=== PATIENT | male | born 1955 | race Caucasian/White ===

== ENCOUNTER 2016-08-14 13:39 | Inpatient (IN) | payer MEDICARE ==
[~2016-08-14] VITALS: Ht 172.7 cm; Wt 74.0 kg
[2016-08-14] VITALS (12 sets, daily range): BP systolic 72–2021; BP diastolic 45–81
--- NOTE | ~2016-08-14 | EKG ---
[place], [place] ELECTROCARDIOGRAM REPORT NAME: JAMAL HIDALGO UNIT #: [id number] [facility] DOCTOR: DAKOTA LEO MD BIRTHDATE: [birth year] DOS: 08/14/2016 TIME: 1452. FINDINGS: Normal sinus rhythm at rate of 84. Old inferior wall myocardial infarction, poor precordial R wave progression, nonspecific T wave abnormality. Abnormal electrocardiogram. DAKOTA LEO MD CM:EKGRPT:ELECTROCARDIOGRAM REPORT 1139 1306 DAKOTA LEO MD
--- NOTE | ~2016-08-14 | O ---
[place], [place] OPERATIVE NOTE NAME: [facility]IDALGO [id number] UNIT #: [id number] ROOM: [facility] DOCTOR: KRYSTLE BRUNER,IRENE BIRTHDATE: [birth year] DOS: A 61-year-old patient who was presented with chief complaint of abnormal blood work, lactic acidosis initially, subsequently lactic acid has been reduced, suspected inflammatory response in the colon, constipation. PROCEDURE: Today's procedure part of investigation is colonoscopy. PREMEDICATION: Versed and Diprivan. SCOPE: Olympus forward-viewing colonoscope 10L video. REPORT: After putting the patient in left lateral position and after application of lubricant to the scope, the scope was introduced. Thereafter, under direct visualization, I advanced through the length of colon with difficulty. Difficulty being presence of solid stool throughout the length of colon. Base of cecum could not be explored due to retained stool. Numerous lavage was done which was fruitless in detailed assessment. The patient extubated and tolerated the procedure well. IMPRESSION: Retained stool otherwise, no detailed assessment of the colon. PLAN AND DISCUSSION: This patient at the present time has had enough colonic prep; we are going to continue with daily MiraLax. He was going to get solid food and clinical reassessment. He is okay for discharge on Thursday. IRENE DALTON MD CM:OPRECORD:OPERATIVE NOTE 1604 50 IRENE DALTON MD 08/15/161850 interface
--- NOTE | ~2016-08-14 | CON ---
[place], [place] REPORT OF CONSULTATION NAME: [facility]IDALGO [id number] UNIT #: [id number] ROOM: [facility] DOCTOR: ELLIE RODRIGUEZ MD BIRTHDATE: [birth year] DOS: 08/16/2016 REASON FOR CONSULTATION: Acute kidney injury. HISTORY OF PRESENT ILLNESS: The patient is a 61-year-old male. He presented to the hospital a few days ago with the abdominal discomfort. Apparently, his initial lactic acid level is 5.1. The patient did complain of constipation and he had imaging studies performed due to concerns for an ischemic bowel. He underwent colonoscopy eventually and was found to have retained stools. The patient has experienced transient hypotension it seems and he did receive a CT scan with IV contrast. It appears following these events, he has developed acute kidney injury. His creatinine today was noted to be 1.9 with some decline in his urine output. He has received a number of liters of fluids since he has been in the hospital. He was awake and alert when I saw him and denied shortness of breath. He was wearing nasal cannula at 4 L. He stated that he does wear it sometimes at night time. He denied any chest pain, fevers, chills or night sweats. He did have a Patiño catheter in place. 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 His true baseline creatinine is not quite clear. Last labs, I did note was from 2011, which showed a creatinine of 0.8. ALLERGIES: No known drug allergies. HOME MEDICATIONS: Included multivitamins, thiamine. Remainder of his medications were reviewed and were on the chart. PAST MEDICAL HISTORY: Alcohol abuse, CHF, COPD, dementia, hypertension, anemia, pressure ulcer, subclavian steal syndrome, right knee surgery. It seems he had a vascular procedure, some sort of the iliac arteries, hip surgery. FAMILY HISTORY: From what I can gather no reported history of chronic kidney disease, otherwise, noncontributory. SOCIAL HISTORY: He does have history of alcohol abuse and apparently quit last November, he does use marijuana and does smoke. REVIEW OF SYSTEMS: As per HPI, otherwise a 10-point review of systems was reviewed and was negative or somewhat limited. PHYSICAL EXAMINATION: VITAL SIGNS: Temperature afebrile, pulse 97, respiratory rate 13, blood pressure 105/70. GENERAL: He is lethargic, but arousable, awake, does follow commands, in no apparent distress. HEENT: Shows no JVD. Sclerae are anicteric. Mucous membranes appeared somewhat dry. Pharynx is clear. NECK: Supple. Trachea is midline. There is no neck lymphadenopathy. There is no thyromegaly. LUNGS: Diminished breath sounds. No appreciable wheeze. He is not using accessory muscles of respiration. [place], [place] REPORT OF CONSULTATION NAME: JAMAL HIDALGO UNIT #: [id number] ROOM: [facility] DOCTOR: ELLIE RODRIGUEZ MD BIRTHDATE: [birth year] HEART: Normal S1, S2. No rub, thrill or gallop. ABDOMEN: Soft, mildly distended. I could not appreciate organomegaly. There is no rigidity, rebound or guarding. There is no CVA tenderness. EXTREMITIES: Showed trace edema. There is no lower extremity lymphadenopathy. Distal pulses are 2+. SKIN: Showed no overt rash. There is no petechiae or purpura. Skin temperature is warmth. NEUROLOGIC: He was awake, alert and following commands, although he was lethargic and likely not at his baseline, but his baseline mental status is not clear. LABORATORY DATA: Hemoglobin 8.2, white count of 15.4, platelets of 304. BUN 35, creatinine 1.9, sodium 137, potassium 3.5, CO2 24, calcium 7.3, albumin of 2.3. IMPRESSION: 1. Acute kidney injury with an unclear true baseline creatinine. The etiology seems consistent with a prerenal/acute tubular necrosis like picture, likely related to transient ischemia as well as likely an element of contrast-induced nephropathy. 2. Abdominal pain/constipation. 3. Lactic acidosis, which may have been transient. The patient does not appear to have a metabolic acidosis presently. 4. Anemia. 5. Apparent history of alcohol abuse. 6. Questionable confusion with the questionable history of dementia. 7. Chronic obstructive pulmonary disease with tobacco abuse. PLAN: 1. Fluids should continue, however, will decrease the rate to 60 mL per hour. 2. Dose the medications for creatinine clearance. 3. Replace electrolytes as needed. 4. Avoid hypotension. 5. Transfuse as needed. 6. Consider rechecking the lactic acid level. 7. No urgent need for dialysis at this time. Thank you for this consultation. We will follow with you. [place], [place] REPORT OF CONSULTATION NAME: JAMAL HIDALGO UNIT #: [id number] ROOM: [facility] DOCTOR: JENNIFER BRUNER,ELLIE Martinez BIRTHDATE: [birth year] ELLIE RODRIGUEZ MD CM:CONSTR:REPORT OF CONSULTATION 1612 08/17/16 0938 interface
--- NOTE | ~2016-08-14 | PR ---
[place], [place] PROGRESS NOTE NAME: JAMAL HIDALGO UNIT #: [id number] ROOM: [facility] DOCTOR: ELLIE RODRIGUEZ MD BIRTHDATE: [birth year] DOS: 08/17/2016 SUBJECTIVE: The patient was seen and examined. Events were noted. He is now intubated on pressors. His urine output has been marginal. PHYSICAL EXAMINATION: VITAL SIGNS: Showed a temperature 97.8, pulse 82, respirations 14, systolic blood pressures were in the 100s. GENERAL: He is intubated, critically ill, sedated. HEENT: Shows no JVD. Endotracheal tube in place. LUNGS: Diminished breath sounds. No wheeze. HEART: Normal S1, S2. No rub, thrill or gallop. ABDOMEN: Soft, nontender, mild palpation. EXTREMITIES: With trace edema. LABORATORY DATA: Hemoglobin 9.4, white count of 14.2, platelets of 318. Sodium 132, potassium 4.0, CO2 of 16, BUN 46, creatinine 2.5. Glucose 107, calcium 6.9, magnesium 1.5, albumin of 1.8. IMPRESSION: 1. Acute kidney injury with an unclear true baseline creatinine. Etiology seems consistent with a prerenal/acute tubular necrosis like picture. There is also likely an element of contrast-induced nephropathy. The patient's creatinine continues to rise with marginal urine output. Fluid can continue for now. He will need a close watch and may require dialysis. It seems his JOSEPHINE inhibitor and thiazide are still listed on his medication list. We will discontinue this, especially now that he is on pressors. 2. Metabolic acidosis. The patient originally presented with lactic acidosis. This needs to be rechecked. We will change fluids to a bicarbonate infusion. Follow ABGs and lactic acid trends. 3. Respiratory failure. He is now on vent support. 4. Anemia. Transfuse as needed. 5. History of alcohol abuse. Continue supportive care. 6. Shock. He is now on pressors. 7. There are plans for the patient to be transferred to a tertiary care center. [place], [place] PROGRESS NOTE NAME: JAMAL HIDALGO UNIT #: [id number] ROOM: [facility] DOCTOR: ELLIE RODRIGUEZ MD BIRTHDATE: [birth year] ELLIE RODRIGUEZ MD CM:PNTRANS 1432 3 ELLIE RODRIGUEZ MD 08/18/16 0444 interface
--- NOTE | ~2016-08-14 | CON ---
[place], [place] REPORT OF CONSULTATION NAME: JAMAL HIDALGO [facility] #: [id number] UNIT #: [id number] ROOM: [facility] DOCTOR: IRENE DALTON MD BIRTHDATE: [birth year] DOS: 08/15/2016 HISTORY OF PRESENT ILLNESS: The patient is a 61-year-old who has presented with chief complaint of abdominal pain, lactic acidosis to 5.1. Chest x-ray was normal in the basic investigation. The patient has been complaining of constipation, not going to the bathroom for 5 days at a time. Therefore, I have been consulted. At the time of admission, a panel of blood work was done. Creatinine was 1.7 and hyponatremic at 129. Electrolytes were balanced. CBC differential, white blood cells 16, H and H of [address] scan of the abdomen and pelvis was done. Compression of L3, L4, S1 was noticed. Otherwise, no acute process was identified. Urinalysis was clear. Urine drug screening was only positive for THC, lipase 85. CT scan with contrast was obtained of the abdomen. Bowel wall thickening of transverse colon seen and there was concern about the above. Hemoglobin A1c 5.5. CBC differential was reassessed. Leukocytosis continued and therefore consultation to GI. PAST MEDICAL HISTORY: Associated congestive heart failure, COPD, and hypertension. SOCIAL HISTORY: Chronic alcohol and nicotine dependency. FAMILY HISTORY: Noncontributory. ALLERGIES: To no known medications. MEDICATIONS: Medication list has been reviewed. The patient has been on clopidogrel. REVIEW OF SYSTEMS: HEENT: Denies double vision, blurred vision. RESPIRATORY: Denies acute shortness of breath; however, chronically short of breath. CARDIOVASCULAR: Denies chest pain. DIGESTIVE SYSTEM: No hematemesis, no hematochezia. Some blood in the stool. PHYSICAL EXAMINATION: VITAL SIGNS: Stable. HEENT: Head normocephalic, nontraumatic. Mouth and buccal mucosa benign. NECK: Supple, no thyromegaly. CHEST: Symmetric anatomy, equal expansion. No wheezes, no rhonchi. HEART: Normal sinus rhythm. No gallop, no murmur. ABDOMEN: Soft. No hepato-organomegaly. Bowel sounds within normal limits. EXTREMITIES: Some stasis dermatitis was noticed. Trace pedal edema on the right leg. NEUROLOGIC: Alert, oriented to time, place, person. IMPRESSION: Constipation, change in bowel habit, abdominal pain, abnormal CT scan of the abdomen, thickening of colon as identified in detail on CT scan, leukocytosis. [place], [place] REPORT OF CONSULTATION NAME: JAMAL HIDALGO UNIT #: [id number] ROOM: [facility] DOCTOR: IRENE DALTON MD BIRTHDATE: [birth year] OTHER ADJUNCTIVE DIAGNOSES: As outlined in the paragraph of past medical and surgical history. PLAN AND DISCUSSION: Colonoscopy has been organized. IRENE DALTON MD CM:CONSTR:REPORT OF CONSULTATION 1540 08/16/16 0745 interface
[~2016-08-14 13:39] MED LIST: ADVAIR 250/501 EA INH; ALBUTEROL; ALUM-MAG HYDRO360 ML PO; AMBIEN10 MG PO; APAP/HYDROCODON1 T46 PO; B-1100 M1 PO; BACTRIM 400 MG-1 TAB PO; BACTRIM DS 8001 TA1 PO; BACTRIM DS 8001 TAB PO; BACTROBAN22 TP; CARTIA XT240 MG PO; CHLORDIAZEPOXID25 M1 PO; CIPRO500 MG PO; DELTASONE10 MG PO; DELTASONE20 M1 PO; DELTASONE20 MG PO; DELTASONE5 MG PO; DILTIAZEM CD240 MG PO; DOXYCYCLINE MO100 MG PO; DULCOLAX10 M1 RC; DUONEB 3 MG/3 ML3 M1 NEB; FEOSOL300 MG PO; FERROUS SULFAT324 M1 PO; FLONASE0.05 MG/AC NS; FOLIC ACID1 MG PO; FOSAMAX70 MG; FOSAMAX70 MG PO; FUROSEMIDE40 MG PO; HEPARIN IV; KEFLEX500 MG PO; KROGER NIC21 MG/24 H T; LASIX20 MG PO; LEVOFLOXACIN500 MG PO; LEVOFLOXACIN750 M2 PO; LIBRIUM25 MG PO; LISINOPRIL; LISINOPRIL20 MG PO; Lovenox40 MG/0.4 SC; MEDROL DOSEPAK4 MG PO; METOPROLOL TART50 M1 PO; MILK OF MA400 MG/51 PO; MIRAPEX0.5 MG PO; MIRAPEX1 MG PO; MUCINEX ER600 MG PO; MUCINEX600 MG PO; MYLANTA PO; NAPROSYN375 MG PO; NATURE'S BLEND F1 MG PO; NATURE'S BLEND100 M2 PO; NEIGHBOR P PO; NICOTINE T21 MG/24 H T; NORVASC10 MG PO; NOVAPLUS LORA2 MG/ML IV; PERCOCET 325 MG1 TA7 PO; PLAVIX75 MG PO; PREDNISONE10 MG PO; PREDNISONE5 MG PO; PROAIR HFA0.09 MG/AC IH; PROTONIX40 MG PO; REQUIP0.5 MG PO; SYMBICORT1 AE1 IH; SYMBICORT1 AE1 INH; SYMBICORT1 AER INH; THERA TABS1 TAB PO; THERA1 TAB PO; THIAMINE100 MG PO; TRAMADOL HCL50 MG PO; TYLENOL325 M1 PO; ULTRAM100 MG PO; VIBRA-TAB100 M1 PO; VIBRAMYCIN100 MG PO; VITAMIN B-11 TAB PO; VITAMIN D PO; Ventolin 02.5 MG/3 M INH; XANAX1 MG PO; ZESTRIL20 MG PO; ZOFRAN ODT4 MG SL; ZYVOX600 M1 IV; [UNRECOGNIZED DRUG - OTHER] IV
[2016-08-14 14:35] LABS: HEMATOCRIT 37.6 % (42.0-52.0); HEMOGLOBIN 11.7 g/dl (14.0-18.0); MEAN CELL VOLUME 81.7 fl (80.0-94.0); MEAN CORPUSCULAR HGB 25.4 pg (27.0-31.0); MEAN CORPUSCULAR HGB CONC 31.1 g/dl (33.0-37.0); MEAN PLATELET VOLUME 8.9 fl (9.6-12.3); PLATELET COUNT AUTOMATED 460 10*3/uL (130-400); RED CELL DISTRI WIDTH 18.5 % (0-14.5); WHITE BLOOD COUNT 16.3 10*3/uL (4.8-10.8)
[2016-08-14 14:50] LABS: ALBUMIN 3.3 gm/dl (3.1-4.5); ALKALINE PHOSPHATASE 317 U/L (45-117); BILIRUBIN, TOTAL 0.6 mg/dl (0.2-1.0); BUN 20 mg/dl (7-24); CARBON DIOXIDE 27 mmol/L (21-32); CHLORIDE 87 mmol/L (98-107); EST GLOM FILT AFRICAN AMERICAN > 60 ml/min; GLUCOSE 99 mg/dL (65-99); POTASSIUM 3.8 mmol/L (3.5-5.1); SGOT/AST 16 IU/L (3-35); SGPT/ALT 12 U/L (12-78); SODIUM 129 mmol/L (136-145); TOTAL PROTEIN 6.7 gm/dL (6.4-8.2)
[2016-08-14 14:53] LABS: TROPONIN I < 0.015 ng/ml (<0.045)
[2016-08-14 15:09] LABS: LYMPHOCYTE # 0.8 10*3/uL (1.3-4.4); MONOCYTE # 0.2 10*3/uL (0.1-1.0); NEUTROPHIL # 15.3 10*3/uL (2.3-7.9); NEUTROPHILS 94 % (47-73); PLATELET SUFFICIENCY HIGH (NORMAL); POLYCHROMASIA SLIGHT; TOTAL CELLS COUNTED 100 #CELLS
[2016-08-14 15:10] LABS: BURR CELLS FEW; HYPOCHROMIA SLIGHT
[2016-08-14 16:06] LABS: BILIRUBIN NEGATIVE (NEGATIVE); BLOOD NEGATIVE (NEGATIVE); CLARITY CLEAR (CLEAR); COLOR YELLOW (YELLOW); GLUCOSE NEGATIVE (NEGATIVE); KETONE NEGATIVE (NEGATIVE); LEUKO ESTERASE NEGATIVE (NEGATIVE); NITRITE NEGATIVE (NEGATIVE); PROTEIN NEGATIVE (NEGATIVE); SPECIFIC GRAVITY <= 1.005 (1.005-1.030); UROBILINOGEN 0.2 E.U./dl (0.2-1.0)
[2016-08-14 16:14] LABS: RBC 0-2 rbc/hpf (0-2); URINE REFLEX COMMENT NO (NO)
[2016-08-14 16:31] LABS: LA>2 REFLEX 2 HR DRAW NOW
[2016-08-14 16:42] LABS: URINE AMPHETAMINES < 1000 (1000ng/ml); URINE BARBITURATES < 200 (200ng/ml); URINE COCAINE < 300 (300ng/ml)
[2016-08-14 18:12] LABS: CKMB 1.2 ng/ml (0.5-3.6); CPK 27 U/L (39-308)
[2016-08-14 18:14] LABS: TROPONIN I < 0.015 ng/ml (<0.045)
[2016-08-14] MEDS ORDERED: PLAVIX75 M1 PO (18:43)
[2016-08-14] MEDS ORDERED: MEDROL DOSEPAK4 MG PO (18:45)
[2016-08-14] MEDS ORDERED: MELOXICAM7.5 MG PO (18:46)
[2016-08-14] MEDS ORDERED: IBU800 M1 PO (18:47)
[2016-08-14] MEDS ORDERED: CYCLOBENZAPRINE10 MG PO (18:48)
[2016-08-14] MEDS ORDERED: ULTRAM50 MG PO (18:49)
[2016-08-14] MEDS ORDERED: ATORVASTATIN CA20 M1 PO (18:50)
[2016-08-14] MEDS ORDERED: DILTIAZEM CD240 MG PO (18:50)
[2016-08-14] MEDS ORDERED: HYDR12.5C PO (18:51)
[2016-08-14] MEDS ORDERED: GABAPENTIN100 M2 PO (18:51)
[2016-08-14] MEDS ORDERED: HYDROCODONE BIT1 T11 PO (18:52)
[2016-08-14] MEDS ORDERED: VENTOLIN H0.09 MG/AC INH (18:53)
[2016-08-14] MEDS ORDERED: ZOLPIDEM5 MG PO (18:53)
[2016-08-14 20:17] LABS: BUN 21 mg/dl (7-24); CARBON DIOXIDE 31 mmol/L (21-32); CHLORIDE 90 mmol/L (98-107); EST GLOM FILT AFRICAN AMERICAN > 60 ml/min; GLUCOSE 119 mg/dL (65-99); POTASSIUM 3.9 mmol/L (3.5-5.1); SODIUM 130 mmol/L (136-145)
[2016-08-15] VITALS (9 sets, daily range): BP systolic 82–137; BP diastolic 40–53
[2016-08-15 00:51] LABS: CKMB 0.6 ng/ml (0.5-3.6); CPK 22 U/L (39-308)
[2016-08-15 00:55] LABS: TROPONIN I < 0.015 ng/ml (<0.045)
[2016-08-15 06:25] LABS: HEMATOCRIT 32.1 % (42.0-52.0); HEMOGLOBIN 9.8 g/dl (14.0-18.0); MEAN CELL VOLUME 83.4 fl (80.0-94.0); MEAN CORPUSCULAR HGB 25.5 pg (27.0-31.0); MEAN CORPUSCULAR HGB CONC 30.5 g/dl (33.0-37.0); MEAN PLATELET VOLUME 8.2 fl (9.6-12.3); PLATELET COUNT AUTOMATED 323 10*3/uL (130-400); RED BLOOD COUNT 3.85 10*6/uL (4.50-5.90); RED CELL DISTRI WIDTH 18.6 % (0-14.5); WHITE BLOOD COUNT 18.6 10*3/uL (4.8-10.8)
[2016-08-15 06:34] LABS: CPK 21 U/L (39-308)
[2016-08-15 06:39] LABS: CKMB < 0.5 ng/ml (0.5-3.6); TROPONIN I < 0.015 ng/ml (<0.045)
[2016-08-15 06:54] LABS: ALBUMIN 2.5 gm/dl (3.1-4.5); ALKALINE PHOSPHATASE 162 U/L (45-117); BILIRUBIN, TOTAL 0.4 mg/dl (0.2-1.0); BUN 24 mg/dl (7-24); CARBON DIOXIDE 31 mmol/L (21-32); CHLORIDE 94 mmol/L (98-107); CHOLESTEROL 105 mg/dL (<200); EST GLOM FILT AFRICAN AMERICAN > 60 ml/min; GLUCOSE 114 mg/dL (65-99); HDL CHOLESTEROL 62 mg/dl (40-60); LDL CHOLESTEROL 35 mg/dL (9-159); MAGNESIUM 1.6 mg/dL (1.5-2.1); PHOSPHOROUS 6.9 mg/dL (2.5-4.9); POTASSIUM 3.8 mmol/L (3.5-5.1); SGOT/AST 13 IU/L (3-35); SGPT/ALT 10 U/L (12-78); SODIUM 133 mmol/L (136-145); TOTAL PROTEIN 5.6 gm/dL (6.4-8.2); TRIGLYCERIDES 40 mg/dl (<150); VLDL CHOLESTEROL 8 mg/dL (6-40)
[2016-08-15 07:18] LABS: MONOCYTE # 0.2 10*3/uL (0.1-1.0); NEUTROPHIL # 18.4 10*3/uL (2.3-7.9); NEUTROPHILS 99 % (47-73); OVALOCYTES FEW; PLATELET SUFFICIENCY NORMAL (NORMAL); SCHISTOCYTES FEW; SPHEROCYTES RARE; TOTAL CELLS COUNTED 100 #CELLS
[2016-08-15 07:19] LABS: HEMOGLOBIN A1c 5.5 % (4.8-5.6)
[2016-08-15 09:19] LABS: VITAMIN D, 25-HYDROXY 36.9 ng/mL (30-100)
[2016-08-15 09:23] LABS: FOLIC ACID > 24.00 ng/mL (>5.38)
[2016-08-16] VITALS (13 sets, daily range): BP systolic 70–151; BP diastolic 0–72
[2016-08-16 06:08] LABS: HEMATOCRIT 28.2 % (42.0-52.0); HEMOGLOBIN 8.2 g/dl (14.0-18.0); MEAN CELL VOLUME 85.7 fl (80.0-94.0); MEAN CORPUSCULAR HGB 24.9 pg (27.0-31.0); MEAN CORPUSCULAR HGB CONC 29.1 g/dl (33.0-37.0); PLATELET COUNT AUTOMATED 304 10*3/uL (130-400); RED BLOOD COUNT 3.29 10*6/uL (4.50-5.90); WHITE BLOOD COUNT 15.4 10*3/uL (4.8-10.8)
[2016-08-16 06:12] LABS: ALBUMIN 2.3 gm/dl (3.1-4.5); BILIRUBIN, TOTAL 0.3 mg/dl (0.2-1.0); FREE T4 1.03 ng/dl (0.76-1.46); POTASSIUM 3.5 mmol/L (3.5-5.1); TOTAL PROTEIN 5.3 gm/dL (6.4-8.2)
[2016-08-16 07:32] LABS: BURR CELLS FEW; LYMPHOCYTE # 0.6 10*3/uL (1.3-4.4); METAMYELOCYTES 2 % (0-0); MONOCYTE # 0.5 10*3/uL (0.1-1.0); MYELOCYTES 1 % (0-0); NEUTROPHIL # 13.9 10*3/uL (2.3-7.9); NEUTROPHILS 90 % (47-73); PLATELET SUFFICIENCY NORMAL (NORMAL); POLYCHROMASIA SLIGHT; SCHISTOCYTES FEW; TOTAL CELLS COUNTED 100 #CELLS
[2016-08-17] VITALS (56 sets, daily range): BP systolic 101–141; BP diastolic 41–57
[2016-08-17] MEDS ORDERED: PROMETHAZINE25 M1 PO (05:53)
[2016-08-17 08:35] LABS: ABG CO2 CONTENT 20.6 mmol/L (23-27); ABG HCO3 18.8 mmol/l (22-26); ABG TEMPERATURE 97.7 F (98.0-99.0); ARTERIAL BLOOD GAS PO2 65.3 mmHg (80-90)
[2016-08-17 08:38] LABS: ABG BASE EXCESS -9.3 mmol/L (-2.0-2.0); ARTERIAL BLOOD GAS PH 7.16 (7.35-7.45)
[2016-08-17 09:54] LABS: HEMOGLOBIN 9.4 g/dl (14.0-18.0); MEAN CELL VOLUME 82.7 fl (80.0-94.0); MEAN CORPUSCULAR HGB 25.1 pg (27.0-31.0); MEAN CORPUSCULAR HGB CONC 30.3 g/dl (33.0-37.0); MEAN PLATELET VOLUME 9.4 fl (9.6-12.3); PLATELET COUNT AUTOMATED 318 10*3/uL (130-400); RED BLOOD COUNT 3.75 10*6/uL (4.50-5.90); RED CELL DISTRI WIDTH 19.2 % (0-14.5); WHITE BLOOD COUNT 14.2 10*3/uL (4.8-10.8)
[2016-08-17 10:07] LABS: ALBUMIN 1.8 gm/dl (3.1-4.5); BILIRUBIN, TOTAL 0.5 mg/dl (0.2-1.0); MAGNESIUM 1.5 mg/dL (1.5-2.1); TOTAL PROTEIN 5.1 gm/dL (6.4-8.2)
[2016-08-17 10:14] LABS: TROPONIN I 0.096 ng/ml (<0.045)
[2016-08-17 11:16] LABS: BURR CELLS MODERATE; LYMPHOCYTE # 0.7 10*3/uL (1.3-4.4); METAMYELOCYTES 3 % (0-0); MONOCYTE # 0.7 10*3/uL (0.1-1.0); NEUTROPHIL # 12.4 10*3/uL (2.3-7.9); NEUTROPHILS 87 % (47-73); PLATELET SUFFICIENCY NORMAL (NORMAL); SCHISTOCYTES MODERATE; TOTAL CELLS COUNTED 100 #CELLS
== END 2016-08-17 15:32 | disposition short-term general hospital (02) | DRG 871 ==
LOC: ED 13:39 → ICCU 16:32 → EDHOLD 16:32 → 4E 17:07 → ICCU 19:02
PROVIDERS: Emergency Medicine; Family Medicine; Hospitalist; Internal Medicine; Internal Medicine Hospice and Palliative Medicine
PROC: 0DJD8ZZ Inspection of Lower Intestinal Tract, Via Natural or Artificial Opening Endoscopic (ICD-10-PCS; principal; 2016-08-15)
PROC: 0BH17EZ Insertion of Endotracheal Airway into Trachea, Via Natural or Artificial Opening (ICD-10-PCS; 2016-08-17)
PROC: 5A1935Z Respiratory Ventilation, Less than 24 Consecutive Hours (ICD-10-PCS; 2016-08-17)
DX: A41.9 Sepsis, unspecified organism (principal); N17.0 Acute kidney failure with tubular necrosis; J96.01 Acute respiratory failure with hypoxia; R65.21 Severe sepsis with septic shock; J18.9 Pneumonia, unspecified organism; K55.9 Vascular disorder of intestine, unspecified; I11.0 Hypertensive heart disease with heart failure; E44.0 Moderate protein-calorie malnutrition; I50.32 Chronic diastolic (congestive) heart failure; E87.1 Hypo-osmolality and hyponatremia; G45.8 Other transient cerebral ischemic attacks and related syndromes; J98.11 Atelectasis; D64.9 Anemia, unspecified; L89.151 Pressure ulcer of sacral region, stage 1; K59.00 Constipation, unspecified; J43.9 Emphysema, unspecified; F03.90 Unspecified dementia, unspecified severity, without behavioral disturbance, psychotic disturbance, mood disturbance, and anxiety; D47.3 Essential (hemorrhagic) thrombocythemia; R73.9 Hyperglycemia, unspecified; F12.10 Cannabis abuse, uncomplicated; I73.9 Peripheral vascular disease, unspecified; F17.210 Nicotine dependence, cigarettes, uncomplicated; Z82.49 Family history of ischemic heart disease and other diseases of the circulatory system; Z82.5 Family history of asthma and other chronic lower respiratory diseases; Z68.24 Body mass index [BMI] 24.0-24.9, adult; Z79.1 Long term (current) use of non-steroidal anti-inflammatories (NSAID); Z79.899 Other long term (current) drug therapy; Z79.51 Long term (current) use of inhaled steroids

== ENCOUNTER → 2017-03-20 | Day surgery (SDC) | payer MEDICARE ==
[~2017-03-20] VITALS: Ht 172.7 cm; Wt 65.8 kg
[~2017-03-20] MED LIST changes: +ASCORBIC ACID500 M2 PO; +ATORVASTATIN CA20 M1 PO; +CALCIUM500 M1 PO; +COMBIVENT RESPIM4 GM INH; +CYCLOBENZAPRINE10 MG PO; +CYMBALTA60 MG PO; +GABAPENTIN100 M2 PO; +HYDR12.5C PO; +HYDROCODONE BIT1 T11 PO; +IBU800 M1 PO; +LASIX40 MG PO; +MELOXICAM7.5 MG PO; +OXYCODONE HCL10 M1 PO; +PLAVIX75 M1 PO; +PREVACID15 M1 PO; +PROMETHAZINE25 M1 PO; +ROPINIROLE HYD0.5 MG PO; +TRAZODONE50 MG PO; +ULTRAM50 MG PO; +VENTOLIN H0.09 MG/AC INH; +VITAMIN D-32000 UNI1 PO; +ZINC50 M3 PO; +ZOLPIDEM5 MG PO
--- NOTE | ~2017-03-20 | O ---
[place], [place] OPERATIVE NOTE NAME: [id number] UNIT #: [id number] ROOM: DOCTOR: IRENE DALTON MD BIRTHDATE: [birth year] DOS: 03/20/2017 GASTROENDOSCOPIC REPORT. INDICATIONS: The patient has presented with chief complaint of anemia, upper GI tract has been assessed report as above. The patient on Plavix and Eliquis, so far suspected to have upper GI is the source of GI bleed. However, today's procedure part of investigation is colonoscopy. PREMEDICATION: Versed and Diprivan. SCOPE: Olympus folding colonoscope 10L video. REPORT: After putting the patient in left lateral position and application of lubricant to the rectal pouch and digital examination, scope was introduced. Under direct visualization, advanced through the length of colon without difficulty. Colon mucosa and vascularity carefully examined. Severe angulation of sigmoid, hepatic and splenic flexure was noticed. However, base of cecum explored, appendiceal was identified. Ileocecal valve was defined. Scattered diverticulosis of mild degree was seen. The patient extubated, tolerated procedure well. IMPRESSION: Severe redundancy and tortuosity of colon, diverticulosis. PLAN AND DISCUSSION: Continuation with management of upper GI tract and clinical reassessment. Thank you very much indeed for your kind referral. IRENE DALTON MD CM:OPRECORD:OPERATIVE NOTE 1454 1525 IRENE DALTON MD 03/20/17 1525 interface
--- NOTE | ~2017-03-20 | O ---
[place], [place] OPERATIVE NOTE NAME: JAMAL HIDALGO [place] UNIT #: [id number] ROOM: DOCTOR: IRENE DALTON MD BIRTHDATE: [birth year] DOS: 03/20/2017 HISTORY OF PRESENT ILLNESS: This is a 61-year-old patient who presented with chief complaint of anemia, undergoing investigation. ALLERGIES: No known medication. FAMILY HISTORY: Noncontributory. PAST MEDICAL HISTORY: Coronary artery disease, peripheral vascular disease, hypertension. PAST SURGICAL HISTORY: Peripheral vascular stent. Total right knee, left hip. SOCIAL HISTORY: The patient has been on Eliquis and Plavix. PROCEDURE: Today's procedure part of investigation is colonoscopy panendoscopy. PREMEDICATION: Versed and Diprivan. SCOPE: Olympus forward-viewing gastroscope Q10 video. REPORT: After putting the patient in left lateral position and application of lubricant to the scope, the scope was introduced. Thereafter, under direct visualization, advanced through the length of esophagus without difficulty. Evidence of gastritis was noticed as we approached toward the antrum. Multiple antral erosions and some degraded blood in the stomach was identified. Duodenal bulb, second and third part within normal limits. The patient was gradually extubated and tolerated the procedure well. IMPRESSION: Gastritis, gastric erosions. PLAN AND DISCUSSION: We are going to continue with Prilosec 40 mg daily. We are going to discontinue Zinc 50 mg daily. He is on Plavix and Eliquis that plays a major role and facilitate further bleeding and we are going to stop his ascorbic acid by removing this items reducing the stimulation for further gastritis and gastric erosions. At this time, the patient is on prednisone as well 5 mg b.i.d. We are going to add one month of Carafate 1 gram before meals and at bedtime. Thank you very much indeed. [place], [place] OPERATIVE NOTE NAME: JAMAL HIDALGO UNIT #: [id number] ROOM: DOCTOR: IRENE DALTON MD BIRTHDATE: [birth year] IRENE DALTON MD CM:OPRECORD:OPERATIVE NOTE 1454 1522 IRENE DALTON MD 03/20/17 1522 interface
[2017-03-20 13:09] VITALS: BP 169/76
[2017-03-20 14:45] VITALS: BP 126/57
[2017-03-20 15:00] VITALS: BP 158/74
[2017-03-20 15:15] VITALS: BP 1545/60
== END | disposition home or self-care (01) ==
LOC: SDC 03-17 14:00
DX: K57.30 Diverticulosis of large intestine without perforation or abscess without bleeding (principal); K63.89 Other specified diseases of intestine; K29.50 Unspecified chronic gastritis without bleeding; I25.10 Atherosclerotic heart disease of native coronary artery without angina pectoris; I73.9 Peripheral vascular disease, unspecified; I10 Essential (primary) hypertension; Z98.890 Other specified postprocedural states; J44.9 Chronic obstructive pulmonary disease, unspecified; Z79.899 Other long term (current) drug therapy

== ENCOUNTER → 2017-06-11 | Outpatient (CLI) | payer MEDICARE | END | disposition home or self-care (01) | LOC: RAD 00:23 | DX: Z13.820 Encounter for screening for osteoporosis (principal); M81.0 Age-related osteoporosis without current pathological fracture ==

== ENCOUNTER → 2017-08-19 | Outpatient (CLI) | payer MEDICARE, MEDICAID | END | disposition home or self-care (01) | LOC: CT 01:09 | DX: R33.9 Retention of urine, unspecified (principal) ==

== ENCOUNTER 2018-01-19 09:02 | Inpatient (IN) | payer MEDICARE, MEDICAID ==
[~2018-01-19] VITALS: Ht 172.7 cm; Wt 94.0 kg
--- NOTE | ~2018-01-19 | PR ---
[place], [place] PROGRESS NOTE NAME[id number] UNIT #: [id number] ROOM: 428 DOCTOR: ABHIJEET GONZALEZ MD,THEA BIRTHDATE: [birth year] DOS: 01/23/2018 SUBJECTIVE: The patient noted and 20,000. He did not come to this time, resting on the bed without any symptoms of acute shortness of breath. The shortness of breath of the patient previous noted much better. There were no symptoms of coughing, wheezing, chest pain. Continue intravenous antibiotic for the ESBL species out urinary tract infection with SUBJECTIVE: The patient is noted comfortable at this time, resting on the bed without any symptoms of acute shortness of breath. The shortness of breath of the patient from previous noted is much better. No symptoms of coughing, wheezing, chest pain. Continues on intravenous antibiotics for the ESBL species of the urinary tract infection with IV Zosyn. OBJECTIVE: VITAL SIGNS: Normal temperature, respiratory rate 18, heart rate 71, blood pressure 125/65. Pulse oxygen saturation of the patient noted on room air 93%. HEENT: Examination shows head was atraumatic. Eyes nonicterus. NECK: Supple. CARDIOVASCULAR: S1, S2 audible. LUNGS: Clear. ABDOMEN: Soft, nontender. EXTREMITIES: Without any acute edema. IMPRESSION: 1. The patient with acute urinary tract infection with shortness of breath, which is improving with ESBL species. 2. Chronic obstructive pulmonary disease remained stable with chronic hypoxic respiratory failure and other medical illnesses. PLAN OF MANAGEMENT: Continue antibiotic at this time. Monitor respiratory status. Continue other supportive therapy, plan of management, care plan of treatment. THEA JHA MD CM:PNTRANS 1510 8 THEA GONZALEZ MD 01/24/18428 interface
--- NOTE | ~2018-01-19 | PR ---
[place], [place] PROGRESS NOTE NAME: JAMAL HIDALGO UNIT #: [id number] ROOM: 428 DOCTOR: THEA COPELAND MD BIRTHDATE: [birth year] DOS: 01/21/2018 PULMONARY PROGRESS NOTE SUBJECTIVE: The patient was noted comfortable at this time without any shortness of breath, coughing, wheezing, or chest pain. Continue intravenous antibiotic and IV Zosyn for suspected urinary tract infection with ESBL producing species with E. coli. OBJECTIVE: VITAL SIGNS: Normal temperature, respiratory rate of 18, heart rate of 60, blood pressure of 139/50, and the pulse oxygen saturation recorded on 2 liters nasal cannula is 97% saturation. HEENT: Examination shows head was atraumatic. Eyes nonicterus. CARDIOVASCULAR SYSTEM: S1, S2 is audible. LUNGS: The patient was noted without any crackle, rhonchi, or wheezing. ABDOMEN: Soft, nontender. EXTREMITIES: Without any acute edema. LABORATORY DATA: CBC, WBC count is 20.1, hemoglobin is 10.9, hematocrit is 36.4, and platelet count was normal. Urine culture does show evidence of E. coli ESBL producing species. Sensitivity of Zosyn was noted. Normal BUN and creatinine, and sodium is 135 in the BMP. IMPRESSION: 1. Shortness of breath related to acute sepsis with urinary tract infection with Extended-spectrum beta-lactamases producing species. 2. Acute pyelonephritis secondary to Escherichia coli. PLAN OF MANAGEMENT: Continuation of the antibiotics at the present time as previously. Possible discharge planning could be started on intravenous antibiotics. Continue the IV Zosyn as a primary antibiotic to be continued at least for 10 days with repeat culture to be done in 2-3 days after completion of antibiotic to document the resolution of the current infection. The antibiotic could be extended if infection remains persistent for later on. [place], [place] PROGRESS NOTE NAME: JAMAL HIDALGO [place] UNIT #: [id number] ROOM: 428 DOCTOR: THEA COPELAND MD BIRTHDATE: [birth year] THEA JHA MD CM:PNTRANS 1325 0023 THEA GONZALEZ MD 01/22/18 0024 interface
--- NOTE | ~2018-01-19 | EKG ---
[place], [place] ELECTROCARDIOGRAM REPORT NAME: JAMAL HIDALGO UNIT #: [id number] ROOM: 406 DOCTOR: TOMASA DRAFT REPORT BIRTHDATE: [birth year] [facility] Test Date: 2018-01-19 Test Time: 09:37:18 Pat Name: JAMAL HIDALGO Department: Room: 406 Gender: M Rn Postpartum: Sandie Abreu : 1955 Requested By: ALEXANDRIA UMANZOR DNP Order Number: [id number] Reading MD: Barry Hoskins MD Measurements Intervals C[place]ian Rate: 80 P: 22 CA: 192 QRS: -79 QRSD: 87 T: 79 QT: 353 QTc: 408 Interpretive Statements Sinus rhythm Inferior infarct, old Baseline wander in lead(s) V4 Compared to ECG 11/27/2017 04:34:45 Sinus tachycardia no longer present Myocardial infarct finding still present Electronically Signed On 01-19-2018 11:20:47 PDT by Barry Hoskins MD CM:EKGRPT:ELECTROCARDIOGRAM REPORT 0937 1120 ALEXANDRIA UMANZOR DNP EPIPHANY DRAFT REPORT ALEXANDRIA UMANZOR DNP
--- NOTE | ~2018-01-19 | PR ---
[place], [place] PROGRESS NOTE NAME: JAMAL HIDALGO UNIT #: [id number] ROOM: 428 DOCTOR: THEA COPELAND MD BIRTHDATE: [birth year] DOS: 01/25/2018 SUBJECTIVE: The patient noted comfortable at this time, resting in the bed without any acute distress. There were no symptoms of coughing, sputum expectoration, shortness of breath, receiving intravenous antibiotic for ESBL E. coli. The patient has not been reported any symptoms of chest pain or any hemoptysis. OBJECTIVE: VITAL SIGNS: For the patient which has been recorded showed the temperature noted normal, respiratory rate 20, heart rate 73, blood pressure 142/56. Pulse ox saturation on room air 93% saturation. HEAD, EYES, EARS, NOSE, AND THROAT: Examination shows head was atraumatic. Eyes nonicterus. NECK: Supple. CARDIOVASCULAR SYSTEM: S1, S2 is audible. LUNGS: Noted without any wheezing or crackles at the present time. ABDOMEN: Soft, nontender. Bowel sounds present. Abdomen is soft, nontender. Bowel sounds present. EXTREMITIES: No acute edema. LABORATORY DATA: BMP today, normal BUN and creatinine today. CBC, WBC count 12.9, hemoglobin of 12.5, platelet count was normal. IMPRESSION: 1. Stable respiratory status was noted at present time with chronic obstructive pulmonary disease. 2. Resolving Escherichia coli ESBL species with urinary tract infection. PLAN OF MANAGEMENT: No changes in the plan of care at this time. Continue current plan of management and care plan. Other therapy, plan of management. Usual care. All other supportive therapy, plan of management as in progress. Supportive care. [place], [place] PROGRESS NOTE NAME: JAMAL HIDALGO UNIT #: [id number] ROOM: 428 DOCTOR: THEA COPELAND MD BIRTHDATE: [birth year] THEA JHA MD CM:PNTRANS 0923 1054 THEA GONZALEZ MD 02/10/18 1624 interface
--- NOTE | ~2018-01-19 | CON ---
[place], [place] REPORT OF CONSULTATION [id number] UNIT #: [id number] ROOM: 428 DOCTOR: ABHIJEET GONZALEZ MDTHEA BIRTHDATE: [birth year] DOS: 01/20/2018 PULMONARY CONSULTATION EVALUATION AND MANAGEMENT CONSULTATION REQUESTED BY: Hospitalist service. REASON FOR CONSULTATION: For assessment of shortness of breath. HISTORY OF PRESENT ILLNESS: This is a 62-year-old white male patient known to me with past history of severe COPD and treated in the hospital. He has been admitted to the hospital previously and noted with isolation of ESBL E. coli and Staph aureus with acute tracheobronchitis and treated in 11/2017. The patient remains in a nursing facility, has been doing well reported by the patient without any symptoms of coughing. He has developed symptoms of shortness breath at the nursing facility, which has been noted progressive. He was also reported with symptoms of fever that occur associated with chills. He denies any symptoms of wheezing. The patient has been brought to the hospital. He has been suspected with the diagnosis of urinary tract infection, which has been previously treated with Macrobid. He has a CT scan of the abdomen and pelvis done for this patient that was reported with finding of pyelonephritis. The patient has been started currently on intravenous Zosyn. The temperature elevation Emergency Room noted at 102 degrees Fahrenheit. This morning of assessment, he has been reported reduction of shortness breath, but not noted completely resolved. There are no symptoms of coughing, wheezing, chest pain, or hemoptysis reported by the patient. REVIEW OF SYSTEMS: CONSTITUTIONAL: Fatigue and tiredness noted without any symptoms of fever or chills. EYES: Denies any burning, redness, or tenderness. EARS, NOSE, THROAT SYMPTOMS: Denies sore throat, hoarseness, otalgia, postnasal drainage or epistaxis. CARDIOVASCULAR: Denies anginal pain, edema, or pain of the lower extremities. GASTROINTESTINAL: Denies dysphagia, nausea, vomiting, diarrhea, abdominal pain, hematemesis, melena, or hematochezia. GENITOURINARY: No dysuria was reported. There were no hematuria, suprapubic pain or flank pain reported by the patient. MUSCULOSKELETAL: No joint pain, redness, or tenderness. SKIN: Denies abnormal lesions or rashes. CENTRAL NERVOUS SYSTEM: The patient denies dizziness, headache, diplopia, or syncopal episodes. Remaining systems were reviewed, they were noted all negative. PAST MEDICAL HISTORY: Known with history of: 1. COPD. 2. Past ESBL tracheobronchitis with exacerbation of chronic obstructive pulmonary disease on last admission, acute chronic hypoxic respiratory failure. 3. Vitamin D deficiency. 4. Past history of alcohol dependence. Currently, the patient is staying in [place], [place] REPORT OF CONSULTATION NAME: JAMAL HIDALGO UNIT #: [id number] ROOM: [facility] DOCTOR: THEA COPELAND MD BIRTHDATE: [birth year] the nursing facility for a few months. 5. Previous history of marijuana use as well. 6. Hyperlipidemia. 7. Peripheral neuropathy. 8. Subclavian steal syndrome. 9. Peripheral vascular disease with the wound of the right foot, which has been treated. 10. Gastroesophageal reflux. PAST SURGICAL HISTORY: 1. Aortofemoral bypass grafting bilaterally. 2. Right knee arthroscopy. 3. Left hip replacement. 4. Therapeutic bronchoscopy in 11/2017. SOCIAL HISTORY: The patient is currently a [facility] of a [facility]. He has not been noted to have alcohol use noted. Previous use of alcohol and marijuana in the past. Tobacco use noted pulmonary younger age, a pack of cigarettes per day and not smoking cigarettes at the present time. FAMILY HISTORY: Reported for father of complication of coronary artery disease. Mother was known with history of COPD. CURRENT MEDICATIONS: Administered on this hospitalization were noted as use of calcitonin nasal spray, Colace, Cymbalta, calcium carbonate, Lasix, Plavix, thiamine, metoprolol tartrate, Eliquis 5 mg b.i.d., Solu-Medrol 40 mg b.i.d., Requip, gabapentin, atorvastatin, Cardizem, allopurinol, ferrous sulfate, DuoNeb, Pulmicort Respules, Carafate, IV Zosyn, and other p.r.n. medications administered as well. DRUG ALLERGY HISTORY: The patient was noted as no known drug allergies. PHYSICAL EXAMINATION: GENERAL: This is a 62-year-old white male patient who has been currently noted awake and alert without any acute distress. VITAL SIGNS: Height of 5 feet 8 inches, weight of 206 pounds, BMI 31.3. The patient was noted highest temperature 102.8 degrees Fahrenheit. Afebrile this morning, respiratory rate ranged between 16-20, heart rate ranging between 84-60, blood pressure 148/60-137-81. Pulse oxygen saturation the patient on 2 liter nasal cannula 94% saturation. HEENT: Chronic morbid obesity. Head was atraumatic. Eyes nonicterus. NECK: Supple. CARDIOVASCULAR: S1, S2 is audible. LUNGS: Noted clear of any wheezing or crackles. Breaths are noted mildly decreased. ABDOMEN: Soft. Bowel sounds present. There was no tenderness. EXTREMITIES: Noted without acute edema. MUSCULOSKELETAL: Without acute deformity. SKIN: Noted without any abnormal lesions or rashes. CENTRAL NERVOUS SYSTEM: General weakness was still noted. There were no focal [place], [place] REPORT OF CONSULTATION NAME: JAMAL HIDALGO UNIT #: [id number] ROOM: [facility] DOCTOR: THEA COPELAND MD BIRTHDATE: [birth year] deficits. LABORATORY DATA: Lactic acid yesterday noted 2.2, follow 1.3. PT/PTT was noted as normal. CBC done on 01/19/2018, WBC count 25.9, hemoglobin and hematocrit, platelet count were normal. CBC this morning, WBC count was elevated 29.1, hemoglobin 12.1, hematocrit normal. CMP that was done yesterday noted normal BUN and creatinine. Sodium 135, CO2 of 34. Urinalysis yesterday was noted as 2+ leukocyte esterase, positive nitrites, 4+ bacteria. Urine culture noted greater than 100,000 colony forming units of gram-negative bacilli. Final culture results were pending. Chest x-ray, one-view that was done yesterday in the Emergency Room noted without any acute abnormalities. CT scan of the abdomen and pelvis, which is lower portion of the thoracic portion does not show any acute pulmonary infiltration. The abdominal findings reported as mild nonspecific perinephric fat stranding bilaterally with possibility of pyelonephritis. There was no hydronephrosis. Remaining CT scan was otherwise noted as normal. There were no kidney stones were seen. IMPRESSION: 1. The patient currently admitted to the hospital noted symptoms of shortness of breath related to current acute sepsis related to urinary tract infection, gram-negative bacilli. Possibility of ESBL producing recurrent urinary tract infection, pyelonephritis were considered. 2. Previous history of nicotine abuse. 3. Chronic hypoxic respiratory failure, which has been stable as well. PLAN OF MANAGEMENT: At this time, the patient will be only given the bronchodilators and the Pulmicort Respules for usual medications used at home. The Solu-Medrol will be discontinued. Close monitoring to be continued. Continue anticoagulation for peripheral vascular disease. Other plan of management, care plan for the patient will be changed according to the need. Zosyn currently administered 3.375 grams for this patient every 6 hours will be changed to the continuous infusion to 4.5 grams for this patient to be given every 8 hours. The patient's assessment and management discussed with Hemalatha Montague, who is the current attending of this hospitalization today. THEA JHA MD CM:CONSTR:REPORT OF CONSULTATION 1231 02/03/18 0802 interface
--- NOTE | ~2018-01-19 | PR ---
[place], [place] PROGRESS NOTE [id number] UNIT #: [id number] ROOM: 428 DOCTOR: ABHIJEET GONZALEZ MD,THEA BIRTHDATE: [birth year] DOS: 01/25/2018 PULMONARY PROGRESS NOTE SUBJECTIVE: The patient noted comfortable at this time, resting on the bed. Denies symptoms of distress. The coughing has been noted absent. Shortness of breath has improved significantly. There were no symptoms of nausea or vomiting. Continue antibiotic with ESBL E. coli. OBJECTIVE: VITAL SIGNS: Normal temperature, respiratory rate 20, heart rate of 75, blood pressure 153/62, pulse oxygen saturation on room air 94% saturation at rest. HEENT: Examination shows head was atraumatic. Eyes nonicterus. NECK: Supple. CARDIOVASCULAR: S1, S2 is audible. LUNGS: Noted without any wheeze or crackles. ABDOMEN: Soft, nontender, bowel sounds present. EXTREMITIES: No acute edema. IMPRESSION: Stable respiratory status was noted at this time, improving shortness breath with current resolving urinary tract infection. History of chronic obstructive pulmonary disease and other medical illnesses. PLAN OF MANAGEMENT: No change in the plan of care. Continue current therapy, plan of management. The plan is to discharge the patient to care home facility for completion of antibiotics for urinary tract infection and continue medical management for other medical illnesses. Usual care. Supportive plan of therapy and care. THEA JHA MD CM:PNTRANS [id number] ROMINA GONZALEZ MD 01/26/18 1407 HARMEET MOSQUEDA.ROMINA
--- NOTE | ~2018-01-19 | PR ---
[place], [place] PROGRESS NOTE NAME: JAMAL HIDALGO UNIT #: [id number] ROOM: 428 DOCTOR: ABHIJEET GONZALEZ MD,THEA BIRTHDATE: [birth year] DOS: 01/22/2018 PULMONARY PROGRESS NOTE SUBJECTIVE: The patient is noted comfortable at this time, resting in the bed, was not noted with any ongoing acute respiratory complaints. He has been noted comfortable at this time, getting intravenous antibiotic for the ESBL E. coli urinary tract infection. OBJECTIVE: VITAL SIGNS: For the patient which were recorded showed normal temperature, respiratory rate 20, heart rate 75, blood pressure 140/62, pulse oxygen saturation was noted on 2 liters nasal cannula 100% saturation. HEENT: Head was atraumatic. Eyes nonicterus. NECK: Supple. CARDIOVASCULAR: S1, S2 is audible. LUNGS: Noted without any wheeze or crackles. ABDOMEN: Soft, nontender, bowel sounds present. EXTREMITIES: No edema. LABORATORY DATA: Culture of the urine noted with heavy growth of E. coli, which is ESBL species, which were noted sensitive to the IV antibiotic, which were administered. IMPRESSION: Urinary tract infection with extended spectrum beta-lactamase, stable chronic obstructive pulmonary disease without any acute exacerbation. PLAN OF MANAGEMENT: Continue antibiotic for the medical management of urinary tract infection, possible discharge to longterm facility for IV antibiotics. Other supportive therapy, plan of management, care plan and treatment plan of care. THEA JHA MD CM:PNTRANS [phone] THEA GONZALEZ MD 02/03/18 0803 interface
[2018-01-19 09:02] VITALS: BP 98/63
[~2018-01-19 09:02] MED LIST changes: +ACIDOPHILUS LA1 EACH PO; +BREO ELLIPTA 11 EACH INH; +CARAFATE1 G1 PO; +CEFUROXIME AXE250 MG PO; +COLACE100 MG PO; +CYMBALTA20 M1 PO; -CYMBALTA60 MG PO; +DILTIAZEM HCL30 MG PO; +DILTIAZEM HCL60 MG PO; +ELIQUIS5 M1 PO; +FERROUS SULFAT325 MG PO; +FLONASE ALLERG9.9 ML NAS; -GABAPENTIN100 M2 PO; +Lopressor25 MG PO; +MIACALCIN200 UNIT/1 NAS; +MIRALAX17 GM PO; +NEURONTIN300 MG PO; -OXYCODONE HCL10 M1 PO; +OXYCODONE5 M1 PO; +PAMELOR10 M1 PO; +VITAMIN C500 M8 PO; +VITAMIN D22000 UNIT PO; +ZYLOPRIM100 MG PO
[2018-01-19 09:23] VITALS: BP 92/56
[2018-01-19 09:47] LABS: HEMATOCRIT 44.4 % (42.0-52.0); HEMOGLOBIN 13.3 g/dl (14.0-18.0); MEAN CELL VOLUME 92.9 fl (80.0-94.0); MEAN CORPUSCULAR HGB 27.8 pg (27.0-31.0); MEAN PLATELET VOLUME 9.3 fl (9.6-12.3); PLATELET COUNT AUTOMATED 256 10*3/uL (130-400); RED BLOOD COUNT 4.78 10*6/uL (4.50-5.90); RED CELL DISTRI WIDTH 17.5 % (0-14.5); WHITE BLOOD COUNT 25.4 10*3/uL (4.8-10.8)
[2018-01-19 10:03] LABS: ACT PARTIAL THROMBO TIME 25.3 SECONDS (20.8-31.5)
[2018-01-19 10:08] LABS: ALBUMIN 3.3 gm/dl (3.1-4.5); ALKALINE PHOSPHATASE 91 U/L (45-117); BUN 13 mg/dl (7-24); CHLORIDE 96 mmol/L (98-107); CREATININE 0.79 mg/dL (0.70-1.30); LIPASE 69 U/L (73-393); POTASSIUM 4.7 mmol/L (3.5-5.1); SGOT/AST 31 IU/L (3-35); SGPT/ALT 41 U/L (12-78); SODIUM 135 mmol/L (136-145)
[2018-01-19 10:12] LABS: BASOPHILS 1 % (0-1); PLATELET SUFFICIENCY NORMAL (NORMAL); TOTAL CELLS COUNTED 100 #CELLS
[2018-01-19 10:13] LABS: TROPONIN I < 0.015 ng/ml (<0.045)
[2018-01-19] MEDS ORDERED: ZANTAC 300300 MG PO (10:14)
[2018-01-19 11:22] VITALS: BP 90/60
[2018-01-19 11:40] LABS: CLARITY CLOUDY (CLEAR); COLOR YELLOW (YELLOW)
[2018-01-19 11:41] LABS: BACTERIA 4+; BILIRUBIN NEGATIVE (NEGATIVE); BLOOD TRACE-INTACT (NEGATIVE); EPITHELIAL CELLS 0-2; GLUCOSE NEGATIVE (NEGATIVE); KETONE NEGATIVE (NEGATIVE); LEUKO ESTERASE 2+ (NEGATIVE); NITRITE POSITIVE (NEGATIVE); UROBILINOGEN 0.2 E.U./dl (0.2-1.0); WBC TNTC wbc/hpf (0-5)
[2018-01-19] MEDS ORDERED: PREDNISONE10 M1 PO (15:16)
[2018-01-19] MEDS ORDERED: OXYCODONE HCL5 M1 PO (15:26)
[2018-01-19 16:00] VITALS: BP 139/60
[2018-01-19 20:00] VITALS: BP 131/65
[2018-01-20] VITALS: BP 137/81
[2018-01-20 06:05] LABS: HEMOGLOBIN 12.1 g/dl (14.0-18.0); MEAN CELL VOLUME 93.4 fl (80.0-94.0); MEAN CORPUSCULAR HGB 27.6 pg (27.0-31.0); MEAN CORPUSCULAR HGB CONC 29.5 g/dl (33.0-37.0); MEAN PLATELET VOLUME 9.6 fl (9.6-12.3); PLATELET COUNT AUTOMATED 225 10*3/uL (130-400); RED BLOOD COUNT 4.39 10*6/uL (4.50-5.90); RED CELL DISTRI WIDTH 17.4 % (0-14.5); WHITE BLOOD COUNT 29.1 10*3/uL (4.8-10.8)
[2018-01-20 06:18] LABS: ALBUMIN 2.8 gm/dl (3.1-4.5); BUN 18 mg/dl (7-24); CHLORIDE 101 mmol/L (98-107); POTASSIUM 4.2 mmol/L (3.5-5.1); SGPT/ALT 49 U/L (12-78); SODIUM 138 mmol/L (136-145)
[2018-01-20 06:23] LABS: ALKALINE PHOSPHATASE 78 U/L (45-117); CREATININE 0.82 mg/dL (0.70-1.30); PHOSPHOROUS 4.1 mg/dL (2.5-4.9); SGOT/AST 34 IU/L (3-35); TOTAL PROTEIN 6.1 gm/dL (6.4-8.2)
[2018-01-20 06:58] LABS: ATYPICAL LYMPHS 1 % (0-0); TOTAL CELLS COUNTED 100 #CELLS
[2018-01-20 06:59] LABS: PLATELET SUFFICIENCY NORMAL (NORMAL); ROULEAUX SLIGHT; TOXIC GRANULATION SLIGHT
[2018-01-20 07:00] LABS: BURR CELLS FEW
[2018-01-20 08:15] VITALS: BP 148/68
[2018-01-20 12:00] VITALS: BP 156/59
[2018-01-20 15:54] VITALS: BP 149/46
[2018-01-20 20:00] VITALS: BP 147/46
[2018-01-21] VITALS: BP 139/53
[2018-01-21 06:23] LABS: HEMATOCRIT 36.4 % (42.0-52.0); HEMOGLOBIN 10.9 g/dl (14.0-18.0); MEAN CELL VOLUME 91.2 fl (80.0-94.0); MEAN CORPUSCULAR HGB 27.3 pg (27.0-31.0); MEAN CORPUSCULAR HGB CONC 29.9 g/dl (33.0-37.0); MEAN PLATELET VOLUME 9.5 fl (9.6-12.3); PLATELET COUNT AUTOMATED 223 10*3/uL (130-400); RED BLOOD COUNT 3.99 10*6/uL (4.50-5.90); RED CELL DISTRI WIDTH 17.1 % (0-14.5); WHITE BLOOD COUNT 20.1 10*3/uL (4.8-10.8)
[2018-01-21 06:34] LABS: ALBUMIN 2.7 gm/dl (3.1-4.5); BUN 23 mg/dl (7-24); CHLORIDE 98 mmol/L (98-107); CREATININE 0.77 mg/dL (0.70-1.30); POTASSIUM 3.8 mmol/L (3.5-5.1); SGOT/AST 20 IU/L (3-35); SGPT/ALT 39 U/L (12-78); SODIUM 135 mmol/L (136-145); TOTAL PROTEIN 5.8 gm/dL (6.4-8.2)
[2018-01-21 06:35] LABS: ALKALINE PHOSPHATASE 67 U/L (45-117)
[2018-01-21 07:31] LABS: TOTAL CELLS COUNTED 100 #CELLS
[2018-01-21 07:32] LABS: OVALOCYTES FEW; PLATELET SUFFICIENCY NORMAL (NORMAL); POLYCHROMASIA SLIGHT
[2018-01-21 08:00] VITALS: BP 147/50; BP 150/70
[2018-01-21 13:00] VITALS: BP 139/50
[2018-01-21 16:00] VITALS: BP 139/49
[2018-01-21 20:00] VITALS: BP 154/60
[2018-01-22] VITALS: BP 149/62
[2018-01-22 16:00] VITALS: BP 152/55
[2018-01-22 20:00] VITALS: BP 137/92
[2018-01-23] VITALS: BP 140/52
[2018-01-23 06:24] LABS: BUN 14 mg/dl (7-24); CHLORIDE 97 mmol/L (98-107); CREATININE 0.72 mg/dL (0.70-1.30); POTASSIUM 3.8 mmol/L (3.5-5.1); SGOT/AST 58 IU/L (3-35); SGPT/ALT 54 U/L (12-78); SODIUM 139 mmol/L (136-145); TOTAL PROTEIN 6.5 gm/dL (6.4-8.2)
[2018-01-23 06:31] LABS: ALKALINE PHOSPHATASE 83 U/L (45-117)
[2018-01-23 06:33] LABS: BASO % 0.1 % (0.0-1.0); EOS # 0.1 10*3/uL (0.0-0.4); HEMOGLOBIN 12.9 g/dl (14.0-18.0); LYMPH # 1.4 10*3/uL (1.3-4.4); LYMPH % 14.2 % (27.0-41.0); MEAN CELL VOLUME 92.6 fl (80.0-94.0); MEAN CORPUSCULAR HGB 27.9 pg (27.0-31.0); MEAN CORPUSCULAR HGB CONC 30.1 g/dl (33.0-37.0); MEAN PLATELET VOLUME 10.2 fl (9.6-12.3); MONO # 0.9 10*3/uL (0.1-1.0); NEUT # 7.2 10*3/uL (2.3-7.9); NEUT % 75.1 % (47.0-73.0); PLATELET COUNT AUTOMATED 276 10*3/uL (130-400); RED BLOOD COUNT 4.62 10*6/uL (4.50-5.90); RED CELL DISTRI WIDTH 17.1 % (0-14.5); WHITE BLOOD COUNT 9.5 10*3/uL (4.8-10.8)
[2018-01-23 06:34] LABS: HEMATOCRIT 42.8 % (42.0-52.0)
[2018-01-23 08:00] VITALS: BP 144/47
[2018-01-23 12:00] VITALS: BP 125/65
[2018-01-23 16:00] VITALS: BP 151/60
[2018-01-23 20:00] VITALS: BP 149/63
[2018-01-24] VITALS: BP 138/58
[2018-01-24 06:39] LABS: BASO % 0.2 % (0.0-1.0); EOS # 0.2 10*3/uL (0.0-0.4); EOS % 1.5 % (1.0-4.0); HEMATOCRIT 41.5 % (42.0-52.0); HEMOGLOBIN 12.5 g/dl (14.0-18.0); LYMPH # 1.3 10*3/uL (1.3-4.4); MEAN CELL VOLUME 90.4 fl (80.0-94.0); MEAN CORPUSCULAR HGB 27.2 pg (27.0-31.0); MEAN CORPUSCULAR HGB CONC 30.1 g/dl (33.0-37.0); MEAN PLATELET VOLUME 9.3 fl (9.6-12.3); MONO % 7.6 % (3.0-9.0); NEUT # 10.2 10*3/uL (2.3-7.9); NEUT % 79.8 % (47.0-73.0); PLATELET COUNT AUTOMATED 250 10*3/uL (130-400); RED BLOOD COUNT 4.59 10*6/uL (4.50-5.90); RED CELL DISTRI WIDTH 16.7 % (0-14.5); WHITE BLOOD COUNT 12.8 10*3/uL (4.8-10.8)
[2018-01-24 06:59] LABS: ALBUMIN 2.7 gm/dl (3.1-4.5); ALKALINE PHOSPHATASE 79 U/L (45-117); BUN 15 mg/dl (7-24); CHLORIDE 100 mmol/L (98-107); CREATININE 0.64 mg/dL (0.70-1.30); POTASSIUM 3.7 mmol/L (3.5-5.1); SGOT/AST 27 IU/L (3-35); SGPT/ALT 43 U/L (12-78); SODIUM 139 mmol/L (136-145); TOTAL PROTEIN 5.9 gm/dL (6.4-8.2)
[2018-01-24 08:00] VITALS: BP 122/58; BP 139/75
[2018-01-24 12:00] VITALS: BP 153/62
[2018-01-24 16:00] VITALS: BP 148/69
[2018-01-24 20:00] VITALS: BP 138/55; BP 151/55
[2018-01-25] VITALS: BP 123/47
[2018-01-25 07:12] LABS: BASO % 0.2 % (0.0-1.0); EOS # 0.2 10*3/uL (0.0-0.4); EOS % 1.8 % (1.0-4.0); HEMATOCRIT 41.5 % (42.0-52.0); HEMOGLOBIN 12.5 g/dl (14.0-18.0); LYMPH # 1.1 10*3/uL (1.3-4.4); LYMPH % 8.8 % (27.0-41.0); MEAN CELL VOLUME 90.4 fl (80.0-94.0); MEAN CORPUSCULAR HGB 27.2 pg (27.0-31.0); MEAN CORPUSCULAR HGB CONC 30.1 g/dl (33.0-37.0); MEAN PLATELET VOLUME 9.6 fl (9.6-12.3); MONO # 0.9 10*3/uL (0.1-1.0); MONO % 7.3 % (3.0-9.0); NEUT # 10.4 10*3/uL (2.3-7.9); NEUT % 80.4 % (47.0-73.0); PLATELET COUNT AUTOMATED 267 10*3/uL (130-400); RED BLOOD COUNT 4.59 10*6/uL (4.50-5.90); RED CELL DISTRI WIDTH 16.7 % (0-14.5); WHITE BLOOD COUNT 12.9 10*3/uL (4.8-10.8)
[2018-01-25 07:26] LABS: BUN 12 mg/dl (7-24); CHLORIDE 100 mmol/L (98-107); CREATININE 0.58 mg/dL (0.70-1.30); POTASSIUM 3.4 mmol/L (3.5-5.1); SODIUM 139 mmol/L (136-145)
[2018-01-25 08:00] VITALS: BP 142/56
[2018-01-25 12:00] VITALS: BP 128/60
[2018-01-25] MEDS ORDERED: OXYCODONE HCL5 M1 PO (12:13)
[2018-01-25] MEDS ORDERED: SEPTDS PO (12:13)
== END 2018-01-25 13:40 | disposition other institution (70) | DRG 871 ==
LOC: ED 09:02 → 4E 11:57 → EDHOLD 11:57 → 4E 12:54
PROVIDERS: Emergency Medicine; Internal Medicine; Nurse Practitioner Family; Registered Nurse
DX: A41.9 Sepsis, unspecified organism (principal); J18.9 Pneumonia, unspecified organism; J44.1 Chronic obstructive pulmonary disease with (acute) exacerbation; I50.22 Chronic systolic (congestive) heart failure; J44.0 Chronic obstructive pulmonary disease with (acute) lower respiratory infection; J96.11 Chronic respiratory failure with hypoxia; N30.01 Acute cystitis with hematuria; E87.2 Acidosis; R65.20 Severe sepsis without septic shock; B96.89 Other specified bacterial agents as the cause of diseases classified elsewhere; I11.0 Hypertensive heart disease with heart failure; F03.90 Unspecified dementia, unspecified severity, without behavioral disturbance, psychotic disturbance, mood disturbance, and anxiety; M10.9 Gout, unspecified; E78.5 Hyperlipidemia, unspecified; I25.10 Atherosclerotic heart disease of native coronary artery without angina pectoris; K21.9 Gastro-esophageal reflux disease without esophagitis; B96.20 Unspecified Escherichia coli [E. coli] as the cause of diseases classified elsewhere; F32.5 Major depressive disorder, single episode, in full remission; Z16.12 Extended spectrum beta lactamase (ESBL) resistance; N40.1 Benign prostatic hyperplasia with lower urinary tract symptoms; R33.8 Other retention of urine; I73.9 Peripheral vascular disease, unspecified; I48.91 Unspecified atrial fibrillation; Z96.642 Presence of left artificial hip joint; G62.9 Polyneuropathy, unspecified; E66.9 Obesity, unspecified; Z87.891 Personal history of nicotine dependence; Z79.899 Other long term (current) drug therapy; Z90.89 Acquired absence of other organs; Z82.49 Family history of ischemic heart disease and other diseases of the circulatory system; Z83.6 Family history of other diseases of the respiratory system; Z80.8 Family history of malignant neoplasm of other organs or systems; Z87.440 Personal history of urinary (tract) infections; I25.2 Old myocardial infarction; Z95.5 Presence of coronary angioplasty implant and graft; Z68.31 Body mass index [BMI] 31.0-31.9, adult

== ENCOUNTER 2018-03-12 09:50 | Inpatient (IN) | payer MEDICARE, MEDICAID ==
[~2018-03-12] VITALS: Ht 172.7 cm; Wt 107.6 kg
--- NOTE | ~2018-03-12 | PR ---
[place], [place] PROGRESS NOTE NAME: JAMAL HIDALGO UNIT #: [id number] ROOM: 524 DOCTOR: THEA COPELAND MD BIRTHDATE: [birth year] DOS: 03/15/2018 PULMONARY CRITICAL CARE NOTE SUBJECTIVE: The patient has been noted comfortable at this time, resting on the bed without any distress. Not been reported any symptoms of chest pain, fever or chills. The patient has been doing very well, comfortably resting on the bed. General weakness and fatigue was noted that was unchanged. OBJECTIVE: VITAL SIGNS: Normal temperature, respiratory rate 18, heart rate of 72, blood pressure 164/60. The pulse oxygen saturation of the patient recorded as 94% on 3 liters cannula. HEENT: No new change. NECK: Supple. CARDIOVASCULAR: S1, S2 is audible. LUNGS: The patient was noted without any wheeze or crackles. ABDOMEN: Soft, nontender. EXTREMITIES: The patient noted with mild edema and obesity. LABORATORY DATA: Chest x-ray that was done this morning was reviewed and it shows small bilateral pleural fluid with improvement in aeration of the lower lungs. IMPRESSION: The patient who has been currently noted with gradual improvement and resolution of ongoing acute exacerbation of chronic obstructive pulmonary disease. Acute pneumonia, which has been improving clinically and radiologically as well. General weakness and fatigue related to the above. PLAN OF MANAGEMENT: No change in pulmonary standpoint. Discharge plan of the patient per primary care attending. Usual care, other supportive therapy, plan of management could be considered for the patient to the nursing facility whenever is necessary. Continue the diuretic therapy as well. The pleural fluid was noted very small would not require any intervention, but only medical management for the patient would be advised. [place], [place] PROGRESS NOTE NAME: JAMAL HIDALGO UNIT #: [id number] ROOM: 524 DOCTOR: THEA COPELAND MD BIRTHDATE: [birth year] THEA JHA MD CM:PNTRANS [id number] THEA GONZALEZ MD 03/15/18 1054 interface
--- NOTE | ~2018-03-12 | EKG ---
[place], [place] ELECTROCARDIOGRAM REPORT NAME: JAMAL HIDALGO UNIT #: [id number] ROOM: 524 DOCTOR: TOMASA DRAFT REPORT BIRTHDATE: [birth year] [facility] Test Date: 2018-03-12 Test Time: 10:20:48 Pat Name: JAMAL HIDALGO Department: Room: 524 Gender: M [employer]: : 1955 Requested By: SALAS EUCEDA Order Number: [id number] Reading MD: Bo Alexander MD Measurements Intervals [place] Rate: 80 P: 51 KS: 205 QRS: -75 QRSD: 97 T: 72 QT: 389 QTc: 449 Interpretive Statements Sinus rhythm Borderline prolonged KS interval Abnormal R-wave progression, early transition Inferior infarct, old Compared to ECG 01/19/2018 09:37:18 No significant changes Electronically Signed On 03-15-2018 6:51:35 PST by Bo Alexander MD CM:EKGRPT:ELECTROCARDIOGRAM REPORT 1020 [id number] SALAS PORTER DRAFT REPORT SALAS EUCEDA DO
--- NOTE | ~2018-03-12 | CON ---
[place], [place] REPORT OF CONSULTATION NAME: JAMAL HIDALGO [facility] #: [id number] UNIT #: [id number] ROOM: 524 DOCTOR: THEA COPELAND MD BIRTHDATE: [birth year] DOS: 03/13/2018 PULMONARY CONSULTATION, EVALUATION AND MANAGEMENT CONSULTATION REQUESTED BY: Hospitalist service. REASON FOR CONSULTATION: Assessment of symptoms of shortness of breath. HISTORY OF PRESENT ILLNESS: This is a 62-year-old white male patient with multiple medical problems, resident of nursing facility for a while. The patient has been known with history of COPD, which was noticed end stage with chronic hypoxic respiratory failure and other problem. The patient fell out of the bed and reporting symptoms of shortness of breath. The patient denies any symptoms of chest pain after that. He does have a cough, which has been noted moderately productive with intermittent yellowish to green sputum expectoration. The patient denies symptoms of fever or chills with that. The wheezing was also noted at times. He has been assessed in the Emergency Room and currently admitted to the hospital. The patient had a CT scan of the head and C-spine, which was done on admission, does not show any acute injury or any trauma findings. REVIEW OF SYSTEMS: CONSTITUTIONAL: Fatigue and tiredness reported. Denies symptoms of fever or chills. EYES: Denies burning, redness, or tenderness. EARS, NOSE, AND THROAT: Denies sore throat, hoarseness, otalgia, postnasal drainage or epistaxis. CARDIOVASCULAR: Denies angina pain, edema, or pain of the lower extremities. GASTROINTESTINAL: No dysphagia, nausea, vomiting, diarrhea, or dysphagia. GENITOURINARY: No dysuria, suprapubic pain, or urinary hesitancy. CENTRAL NERVOUS SYSTEM: Generalized weakness and fatigue was noted. MUSCULOSKELETAL: No acute joint pain, redness, or tenderness. SKIN: No lesions or rashes reported. Remaining systems were reviewed. They were noted all negative. PAST MEDICAL HISTORY: Known with: 1. History of end-stage COPD. 2. Acute chronic hypoxic and hypercapnic respiratory failure. 3. History of past alcohol use. 4. Vitamin D deficiency. 5. Hyperlipidemia. 6. Peripheral neuropathy. 7. Subclavian steal syndrome. 8. Peripheral arterial disease with wound of the right foot, which has been treated. 9. Gastroesophageal reflux. 10. Past history of marijuana. 11. [employer] residency. [place], [place] REPORT OF CONSULTATION [facility]: [id number] #: [id number] ROOM: 524 DOCTOR: THEA COPELAND MD BIRTHDATE: [birth year] PAST SURGICAL HISTORY: 1. Aortofemoral bypass grafting. 2. Right knee arthroscopy. 3. Left hip replacement. 4. Therapeutic bronchoscopy. SOCIAL HISTORY: Resident of senior care. Denies any history of illicit drug use. Tobacco use, reports long-term use since teenage age, a pack of cigarettes per day with intermittent tobacco use was reported. There was no alcohol use at the present time, but used to drink alcohol previously. FAMILY HISTORY: The patient's father with complication of coronary artery disease. Mother with history of COPD reported. CURRENT MEDICATIONS: Administered on this admission are use of finasteride, Lasix, Flomax, Cymbalta, Plavix, Ranexa, metoprolol tartrate, Carafate, Eliquis, allopurinol, trazodone, Solu-Medrol 40 mg b.i.d., Requip, gabapentin, Lipitor, iron sulfate, Pulmicort Respules, DuoNeb, IV vancomycin, and IV Zosyn. ALLERGIES: Noted as no known drug allergies. PHYSICAL EXAMINATION: GENERAL: This is a 62-year-old white male patient currently noted awake and alert this morning of assessment lying in his bed. VITAL SIGNS: Height of 5 feet 8 inches, weight of 218 pounds. Vital signs, which has been recorded, show the temperature recorded normal, respiratory rate 17-20, heart 96-83, blood pressure 152/98-142/70. Pulse oxygen saturation was recorded as 98% on 3 liters nasal cannula. Resting oxygen saturation noted 92%. HEENT: Moderate obese. Head was atraumatic. Eyes nonicterus. Oral mucosa was moist. NECK: Supple. CARDIOVASCULAR: S1, S2 audible. LUNGS: Noted moderately decreased breath sounds with expiratory wheezing, no crackles. ABDOMEN: Soft, nontender. EXTREMITIES: Without acute edema. VISIBLE SKIN: No lesions or rashes or cyanosis. CENTRAL NERVOUS SYSTEM: No gross focal neurologic deficit. MUSCULOSKELETAL: The patient was noted without any acute deformities. LABORATORY DATA: Reviewed lab for this patient on this consultation. CBC on admission yesterday in the Emergency Room, WBC count 19.1, hemoglobin 10.5, hematocrit 35.1, platelet count 260,000. Lactic acid 1.2. PT/PTT from 03/12/2018, PTT 33, PT/INR was noted 1.1. CMP of the patient that was noted yesterday on admission, normal BUN and creatinine, glucose normal. Potassium 5.3, mildly elevated. C-reactive protein mildly elevated to 5.23. CBC of this morning, WBC count 14.9, hemoglobin 10.7, hematocrit 35.9, platelet count was normal. IMAGING STUDIES: CT scan of the head and C-spine of the patient was not noted [place], [place] REPORT OF CONSULTATION NAME: JAMAL HIDALGO UNIT #: [id number] ROOM: 524 DOCTOR: ABHIJEET GONZALEZ MD,[facility] BIRTHDATE: [birth year] with any acute abnormalities. The chest x-ray that was done showed acute pulmonary infiltrate noted in the right upper lobe with interstitial marking, has a consolidation area in right middle lobe, small infiltration cannot be completely excluded. IMPRESSION: The patient has been currently admitted to the hospital, noted with: 1. Leukocytosis, the current abnormal infiltration is suggestive of acute pneumonia very likely, may be related to the aspiration as one of the etiologies. 2. Past history of ESBL tracheobronchitis noted in admission of 01/2018, which was treated with antibiotics. 3. The patient with acute exacerbation of chronic obstructive pulmonary disease resulting from the current acute pneumonia. 4. Chronic respiratory failure, hypercapnia and hypoxia as well. 5. History of intermittent nicotine use. 6. Overall severe debility, still remains persistent. 7. History of peripheral vascular disease and other medical illness of the patient noted in the past history component. PLAN OF MANAGEMENT: The patient has been currently getting very broad spectrum intravenous antibiotics. The antibiotics of the patient will be continued but de-escalation will be done for the patient with the available cultures of the blood and the sputum. Also follow the clinical response to the current treatment. Obtain a PA and lateral chest x-ray tomorrow morning for clear assessment of pulmonary infiltration. Bronchodilators administration. Corticosteroids will be continued at same dose. Titrate oxygen supplementation, maintain pulse ox saturation 92% or greater. In case further worsening of the respiratory status occurs, obtain arterial blood gas. Consider use of the BiPAP at that time. At this time, the patient has been on intermittent use of the BiPAP and appeared to be stable. Other supportive therapy, plan of management, care plan for the patient as well. Usual care. Sputum for Gram stain culture and other culture of the patient will be ordered if not already performed. Thanks for allowing me to participate in the care of this patient. THEA JHA MD CM:CONSTR:REPORT OF CONSULTATION 1155 03/14/18 0127 interface
--- NOTE | ~2018-03-12 | PR ---
[place], [place] PROGRESS NOTE NAME: JAMAL HIDALGO [facility] #: [id number] UNIT #: [id number] ROOM: 524 DOCTOR: ABHIJEET GONZALEZ MD,THEA BIRTHDATE: [birth year] DOS: 03/14/2018 SUBJECTIVE: The patient seen and examined on 03/14/2018, was noted comfortable at this time, reduction in the coughing and chest congestion reported. Denies symptoms of fever or chills. Denies symptoms of hemoptysis. Denies symptoms of nausea, vomiting, diarrhea or any abdominal pain. OBJECTIVE: VITAL SIGNS: For the patient which were recorded showed normal temperature, respiratory rate 18, heart rate 85, blood pressure 177/50-161/56. Pulse ox saturation on 3 liters nasal cannula 95% saturation. HEENT: Head was atraumatic. Eyes nonicterus. NECK: Supple. CARDIOVASCULAR: S1, S2 is audible. LUNGS: Noted moderate decreased breath sounds, scattered expiratory wheezing. There were no crackles. ABDOMEN: Soft, nontender. Bowel sounds are present. EXTREMITIES: The patient was noted without any acute new changes at this time. IMPRESSION: 1. The patient who has been currently treated in this hospital and managed for acute pneumonia. 2. Past history of Extended-spectrum beta-lactamases pneumonia as well. 3. Chronic respiratory failure with hypercapnia. 4. Chronic debility. PLAN OF MANAGEMENT: Continuation of current plan of treatment. The patient is responding to treatment with reduction of respiratory symptoms. No changes in the medical management will be necessary. Bronchodilators and treatment therapy, plan of management. Obtain a chest x-ray, PA lateral view tomorrow to assess the progression of the pneumonia. THEA JHA MD CM:PNTRANS [id number] [id number] THEA GONZALEZ MD 03/14/18 1353 interface
[~2018-03-12 09:50] MED LIST changes: +OXYCODONE HCL5 M1 PO; +PREDNISONE10 M1 PO; +SEPTDS PO; +ZANTAC 300300 MG PO
[2018-03-12 10:06] VITALS: BP 148/48
[2018-03-12 10:41] LABS: BASO % 0.2 % (0.0-1.0); EOS # 0.1 10*3/uL (0.0-0.4); EOS % 0.7 % (1.0-4.0); HEMATOCRIT 35.1 % (42.0-52.0); HEMOGLOBIN 10.5 g/dl (14.0-18.0); LYMPH # 0.7 10*3/uL (1.3-4.4); LYMPH % 3.7 % (27.0-41.0); MEAN CELL VOLUME 90.5 fl (80.0-94.0); MEAN CORPUSCULAR HGB 27.1 pg (27.0-31.0); MEAN CORPUSCULAR HGB CONC 29.9 g/dl (33.0-37.0); MEAN PLATELET VOLUME 8.4 fl (9.6-12.3); MONO # 1.3 10*3/uL (0.1-1.0); MONO % 6.6 % (3.0-9.0); NEUT # 16.9 10*3/uL (2.3-7.9); NEUT % 88.2 % (47.0-73.0); PLATELET COUNT AUTOMATED 260 10*3/uL (130-400); RED BLOOD COUNT 3.88 10*6/uL (4.50-5.90); RED CELL DISTRI WIDTH 15.2 % (0-14.5); WHITE BLOOD COUNT 19.1 10*3/uL (4.8-10.8)
[2018-03-12 10:56] LABS: ALBUMIN 2.8 gm/dl (3.1-4.5); ALKALINE PHOSPHATASE 64 U/L (45-117); BUN 16 mg/dl (7-24); CHLORIDE 99 mmol/L (98-107); CREATININE 0.92 mg/dL (0.70-1.30); LIPASE 98 U/L (73-393); POTASSIUM 5.3 mmol/L (3.5-5.1); SGOT/AST 12 IU/L (3-35); SGPT/ALT 19 U/L (12-78); SODIUM 138 mmol/L (136-145); TOTAL PROTEIN 6.2 gm/dL (6.4-8.2)
[2018-03-12 10:58] LABS: ACT PARTIAL THROMBO TIME 33.4 SECONDS (20.8-31.5); INTERNATIONAL NORM RATIO 1.1 (2.0-3.5)
[2018-03-12 11:02] LABS: TROPONIN I < 0.015 ng/ml (<0.045)
[2018-03-12 11:30] VITALS: BP 152/98
[2018-03-12 14:00] VITALS: BP 95/61
[2018-03-12] MEDS ORDERED: ADV 100/50 INH (14:16)
[2018-03-12] MEDS ORDERED: CYMBALTA60 MG PO (14:25)
[2018-03-12] MEDS ORDERED: VENTOLIN 02.5 MG/3 M INH (14:26)
[2018-03-12] MEDS ORDERED: LASIX20 MG PO (14:28)
[2018-03-12] MEDS ORDERED: FLOMAX0.4 MG PO (14:28)
[2018-03-12] MEDS ORDERED: LOPRESSOR50 M1 PO (14:29)
[2018-03-12] MEDS ORDERED: POTASSIUM CHLO20 ME3 PO (14:31)
[2018-03-12] MEDS ORDERED: PREDNISONE5 MG PO (14:33)
[2018-03-12] MEDS ORDERED: PROSCAR5 M1 PO (14:33)
[2018-03-12] MEDS ORDERED: RANEXA500 M1 PO (14:35)
[2018-03-12] MEDS ORDERED: DAYTIME COU5 MG/5 ML PO (14:36)
[2018-03-12 16:00] VITALS: BP 86/48
[2018-03-12 20:00] VITALS: BP 90/52
[2018-03-13] VITALS (7 sets, daily range): BP systolic 82–183; BP diastolic 50–70
[2018-03-13 06:21] LABS: HEMATOCRIT 35.9 % (42.0-52.0); HEMOGLOBIN 10.7 g/dl (14.0-18.0); MEAN CELL VOLUME 89.8 fl (80.0-94.0); MEAN CORPUSCULAR HGB 26.8 pg (27.0-31.0); MEAN CORPUSCULAR HGB CONC 29.8 g/dl (33.0-37.0); MEAN PLATELET VOLUME 8.9 fl (9.6-12.3); PLATELET COUNT AUTOMATED 257 10*3/uL (130-400); RED CELL DISTRI WIDTH 14.9 % (0-14.5); WHITE BLOOD COUNT 14.9 10*3/uL (4.8-10.8)
[2018-03-13 07:03] LABS: FREE T4 1.07 ng/dl (0.76-1.46); THYROID STIM HORMONE (HS) 0.294 uIU/ml (0.358-4.75)
[2018-03-13 07:07] LABS: PLATELET SUFFICIENCY NORMAL (NORMAL); TOTAL CELLS COUNTED 100 #CELLS
[2018-03-14] VITALS: BP 161/56
[2018-03-14 08:00] VITALS: BP 177/63
[2018-03-14 12:00] VITALS: BP 155/57
[2018-03-14 16:00] VITALS: BP 142/46
[2018-03-14 16:04] LABS: BILIRUBIN NEGATIVE (NEGATIVE); BLOOD NEGATIVE (NEGATIVE); CLARITY CLEAR (CLEAR); COLOR YELLOW (YELLOW); GLUCOSE NEGATIVE (NEGATIVE); KETONE NEGATIVE (NEGATIVE); LEUKO ESTERASE NEGATIVE (NEGATIVE); NITRITE NEGATIVE (NEGATIVE); UROBILINOGEN 0.2 E.U./dl (0.2-1.0)
[2018-03-14 16:24] LABS: BACTERIA TRACE
[2018-03-14 20:00] VITALS: BP 152/54
[2018-03-15] VITALS: BP 168/60
[2018-03-15 06:55] LABS: BUN 18 mg/dl (7-24); CHLORIDE 100 mmol/L (98-107); CREATININE 0.77 mg/dL (0.70-1.30); POTASSIUM 4.1 mmol/L (3.5-5.1); SODIUM 136 mmol/L (136-145)
[2018-03-15 08:00] VITALS: BP 164/60
[2018-03-15 12:00] VITALS: BP 147/60
[2018-03-15] MEDS ORDERED: DOXYCYCLINE100 M3 PO (15:45)
[2018-03-15] MEDS ORDERED: PREDNISONE10 MG PO (15:45)
[2018-03-15 16:00] VITALS: BP 163/50
[2018-03-15] MEDS ORDERED: HYDROCODONE-AC1 EAC1 PO (16:50)
[2018-03-18 22:05] LABS: INFLUENZA A Negative (Negative); INFLUENZA B Negative (Negative); METAPNEUMOVIRUS Negative (Negative); PARAINFLUENZA 1 Negative (Negative); PARAINFLUENZA 2 Negative (Negative); PARAINFLUENZA 3 Negative (Negative); RHINOVIRUS Negative (Negative); RSV A Negative (Negative); RSV B Negative (Negative)
[2018-03-22 06:04] LABS: ADENOVIRUS Negative (Negative)
== END 2018-03-15 17:27 | disposition other institution (70) | DRG 177 ==
LOC: ED 09:50 → EDHOLD 13:49 → 5E 13:49
PROVIDERS: Emergency Medicine; Internal Medicine; Internal Medicine Critical Care Medicine
DX: J15.6 Pneumonia due to other Gram-negative bacteria (principal); E43 Unspecified severe protein-calorie malnutrition; I50.32 Chronic diastolic (congestive) heart failure; J44.0 Chronic obstructive pulmonary disease with (acute) lower respiratory infection; J44.1 Chronic obstructive pulmonary disease with (acute) exacerbation; J96.12 Chronic respiratory failure with hypercapnia; J96.11 Chronic respiratory failure with hypoxia; M31.4 Aortic arch syndrome [Takayasu]; I11.0 Hypertensive heart disease with heart failure; D72.825 Bandemia; D50.9 Iron deficiency anemia, unspecified; E87.5 Hyperkalemia; F03.90 Unspecified dementia, unspecified severity, without behavioral disturbance, psychotic disturbance, mood disturbance, and anxiety; E66.9 Obesity, unspecified; F17.200 Nicotine dependence, unspecified, uncomplicated; G62.9 Polyneuropathy, unspecified; K21.9 Gastro-esophageal reflux disease without esophagitis; G89.29 Other chronic pain; I65.23 Occlusion and stenosis of bilateral carotid arteries; E07.9 Disorder of thyroid, unspecified; S89.90XA Unspecified injury of unspecified lower leg, initial encounter; W06.XXXA Fall from bed, initial encounter; I25.10 Atherosclerotic heart disease of native coronary artery without angina pectoris; E78.5 Hyperlipidemia, unspecified; M10.9 Gout, unspecified; I73.9 Peripheral vascular disease, unspecified; F32.9 Major depressive disorder, single episode, unspecified; Z96.642 Presence of left artificial hip joint; Z82.49 Family history of ischemic heart disease and other diseases of the circulatory system; Z80.0 Family history of malignant neoplasm of digestive organs; Z82.0 Family history of epilepsy and other diseases of the nervous system; Z79.899 Other long term (current) drug therapy; Z79.02 Long term (current) use of antithrombotics/antiplatelets; Z79.52 Long term (current) use of systemic steroids; Y93.89 Activity, other specified; Y92.89 Other specified places as the place of occurrence of the external cause; Y99.8 Other external cause status; Z68.36 Body mass index [BMI] 36.0-36.9, adult

== ENCOUNTER 2018-04-03 15:26 | Inpatient (IN) | payer MEDICARE, MEDICAID ==
[~2018-04-03] VITALS: Ht 175.3 cm; Wt 97.2 kg
--- NOTE | ~2018-04-03 | PR ---
[place], [place] PROGRESS NOTE NAME: JAMAL HIDALGO UNIT #: [id number] ROOM: [facility] DOCTOR: THEA COPELAND MD BIRTHDATE: [birth year] DOS: 04/05/2018 SUBJECTIVE: The patient continued to show improvement in respiratory symptoms, has not been noted any further change in mental status, noted fully awake and alert, using the BiPAP as ordered. Denies symptoms of chest pain, fever or chills. Denies any chest pain. OBJECTIVE: VITAL SIGNS: Normal temperature, respiratory rate 20, heart rate 69, blood pressure 151/57 at noon. The pulse oxygen saturation of the patient on 3 liters nasal cannula 95% saturation. HEENT: No acute change. NECK: Supple. CARDIOVASCULAR: S1, S2 is audible. LUNGS: The patient noted without any wheezing or crackles at this time. Breaths are noted mildly decreased bilaterally. ABDOMEN: Soft and nontender. Bowel sounds present. EXTREMITIES: No new changes. LABORATORY DATA: Arterial blood gas today, 2 liters nasal cannula, pH of 7.41, pCO2 of 56, pO2 of 81 on 3 liters nasal cannula at rest. The BMP of patient this morning, BUN 25, creatinine was normal. Glucose 129. Sodium 135. CBC of the patient this morning, normal WBC count. IMPRESSION: The patient with acute on chronic hypercapnic hypoxic respiratory failure, exacerbation of chronic obstructive pulmonary disease, which has been improving. Improvement in mental status changes with the resolution of the hypercarbia. PLAN OF MANAGEMENT: Continue the BiPAP at nighttime p.r.n. during the transfer the patient to Intensive Care Unit. Continue bronchodilator therapy as in progress. Other additional treatment changes will be ordered based on the progression of illness. [place], [place] PROGRESS NOTE NAME: JAMAL HIDALGO UNIT #: [id number] ROOM: [facility] DOCTOR: THEA COPELAND MD BIRTHDATE: [birth year] THEA JHA MD CM:PNTRANS [id number] THEA GONZALEZ MD 04/05/18 1747 interface
--- NOTE | ~2018-04-03 | PR ---
[place], [place] PROGRESS NOTE NAME: JAMAL HIDALGO [place] UNIT #: [id number] ROOM: 522 DOCTOR: THEA COPELAND MD BIRTHDATE: [birth year] DOS: 04/06/2018 SUBJECTIVE: The patient was noted comfortable at this time, resting in the bed, refused to use the BiPAP per nursing staff at night as well as during the day. Using oxygen supplementation. Denies symptoms of chest pain, coughing, or sputum expectoration. OBJECTIVE: VITAL SIGNS: For the patient this morning, normal temperature, respiratory rate 19, heart rate 78, blood pressure 156/64. Pulse ox saturation on 2 liters nasal cannula 90% saturation. HEENT: Head was atraumatic. Eyes nonicterus. NECK: Supple. CARDIOVASCULAR: S1, S2 is audible. LUNGS: The patient was noted without any wheezing or crackles at this time. Breaths are noted mildly diminished bilaterally. ABDOMEN: Soft, nontender. Bowel sounds present. EXTREMITIES: No acute edema. LABORATORY DATA: CBC: Normal WBC count and platelet count. BMP of the patient with normal BUN and creatinine. Potassium mildly elevated at 5.2. IMPRESSION: The patient with stable respiratory status, resolving exbsa-mn-mhcowws hypercapnic hypoxic respiratory failure with exacerbation of chronic obstructive pulmonary disease. Refusal of the BiPAP use for the xrkhk-hc-[id number] respiratory failure. PLAN OF MANAGEMENT: The patient has been told about the necessity of using the BiPAP to prevent the worsening of the respiratory failure with acute exacerbation. He stated that he has used the BiPAP as ordered most likely tonight. [place], [place] PROGRESS NOTE NAME: ROCKYJAMAL D UNIT #: [id number] ROOM: 522 DOCTOR: THEA COPELAND MD BIRTHDATE: [birth year] THEA JHA MD CM:PNTRANS [id number] THEA GONZALEZ MD 11/12/18 0745 interface
--- NOTE | ~2018-04-03 | CON ---
[place], [place] REPORT OF CONSULTATION NAME: JAMAL HIDALGO [facility] #: [id number] UNIT #: [id number] ROOM: 522 DOCTOR: THEA COPELAND MD BIRTHDATE: [birth year] DOS: 04/04/2018 REASON FOR CONSULTATION: Assess the patient's current increased symptoms of shortness of breath and respiratory failure. HISTORY OF PRESENT ILLNESS: A 62-year-old white male patient who has been admitted to the hospital, recently managed and discharged to the nursing facility on 03/15/2018. The patient was treated for the medical management of acute pneumonia, exacerbation of chronic obstructive pulmonary disease and other problem. The patient was noted in usual state of health. He had been brought to the hospital on 04/03/2018 and has been readmitted to the hospital. He has reported symptoms of change in mental status that occurred at the nursing facility. He was also reporting symptoms of shortness of breath. The patient has been noted with difficulty to arouse. Arterial blood gas that shows acute on chronic hypercapnic respiratory failure. The patient has been admitted to the hospital for further care. He was also reported symptoms of coughing with sputum expectoration described to be greenish in color. There was no hemoptysis. The patient does have gfoc-cy-hcaaplol cough. Denies symptoms of any acute chest pain. REVIEW OF SYSTEMS: CONSTITUTIONAL: Fatigue and tiredness noted. Denies symptoms of fever or chills. EYES: Denies burning, redness, or tenderness. EARS, NOSE, THROAT SYMPTOMS: Denies sore throat, otalgia, postnasal drainage or epistaxis. CARDIOVASCULAR: Denied anginal pain, edema, or pain of the lower extremities. GASTROINTESTINAL: No dysphagia, nausea, vomiting, diarrhea, abdominal pain, hematemesis, melena, or hematochezia. GENITOURINARY: Denies any urinary incontinence, hematuria, or suprapubic pain. MUSCULOSKELETAL: No acute joint pain, chronic arthritis. CENTRAL NERVOUS SYSTEM: Chronic general weakness and fatigue were noted, somewhat decreased mobility for a while at this time. There were no focal neurologic deficits stated. There were no symptoms of seizure reported by the patient. SKIN: Denies abnormal lesions or rashes. Remaining systems were reviewed. They were noted all negative. PAST MEDICAL HISTORY: Known with history of: 1. Chronic obstructive pulmonary disease, which is severe. 2. Chronic hypercapnic respiratory failure. 3. Chronic hypoxic respiratory failure, use of oxygen. 4. Peripheral arterial disease with wound of the right foot. 5. Vitamin D deficiency. 6. Past history of alcohol use. 7. Gastroesophageal reflux. 8. Past history of marijuana use. 9. Current group home residency for several months. 10. Hyperlipidemia. [place], [place] REPORT OF CONSULTATION NAME: JAMAL HIDALGO UNIT #: [id number] ROOM: 522 DOCTOR: THEA COPELAND MD BIRTHDATE: [birth year] PAST SURGICAL HISTORY: 1. Aortofemoral bypass grafting. 2. Right knee arthroscopy. 3. Left hip replacement. 4. Therapeutic bronchoscopies. SOCIAL HISTORY: The patient is a resident of [facility]. Denies any alcohol use or illicit drug use. Tobacco use is noted in younger age, a pack of cigarettes or more for the patient in a day, but has not been smoking cigarettes since. He is currently staying in the nursing facility. There was no history of alcohol use at this time, used to drink alcohol in the form of beer. FAMILY HISTORY: Father passed with complications of coronary artery disease. Mother with complication related to chronic obstructive pulmonary disease. CURRENT MEDICATIONS: Administered for the patient were noted use of Lipitor, Ranexa, finasteride, metoprolol tartrate, duloxetine, hydrochloride, Plavix, allopurinol, Solu-Medrol 40 mg b.i.d., Requip, Pulmicort Respules, Eliquis, albuterol sulfate, meropenem, and other p.r.n. medication with different symptoms were ordered. DRUG ALLERGIES: No known drug allergies. PHYSICAL EXAMINATION: GENERAL: This is 62-year-old white male currently noted to be awake and alert without any acute distress. Height of 5 feet 9 inches, weight of 214 pounds, and BMI 32.2. VITAL SIGNS: Normal temperature since admission, respiratory rate 19 to 16, heart rate 81-82, blood pressure 104-62 to 103/43. Intake for the patient was recorded as none. The output was 352 mL in the last 8 hours. Pulse oxygen saturation on 4 liter nasal cannula for the patient 100% with BiPAP 98% saturation. HEENT: Moderate obesity. Head was atraumatic. Eyes nonicterus. NECK: Supple. CARDIOVASCULAR: S1, S2 is audible. LUNGS: The patient noted with moderate decreased breath sounds, tmuq-ud-awunatnt expiratory wheezing without any crackles. ABDOMEN: Soft and nontender. Bowel sounds present. EXTREMITIES: The patient noted without any acute edema. MUSCULOSKELETAL: Without any acute deformity. VISIBLE SKIN: No lesions or rashes. CENTRAL NERVOUS SYSTEM: General weakness, fatigue without any gross focal neurologic deficit. MUSCULOSKELETAL: Without acute deformities. LABORATORY DATA: The patient's CBC on admission yesterday, WBC count normal, hemoglobin and hematocrit were noted with hemoglobin 10.9, hematocrit 38.1, and normal platelet count. CMP of the patient on 04/03/2018 normal BUN and creatinine. CO2 of 39. CBC that was done this morning, WBC count was 7.0, [place], [place] REPORT OF CONSULTATION NAME: JAMAL HIDALGO UNIT #: [id number] ROOM: 522 DOCTOR: THEA COPELAND MD BIRTHDATE: [birth year] hemoglobin 12, and platelet count normal. The BMP of patient this morning, BUN normal, creatinine normal, glucose 131, CO2 of 36. The arterial blood gas of the patient on admission the patient in the Emergency Room, pH of 7.28, pCO2 of 80, pO2 of 123 on 4 liter nasal cannula oxygen supplementation. The arterial blood gas this morning on 2 liters nasal cannula at rest, pH of 7.44, pCO2 of 48, pO2 of 69. The chest x-ray which was done one-view was reviewed from the PACS images on 04/03/2018 does not show any acute pulmonary infiltration of the patient at this time. Mild increased pulmonary venous congestion markings. The patient was noted possibly interstitial pneumonitis cannot be excluded. IMPRESSION: 1. The patient who has been currently admitted to the hospital noted with change in mental status related to acute on chronic hypercapnic respiratory failure. 2. Chronic hypoxemic respiratory failure as well. 3. Acute exacerbation of chronic obstructive pulmonary disease. 4. Possible interstitial pneumonitis, including consideration of viral etiology. 5. Chronic metabolic alkalosis secondary to hypercarbia. 6. Past history of alcohol use as well as nicotine use was known as well. 7. Moderate obesity. PLAN OF MANAGEMENT: Monitoring mental status, use of BiPAP with current setting continuous at nighttime. Wean down the oxygen of the patient to maintain pulse ox 92% or greater. Continue current dose of Solu-Medrol, antibiotic noted very broad spectrum at this time. The aspiration antibiotic will be done based on the culture results. Repeat another chest x-ray in the morning to assess the infiltrates persist or not for consideration of pneumonia. Other usual plan of management. Monitor all the culture results. Sputum for Gram stain and culture as well. Viral etiology of the current acute exacerbation of chronic obstructive pulmonary disease would be considered as well and appropriately excluded. Obtain the viral panel for the Influenza A and B, nasal washing antigens as well. All other supportive therapy, plan of management, care plan for the patient and treatment. Additional treatment changes will be done based on progression of the illness. Keep the patient Intensive Care Unit for the next 24 hours until the stability of the respiratory status results. Thanks for allowing me to participate in the care of this patient. [place], [place] REPORT OF CONSULTATION NAME: ROCKYJAMAL D UNIT #: [id number] ROOM: 522 DOCTOR: THEA COPELAND MD BIRTHDATE: [birth year] THEA JHA MD CM:CONSTR:REPORT OF CONSULTATION 1535 11/12/18 0745 interface
--- NOTE | ~2018-04-03 | PR ---
[place], [place] PROGRESS NOTE [id number] #: [id number] ROOM: 522 DOCTOR: ABHIJEET GONZALEZ MD,THEA BIRTHDATE: [birth year] DOS: 04/08/2018 SUBJECTIVE: The patient appears to be comfortable at this time, remains in the bed without acute distress, not been noted any symptoms of chest pain, coughing, sputum expectoration, use of BiPAP last night. No acute respiratory complaints noted this morning. OBJECTIVE: VITAL SIGNS: Normal temperature, respiratory rate 20, heart rate 63, blood pressure 63/74. The pulse oxygen saturation on 2 liters nasal cannula 97% saturation. HEAD, EYES, EARS, NOSE, AND THROAT: Shows head was atraumatic. Eyes nonicterus. NECK: Supple. CARDIOVASCULAR SYSTEM: S1, S2 is audible. LUNGS: Noted without any wheeze or crackles. ABDOMEN: Soft, nontender. EXTREMITIES: No acute edema. IMPRESSION: Stable respiratory status, resolving acute on chronic hypercapnic hypoxic respiratory failure, exacerbation of chronic obstructive pulmonary disease. PLAN OF MANAGEMENT: No changes in the plan of care at this time. Continue the current therapy and plan of management at this time. Usual care. Supportive plan of treatment and other care. THEA JHA MD CM:PNTRANS [id number] THEA GONZALEZ MD 04/08/18 1433 interface
--- NOTE | ~2018-04-03 | PR ---
[place], [place] PROGRESS NOTE NAME: [id number] #: [id number] ROOM: 522 DOCTOR: ABHIJEET GONZALEZ MD,THEA BIRTHDATE: [birth year] DOS: 04/07/2018 SUBJECTIVE: The patient has been noted stable. Use the BiPAP, as ordered last night. Using oxygen supplementation nasal cannula, stating they felt much better with the use of the BiPAP last night and feel stronger. There were no symptoms of shortness of breath, cough, sputum expectoration reported. PHYSICAL EXAMINATION: VITAL SIGNS: Normal temperature, respiratory rate 18, heart rate of 69, blood pressure of 70/65. The pulse oxygen saturation on 2 liters nasal cannula 99% saturation. HEENT: Examination shows head was atraumatic. Eyes nonicterus. NECK: Supple. CARDIOVASCULAR: S1, S2 audible. LUNGS: Clear. ABDOMEN: Soft, nontender. EXTREMITIES: Shows no acute changes. IMPRESSION: The patient continued progressive resolution improvement in the acute on chronic hypercapnic hypoxic respiratory failure and exacerbation of chronic obstructive pulmonary disease. PLAN OF TREATMENT: The patient could be discharged back to care home facility, but advised to use the BiPAP at nursing facility. The patient provided with recurrent hospitalization and long-term management of hypercapnic respiratory failure as well. Other supportive therapy, plan of management, care plan for the patient at this time. THEA JHA MD CM:PNTRANS [id number] THEA GONZALEZ MD 04/07/18 1641 interface
[~2018-04-03 15:26] MED LIST changes: +ADV 100/50 INH; +CYMBALTA60 MG PO; +DAYTIME COU5 MG/5 ML PO; +DOXYCYCLINE100 M3 PO; +FLOMAX0.4 MG PO; +HYDROCODONE-AC1 EAC1 PO; +LOPRESSOR50 M1 PO; +POTASSIUM CHLO20 ME3 PO; +PROSCAR5 M1 PO; +RANEXA500 M1 PO; +VENTOLIN 02.5 MG/3 M INH
[2018-04-03 15:30] VITALS: BP 101/67
[2018-04-03 16:55] LABS: BASO % 0.1 % (0.0-1.0); EOS # 0.1 10*3/uL (0.0-0.4); EOS % 1.1 % (1.0-4.0); HEMATOCRIT 38.1 % (42.0-52.0); HEMOGLOBIN 10.9 g/dl (14.0-18.0); LYMPH # 0.6 10*3/uL (1.3-4.4); LYMPH % 7.3 % (27.0-41.0); MEAN CELL VOLUME 94.8 fl (80.0-94.0); MEAN CORPUSCULAR HGB 27.1 pg (27.0-31.0); MEAN CORPUSCULAR HGB CONC 28.6 g/dl (33.0-37.0); MEAN PLATELET VOLUME 8.6 fl (9.6-12.3); MONO # 1.2 10*3/uL (0.1-1.0); MONO % 15.2 % (3.0-9.0); NEUT # 6.1 10*3/uL (2.3-7.9); NEUT % 75.9 % (47.0-73.0); PLATELET COUNT AUTOMATED 196 10*3/uL (130-400); RED BLOOD COUNT 4.02 10*6/uL (4.50-5.90); RED CELL DISTRI WIDTH 16.1 % (0-14.5); WHITE BLOOD COUNT 8.1 10*3/uL (4.8-10.8)
[2018-04-03 17:08] VITALS: BP 98/50
[2018-04-03 17:10] LABS: ABG HCO3 36.7 mmol/l (22-26); ABG O2 SATURATION 99.2 % (95-97); ARTERIAL BLOOD GAS PH 7.28 (7.35-7.45)
[2018-04-03 17:11] LABS: ALBUMIN 3.1 gm/dl (3.1-4.5); ALKALINE PHOSPHATASE 76 U/L (45-117); BUN 16 mg/dl (7-24); CHLORIDE 98 mmol/L (98-107); CREATININE 0.75 mg/dL (0.70-1.30); POTASSIUM 4.2 mmol/L (3.5-5.1); SGOT/AST 7 IU/L (3-35); SGPT/ALT 23 U/L (12-78); SODIUM 139 mmol/L (136-145); TOTAL PROTEIN 6.6 gm/dL (6.4-8.2)
[2018-04-03 17:11] LABS: ARTERIAL BLOOD GAS PCO2 80.8 mmHg (35-45)
[2018-04-03 18:10] VITALS: BP 104/62
--- NOTE | 2018-04-03 18:12 | NUR ---
EMMA BR[facility]CH AT [facility] UPDATE ON PATIENT.
[2018-04-03 18:54] VITALS: BP 104/72
--- NOTE | 2018-04-03 19:29 | NUR ---
SOLU MEDROL GIVEN. PATIENT AROUSED HE WAS SLEEPING. STILL ANSWERING QUESTIONS INAPPROPRIATLY.
[2018-04-03 19:32] VITALS: BP 93/58
[2018-04-03 20:30] VITALS: BP 147/78
--- NOTE | 2018-04-03 20:30 | NUR ---
A 62, admitted to [facility], under the services of ELSA Oden DO with a diagnosis of RESP FAILURE. Chief complaint is PT LETARGIC. Patient arrived via stretcher from ER. Monitor applied. Initial assessment completed. Vital signs taken and recorded. ELSA ODEN DO notified of admission to the unit. Orders received. See assessment for past medical history, medications and allergies. Patient and/or family oriented to unit. [facility] visitation policy reviewed. Clothing/patient valuable form completed. GABRIEL NAVARRETE
[2018-04-03] MEDS ORDERED: HYDROCODONE-AC1 EAC1 PO (20:46)
[2018-04-03] MEDS ORDERED: TUSSIN100 MG/51 PO (20:49)
--- NOTE | 2018-04-03 20:49 | NUR ---
PT O2 TITRATED TO 35%. SpO2 99%
--- NOTE | 2018-04-03 20:55 | NUR ---
PATIENTS MED REC UPDATED WITH LIST SENT FROM [facility]
[2018-04-03 21:48] LABS: CLARITY TURBID (CLEAR); COLOR YELLOW (YELLOW)
[2018-04-03 21:49] LABS: BILIRUBIN NEGATIVE (NEGATIVE); GLUCOSE NEGATIVE (NEGATIVE)
[2018-04-03 21:50] LABS: BLOOD 1+ (NEGATIVE); KETONE NEGATIVE (NEGATIVE); LEUKO ESTERASE 3+ (NEGATIVE); NITRITE POSITIVE (NEGATIVE); SPECIFIC GRAVITY 1.005 (1.005-1.030); UROBILINOGEN 0.2 E.U./dl (0.2-1.0)
[2018-04-03 21:51] LABS: BACTERIA 2+; WBC TNTC wbc/hpf (0-5)
--- NOTE | 2018-04-03 22:30 | NUR ---
ATTEMPTED TO GIVE PATIENT ELIQUIS PATIENT MUMMBLES BUT IS NOT ABLE TO FOLLOW COMMANDS PILL NOT GIVEN AT THIS TIME.
[2018-04-03 22:37] LABS: URINE AMPHETAMINES < 1000 (1000ng/ml); URINE BARBITURATES < 200 (200ng/ml); URINE BENZODIAZEPINES < 200 (200ng/ml); URINE CANNABINOIDS (THC) < 50 (50ng/ml); URINE COCAINE < 300 (300ng/ml); URINE METHADONE < 300 (300ng/ml); URINE OPIATES > 300 (300ng/ml)
[2018-04-03 22:38] LABS: URINE PHENCYCLIDINE < 25 (25ng/ml)
--- NOTE | 2018-04-03 22:41 | NUR ---
CALLED CONSULT TO ABHIJEET NEW BIPAP SETTINGS GIVEN ABGS IN THE MORNING
[2018-04-04] VITALS: BP 139/53
[2018-04-04 04:00] VITALS: BP 161/78
[2018-04-04 06:00] LABS: HEMATOCRIT 41.2 % (42.0-52.0); MEAN CELL VOLUME 93.6 fl (80.0-94.0); MEAN CORPUSCULAR HGB 27.3 pg (27.0-31.0); MEAN CORPUSCULAR HGB CONC 29.1 g/dl (33.0-37.0); MEAN PLATELET VOLUME 9.6 fl (9.6-12.3); PLATELET COUNT AUTOMATED 228 10*3/uL (130-400); RED CELL DISTRI WIDTH 15.9 % (0-14.5)
[2018-04-04 06:45] LABS: ATYPICAL LYMPHS 1 % (0-0); TOTAL CELLS COUNTED 100 #CELLS
[2018-04-04 06:46] LABS: OVALOCYTES FEW; PLATELET SUFFICIENCY NORMAL (NORMAL)
[2018-04-04 07:17] LABS: BUN 21 mg/dl (7-24); CHLORIDE 98 mmol/L (98-107); CREATININE 0.75 mg/dL (0.70-1.30); PHOSPHOROUS 2.6 mg/dL (2.5-4.9); POTASSIUM 4.6 mmol/L (3.5-5.1); SODIUM 141 mmol/L (136-145)
[2018-04-04 08:00] VITALS: BP 189/75
[2018-04-04 08:13] LABS: ABG BASE EXCESS 7.8 mmol/L (-2.0-2.0); ABG HCO3 32.7 mmol/l (22-26); ABG O2 SATURATION 94.9 % (95-97); ARTERIAL BLOOD GAS PCO2 48.6 mmHg (35-45); ARTERIAL BLOOD GAS PH 7.443 (7.35-7.45); ARTERIAL BLOOD GAS PO2 69.1 mmHg (80-90)
--- NOTE | 2018-04-04 08:27 | NUR ---
Awake. Disorientwed to place and time. Brief intact and dry. Dr. Harris in. ABG ordered drawn, resulted and O2 increased to 3L NC. Breakfast ordered.
[2018-04-04 12:00] VITALS: BP 103/43
--- NOTE | 2018-04-04 12:09 | NUR ---
Incontinent urine and very large soft formed stool. martina care given and repositioned. Family in to visit.
--- NOTE | 2018-04-04 14:06 | NUR ---
Dr. Alexander in to [facility].
[2018-04-04 16:00] VITALS: BP 155/64
[2018-04-04 20:00] VITALS: BP 150/68
[2018-04-05] VITALS: BP 142/78
[2018-04-05 04:00] VITALS: BP 138/68
--- NOTE | 2018-04-05 05:36 | NUR ---
PATIENT INCONTIENT OF BOWEL AND BLADDER X2 THROUGH OUT THE NIGHT PATIENTS BM WAS FORMED SOFT GREEN BOTH TIMES. PATIENT SEEMS CONFUSED THIS MORNING STATING THE DOOR TO THE BATHROOM WAS LYING ON THE FLOOR AND JUMP UP. PATIENT HAS REFUSED TO WEAR THE BIPAP ALL NIGHT.
--- NOTE | 2018-04-05 07:18 | NUR ---
Shift chart check completed.
[2018-04-05 08:00] VITALS: BP 170/80
[2018-04-05 08:21] LABS: BASO % 0.1 % (0.0-1.0); HEMATOCRIT 36.6 % (42.0-52.0); HEMOGLOBIN 10.8 g/dl (14.0-18.0); LYMPH # 0.5 10*3/uL (1.3-4.4); LYMPH % 5.6 % (27.0-41.0); MEAN CELL VOLUME 91.5 fl (80.0-94.0); MEAN CORPUSCULAR HGB CONC 29.5 g/dl (33.0-37.0); MEAN PLATELET VOLUME 9.6 fl (9.6-12.3); NEUT # 7.9 10*3/uL (2.3-7.9); NEUT % 83.7 % (47.0-73.0); PLATELET COUNT AUTOMATED 243 10*3/uL (130-400); RED CELL DISTRI WIDTH 16.6 % (0-14.5); WHITE BLOOD COUNT 9.5 10*3/uL (4.8-10.8)
[2018-04-05 08:36] LABS: BUN 25 mg/dl (7-24); CHLORIDE 96 mmol/L (98-107); CREATININE 0.68 mg/dL (0.70-1.30); SODIUM 135 mmol/L (136-145)
[2018-04-05 08:39] LABS: POTASSIUM 4.2 mmol/L (3.5-5.1)
--- NOTE | 2018-04-05 09:00 | NUR ---
Biology Internship in to see patient. He is a LTC resident at [facility] and plans to return there upon discharge. neighborhood planner following.
[2018-04-05 09:23] LABS: ABG BASE EXCESS 9.1 mmol/L (-2.0-2.0); ABG HCO3 35.1 mmol/l (22-26); ABG O2 SATURATION 97.5 % (95-97); ARTERIAL BLOOD GAS PH 7.411 (7.35-7.45); ARTERIAL BLOOD GAS PO2 81.3 mmHg (80-90)
[2018-04-05 12:00] VITALS: BP 151/57
[2018-04-05 16:00] VITALS: BP 156/60
--- NOTE | 2018-04-05 16:20 | NUR ---
PATIENT IN RADIOLOGY FOR CT SCAN - PATIENT EXPLAINED MULTIPLE TIMES THE IMPORTANCE OF BIPAP USAGE BY NURSE & RESP THERAPIST BUT PATIENT SAID HE ISN'T WEARING IT.
--- NOTE | 2018-04-05 17:00 | NUR ---
PT BACK TO BED AFTER RETURNED FROM RADIOLOGY - BRIEF CHECK CHECKED - DRY
--- NOTE | 2018-04-05 18:50 | NUR ---
SLEEPING RESP EASY AND NONLABORED
[2018-04-05 20:00] VITALS: BP 163/68
--- NOTE | 2018-04-05 20:16 | NUR ---
1930 RESTING IN BED WITH EYES CLOSED. APPEARS TO BE SLEEPING. HOB ELEVATED. SIDE RAILS UP X'S 2. PULSE OX 99% ON 3L. HEP LOCK INTACT. NO C/O'S PAIN OR DISCOMFORT VOICED. NO DISTRESS NOTED.
--- NOTE | 2018-04-05 22:09 | NUR ---
2100 INCONTINENT OF LARGE AMOUNT URINE. DIAPER SATURATED. [facility] DONE AND ADULT DIAPER CHANGED. REPOSITIONED ON LEFT SIDE. CALL LIGHT IN REACH.
--- NOTE | 2018-04-05 23:35 | NUR ---
PT REFUSED TO WEAR BIPAP
[2018-04-06] VITALS: BP 158/60
--- NOTE | 2018-04-06 00:29 | NUR ---
REFUSED BIPAP EARLIER. RESTING IN BED WITH EYES CLOSED. APPEARS TO BE SLEEPING. PULSE OX 97% ON 3L O2 VIA NC.
--- NOTE | 2018-04-06 04:06 | NUR ---
REMAINS SLEEPING WITHOUT DISTRESS.
[2018-04-06 05:26] LABS: BUN 18 mg/dl (7-24); CHLORIDE 99 mmol/L (98-107); CREATININE 0.65 mg/dL (0.70-1.30); SODIUM 138 mmol/L (136-145)
[2018-04-06 05:29] LABS: POTASSIUM 5.2 mmol/L (3.5-5.1)
--- NOTE | 2018-04-06 06:14 | NUR ---
0530 INCONTINENT FOR VERY LARGE AMOUNT URINE AND LARGE AMOUNT BLACK, TARRY, MUSHY STOOL. [facility] CARE DONE AND ADULT DIAPER CHANGED. RESTING IN BED WITH EYES CLOSED. APPEARS TO BE SLEEPING. NO DISTRESS NOTED. CONDITION GUARDED.
[2018-04-06 06:58] LABS: BASO % 0.1 % (0.0-1.0); EOS % 0.1 % (1.0-4.0); HEMATOCRIT 38.2 % (42.0-52.0); HEMOGLOBIN 11.3 g/dl (14.0-18.0); LYMPH # 0.6 10*3/uL (1.3-4.4); LYMPH % 6.5 % (27.0-41.0); MEAN CELL VOLUME 89.7 fl (80.0-94.0); MEAN CORPUSCULAR HGB 26.5 pg (27.0-31.0); MEAN CORPUSCULAR HGB CONC 29.6 g/dl (33.0-37.0); MEAN PLATELET VOLUME 9.5 fl (9.6-12.3); MONO # 0.7 10*3/uL (0.1-1.0); MONO % 7.8 % (3.0-9.0); NEUT % 84.7 % (47.0-73.0); PLATELET COUNT AUTOMATED 227 10*3/uL (130-400); RED BLOOD COUNT 4.26 10*6/uL (4.50-5.90); RED CELL DISTRI WIDTH 16.5 % (0-14.5); WHITE BLOOD COUNT 9.4 10*3/uL (4.8-10.8)
[2018-04-06 08:00] VITALS: BP 174/70
--- NOTE | 2018-04-06 09:49 | NUR ---
PATIENT NOT WANTING TO EAT JUST WANTED SOME COFFEE. RESTING WITH EYES CLOSED NOW. PATIENT THINKING ABOUT LETTING STAFF WASH HIM UP PRIOR TO DOZING OFF
--- NOTE | 2018-04-06 09:55 | NUR ---
PATIENT HAS AN OCC NONPROD COUGH - STILL UNABLE TO OBTAIN SPUTUM
[2018-04-06 12:00] VITALS: BP 156/64
--- NOTE | 2018-04-06 15:02 | NUR ---
MOVED TO 522 VIA BED - REPORT TOO ABRAHAM
--- NOTE | 2018-04-06 15:10 | NUR ---
PATIENT TRANSFERRED TO THE FLOOR FROM [facility], SEE SHIFT ASSESSMENT AND VITAL SIGNS FOR DETAILS.
[2018-04-06 16:00] VITALS: BP 177/61
--- NOTE | 2018-04-06 17:41 | NUR ---
MEDICATED WITH PRN PO TYLENOL FOR RIGHT KNEE PAIN.
--- NOTE | 2018-04-06 18:45 | NUR ---
PATIENT READY TO BE PLACED ON BIPAP FOR THE NIGHT. ADMINISTERED BEDTIME MEDICATIONS AND ALSO PRN PO ATIVAN TO PROMOTE TOLERANCE OF THE BIPAP. RESPIRATORY THERAPIST PREPARING TO PLACE ON BIPAP.
[2018-04-06 20:00] VITALS: BP 184/69
--- NOTE | 2018-04-06 22:09 | NUR ---
REMOVED FROM BIPAP AT 22:05 PER PATIENT REQUEST. PLACED ON NC.
[2018-04-07] VITALS: BP 176/55
--- NOTE | 2018-04-07 07:50 | NUR ---
MEDICATED WITH PRN PO TYLENOL FOR RIGHT KNEE PAIN.
[2018-04-07 08:00] VITALS: BP 159/70; BP 170/65
[2018-04-07 08:20] LABS: BASO % 0.1 % (0.0-1.0); HEMATOCRIT 40.1 % (42.0-52.0); HEMOGLOBIN 12.3 g/dl (14.0-18.0); LYMPH # 1.1 10*3/uL (1.3-4.4); MEAN CELL VOLUME 87.6 fl (80.0-94.0); MEAN CORPUSCULAR HGB 26.9 pg (27.0-31.0); MEAN CORPUSCULAR HGB CONC 30.7 g/dl (33.0-37.0); MEAN PLATELET VOLUME 9.7 fl (9.6-12.3); MONO # 1.2 10*3/uL (0.1-1.0); MONO % 11.7 % (3.0-9.0); NEUT # 7.8 10*3/uL (2.3-7.9); NEUT % 76.5 % (47.0-73.0); PLATELET COUNT AUTOMATED 258 10*3/uL (130-400); RED BLOOD COUNT 4.58 10*6/uL (4.50-5.90); RED CELL DISTRI WIDTH 16.1 % (0-14.5); WHITE BLOOD COUNT 10.2 10*3/uL (4.8-10.8)
[2018-04-07 08:32] LABS: BUN 15 mg/dl (7-24); CHLORIDE 97 mmol/L (98-107); CREATININE 0.61 mg/dL (0.70-1.30); SODIUM 136 mmol/L (136-145)
[2018-04-07 08:37] LABS: POTASSIUM 4.1 mmol/L (3.5-5.1)
--- NOTE | 2018-04-07 09:00 | NUR ---
Medical Diagnostic Radiographer in to see patient. No new needs or request at this time. When medically stable he will be discharged to [facility] where he a LTC resident. project planner following.
--- NOTE | 2018-04-07 09:29 | NUR ---
PRN PO TYLENOL EFFECTIVE, PER PATIENT.
[2018-04-07 12:00] VITALS: BP 192/64
--- NOTE | 2018-04-07 12:34 | NUR ---
PHONED DR. JHA TO CONFIRM THAT PATIENT WOULD BE OK FOR DISCHARGE. PER DR. JHA, OK TO DISCHARGE WITH A BIPAP.
--- NOTE | 2018-04-07 13:28 | NUR ---
patient clinical updates faxed to caden m[facility] ([place] 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
[2018-04-07 13:50] VITALS: BP 180/80
--- NOTE | 2018-04-07 13:55 | NUR ---
PER [facility] FACILITY STAFF, IN ORDER TO PATIENT TO RETURN TO THE FACILITY WITH AN ORDER FOR BIPAP, AN ORDER FOR THE BIPAP FREQUENCY AND SETTINGS WILL NEED TO BE FAXED TO [phone]. THE BIPAP WILL NEED TO BE ORDERED AND THEN DELIVERED TO THE FACILITY BEFORE THE PATIENT CAN RETURN TO THE FACILITY. TIME NEEDED FOR DELIVERY AFTER ORDER IS PLACED IS APPROXIMATELY [address] ARITA, NO DISCHARGE IS PLANNED FOR TODAY. ALSO NOTIFIED DR. ARITA OF BP 180/80 MANUALLY, HE IS ENTERING ORDERS.
--- NOTE | 2018-04-07 14:03 | NUR ---
MEDICATED WITH IV HYDRALAZINE 5MG X 1 ORDERED FOR ELEVATED BLOOD PRESSURE.
--- NOTE | 2018-04-07 15:46 | NUR ---
MEDICATED WITH IV HYDRALAZINE X 1 FOR ELEVATED BLOOD PRESSURE.
[2018-04-07 16:00] VITALS: BP 191/51
--- NOTE | 2018-04-07 16:16 | NUR ---
DR. ARITA NOTIFIED OF REPEAT BLOOD PRESSURE, OBTAINED ORDER FOR ANOTHER 5MG IV HYDRALAZINE X 1
--- NOTE | 2018-04-07 17:24 | NUR ---
MEDICATED WITH IV HYDRALAZINE X 1 ORDERED FOR ELEVATED BLOOD PRESSURE.
--- NOTE | 2018-04-07 18:47 | NUR ---
MEDICATED WITH PRN PO ATIVAN AND ALL NIGHT MEDS IN PREPARATION FOR APPLICATION OF THE BIPAP PER RESPIRATORY THERAPIST.
--- NOTE | 2018-04-07 19:15 | NUR ---
PT PLACED ON BIPAP
[2018-04-07 20:00] VITALS: BP 187/71
--- NOTE | 2018-04-07 21:10 | NUR ---
dr. sommers notified of elevated blood pressure reading. prior interventions reviewed. orders received to give hydralazine 5mg IV now, patient will be started on lopressor tomorrow.
--- NOTE | 2018-04-07 22:22 | NUR ---
PT TAKEN OFF BIPAP
--- NOTE | 2018-04-07 23:54 | NUR ---
pt placed on bipap
[2018-04-08] VITALS: BP 192/77
[2018-04-08 00:43] VITALS: BP 186/88
--- NOTE | 2018-04-08 00:45 | NUR ---
SPOKE WITH DR. MARINA REGARDING ELEVATED BLOOD PRESSURE DESPITE PRIOR INTERVENTIONS. ORDERS RECEIVED FOR LABETALOL 10MG IV.
--- NOTE | 2018-04-08 01:10 | NUR ---
DR. MARINA NOTIFIED THAT [facility] DID NOT HAVE LABETALOL AVAILABLE. NO OTHER FLOORS HAD ANY AVAILABLE. ORDERS RECEIVED TO GIVE HYDRALAZINE 5MG IV INSTEAD.
--- NOTE | 2018-04-08 07:20 | NUR ---
Bipap order and setting faxed to [facility]; bipap is being ordered, waiting on delivery to [facility] prior to patient being discharged.
[2018-04-08 08:00] VITALS: BP 160/75
--- NOTE | 2018-04-08 09:00 | NUR ---
Dispute Specialist in to see patient. No new needs or request at this time. When medically stable he will be discharged to [facility] where he a LTC resident. statistical developer following.
[2018-04-08 09:05] VITALS: BP 164/64
[2018-04-08 12:00] VITALS: BP 162/74
--- NOTE | 2018-04-08 12:46 | NUR ---
Spoke to hospitalist nurse director about discharge medications. Patient will be discharged on no IV medications. Faxed medication list to [facility] as requested and informed of no IV medications to be continued.
--- NOTE | 2018-04-08 13:24 | NUR ---
Received message from Mehnaz/RENATA, patients Bi-pap has arrived to the facility. Patient is ok to be discharged when medically stable
[2018-04-08] MEDS ORDERED: DOXYCYCLINE100 M3 PO (14:11)
[2018-04-08] MEDS ORDERED: NEURONTIN300 MG PO (14:11)
[2018-04-08] MEDS ORDERED: PREDNISONE10 MG PO (14:11)
[2018-04-08] MEDS ORDERED: HYDROCODONE-AC1 EAC1 PO (14:11)
[2018-04-08] MEDS ORDERED: LOSARTAN POTASS50 M1 PO (14:11)
[2018-04-08] MEDS ORDERED: ATIVAN0.5 MG PO (14:36)
--- NOTE | 2018-04-08 15:07 | NUR ---
Transportation arranged with [facility] ambulance to transport with sheepskin pickler time 4:30 p.m. Nurse Eliazar notified.
--- NOTE | 2018-04-08 15:30 | NUR ---
[facility] TIME FOR AMBULANCE SERVICE SET UP FOR 1600. PATIENT NOTIFIED.
--- NOTE | 2018-04-08 15:38 | NUR ---
REPORT CALLED TO RECEIVING NURSE AT [facility]
[2018-04-08 16:00] VITALS: BP 151/60
[2018-04-09 03:07] LABS: ADENOVIRUS Negative (Negative); INFLUENZA A Negative (Negative); INFLUENZA B Negative (Negative); METAPNEUMOVIRUS Negative (Negative); PARAINFLUENZA 1 Negative (Negative); PARAINFLUENZA 2 Negative (Negative); PARAINFLUENZA 3 Negative (Negative); RHINOVIRUS Negative (Negative); RSV A Negative (Negative); RSV B Negative (Negative)
[2018-05-24] MEDS ORDERED: IMODIUM A-D2 M2 PO (18:43)
[2018-05-24] MEDS ORDERED: LASIX40 MG PO (18:44)
[2018-05-24] MEDS ORDERED: COZAAR25 M1 PO (18:44)
[2018-05-24] MEDS ORDERED: MUCINEX ER600 MG PO (18:45)
[2018-05-24] MEDS ORDERED: POTASSIUM99 M5 PO (18:47)
[2018-05-24] MEDS ORDERED: RANEXA500 M1 PO (18:48)
[2018-05-27] MEDS ORDERED: PREDNISONE10 MG PO (13:07)
[2018-05-27] MEDS ORDERED: HYDROCODONE-AC1 EAC1 PO (13:07)
[2018-05-27] MEDS ORDERED: AVPAK AZITHROM250 M1 PO (13:07)
[2018-06-02] MEDS ORDERED: SEPTDS PO (02:28)
[2018-06-02] MEDS ORDERED: BACTROBAN CREAM15 GM T (02:34)
[2018-06-02] MEDS ORDERED: PREDNISONE10 MG PO (03:06)
[2018-06-03] MEDS ORDERED: ATIVAN0.5 MG PO (02:33)
[2018-06-04] MEDS ORDERED: INCRUSE ELLI62.5 MCG INH (02:39)
[2018-06-04] MEDS ORDERED: K-TAB20 MEQ PO (03:04)
[2018-06-04] MEDS ORDERED: PROBIOTIC1 EAC1 PO (03:07)
[2018-06-07] MEDS ORDERED: PREDNISONE10 MG PO (09:23)
[2018-06-07] MEDS ORDERED: HYDROCODONE-AC1 EAC1 PO (09:23)
[2018-06-07] MEDS ORDERED: AUGMENTIN 875875 MG PO (09:23)
[2018-07-31] MEDS ORDERED: FINASTERIDE5 M1 PO (05:42)
[2018-07-31] MEDS ORDERED: LISINOPRIL5 MG PO (05:45)
[2018-07-31] MEDS ORDERED: PROBIOTIC WITH1 EACH PO (05:47)
[2018-07-31] MEDS ORDERED: NYST SUSP PO (05:54)
[2018-07-31] MEDS ORDERED: TYLENOL325 M2 PO (05:59)
[2018-08-01] MEDS ORDERED: PREDNISONE10 M1 PO (19:37)
[2018-08-01] MEDS ORDERED: PROBIOTIC PRODUCT PO (19:39)
[2018-08-01] MEDS ORDERED: GABAPENTIN100 M2 PO (19:43)
[2018-08-03] MEDS ORDERED: AUGMENTIN 875875 MG PO (13:23)
[2018-08-03] MEDS ORDERED: GABAPENTIN100 M2 PO (13:23)
[2018-08-03] MEDS ORDERED: Humalog SQ (13:23)
[2018-08-03] MEDS ORDERED: PREDNISONE10 MG PO (13:23)
== END 2018-04-08 17:15 | DRG 871 ==
LOC: ED 15:26 → EDHOLD 18:47 → ICCU 18:47 → 5E 04-06 15:02
PROVIDERS: Emergency Medicine; Internal Medicine Critical Care Medicine; Internal Medicine Nephrology; Student in an Organized Health Care Education/Training Program; ADMIT Internal Medicine
PROC: 5A09357 Assistance with Respiratory Ventilation, Less than 24 Consecutive Hours, Continuous Positive Airway Pressure (ICD-10-PCS; principal; 2018-04-03)
PROC: 5A09357 Assistance with Respiratory Ventilation, Less than 24 Consecutive Hours, Continuous Positive Airway Pressure (ICD-10-PCS; 2018-04-06)
PROC: 5A09357 Assistance with Respiratory Ventilation, Less than 24 Consecutive Hours, Continuous Positive Airway Pressure (ICD-10-PCS; 2018-04-07)
DX: A41.9 Sepsis, unspecified organism (principal); G93.41 Metabolic encephalopathy; J96.21 Acute and chronic respiratory failure with hypoxia; J96.22 Acute and chronic respiratory failure with hypercapnia; N39.0 Urinary tract infection, site not specified; G45.8 Other transient cerebral ischemic attacks and related syndromes; I50.32 Chronic diastolic (congestive) heart failure; E44.0 Moderate protein-calorie malnutrition; J44.1 Chronic obstructive pulmonary disease with (acute) exacerbation; E87.4 Mixed disorder of acid-base balance; F10.21 Alcohol dependence, in remission; I25.10 Atherosclerotic heart disease of native coronary artery without angina pectoris; G89.29 Other chronic pain; F03.90 Unspecified dementia, unspecified severity, without behavioral disturbance, psychotic disturbance, mood disturbance, and anxiety; K21.9 Gastro-esophageal reflux disease without esophagitis; E78.5 Hyperlipidemia, unspecified; I11.0 Hypertensive heart disease with heart failure; F32.9 Major depressive disorder, single episode, unspecified; G62.9 Polyneuropathy, unspecified; Z96.642 Presence of left artificial hip joint; D53.9 Nutritional anemia, unspecified; I73.9 Peripheral vascular disease, unspecified; M1A.9XX0 Chronic gout, unspecified, without tophus (tophi); E55.9 Vitamin D deficiency, unspecified; R33.9 Retention of urine, unspecified; R65.20 Severe sepsis without septic shock; R73.9 Hyperglycemia, unspecified; Z53.29 Procedure and treatment not carried out because of patient's decision for other reasons; F12.11 Cannabis abuse, in remission; E66.8 Other obesity; Z68.32 Body mass index [BMI] 32.0-32.9, adult; Z79.899 Other long term (current) drug therapy; Z91.81 History of falling; Z87.01 Personal history of pneumonia (recurrent); Z82.49 Family history of ischemic heart disease and other diseases of the circulatory system; Z85.038 Personal history of other malignant neoplasm of large intestine; Z72.0 Tobacco use; Z82.5 Family history of asthma and other chronic lower respiratory diseases

== ENCOUNTER 2018-04-28 04:15 | Inpatient (IN) | payer MEDICARE, MEDICAID ==
[2018-04-28] VITALS (9 sets, daily range): BP systolic 85–197; BP diastolic 0–92
[~2018-04-28] VITALS: Ht 173.9 cm; Wt 98.7 kg
--- NOTE | ~2018-04-28 | EKG ---
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 Ybarra : 1955 Requested By: KRISS VICTOR Order Number: [id number] Reading MD: Bo Alexander MD Measurements Intervals [place] Rate: 122 P: -29 NH: 144 QRS: -80 QRSD: 84 T: 83 QT: 283 QTc: 403 Interpretive Statements Sinus tachycardia Paired ventricular premature complexes Probable left atrial enlargement Consider right ventricular hypertrophy Inferior infarct, old Compared to ECG 03/12/2018 10:20:48 Ventricular premature complex(es) now present Electronically Signed On 05-01-2018 11:46:16 PST by Bo Alexander MD CM:EKGRPT:ELECTROCARDIOGRAM REPORT [id number] KRISS PORTER DRAFT REPORT KRISS VICTOR DO
--- NOTE | ~2018-04-28 | PR ---
[place], [place] PROGRESS NOTE [id number] UNIT #: [id number] ROOM: 521 DOCTOR: ABHIJEET GONZALEZ MD,THEA BIRTHDATE: [birth year] DOS: 04/29/2018 SUBJECTIVE: The patient has been noted some improvement in the overall physical strength, reduction in shortness of breath. The coughing has been noted moderate nonproductive. Denies symptoms of chest pain, hemoptysis and pain of the lower extremity. Mild edema of the lower extremity was still reported. Denies symptoms of headache, nausea, vomiting, diarrhea, abdominal pain. The patient is n.p.o. past midnight for bronchoscopy that was planned to be done this morning. Remaining systems reviewed were noted all negative. OBJECTIVE: VITAL SIGNS: For the patient this morning, normal temperature. The respiratory rate of 18, heart rate 95, blood pressure 131/86. Pulse oxygen saturation on 2 liters 94% saturation. HEENT: Chronic obesity. NECK: Supple. Head was atraumatic. CARDIOVASCULAR: S1, S2 are audible. LUNGS: Noted moderate decreased breath sounds, scattered expiratory wheezing without any crackles. ABDOMEN: Soft and obese. EXTREMITIES: 1+ pitting edema still remains persistent. VISIBLE SKIN: No lesions or rashes. MUSCULOSKELETAL: Without any acute deformities. CENTRAL NERVOUS SYSTEM: Unchanged with general weakness. LABORATORY DATA: BMP today: BUN of 26, creatinine was normal, glucose 157. LFTs, albumin 2.4, total protein 5.4. The PT and PTT for the patient this morning were noted as normal. CBC this morning: WBC count normal, hemoglobin 9.0, hematocrit 29.6, platelet count normal at 153,000, 97% segmented neutrophils noted. IMPRESSION: 1. The patient was begun acute pneumonia involving the right lung with acute sepsis. The patient admitted to the hospital. 2. The patient with acute exacerbation of chronic obstructive pulmonary disease as well. 3. Mild peripheral edema related to the congestive heart failure. 4. Chronic obesity. 5. Chronic hypercapnic respiratory failure and metabolic alkalosis. PLAN OF MANAGEMENT: Continue antibiotics, bronchodilators, BiPAP with oxygen supplementation, other plan of management, proceed with the bronchoscopy. Any adjustment in the medication necessary will be ordered after the bronchoscopy. [place], [place] PROGRESS NOTE NAME: JAMAL HIDALGO UNIT #: [id number] ROOM: 521 DOCTOR: THEA COPELAND MD BIRTHDATE: [birth year] THEA JAH MD CM:PNTRANS [id number] THEA GONZALEZ MD 04/29/18 1441 interface
--- NOTE | ~2018-04-28 | PR ---
[place], [place] PROGRESS NOTE NAME: JAMAL HIDALGO [facility] #: [id number] UNIT #: [id number] ROOM: 521 DOCTOR: ABHIJEET GONZALEZ MD,THEA BIRTHDATE: [birth year] DOS: 05/03/2018 PULMONARY PROGRESS NOTE SUBJECTIVE: The patient noted comfortable at this time, resting on the bed this morning. He has not been noted any acute new respiratory complaints. He denies any coughing, sputum expectoration, or shortness of breath. He has used the BiPAP last night. This morning, using oxygen supplementation with the nasal cannula. OBJECTIVE: VITAL SIGNS: The vital signs of the patient, which were recorded shows the temperature noted as normal, the respiratory rate of the patient recorded as 18, heart rate is 69, and blood pressure is 155/63. Pulse oxygen saturation with the nasal cannula was 99% saturation. HEENT: On examination, no acute change. CARDIOVASCULAR SYSTEM: S1, S2 is audible. LUNGS: The patient was noted without any wheeze or crackles. ABDOMEN: Soft, nontender. Bowel sounds present. EXTREMITIES: Shows mild edema. IMPRESSION: 1. The patient has stable respiratory status, resolving acute exacerbation of chronic obstructive pulmonary disease as well as acute pneumonia. 2. Chronic hypercapnia as well. PLAN OF MANAGEMENT: No change from pulmonary standpoint. Continue the current therapy at this time. Discharge planning per primary care attending back to the care home facility on oral antibiotics. THEA JHA MD CM:PNTRANS [id number] THEA GONZALEZ MD 05/04/18 0039 interface
--- NOTE | ~2018-04-28 | PR ---
[place], [place] PROGRESS NOTE NAME: JAMAL HIDALGO [facility] #: [id number] UNIT #: [id number] ROOM: 521 DOCTOR: ABHIJEET GONZALEZ MD,THEA BIRTHDATE: [birth year] DOS: 05/02/2018 PULMONARY PROGRESS NOTE SUBJECTIVE: He has been noted comfortable at this time, resting on the bed. Denies symptoms of chest pain, fever, chills, or hemoptysis. The patient underwent endoscopy on 05/01/2018 with findings of gastritis and hiatal hernia. Respiratory grimaldo, the patient has been doing well with reduction in the respiratory complaints. OBJECTIVE: VITAL SIGNS: For the patient which has been recorded shows a normal temperature, respiratory rate 18, heart rate 67, blood pressure 151/50. Pulse oxygen saturation on 2 liters nasal cannula 97% saturation. HEENT: No acute change. CARDIOVASCULAR: S1, S2 is audible. LUNGS: Without any wheeze or crackles at the present time. ABDOMEN: Soft, nontender. Bowel sounds present. EXTREMITIES: Without acute edema. IMPRESSION: Stable respiratory status was noted at present time with resolving acute exacerbation of chronic obstructive pulmonary disease and acute pneumonia. PLAN OF MANAGEMENT: No change in pulmonary standpoint. Discharge planning per primary care attending. Continue the BiPAP use and other medical management from Pulmonary standpoint without any changes at this time. THEA JHA MD CM:PNTRANS [id number] [id number] THEA GONZALEZ MD 05/03/18 0059 interface
--- NOTE | ~2018-04-28 | PROC NOTE ---
[place], [place] PROCEDURE NOTE NAME: JAMAL HIDALGO UNIT #: [id number] ROOM: 521 DOCTOR: ABHIJEET GONZALEZ MD,THEA BIRTHDATE: [birth year] DOS: 04/29/2018 PREOPERATIVE DIAGNOSES: The patient with extensive pneumonia involving the right lung with cough. POSTOPERATIVE DIAGNOSES: Removal of several plugs and mucus endobronchial tree with finding consistent with acute pneumonia. The predominance of the finding was noted on the right than the left side. There were no endobronchial obstructive lesions. COMPLICATIONS: None. DESCRIPTION OF PROCEDURE: Informed consent obtained for the patient. He was brought to the OR and placed in supine position. Conscious sedation administered by the Anesthesia Department. After achieving proper sedation, airway introduced into the mouth. Bronchoscope was withdrawn and introduced through the airway into laryngeal area. Epiglottis and vocal cord seen. Vocal cords were noted yellowish in color moving symmetrically with movements. Bronchoscope advanced to the vocal cords into the tracheal lumen noted with moderate to large amount of thick mucus secretion mixed with purulent secretions mixture tracking to the right main stem bronchus. All secretions suctioned out. Impaction of the right upper, middle, lower lobe bronchi were noted with current secretion, which were cleared of normal saline wash. Small amount of mucus impaction noted in the left upper lingula and lower lobe bronchi as well, cleared out with the help of normal saline wash. Procedure well tolerated by the patient. Postoperative finding will be discussed with the patient once the patient recovers with the effects of acute sedation. THEA JHA MD CM:PROCNOTE:PROCEDURE NOTE [id number] THEA GONZALEZ MD
--- NOTE | ~2018-04-28 | O ---
[place], [place] OPERATIVE NOTE [id number] #: [id number] ROOM: 521 DOCTOR: KRYSTLE BRUNER,IRENE BIRTHDATE: [birth year] DOS: 05/01/2018 GASTROENDOSCOPIC REPORT INDICATIONS: This is a 62-year-old gentleman who has multiple medical issues among with difficulty ambulation, morbid obesity and black tarry stool. PROCEDURE: Today's procedure part of investigation is panendoscopy plus photographic series. PREMEDICATION: Propofol. SCOPE: Olympus forward-viewing gastroscope Q10 video. REPORT: After putting the patient in left lateral position and application of lubricant to the scope, the scope was introduced. Thereafter, under direct visualization, I advanced through the length of esophagus without difficulty. Hiatal hernia was noticed. Gastritis was seen. Antral erosions seen. Duodenal bulb, second and third part within normal limits. The patient extubated, tolerated procedure well. No biopsies obtained intentionally due to the fact the patient has been on multi-anticoagulants. IMPRESSION: Hiatal hernia, gastritis and gastric erosions. PLAN AND DISCUSSION: Protonix 40 mg daily. Supportive management. Follow up in H and H. DIET: Soft. IRENE DALTON MD CM:OPRECORD:OPERATIVE NOTE [id number] IRENE DALTON MD 05/01/18 1759 interface
--- NOTE | ~2018-04-28 | CON ---
[place], [place] REPORT OF CONSULTATION NAME: JAMAL HIDALGO [facility]IN [facility] #: [id number] UNIT #: [id number] ROOM: 521 DOCTOR: ABHIJEET GONZALEZ MDTHEA BIRTHDATE: [birth year] DOS: 04/28/2018 PULMONARY CRITICAL CARE EVALUATION AND MANAGEMENT CONSULTATION REQUESTED BY: Hospitalist services. REASON FOR CONSULTATION: For assessment of possibility of acute pneumonia. HISTORY OF PRESENT ILLNESS: This is a 62-year-old white male patient with history of end-stage COPD, chronic hypercapnic and hypoxic respiratory failure. He is a long-term resident of a nursing facility. He has been treated in this hospital intermittently and has been recently treated in this hospital and discharged to the nursing facility. He has been ordered the bilevel pressure to be used at nursing facility at night time to manage chronic hypercapnic respiratory failure. The patient has been brought to the hospital by the ambulance on 04/28/2017. He has reported change in mental status with confusional status in symptoms of shortness of breath. The patient came into the hospital for further assessment. Change in mental status has been noted better this morning as the patient was assessed with the chest as reported possibility of acute pneumonia. The patient has been started on multiple antibiotics for this patient as well for the coverage of gram-positive, gram-negative infections. He admitted symptoms of cough, which has been noted mild. There were no symptoms of sputum expectoration. Denies symptoms of chest pain. He does not have any symptoms of significant shortness breath at rest. Denies any symptoms of wheezing. Denies symptoms of hemoptysis. REVIEW OF SYSTEMS: CONSTITUTIONAL SYMPTOMS: Fatigue and tiredness noted without any symptoms of fever or chills. EYES: Denies any burning, redness, or tenderness. EARS, NOSE, THROAT SYMPTOMS: Denies sore throat, hoarseness, otalgia, postnasal drainage or epistaxis. CARDIOVASCULAR: Denies any pain of the lower extremities. Intermittent edema of the lower extremity were reported in the past. Denies any pain of the lower extremities. GASTROINTESTINAL: No dysphagia, nausea, vomiting, diarrhea or abdominal pain. GENITOURINARY: No dysuria, suprapubic pain, or hematuria. MUSCULOSKELETAL: No acute joint pain. Chronic arthritic pain. The patient intervertebral disk disease as well. CENTRAL NERVOUS SYSTEM: The patient noted bedbound with generalized chronic weakness and multiple medical issues. Remaining systems were reviewed. They were noted all negative. PAST MEDICAL, SURGICAL HISTORY, SOCIAL HISTORY, AND FAMILY HISTORY: Reviewed with the patient again since my consultation that was done on 04/04/2018 and noted unchanged after review. Refer to the consultation available in the [facility] for any other information necessary for review. MEDICATIONS: The current medication, which has been ordered for this [place], [place] REPORT OF CONSULTATION NAME: JAMAL HIDALGO UNIT #: [id number] ROOM: 521 DOCTOR: THEA COPELAND MD BIRTHDATE: [birth year] hospitalization, use of Eliquis, Plavix, Solu-Medrol 60 mg q. 8 hours, DuoNeb q. 4 hours, IV Zosyn, Levaquin, vancomycin, and others on p.r.n. medications. DRUG ALLERGIES: The patient noted no known drug allergies. PHYSICAL EXAMINATION: GENERAL: This is a 62-year-old white male, currently comfortably lying in the bed without any acute distress this morning noted fully awake, alert, oriented this morning of assessment. Height of 5 feet 9 inches, weight of 217 pounds, BMI 32.6. VITAL SIGNS: For the patient which were recorded showed the temperature noted as ordered 100.6 degree Fahrenheit on admission, respiratory rate of 26, heart rate 129, blood pressure of 100/52-121/60. Pulse oxygen saturation recorded on 4 liter nasal cannula 97% saturation. HEENT: Examination shows head was atraumatic. Eyes nonicterus. Moderate obesity. NECK: Supple. Decreased posterior pharyngeal space, high tongue base guarding of soft tissue structures. CARDIOVASCULAR: S1, S2 is audible. LUNGS: The patient was noted without any significant wheezing. Breaths are noted [id number] diminished bilaterally. ABDOMEN: Soft, nontender. EXTREMITIES: Evidence of 1+ pitting edema was noted without evidence of cyanosis or clubbing. MUSCULOSKELETAL: Without acute deformities. VISIBLE SKIN: No lesions or rashes. CENTRAL NERVOUS SYSTEM: General weakness for was noted. Cranial nerves were intact 2 to 12. LABORATORY DATA: Reviewed, CBC that was completed this morning, WBC count was normal, hemoglobin 9.8, hematocrit 33.1, and platelet count as normal. PT/INR that was done this morning. INR 1.0. CMP of this morning, BUN normal, creatinine was normal, sodium 134, potassium 5.2, CO2 of 33. The arterial blood gas of this morning, pH of 7.34, pCO2 of 60, pO2 75.3 on 3 liter nasal cannula. Ethyl alcohol level less than 3. The chest x-ray, 1 view, which was done was the Emergency Room were noted patchy infiltration involving the right mid lung, right lower lobe. Left lung appeared to be clear. Change of centrilobular rather hyperinflation and COPD were also noted. CT of the chest that was done were reviewed, shows evidence of patchy infiltration involving all of the lobes of the right lung with a 9 mm nodular density was noted. In the left lower lobe superior segment and another linear density was also noted close to that the possibility of atelectasis cannot be excluded, and small linear atelectasis. There was no significant lymphadenopathy seen. IMPRESSION: 1. The patient will be currently admitted to the hospital with the finding of acute sepsis with acute multilobar pneumonia noted mainly involving the right lung. The infection etiology would be considered as MRSA and gram-negative infection because of frequent hospitalizations. Use of the antibiotics. The last 90 days and hospitalization less than 30 days. Aspiration cannot be [place], [place] REPORT OF CONSULTATION NAME: ROCKYJAMAL Kaykay UNIT #: [id number] ROOM: 521 DOCTOR: KIRSTEN COPELAND MDM BIRTHDATE: [birth year] completely excluded because of the current pneumonia. 2. The patient with chronic obstructive pulmonary disease acute exacerbation as well. 3. Nodular density noted superior segment of the left upper lobe was also noted for this patient. Possibility of infection etiology or primary lung malignancy, the patient cannot be completely excluded. However, these nodular density were seen with the CT scan of the chest, which was assessed on 11/27/2017. 4. Acute on chronic hypercapnic respiratory failure. 5. Chronic metabolic alkalosis hypercarbia. PLAN OF MANAGEMENT: I agreed with the use of current broad spectrum intravenous antibiotic until the pneumonia, etiology could be determined. Consider bronchoscopy if necessary patient to further determine the etiology of current pneumonia due to deescalating antibiotics accordingly. Bronchodilators will be continued, dose of steroids will be decreased because of the wheezing has not been noted significant. BiPAP was also ordered for this patient as well in the assessment component of patient. The BiPAP could be used p.r.n. during the day, continue at nighttime. Intravenous fluid which has been ordered 3 liter to be given was limited to 1 liter of fluid because edema noted of the lower extremity to prevent further fluid overload. Hemodynamic instability and normal blood pressure, but tachycardia, which has been resolving. Monitor urinary output. Continue oxygen supplementation to maintain pulse oxygen 92% or greater. Other care, plan of management and therapies. Order the urine for Legionella antigen and strep antigen if not ordered. Sputum for Gram stain and culture as well. THEA JHA MD CM:CONSTR:REPORT OF CONSULTATION 1442 04/28/18 2006 interface
--- NOTE | ~2018-04-28 | PR ---
[place], [place] PROGRESS NOTE [id number] #: [id number] ROOM: 521 DOCTOR: ABHIJEET GONZALEZ MD,THEA BIRTHDATE: [birth year] DOS: 05/01/2018 SUBJECTIVE: The patient was noted comfortable at this time, resting in the bed. The coughing and shortness of breath has been improving. He was still complaining of wheezing. OBJECTIVE: VITAL SIGNS: Normal temperature, respiratory rate 20, heart rate 71, blood pressure 155/52. The pulse oxygen saturation of the patient recorded as 99% to 100% on oxygen supplementation nasal cannula. HEENT: Examination shows chronic obesity. Head was atraumatic. Eyes nonicterus. NECK: Supple. CARDIOVASCULAR: S1, S2 audible. LUNGS: The patient was noted with mild expiratory wheezing in the lungs bilaterally. ABDOMEN: Soft, nontender. Bowel sounds present. EXTREMITIES: Without acute edema. LABORATORY DATA: Chest x-ray, noted with resolving pulmonary infiltration. Small infiltration in the right lower lobe was noted. IMPRESSION: The patient with resolving acute exacerbation of chronic obstructive pulmonary disease, improving acute pneumonia. Cultures of the bronchial washing was noted as normal jay. PLAN OF THERAPY: Decrease the Solu-Medrol dose to 40 mg b.i.d. Discontinue the vancomycin, Levaquin and Zosyn. Start the patient on oral Augmentin based on the current culture results. Discharge planning could be started for discharge to the nursing facility as well. Discharge planning was done with Dr. Fuller. THEA JHA MD CM:PNTRANS 1402 [id number] THEA GONZALEZ MD 05/01/18 2317 interface
--- NOTE | ~2018-04-28 | CON ---
[place], [place] REPORT OF CONSULTATION NAME: [id number] UNIT #: [id number] ROOM: 521 DOCTOR: IRENE DALTON MD BIRTHDATE: [birth year] DOS: 04/30/2018 HISTORY OF PRESENT ILLNESS: This an 62-year-old obese patient who has presented from [facility]. Apparently, there has been concern about guaiac positivity of the patient. The patient has had a colonoscopy in the past November done. History of diverticulosis is known as well. His endoscopy at that time has been consistent with hiatal hernia and gastritis and colonic diverticulosis. He has been somewhat short of breath and no acute pulmonary pathology seen. CBC, white blood cell normal, H and H of 9.8 and 33, platelets normal, mixed chromic indices. INR 1.0. Urinary tract benign. Comprehensive metabolic GFR greater than 60, BUN and creatinine normal. Electrolytes borderline normal, liver function test normal, rapid Flu A and B negative. Arterial blood gases, pH 7.3, pCO2 of 60, pO2 75. Magnesium level 1.8. Ethanol alcohol less than 3. CTA of the chest, no acute pathology. PAST MEDICAL HISTORY: Associated with obesity, difficulty with ambulation. PAST SURGICAL HISTORY: Hip, right knee fem,-pop left prosthesis knee. All have been recognized. ALLERGIES: No known medication. SOCIAL HISTORY: Nonsmoker, nonalcohol consumer. MEDICATIONS: List reviewed, has been including Plavix and Eliquis, which could contribute to blood loss positivity with minimal scratch carrillo along the length of the GI tract. FAMILY HISTORY: Noncontributory. LABORATORY DATA: Labs reviewed, records reviewed. REVIEW OF SYSTEMS: HEENT: Denies double vision, blurred vision. RESPIRATORY: Denies acute shortness of breath; however, chronically short of breath. CARDIOVASCULAR: Denies acute chest pain. DIGESTIVE SYSTEM: Concerned that he is bleeding. PHYSICAL EXAMINATION: VITAL SIGNS: Stable. HEENT: Within normal limits. HEENT: Mouth, free of aphthae ulcer, thrush. Eyes, pupils round, reactive, nonicteric. NECK: Supple, no thyromegaly, no cervical lymphadenopathy. CHEST: Symmetric anatomy, equal expansion. Few scattered wheezes anteriorly, particularly in the left lung were noticed. HEART: Normal sinus rhythm. No gallop, no murmur. ABDOMEN: Soft. No hepato-organomegaly. Very large, obese. Bowel sounds present. No rebound tenderness. [place], [place] REPORT OF CONSULTATION NAME: JAMAL HIDALGO UNIT #: [id number] ROOM: 521 DOCTOR: IRENE DALTON MD BIRTHDATE: [birth year] EXTREMITIES: Scars of surgery and nonmobile lower extremities was noticed. NEUROLOGICAL: Alert, oriented to time, place, person. IMPRESSION: Anemia of chronic, on multiple anticoagulants and anti-platelets as the cause, otherwise, as dictated in past medical and surgical history. Gastrointestinal history of diverticulosis, gastritis, hiatal hernia. PLAN AND DISCUSSION: We will continue with PPI therapy 40 mg, Protonix daily. Follow up on H and H. IRENE DALTON MD CM:CONSTR:REPORT OF CONSULTATION 18 05/12/18 1057 interface
--- NOTE | ~2018-04-28 | PR ---
[place], [place] PROGRESS NOTE NAME: JAMAL HIDALGO [facility] #: [id number] UNIT #: [id number] ROOM: 521 DOCTOR: ABHIJEET GONZALEZ MD,THEA BIRTHDATE: [birth year] DOS: 04/30/2018 PULMONARY PROGRESS NOTE SUBJECTIVE: The patient underwent bronchoscopy yesterday, reported reduction of respiratory symptoms after that for the cough. Denies symptoms of chest pain. Denies symptoms of hemoptysis, fever, or chills. Shortness of breath has been noted decreased with use of BiPAP for a few hours last night. This morning, using oxygen supplementation via nasal cannula. Denies symptoms of headache, diplopia, nausea, vomiting, diarrhea, abdominal pain, hematemesis, melena, or hematochezia. Denies symptoms of pain of the lower extremity. The patient was noted bedbound. The patient did not ambulate for quite a bit of time. OBJECTIVE: VITAL SIGNS: Noted normal temperature, respiratory rate of 18, heart rate 74, blood pressure 136/64 to 137/51. Pulse oxygen saturation recorded as 100% on 2-liter nasal cannula. HEENT: Examination shows head was atraumatic. Chronic obesity. NECK: Supple. CARDIOVASCULAR: S1 and S2 audible. LUNGS: Noted without any wheeze or crackles at the present time. Breaths are noted mildly diminished bilaterally. ABDOMEN: Soft, obese, nontender. Bowel sounds present. EXTREMITIES: Show mild edema, without any worsening. VISIBLE SKIN: No lesions or rashes. MUSCULOSKELETAL: Without acute deformities. LABORATORY DATA: Culture of the bronchial washings preliminarily noted normal jay. Gram stain of the bronchial washings of yesterday, many white blood cells, a few epithelial cells, a few Gram-positive cocci in pairs and clusters, and rare budding yeast. BMP that was done yesterday, glucose 152, normal BUN and creatinine. CBC this morning, hemoglobin 8.3, WBC count normal, platelet count was normal. IMPRESSION: 1. The patient with acute pneumonia involving the right lung with acute exacerbation of chronic obstructive pulmonary disease. 2. Chronic moderate obesity. 3. Metabolic alkalosis. PLAN OF THERAPY: No changes in antibiotic at this time need to be done. Monitor culture results prior to making any further changes in the recommendation and changes in the antibiotic coverage. Bronchodilator therapy plan of management. Obtain a chest x-ray in the morning to assess the pulmonary infiltration progression radiologically. Usual care. [place], [place] PROGRESS NOTE NAME: JAMAL HIDALGO UNIT #: [id number] ROOM: 521 DOCTOR: THEA COPELAND MD BIRTHDATE: [birth year] THEA JHA MD CM:MELIA [id number] THEA GONZALEZ MD 04/30/18 1414 interface
[~2018-04-28 04:15] MED LIST changes: +ATIVAN0.5 MG PO; +LOSARTAN POTASS50 M1 PO; +TUSSIN100 MG/51 PO
[2018-04-28 05:15] LABS: BASO % 0.1 % (0.0-1.0); EOS # 0.1 10*3/uL (0.0-0.4); EOS % 0.9 % (1.0-4.0); HEMATOCRIT 33.1 % (42.0-52.0); HEMOGLOBIN 9.8 g/dl (14.0-18.0); LYMPH # 0.4 10*3/uL (1.3-4.4); LYMPH % 3.9 % (27.0-41.0); MEAN CORPUSCULAR HGB 27.5 pg (27.0-31.0); MEAN CORPUSCULAR HGB CONC 29.6 g/dl (33.0-37.0); MEAN PLATELET VOLUME 10.7 fl (9.6-12.3); MONO # 0.8 10*3/uL (0.1-1.0); MONO % 8.2 % (3.0-9.0); NEUT # 8.3 10*3/uL (2.3-7.9); NEUT % 86.4 % (47.0-73.0); PLATELET COUNT AUTOMATED 176 10*3/uL (130-400); RED BLOOD COUNT 3.56 10*6/uL (4.50-5.90); RED CELL DISTRI WIDTH 17.3 % (0-14.5); WHITE BLOOD COUNT 9.6 10*3/uL (4.8-10.8)
[2018-04-28 05:33] LABS: ALKALINE PHOSPHATASE 73 U/L (45-117); BUN 22 mg/dl (7-24); CHLORIDE 98 mmol/L (98-107); CREATININE 0.98 mg/dL (0.70-1.30); POTASSIUM 5.2 mmol/L (3.5-5.1); SGOT/AST 14 IU/L (3-35); SGPT/ALT 26 U/L (12-78); SODIUM 134 mmol/L (136-145); TOTAL PROTEIN 6.1 gm/dL (6.4-8.2)
[2018-04-28 05:38] LABS: BILIRUBIN NEGATIVE (NEGATIVE); BLOOD NEGATIVE (NEGATIVE); CLARITY CLEAR (CLEAR); COLOR YELLOW (YELLOW); GLUCOSE NEGATIVE (NEGATIVE); KETONE NEGATIVE (NEGATIVE); LEUKO ESTERASE 1+ (NEGATIVE); NITRITE NEGATIVE (NEGATIVE); UROBILINOGEN 0.2 E.U./dl (0.2-1.0)
[2018-04-28 05:45] LABS: WBC 21-30 wbc/hpf (0-5); YEAST TRACE
[2018-04-28 05:57] LABS: TROPONIN I < 0.015 ng/ml (<0.045)
[2018-04-28] MEDS ORDERED: POTASSIUM CHLO20 ME3 PO (07:00)
[2018-04-28] MEDS ORDERED: LASIX40 MG PO (07:00)
[2018-04-28 07:02] LABS: ABG BASE EXCESS 5.7 mmol/L (-2.0-2.0); ABG HCO3 31.8 mmol/l (22-26); ABG O2 SATURATION 94.9 % (95-97); ARTERIAL BLOOD GAS PCO2 60.6 mmHg (35-45); ARTERIAL BLOOD GAS PH 7.344 (7.35-7.45); ARTERIAL BLOOD GAS PO2 75.3 mmHg (80-90)
--- NOTE | 2018-04-28 07:03 | NUR ---
PT ROTATED FROM RIGHT SIDE TO LEFT SIDE DUE TO PT COMPLAINTS OF NUMBNESS LOWER EXTREMITIES, USE OF PILLOW UNDER HIP
--- NOTE | 2018-04-28 08:03 | NUR ---
A 62yr old male, admitted to , under the services of GIOVANNY Lewis DO with a diagnosis of encephalopathy, acute fever, and sinus tachycardia. Chief complaint is fever, chills. Patient arrived via stretcher from ER. Monitor applied. Initial assessment completed. Vital signs taken and recorded. See assessment for past medical history, medications and allergies. Patient and/or family oriented to unit. [facility] Clothing/patient valuable form completed. Rectal temp 100.9. Reddened, blanchable area in groin. Reddened scar left heel. Appears alert and oriented at this time. Bed in low position with wheels locked, call light in reach. TOSHA VALADEZ L
[2018-04-28] MEDS ORDERED: BENICAR20 MG PO (08:41)
[2018-04-28] MEDS ORDERED: GABAPENTIN100 M2 PO (08:49)
[2018-04-28] MEDS ORDERED: ALUM-MAG HYDRO360 ML PO (08:52)
--- NOTE | 2018-04-28 09:11 | NUR ---
MEDICATIONS RECONCILED WITH DETENTION RECORDS.
--- NOTE | 2018-04-28 10:09 | NUR ---
DR JHA HAS BEEN NOTIFIED OF CONSULTATION AND EXAMINED PT. ORDERS RECEIVED.
--- NOTE | 2018-04-28 11:47 | NUR ---
PT INSTRUCTED ON FLUTTER. PT TOLERATED WELL. PT CAN DO ON HIS OWN
--- NOTE | 2018-04-28 15:06 | NUR ---
DR JHA CALLED IN, NO CHANGE IN ANTIBIOTICS. PT WILL HAVE A BRONCHOSCOPY TOMORROW. HOLDING PLAVIX AND ELIQUIS UNTIL AFTER BRONCHOSCOPY.
--- NOTE | 2018-04-28 19:00 | NUR ---
PT UNABLE TO VOID. DR OLIVIA NOTIFIED. ORDERS RECEIVED FOR ST CATH PRN. PT ST CATHED FOR 800CC FOR ADI URINE. PT TOLERATED WELL.
--- NOTE | 2018-04-28 20:50 | NUR ---
24 HR chart check completed.
--- NOTE | 2018-04-28 21:00 | NUR ---
RESTING IN BED. RESPIRATIONS EASY. LUNGS DIMINISHED WITH FAINT EXP WHEEZES. PULSE OX 97% 2L. INFREQUENT COUGH. AWARE OF NEED FOR SPUTUM SPECIMEN, CUP AT BEDSIDE. OFFERED AND EDUCATED REAGRDING TEDS, PLACED AT BEDSIDE. CALL LIGHT WITHIN REACH. NO VOICED COMPLAINTS
--- NOTE | 2018-04-28 21:07 | NUR ---
C/O BACK PAIN RATING A 4 - MEDICATED WITH NORCO PER PRN ORDER. ALSO MEDICATED WITH RESTORIL PER PRN ORDER TO ASSIST WITH SLEEP. WILL MONITOR FOR EFFECTIVENESS
[2018-04-29] VITALS (9 sets, daily range): BP systolic 118–178; BP diastolic 43–99
--- NOTE | 2018-04-29 | NUR ---
MEDS EFECTIVE. SLEEPING. RESPIRATIONS EASY. VSS. CALL LIGHT WITHIN REACH
--- NOTE | 2018-04-29 03:20 | NUR ---
BI-PAP HEARD ALARMING, PATIENT YELLING OUT. BI-PAP PULLED APART. IV RIPED OUT AND BLOOD COVERING LINENS. PATIENT DISORIENTED TO PLACE, 1:1 PROVIDED WTIH REORIENT. PATIENT BATHED. LINENS CLEANED. NEW IV SITE OBTAINED. BED ALARM MAINTAINED FOR KIANA
[2018-04-29 06:59] LABS: HEMATOCRIT 29.6 % (42.0-52.0); MEAN CELL VOLUME 91.1 fl (80.0-94.0); MEAN CORPUSCULAR HGB 27.7 pg (27.0-31.0); MEAN CORPUSCULAR HGB CONC 30.4 g/dl (33.0-37.0); MEAN PLATELET VOLUME 9.3 fl (9.6-12.3); PLATELET COUNT AUTOMATED 153 10*3/uL (130-400); RED BLOOD COUNT 3.25 10*6/uL (4.50-5.90); RED CELL DISTRI WIDTH 17.6 % (0-14.5); WHITE BLOOD COUNT 8.9 10*3/uL (4.8-10.8)
[2018-04-29 07:34] LABS: ALBUMIN 2.4 gm/dl (3.1-4.5); ALKALINE PHOSPHATASE 53 U/L (45-117); BUN 26 mg/dl (7-24); CHLORIDE 103 mmol/L (98-107); CHOLESTEROL 137 mg/dL (<200); CREATININE 0.91 mg/dL (0.70-1.30); FREE T4 0.96 ng/dl (0.76-1.46); HDL CHOLESTEROL 72 mg/dl (40-60); LDL CHOLESTEROL 57 mg/dL (9-159); PHOSPHOROUS 2.7 mg/dL (2.5-4.9); SGOT/AST 10 IU/L (3-35); SGPT/ALT 22 U/L (12-78); SODIUM 138 mmol/L (136-145); TOTAL PROTEIN 5.8 gm/dL (6.4-8.2); TRIGLYCERIDES 41 mg/dl (<150); VLDL CHOLESTEROL 8 mg/dL (6-40)
[2018-04-29 07:39] LABS: THYROID STIM HORMONE (HS) 0.214 uIU/ml (0.358-4.75)
[2018-04-29 07:41] LABS: POTASSIUM 3.9 mmol/L (3.5-5.1)
[2018-04-29 07:42] LABS: VITAMIN D, 25-HYDROXY 31.8 ng/mL (30-100)
--- NOTE | 2018-04-29 07:45 | NUR ---
PATIENT TAKEN TO SURGERY FOR BRONCHOSCOPE.
[2018-04-29 07:47] LABS: ACT PARTIAL THROMBO TIME 35.9 SECONDS (20.8-31.5)
[2018-04-29 07:51] LABS: TOTAL CELLS COUNTED 100 #CELLS
[2018-04-29 07:52] LABS: PLATELET SUFFICIENCY NORMAL (NORMAL)
--- NOTE | 2018-04-29 09:04 | NUR ---
Patient comes from [facility] delive[facility] resident, ok to return when medically stable.
--- NOTE | 2018-04-29 09:59 | NUR ---
REPORT RECEIVED FROM ISABEL GRAYSON. AWAITING PT TO RETURN TO FLOOR.
--- NOTE | 2018-04-29 10:10 | NUR ---
PATIENT RETURNED FROM SURGERY. SEE ASSESSMENT.
--- NOTE | 2018-04-29 10:47 | NUR ---
PATIENT REQUESTING PAIN MEDICATION FOR BACK ACHE RATED 7/10 ON 0/10 SCALE. NORCO ADMINISTERED PRESCRIBED. WILL MONITOR FOR EFFECTIVENESS.
--- NOTE | 2018-04-29 11:14 | NUR ---
PT IS HALFWAY CARE AT [facility] AND CAN RETURN WHEN MEDICALLY STABLE. WILL CONTINUE TO FOLLOW.
--- NOTE | 2018-04-29 11:47 | NUR ---
PATIENT STATES THAT NORCO WAS EFFECTIVE FOR BACK PAIN. RATES PAIN 3/10 AT THIS TIME. WILL CONTINUE TO MONITOR.
--- NOTE | 2018-04-29 12:15 | NUR ---
SCD'S APPLIED TO PATIENT PRESCRIBED.
--- NOTE | 2018-04-29 14:16 | NUR ---
Shift chart check completed.
[2018-04-30] VITALS: BP 137/51
--- NOTE | 2018-04-30 00:03 | NUR ---
24 HR chart check completed.
[2018-04-30 06:52] LABS: BASO % 0.1 % (0.0-1.0); HEMATOCRIT 28.1 % (42.0-52.0); HEMOGLOBIN 8.3 g/dl (14.0-18.0); LYMPH # 0.5 10*3/uL (1.3-4.4); LYMPH % 4.9 % (27.0-41.0); MEAN CELL VOLUME 92.4 fl (80.0-94.0); MEAN CORPUSCULAR HGB 27.3 pg (27.0-31.0); MEAN CORPUSCULAR HGB CONC 29.5 g/dl (33.0-37.0); MEAN PLATELET VOLUME 9.8 fl (9.6-12.3); MONO # 0.6 10*3/uL (0.1-1.0); MONO % 6.3 % (3.0-9.0); NEUT # 8.6 10*3/uL (2.3-7.9); NEUT % 87.9 % (47.0-73.0); PLATELET COUNT AUTOMATED 182 10*3/uL (130-400); RED BLOOD COUNT 3.04 10*6/uL (4.50-5.90); RED CELL DISTRI WIDTH 17.9 % (0-14.5); WHITE BLOOD COUNT 9.8 10*3/uL (4.8-10.8)
[2018-04-30 07:00] LABS: BUN 23 mg/dl (7-24); CHLORIDE 104 mmol/L (98-107); POTASSIUM 4.6 mmol/L (3.5-5.1); SODIUM 139 mmol/L (136-145)
--- NOTE | 2018-04-30 07:25 | NUR ---
BEDSIDE REPORT OBTAINED FROM ROSA M-KENAN. PATIENT IS AWAKE & ALERT, VOICED NO COMPLAINTS. NO S&S OF DISTRESS NOTED, RESP ARE ERND ON O2 2LPM NC. BED IS LOCKED IN LOWEST POSITION, ALARM MAINTAINED. CALL LIGHT LEFT WITHIN REACH.
[2018-04-30 08:00] VITALS: BP 136/64
--- NOTE | 2018-04-30 09:28 | NUR ---
PATIENT MEDICATED WITH NORCO FOR C/O BACK PAIN 11/13. WILL MONITOR.
--- NOTE | 2018-04-30 10:02 | NUR ---
INFORMED OF CONSULT, INFORMED OF LAB RESULTS AND CURRENT STATUS. STATED HE WILL SEE HIM TODAY.
--- NOTE | 2018-04-30 10:28 | NUR ---
NORCO EFFECTIVE FOR BACK PAIN.
--- NOTE | 2018-04-30 11:06 | NUR ---
PT IS [facility] CARE AT [facility] AND CAN RETURN WHEN MEDICALLY STABLE.
[2018-04-30 12:00] VITALS: BP 158/58
--- NOTE | 2018-04-30 15:21 | NUR ---
PATIENT MEDICATED WITH NORCO FOR C/O 8/ BACK PAIN. WILL MONITOR
[2018-04-30 16:00] VITALS: BP 130/52
[2018-04-30 16:09] LABS: ACID FAST SPEC PROCESSING Concentration (.)
--- NOTE | 2018-04-30 16:21 | NUR ---
NORCO EFFECTIVE FOR BACK PAIN.
--- NOTE | 2018-04-30 19:10 | NUR ---
IN TO SEE PATIENT AT BEDSIDE. STATED THAT PATIENT DOES NOT NEED AT [facility] AT THIS TIME D/T RECENT COLO IN NOVEMBER. NO NEW ORDERS AT THIS TIME.
--- NOTE | 2018-04-30 19:35 | NUR ---
PATIENT MEDICATED WITH NORCO PER PRN ORDER FOR C/O BACK PAIN. RATED PAIN A 7/10 WITH 10 BEING THE WORST. SEE EMAR. REINFORCED USE OF CALL LIGHT.
[2018-04-30 20:00] VITALS: BP 131/51
[2018-05-01] VITALS (7 sets, daily range): BP systolic 147–181; BP diastolic 52–71
[2018-05-01 06:55] LABS: HEMATOCRIT 29.7 % (42.0-52.0); HEMOGLOBIN 8.6 g/dl (14.0-18.0); LYMPH # 0.3 10*3/uL (1.3-4.4); LYMPH % 3.9 % (27.0-41.0); MEAN CELL VOLUME 92.8 fl (80.0-94.0); MEAN CORPUSCULAR HGB 26.9 pg (27.0-31.0); MEAN PLATELET VOLUME 9.1 fl (9.6-12.3); MONO # 0.4 10*3/uL (0.1-1.0); MONO % 4.8 % (3.0-9.0); NEUT # 7.1 10*3/uL (2.3-7.9); NEUT % 89.2 % (47.0-73.0); NUCLEATED RED BLOOD CELL 0.3 % (0.0-0.0); PLATELET COUNT AUTOMATED 173 10*3/uL (130-400); RED CELL DISTRI WIDTH 17.4 % (0-14.5)
[2018-05-01 07:15] LABS: CHLORIDE 103 mmol/L (98-107); POTASSIUM 4.3 mmol/L (3.5-5.1); SODIUM 138 mmol/L (136-145)
[2018-05-01 07:31] LABS: BUN 27 mg/dl (7-24); CREATININE 0.84 mg/dL (0.70-1.30)
--- NOTE | 2018-05-01 09:20 | NUR ---
PT MEDICATED WITH PRN NORCO FOR COMPLAINT OF LOWER BACK PAIN RATING IT AN 8/10. WILL MONITOR FOR EFFECTIVENESS
--- NOTE | 2018-05-01 09:56 | NUR ---
CALLED DR EUCEDA REGARDING PTS NPO STATUS. DIRECTED TO WAIT UNTIL DR LYNN SEES PT.
--- NOTE | 2018-05-01 10:18 | NUR ---
24 HR CHART CHECK COMPLETE
--- NOTE | 2018-05-01 10:25 | NUR ---
CALLED DR DALTON REGARDING PTS NPO STATUS. WAITING ON CALLL BACK
--- NOTE | 2018-05-01 17:31 | NUR ---
SPOKE TO DR DALTON REGARDING CONTINUATION OF PTS DIET. ORDER FOR SOFT GERD DIET FOR DINNER THEN REG GERD DIET STARTING FOR BREAKFAST LIMITED TO 1600 KRYSTYNA.
--- NOTE | 2018-05-01 19:15 | NUR ---
BEDSIDE REPORT OBTAINED FROM EVELIN-KENAN. PATIENT IS AWAKE & ALERT, VOICED NO COMPLAINTS AT THIS TIME. NO DISTRESS NOTED, ON O2 2.5LOM NC. BED IS LOCKED IN LOWEST POSITION, ALARM MAINTAINED. CALL LIGHT LEFT WITHIN REACH.
--- NOTE | 2018-05-01 23:17 | NUR ---
PATIENT MEDICATED WITH RESTORIL FOR C/O INSOMNIA. WILL MONITOR
[2018-05-02] VITALS: BP 143/46
--- NOTE | 2018-05-02 00:17 | NUR ---
RESTORIL APPEARS EFFECTIVE. PATIENT RESTING IN BED, EYES CLOSED.
--- NOTE | 2018-05-02 02:00 | NUR ---
SLEEPING. CALL LIGHT WITHIN REACH
--- NOTE | 2018-05-02 04:20 | NUR ---
AWAKE AND ALERT. PATIENT TOOK SELF OFF BIPAP. REQUESTING ICE CREAM. CALL LIGHT WITHIN REACH.
--- NOTE | 2018-05-02 05:54 | NUR ---
PATIENT MEDCIATED WITH NORCO FOR C/O 6 BACK PAIN. WILL MONITOR.
[2018-05-02 08:00] VITALS: BP 152/58
[2018-05-02 08:59] LABS: HEMATOCRIT 31.7 % (42.0-52.0); HEMOGLOBIN 9.3 g/dl (14.0-18.0); MEAN CELL VOLUME 92.4 fl (80.0-94.0); MEAN CORPUSCULAR HGB 27.1 pg (27.0-31.0); MEAN CORPUSCULAR HGB CONC 29.3 g/dl (33.0-37.0); MEAN PLATELET VOLUME 8.7 fl (9.6-12.3); NUCLEATED RED BLOOD CELL 0.2 % (0.0-0.0); PLATELET COUNT AUTOMATED 187 10*3/uL (130-400); RED BLOOD COUNT 3.43 10*6/uL (4.50-5.90); RED CELL DISTRI WIDTH 17.2 % (0-14.5); WHITE BLOOD COUNT 10.2 10*3/uL (4.8-10.8)
[2018-05-02 09:29] LABS: PLATELET SUFFICIENCY NORMAL (NORMAL); TOTAL CELLS COUNTED 100 #CELLS
--- NOTE | 2018-05-02 10:01 | NUR ---
C/O LOWER BACK OF 11/13. NORCO GIVEN AT THIS TIME. WILL CONT TO MONITOR. CALL LIGHT IN REACH.
--- NOTE | 2018-05-02 10:08 | NUR ---
C/O PAIN TO BACK OF 11/13. NORCO GIVEN AT THIS TIME. WILL CONT TO MONITOR. CALL LIGHT IN REACH.
--- NOTE | 2018-05-02 11:01 | NUR ---
PT STATES [place] EFF. WILL CONT TO MONITOR. CALL LIGHT IN REACH.
[2018-05-02 12:00] VITALS: BP 151/50
--- NOTE | 2018-05-02 14:42 | NUR ---
C/O PAIN OF 8/10 TO LOWER BACK. NORCO GIVEN AT THIS TIME UPON REQUEST. WILL CONT TO MONITOR. CALL LIGHT IN REACH.
--- NOTE | 2018-05-02 15:41 | NUR ---
[place] EFF AT THIS TIME. WILL CONT TO MONITOR. CALL LIGHT IN REACH.
[2018-05-02 16:00] VITALS: BP 158/50
--- NOTE | 2018-05-02 19:55 | NUR ---
BEDSIDE REPORT GIVEN BY TAURUS GRAYSON. PATIENT RESTIN IN BED WITH EYES CLOSED. CALL LIGHT IN REACH.
[2018-05-02 20:00] VITALS: BP 177/49
--- NOTE | 2018-05-02 20:26 | NUR ---
PATIENT C/O PAIN TO BACK 6/10 PRN NORCO ADMINISTERED. PATIENT A&O DENIES SOB OR CHEST PAIN. NOTED +1 GENERILZED EDEMA TO BUE AND BLE. WILL MONITOR. CALL LIGHT IN REACH.
--- NOTE | 2018-05-02 21:26 | NUR ---
NORCO EFFECTIVE FOR BACK PAIN.
[2018-05-03] VITALS: BP 167/66
--- NOTE | 2018-05-03 02:00 | NUR ---
PATIENT SLEEPING, BIPAP IN PLACE. CALL LIGHT LEFT WITHIN REACH.
--- NOTE | 2018-05-03 05:11 | NUR ---
PATIENT MEDICATED WITH NORCO FOR C/O BACK PAIN 12/14. WILL MONITOR
[2018-05-03 06:36] LABS: HEMATOCRIT 30.9 % (42.0-52.0); MEAN CORPUSCULAR HGB 26.8 pg (27.0-31.0); MEAN CORPUSCULAR HGB CONC 29.1 g/dl (33.0-37.0); MEAN PLATELET VOLUME 8.7 fl (9.6-12.3); NUCLEATED RED BLOOD CELL 0.2 % (0.0-0.0); PLATELET COUNT AUTOMATED 179 10*3/uL (130-400); RED BLOOD COUNT 3.36 10*6/uL (4.50-5.90); RED CELL DISTRI WIDTH 17.1 % (0-14.5); WHITE BLOOD COUNT 9.5 10*3/uL (4.8-10.8)
[2018-05-03 07:34] LABS: TOTAL CELLS COUNTED 100 #CELLS
[2018-05-03 07:35] LABS: OVALOCYTES FEW; PLATELET SUFFICIENCY NORMAL (NORMAL)
[2018-05-03 08:00] VITALS: BP 155/63
--- NOTE | 2018-05-03 09:45 | NUR ---
C/O PAIN TO BACK OF 10/13. WILL CONT TO MONITOR. CALL LIGHT IN REACH.
--- NOTE | 2018-05-03 10:45 | NUR ---
NORCO EFF PER PT. WILL CONT TO MONITOR. CALL LIGHT IN REACH.
--- NOTE | 2018-05-03 11:28 | NUR ---
PT IS [facility] AT [facility] AND CAN RETURN WHEN MEDICALLY STABLE.
[2018-05-03 12:00] VITALS: BP 151/67
--- NOTE | 2018-05-03 14:54 | NUR ---
Patient updated clinicals faxed to [facility]; patient can return to [facility] when medically stable for discharge.
[2018-05-03 16:00] VITALS: BP 130/50
[2018-05-03] MEDS ORDERED: PROTONIX40 MG PO (16:10)
[2018-05-03] MEDS ORDERED: AUGMENTIN 875875 MG PO (16:10)
[2018-05-03] MEDS ORDERED: PREDNISONE10 MG PO (16:10)
[2018-05-03] MEDS ORDERED: HYDROCODONE-AC1 EAC1 PO (16:16)
[2018-05-03] MEDS ORDERED: GABAPENTIN100 M2 PO (16:31)
[2018-05-03] MEDS ORDERED: ATIVAN0.5 MG PO (16:31)
--- NOTE | 2018-05-03 17:01 | NUR ---
REPORT CALLED TO RHONDA AT [facility]
--- NOTE | 2018-05-03 17:46 | NUR ---
PT DISCHARGED AT THIS TIME. IV REMOVED AND PRESSURE DRESSING APPLIED. LEFT VIA [facility].
[2018-05-24] MEDS ORDERED: IMODIUM A-D2 M2 PO (18:43)
[2018-05-24] MEDS ORDERED: LASIX40 MG PO (18:44)
[2018-05-24] MEDS ORDERED: COZAAR25 M1 PO (18:44)
[2018-05-24] MEDS ORDERED: MUCINEX ER600 MG PO (18:45)
[2018-05-24] MEDS ORDERED: POTASSIUM99 M5 PO (18:47)
[2018-05-24] MEDS ORDERED: RANEXA500 M1 PO (18:48)
[2018-05-27] MEDS ORDERED: AVPAK AZITHROM250 M1 PO (13:07)
[2018-05-27] MEDS ORDERED: HYDROCODONE-AC1 EAC1 PO (13:07)
[2018-05-27] MEDS ORDERED: PREDNISONE10 MG PO (13:07)
[2018-06-02] MEDS ORDERED: SEPTDS PO (02:28)
[2018-06-02] MEDS ORDERED: BACTROBAN CREAM15 GM T (02:34)
[2018-06-02] MEDS ORDERED: PREDNISONE10 MG PO (03:06)
[2018-06-03] MEDS ORDERED: ATIVAN0.5 MG PO (02:33)
[2018-06-04] MEDS ORDERED: INCRUSE ELLI62.5 MCG INH (02:39)
[2018-06-04] MEDS ORDERED: K-TAB20 MEQ PO (03:04)
[2018-06-04] MEDS ORDERED: PROBIOTIC1 EAC1 PO (03:07)
[2018-06-07] MEDS ORDERED: PREDNISONE10 MG PO (09:23)
[2018-06-07] MEDS ORDERED: HYDROCODONE-AC1 EAC1 PO (09:23)
[2018-06-07] MEDS ORDERED: AUGMENTIN 875875 MG PO (09:23)
[2018-06-10 11:06] LABS: ACID FAST CULTURE Negative (.)
== END 2018-05-03 17:46 | DRG 871 ==
LOC: ED 04:15 → 5E 07:37 → EDHOLD 07:37 → 5E 08:01
PROVIDERS: Emergency Medicine; Internal Medicine; Internal Medicine Critical Care Medicine; Student in an Organized Health Care Education/Training Program; ADMIT Internal Medicine
PROC: 0BCB8ZZ Extirpation of Matter from Left Lower Lobe Bronchus, Via Natural or Artificial Opening Endoscopic (ICD-10-PCS; principal; 2018-04-29)
PROC: 0BC58ZZ Extirpation of Matter from Right Middle Lobe Bronchus, Via Natural or Artificial Opening Endoscopic (ICD-10-PCS; principal; 2018-04-29)
PROC: 0BC18ZZ Extirpation of Matter from Trachea, Via Natural or Artificial Opening Endoscopic (ICD-10-PCS; principal; 2018-04-29)
PROC: 0BC88ZZ Extirpation of Matter from Left Upper Lobe Bronchus, Via Natural or Artificial Opening Endoscopic (ICD-10-PCS; principal; 2018-04-29)
PROC: 0BC98ZZ Extirpation of Matter from Lingula Bronchus, Via Natural or Artificial Opening Endoscopic (ICD-10-PCS; principal; 2018-04-29)
PROC: 0BC78ZZ Extirpation of Matter from Left Main Bronchus, Via Natural or Artificial Opening Endoscopic (ICD-10-PCS; principal; 2018-04-29)
PROC: 0BC38ZZ Extirpation of Matter from Right Main Bronchus, Via Natural or Artificial Opening Endoscopic (ICD-10-PCS; principal; 2018-04-29)
PROC: 0BC68ZZ Extirpation of Matter from Right Lower Lobe Bronchus, Via Natural or Artificial Opening Endoscopic (ICD-10-PCS; principal; 2018-04-29)
PROC: 0BC48ZZ Extirpation of Matter from Right Upper Lobe Bronchus, Via Natural or Artificial Opening Endoscopic (ICD-10-PCS; principal; 2018-04-29)
PROC: 0DJ08ZZ Inspection of Upper Intestinal Tract, Via Natural or Artificial Opening Endoscopic (ICD-10-PCS; 2018-05-01)
DX: A41.9 Sepsis, unspecified organism (principal); J18.9 Pneumonia, unspecified organism; J96.21 Acute and chronic respiratory failure with hypoxia; J96.22 Acute and chronic respiratory failure with hypercapnia; E44.0 Moderate protein-calorie malnutrition; E87.1 Hypo-osmolality and hyponatremia; I50.32 Chronic diastolic (congestive) heart failure; J44.0 Chronic obstructive pulmonary disease with (acute) lower respiratory infection; G45.8 Other transient cerebral ischemic attacks and related syndromes; J44.1 Chronic obstructive pulmonary disease with (acute) exacerbation; E87.3 Alkalosis; T17.590A Other foreign object in bronchus causing asphyxiation, initial encounter; D64.9 Anemia, unspecified; E87.5 Hyperkalemia; F03.90 Unspecified dementia, unspecified severity, without behavioral disturbance, psychotic disturbance, mood disturbance, and anxiety; I73.9 Peripheral vascular disease, unspecified; M10.9 Gout, unspecified; E78.5 Hyperlipidemia, unspecified; I25.10 Atherosclerotic heart disease of native coronary artery without angina pectoris; E55.9 Vitamin D deficiency, unspecified; G62.9 Polyneuropathy, unspecified; K21.9 Gastro-esophageal reflux disease without esophagitis; I11.0 Hypertensive heart disease with heart failure; K29.70 Gastritis, unspecified, without bleeding; K44.9 Diaphragmatic hernia without obstruction or gangrene; K25.9 Gastric ulcer, unspecified as acute or chronic, without hemorrhage or perforation; K57.90 Diverticulosis of intestine, part unspecified, without perforation or abscess without bleeding; F32.9 Major depressive disorder, single episode, unspecified; Z96.642 Presence of left artificial hip joint; R91.8 Other nonspecific abnormal finding of lung field; E04.1 Nontoxic single thyroid nodule; F41.9 Anxiety disorder, unspecified; G89.29 Other chronic pain; E66.9 Obesity, unspecified; F10.20 Alcohol dependence, uncomplicated; X58.XXXA Exposure to other specified factors, initial encounter; Y93.89 Activity, other specified; Y92.89 Other specified places as the place of occurrence of the external cause; Y99.8 Other external cause status; Z91.81 History of falling; Z87.440 Personal history of urinary (tract) infections; Z82.49 Family history of ischemic heart disease and other diseases of the circulatory system; Z82.0 Family history of epilepsy and other diseases of the nervous system; Z80.0 Family history of malignant neoplasm of digestive organs; Z79.02 Long term (current) use of antithrombotics/antiplatelets; Z72.0 Tobacco use; Z68.32 Body mass index [BMI] 32.0-32.9, adult; Z79.899 Other long term (current) drug therapy

== ENCOUNTER 2018-06-25 10:09 | Inpatient (IN) | payer MEDICARE, MEDICAID ==
[2018-06-25] VITALS (28 sets, daily range): BP systolic 89–131; BP diastolic 43–89
[~2018-06-25] VITALS: Ht 172.7 cm; Wt 158.8 kg
--- NOTE | ~2018-06-25 | CON ---
[place], [place] REPORT OF CONSULTATION NAME: JAMAL HIDALGO [facility] #: [id number] UNIT #: [id number] ROOM: [facility] DOCTOR: THEA COPELAND MD BIRTHDATE: [birth year] DOS: 06/26/2018 PULMONARY CRITICAL CARE EVALUATION AND MANAGEMENT CONSULTATION REQUESTED BY: Hospitalist service. REASON FOR CONSULTATION: For current assessment of respiratory failure, hypertension, and acute pneumonia. HISTORY OF PRESENT ILLNESS: A 62-year-old white male patient who has been admitted to the hospital quite frequently for the medical management of pneumonia, exacerbation of COPD and others. He had been admitted to the hospital few weeks ago as well. He has been staying at the nursing facility. The patient was brought to the hospital, admitted on 06/23/2018. The patient has been reported with increased shortness of breath with progressive hypoxia. The patient was started on oxygen supplementation, BiPAP and admitted to the hospital. When the patient was brought to the hospital, he was noted with symptoms of lightheadedness, shortness of breath with some chest congestion and cough. He was also noted with hypotension as well. The patient has been treated with antibiotic, use of the vasopressors and the intravenous fluid supplementation. The hypotension has been improved. He was not noted on any vasopressors this morning and currently treated in the Intensive Care Unit. The patient stated had reduction of the symptoms of lightheadedness and shortness of breath. The cough has been noted mild at times without any sputum expectoration. He has not reported any symptoms of chest pain or any wheezing. REVIEW OF SYSTEMS: CONSTITUTIONAL SYMPTOMS: Fatigue and tiredness reported. Denies any symptoms of fever or chills. EYES: Denies any burning, redness, or tenderness. EARS, NOSE, THROAT SYMPTOMS: Denies sore throat, hoarseness, otalgia, postnasal drainage or epistaxis. CARDIOVASCULAR SYSTEM: Denies angina pain, edema, or pain of the lower extremities. GASTROINTESTINAL SYMPTOMS: Denies dysphagia, nausea, vomiting, diarrhea, abdominal pain, hematemesis, melena, or hematochezia. GENITOURINARY SYMPTOMS: Denies dysuria, suprapubic pain, or hematuria. MUSCULOSKELETAL SYMPTOMS: No acute joint pain, redness, or tenderness. CENTRAL NERVOUS SYSTEM: Chronic bedbound status, inability to ambulate because of multiple medical illnesses and general weakness. The remaining systems were reviewed, they were noted all negative. PAST MEDICAL HISTORY: The patient was known with: 1. History of end-stage COPD. 2. Chronic hypoxic respiratory failure. 3. Chronic hypercapnic respiratory failure. 4. The patient with suspected obstructive sleep apnea disorder as well. 5. Recurrent hospitalization. 6. Past history of tobacco and alcohol use. Currently, the patient was not [place], [place] REPORT OF CONSULTATION NAME: JAMAL HIDALGO UNIT #: [id number] ROOM: [facility] DOCTOR: ABHIJEET GONZALEZ MDTHEA BIRTHDATE: [birth year] smoking any cigarettes or drinking any alcohol. 7. Chronic obesity. 8. Gastroesophageal reflux. 9. Peripheral arterial disease. 10. Past history of marijuana use. 11. Long-term snf resident. 12. Coronary artery disease. 13. Permanent atrial fibrillation, on anticoagulation. PAST SURGICAL HISTORY: 1. Therapeutic bronchoscopy. 2. Left knee arthroscopy and right knee arthroscopy. 3. Aortofemoral bypass grafting surgery for peripheral arterial disease. SOCIAL HISTORY: The patient is single, lives at the nursing facility. There is no history of alcohol use or illicit drug use known at this time, used to drink alcohol in the past, which has been discontinued approximately a couple of years ago. Tobacco use was also noted since teenager, a pack of cigarettes per day, discontinued in 2018. FAMILY HISTORY: The patient's father with complication of coronary artery disease. Mother of complications of COPD. CURRENT MEDICATIONS: Administered for the patient was noted as Protonix, trazodone, Lipitor, gabapentin, Requip, Carafate, Pulmicort Respules, potassium chloride, Ranexa, losartan, finasteride, metoprolol tartrate, Flomax, Cymbalta, Eliquis 5 mg b.i.d., allopurinol, Plavix, Solu-Medrol 60 mg q.8 hours, DuoNeb, IV vancomycin, Levaquin and Zosyn. DRUG ALLERGIES: The patient was noted as no known drug allergies. PHYSICAL EXAMINATION: GENERAL: This is a 62-year-old white male currently noted awake and alert without any acute distress, receiving oxygen supplementation with the nasal cannula, has used the BiPAP earlier. Height of 5 feet 8 inches, weight of 250 pounds, BMI 53.2. I believe his height and weight was noted inaccurate. His previous BMI noted 32 recently. The weight was not accurately recorded. VITAL SIGNS: The temperature noted in the vital signs as a normal temperature since admission, respiratory rate 25-14, heart rate 124 with atrial fibrillation, rapid ventricular response to 98. Input from yesterday 3.37 liters, the output was noted as 2000 mL, positive 1.37 liters. The pulse oxygen saturation up to 75% of BiPAP is 96% saturation. HEENT: Head is atraumatic. Barnes facies. NECK: Supple. It was obese. CARDIOVASCULAR SYSTEM: S1, S2 was audible. LUNGS: Decreased breath sounds in the lungs were noted bilaterally. ABDOMEN: Noted soft and obese. EXTREMITIES: Noted mild edema. There was no cyanosis or clubbing. CENTRAL NERVOUS SYSTEM: The patient's cranial nerves 2-12 intact. General weakness was noted. [place], [place] REPORT OF CONSULTATION NAME: HIDALGOJAMAL Kaykay UNIT #: [id number] ROOM: [facility] DOCTOR: [facility] [birth year] LABORATORY DATA: Influenza B, nasal washing antigen negative on admission. The CMP on 06/25/2018, normal BUN and creatinine. Carbon dioxide of 36 on admission. Other electrolytes were normal. Lactic acid 2.9 and follow 1.6. Arterial blood gas that was done yesterday; pH of 7.34, pCO2 of 53, pO2 229, 75% oxygen. CMP this morning, normal BUN and creatinine. Potassium 3.2. Albumin 2.2. CBC this morning: WBC count normal, hemoglobin 10.5, platelet count 131,000. Arterial blood gas this morning; pH of 7.38, pCO2 of 47, pO2 92.7. Review of the radiology data was sequentially done from the PACS images. The chest x-ray that was done on 06/25/2017 in the Emergency Room one-view was taken at that time and it shows basilar area of infiltration. Another chest x-ray was done after the insertion of the multi-lumen catheter. Multi-lumen catheter noted in place with improvement in aeration of the lung. Chest x-ray on 06/25/2018 was noted with improving area of infiltration in the lower lungs. IMPRESSION: The patient will be currently admitted to the hospital with: 1. Severe hypotension, previously basilar area of atelectasis with possibility of acute pneumonia. However, the rapid resolution of current finding was not noted consistent with acute pneumonia, atelectasis would be considered. 2. Rule out sepsis, sepsis like picture at the present time. Rule out any adrenal insufficiency for the patient as well. The patient was noted barnes facies. 3. Rule out any immune deficiency as well with hypogammaglobulinemia. 4. The patient with chronic obesity with suspected obstructive sleep apnea disorder. 5. Acute on chronic hypercapnic hypoxic respiratory failure. 6. Acute exacerbation of chronic obstructive pulmonary disease. 7. History of coronary artery disease, peripheral arterial disease and currently noted with acute atrial fibrillation with rapid ventricular response with history of chronic permanent atrial fibrillation. PLAN OF THERAPY: The patient will be ordered random cortisol level to be obtained as a baseline workup. Ordered the IgG level for the patient as well and IgG subclasses. Monitor hypertension. Continue antibiotic. The patient is back to the antibiotic and will be changed based on the culture results availability. Continuation of the bronchodilator. Avoid excessive amount of fluid to prevent any fluid overload. Usual care, other supportive plan of therapy. At this time, vasopressor therapy will not be needed. Other therapy, plan of management and treatment for the patient to be changed according to the available results. Supportive plan of management, care plan and other therapy as in progress. DVT prophylaxis with Eliquis would be given. Continue use of BiPAP for further medical management of acute on chronic hypercapnic hypoxic respiratory failure. Metabolic alkalosis will be monitored. Other supportive therapy, plan of management and care to be continued. Total time for the pulmonary critical care, evaluation and management, and consultation for the patient is 38 minutes. [place], [place] REPORT OF CONSULTATION NAME: HIDALGOJAMAL Kaykay UNIT #: [id number] ROOM: [facility] DOCTOR: THEA COPELAND MD BIRTHDATE: [birth year] THEA JHA MD CM:CONSTR:REPORT OF CONSULTATION 1545 06/27/18 1377 interface
--- NOTE | ~2018-06-25 | PR ---
[place], [place] PROGRESS NOTE NAME: JAMAL HIDALGO [facility] #: [id number] UNIT #: [id number] ROOM: [facility] DOCTOR: ABHIJEET GONZALEZ MD,THEA BIRTHDATE: [birth year] DOS: 06/27/2018 PULMONARY PROGRESS NOTE SUBJECTIVE: The patient was noted comfortable at this time, resting on the bed. He has been noted with reduction of the respiratory symptoms, has not been noted any further episodes of hypotension. Denies symptoms of fever or chills. The patient has been getting oxygen supplementation via nasal cannula, also using the BiPAP, requirement of the oxygen has been also noted decreased in the last 24 hours. Denies symptoms of abdominal pain, nausea, vomiting, has not been noted with any edema of the lower extremities. The patient has a random cortisol level completed yesterday that was essentially noted in the normal range. The patient denies symptoms of headache or diplopia. Remaining systems were reviewed, they were noted all negative. OBJECTIVE: VITAL SIGNS: For the patient; normal temperature, respiratory rate 17-22, heart rate 78-90, blood pressure 155/59-138/54. Pulse oxygen saturation on 4 liters nasal cannula this morning 95% with a BiPAP previously at 96% saturation with 65% oxygen earlier. HEENT: Chronic obesity. Antony facies. NECK: Supple. CARDIOVASCULAR: S1, S2 is audible. LUNGS: Bibasilar crackles with expiratory wheezing. ABDOMEN: Soft, nontender and obese. EXTREMITIES: No acute change. MUSCULOSKELETAL: Without any acute deformity. CENTRAL NERVOUS SYSTEM: Cranial nerves 2-12 intact. LABORATORY DATA: Blood culture from 06/25/2018, no bacterial growth. Vancomycin trough level was 30. CBC today: WBC count normal, hemoglobin 9, platelet count were normal. BMP, normal BUN and creatinine. IMPRESSION: 1. The patient who has been currently admitted to the hospital noted with hypertension with acute sepsis, bilateral lower lobe pneumonia. The question has been considered for adrenal insufficiency appeared to be less likely with a normal random cortisol level. 2. Acute exacerbation of chronic obstructive pulmonary disease. 3. Frequent hospitalization. 4. The patient with acute on chronic hypercapnic hypoxic respiratory failure as well. 5. Resolution of the hypotension and sepsis. 6. Improved electrolyte imbalance as well. PLAN OF MANAGEMENT: Monitor culture results. Continue previous medical management for multiple medical conditions including pneumonia, exacerbation of COPD, atrial fibrillation and others including chronic hypercapnia as well. Vancomycin dose to be adjusted to keep the level therapeutic. De-escalation of [place], [place] PROGRESS NOTE NAME: JAMAL HIDALGO UNIT #: [id number] ROOM: [facility] DOCTOR: THEA COPELAND MD BIRTHDATE: [birth year] antibiotic most likely will be done tomorrow based on additional culture results availability. Other supportive therapy, plan of management, care plan to be continued. Obtain a chest x-ray in the morning, PA lateral view as well to assess the progression of the pulmonary infiltration. Other care, plan of management, treatment and therapies. THEA JHA MD CM:PNTRANS [id number] THEA GONZALEZ MD 06/28/18 0306 interface
--- NOTE | ~2018-06-25 | EKG ---
[place], [place] ELECTROCARDIOGRAM REPORT NAME: JAMAL HIDALGO UNIT #: [id number] ROOM: [facility] DOCTOR: TOMASA DRAFT REPORT BIRTHDATE: [birth year] [facility] Test Date: 2018-06-25 Test Time: 16:22:51 Pat Name: JAMAL HIDALGO Department: Room: [place] [id number] Gender: M Insurance Follow Up Representative: Sandie Abreu : 1955 Requested By: DEBI ALFRED Order Number: [id number] Reading MD: Jayjay Samuels Measurements Intervals [place] Rate: 89 P: 72 KS: 200 QRS: -75 QRSD: 93 T: 83 QT: 384 QTc: 468 Interpretive Statements Sinus rhythm Atrial premature complex Consider right ventricular hypertrophy Inferior infarct, old Compared to ECG 06/03/2018 22:42:54 Sinus tachycardia no longer present Myocardial infarct finding still present Electronically Signed On 06-27-2018 11:02:33 PDT by Jayjay Samuels CM:EKGRPT:ELECTROCARDIOGRAM REPORT [id number] DEBI RANDOLPH DRAFT REPORT DEBI ALFRED
--- NOTE | ~2018-06-25 | PR ---
[place], [place] PROGRESS NOTE NAME[id number] #: [id number] ROOM: [facility] DOCTOR: ABHIJEET GONZALEZ MD,THEA BIRTHDATE: [birth year] DOS: 06/28/2018 PULMONARY PROGRESS NOTE SUBJECTIVE: The patient is noted comfortable at this time, resting on the bed without any acute distress. She has been noted fully awake and alert. She used BiPAP last night, using oxygen supplementation this morning. OBJECTIVE: VITAL SIGNS: Normal temperature, respiratory rate of 22, heart rate 91, blood pressure 176/60. Pulse oxygen saturation recorded on 3 liters nasal cannula was 95% saturation. HEENT: Head was atraumatic. Eyes nonicterus. NECK: Supple. CARDIOVASCULAR: S1 and S2 audible. LUNGS: The patient was noted with decreased breath sounds in the lungs bilaterally. There were no wheezing or crackles. ABDOMEN: Soft, nontender. Bowel sounds present. EXTREMITIES: No acute edema. LABORATORY AND DIAGNOSTIC DATA: Chest x-ray was noted with marked improvement in aeration of the lungs bilaterally. There were no pleural fluid or other acute abnormalities at this time. IMPRESSION: Acute congestive heart failure with acute on chronic hypercapnic hypoxic respiratory failure, suspicion of possibility of steroid dependency and adrenal insufficiency cannot be excluded. PLAN: Discharge planning with diuretic, use of BiPAP oxygen. Prednisone to be tapered to 10 mg daily, outpatient assessment to the office for further determination of the dose of prednisone. THEA JHA MD CM:PNELLEN [id number] THEA GONZALEZ MD 06/29/18 0422 interface
--- NOTE | ~2018-06-25 | EKG ---
[place], [place] ELECTROCARDIOGRAM REPORT NAME: JAMAL HIDALGO UNIT #: [id number] ROOM: [facility] DOCTOR: TOMASA DRAFT REPORT BIRTHDATE: [birth year] [facility] Test Date: 2018-06-25 Test Time: 10:25:16 Pat Name: JAMAL HIDALGO Department: Room: [facility] Gender: M Melt House Drag Operator: Sandie Abreu : 1955 Requested By: SALAS EUCEDA Order Number: [id number] Reading MD: Jayjay Samuels Measurements Intervals [place] Rate: 136 P: 0 DC: 169 QRS: -76 QRSD: 112 T: 98 QT: 290 QTc: 437 Interpretive Statements Sinus tachycardia Ventricular premature complex Abnormal R-wave progression, early transition Inferior infarct, old Lateral leads are also involved Artifacts, baseline Compared to ECG 06/03/2018 22:42:54 Ventricular premature complex(es) now present Atrial premature complex(es) no longer present Myocardial infarct finding still present Electronically Signed On 06-27-2018 11:00:18 PDT by Jayjay Samuels CM:EKGRPT:ELECTROCARDIOGRAM REPORT 1025 1100 SALAS PORTER DRAFT REPORT SALAS EUCEDA DO
[~2018-06-25 10:09] MED LIST changes: +AUGMENTIN 875875 MG PO; +AVPAK AZITHROM250 M1 PO; +BACTROBAN CREAM15 GM T; +BENICAR20 MG PO; +COZAAR25 M1 PO; +GABAPENTIN100 M2 PO; +IMODIUM A-D2 M2 PO; +INCRUSE ELLI62.5 MCG INH; +K-TAB20 MEQ PO; +POTASSIUM99 M5 PO; +PROBIOTIC1 EAC1 PO
[2018-06-25 10:29] LABS: BASO % 0.2 % (0.0-1.0); EOS % 0.3 % (1.0-4.0); HEMATOCRIT 43.9 % (42.0-52.0); HEMOGLOBIN 13.4 g/dl (14.0-18.0); LYMPH # 0.9 10*3/uL (1.3-4.4); LYMPH % 9.5 % (27.0-41.0); MEAN CELL VOLUME 93.2 fl (80.0-94.0); MEAN CORPUSCULAR HGB 28.5 pg (27.0-31.0); MEAN CORPUSCULAR HGB CONC 30.5 g/dl (33.0-37.0); MEAN PLATELET VOLUME 9.6 fl (9.6-12.3); MONO # 0.6 10*3/uL (0.1-1.0); MONO % 6.8 % (3.0-9.0); NEUT # 7.7 10*3/uL (2.3-7.9); NEUT % 81.8 % (47.0-73.0); PLATELET COUNT AUTOMATED 154 10*3/uL (130-400); RED BLOOD COUNT 4.71 10*6/uL (4.50-5.90); RED CELL DISTRI WIDTH 16.6 % (0-14.5); WHITE BLOOD COUNT 9.4 10*3/uL (4.8-10.8)
[2018-06-25 10:48] LABS: ACT PARTIAL THROMBO TIME 30.7 SECONDS (20.8-31.5); INTERNATIONAL NORM RATIO 1.1 (2.0-3.5)
[2018-06-25 10:52] LABS: BUN 19 mg/dl (7-24); CHLORIDE 96 mmol/L (98-107); CREATININE 1.03 mg/dL (0.70-1.30); LIPASE 45 U/L (73-393); POTASSIUM 4.4 mmol/L (3.5-5.1); SGOT/AST 14 IU/L (3-35); SGPT/ALT 28 U/L (12-78); SODIUM 136 mmol/L (136-145)
[2018-06-25 10:54] LABS: ALKALINE PHOSPHATASE 73 U/L (45-117); TOTAL PROTEIN 6.6 gm/dL (6.4-8.2)
[2018-06-25 10:59] LABS: TROPONIN I < 0.015 ng/ml (<0.045)
[2018-06-25 15:55] LABS: ABG BASE EXCESS 1.9 mmol/L (-2.0-2.0); ABG HCO3 28.1 mmol/l (22-26); ABG O2 SATURATION 99.2 % (95-97); ARTERIAL BLOOD GAS PCO2 53.2 mmHg (35-45); ARTERIAL BLOOD GAS PH 7.341 (7.35-7.45)
[2018-06-25 19:06] LABS: BILIRUBIN NEGATIVE (NEGATIVE); BLOOD NEGATIVE (NEGATIVE); CLARITY CLEAR (CLEAR); COLOR YELLOW (YELLOW); GLUCOSE NEGATIVE (NEGATIVE); KETONE NEGATIVE (NEGATIVE); LEUKO ESTERASE 1+ (NEGATIVE); NITRITE NEGATIVE (NEGATIVE); SPECIFIC GRAVITY 1.015 (1.005-1.030); UROBILINOGEN 0.2 E.U./dl (0.2-1.0)
[2018-06-25 19:12] LABS: BACTERIA TRACE; EPITHELIAL CELLS 0-2
[2018-06-25] MEDS ORDERED: TRAZODONE50 MG PO (22:00)
[2018-06-26] VITALS (24 sets, daily range): BP systolic 91–179; BP diastolic 59–96
[2018-06-26 05:39] LABS: ALBUMIN 2.2 gm/dl (3.1-4.5); ALKALINE PHOSPHATASE 57 U/L (45-117); BUN 18 mg/dl (7-24); CHLORIDE 102 mmol/L (98-107); CREATININE 0.87 mg/dL (0.70-1.30); PHOSPHOROUS 2.8 mg/dL (2.5-4.9); SGOT/AST 12 IU/L (3-35); SGPT/ALT 22 U/L (12-78); TOTAL PROTEIN 5.4 gm/dL (6.4-8.2)
[2018-06-26 05:44] LABS: SODIUM 140 mmol/L (136-145)
[2018-06-26 05:50] LABS: POTASSIUM 3.2 mmol/L (3.5-5.1)
[2018-06-26 06:23] LABS: BASO % 0.1 % (0.0-1.0); LYMPH # 0.4 10*3/uL (1.3-4.4); MEAN CELL VOLUME 92.5 fl (80.0-94.0); MEAN CORPUSCULAR HGB 27.6 pg (27.0-31.0); MEAN CORPUSCULAR HGB CONC 29.9 g/dl (33.0-37.0); MEAN PLATELET VOLUME 10.6 fl (9.6-12.3); MONO # 0.5 10*3/uL (0.1-1.0); MONO % 4.7 % (3.0-9.0); NEUT # 8.6 10*3/uL (2.3-7.9); NEUT % 88.5 % (47.0-73.0); PLATELET COUNT AUTOMATED 131 10*3/uL (130-400); RED BLOOD COUNT 3.73 10*6/uL (4.50-5.90); RED CELL DISTRI WIDTH 16.1 % (0-14.5); WHITE BLOOD COUNT 9.7 10*3/uL (4.8-10.8)
[2018-06-26 06:24] LABS: HEMATOCRIT 34.5 % (42.0-52.0); HEMOGLOBIN 10.3 g/dl (14.0-18.0)
[2018-06-26 07:27] LABS: ABG BASE EXCESS 3.1 mmol/L (-2.0-2.0); ABG HCO3 28.4 mmol/l (22-26); ABG O2 SATURATION 96.7 % (95-97); ARTERIAL BLOOD GAS PCO2 47.8 mmHg (35-45); ARTERIAL BLOOD GAS PH 7.387 (7.35-7.45); ARTERIAL BLOOD GAS PO2 92.7 mmHg (80-90)
[2018-06-27] VITALS: BP 155/59
[2018-06-27 04:00] VITALS: BP 138/64
[2018-06-27 07:42] LABS: HEMATOCRIT 29.5 % (42.0-52.0); MEAN CELL VOLUME 92.5 fl (80.0-94.0); MEAN CORPUSCULAR HGB 28.2 pg (27.0-31.0); MEAN CORPUSCULAR HGB CONC 30.5 g/dl (33.0-37.0); MEAN PLATELET VOLUME 9.3 fl (9.6-12.3); PLATELET COUNT AUTOMATED 132 10*3/uL (130-400); RED BLOOD COUNT 3.19 10*6/uL (4.50-5.90); RED CELL DISTRI WIDTH 16.6 % (0-14.5); WHITE BLOOD COUNT 7.7 10*3/uL (4.8-10.8)
[2018-06-27 08:00] VITALS: BP 154/67
[2018-06-27 08:07] LABS: OVALOCYTES FEW; PLATELET SUFFICIENCY NORMAL (NORMAL); SCHISTOCYTES FEW; TOTAL CELLS COUNTED 100 #CELLS
[2018-06-27 08:08] LABS: ALBUMIN 2.3 gm/dl (3.1-4.5); ALKALINE PHOSPHATASE 46 U/L (45-117); BUN 19 mg/dl (7-24); CHLORIDE 107 mmol/L (98-107); CREATININE 0.68 mg/dL (0.70-1.30); PHOSPHOROUS 2.6 mg/dL (2.5-4.9); POTASSIUM 3.6 mmol/L (3.5-5.1); SGOT/AST 15 IU/L (3-35); SGPT/ALT 23 U/L (12-78); SODIUM 140 mmol/L (136-145)
[2018-06-27 08:09] LABS: TOXIC GRANULATION SLIGHT
[2018-06-27 12:00] VITALS: BP 158/67
[2018-06-27 16:00] VITALS: BP 158/62
[2018-06-27 20:00] VITALS: BP 159/66
[2018-06-28] VITALS: BP 156/89
[2018-06-28 05:32] LABS: ALBUMIN 2.3 gm/dl (3.1-4.5); ALKALINE PHOSPHATASE 46 U/L (45-117); BUN 16 mg/dl (7-24); CHLORIDE 105 mmol/L (98-107); CREATININE 0.64 mg/dL (0.70-1.30); POTASSIUM 3.7 mmol/L (3.5-5.1); SGOT/AST 12 IU/L (3-35); SGPT/ALT 23 U/L (12-78); SODIUM 139 mmol/L (136-145); TOTAL PROTEIN 5.1 gm/dL (6.4-8.2)
[2018-06-28 06:31] LABS: HEMOGLOBIN 9.1 g/dl (14.0-18.0); MEAN CELL VOLUME 93.9 fl (80.0-94.0); MEAN CORPUSCULAR HGB 27.6 pg (27.0-31.0); MEAN CORPUSCULAR HGB CONC 29.4 g/dl (33.0-37.0); MEAN PLATELET VOLUME 10.2 fl (9.6-12.3); PLATELET COUNT AUTOMATED 158 10*3/uL (130-400); RED CELL DISTRI WIDTH 16.8 % (0-14.5); WHITE BLOOD COUNT 7.5 10*3/uL (4.8-10.8)
[2018-06-28 07:39] LABS: OVALOCYTES FEW; PLATELET SUFFICIENCY NORMAL (NORMAL); TOTAL CELLS COUNTED 100 #CELLS
[2018-06-28 08:00] VITALS: BP 176/60
[2018-06-28] MEDS ORDERED: HYDROCODONE-AC1 EAC1 PO (09:53)
[2018-06-28] MEDS ORDERED: PREDNISONE10 MG PO (09:53)
[2018-06-28] MEDS ORDERED: PREDNISONE10 M1 PO (09:54)
[2018-06-28] MEDS ORDERED: LEVAQUIN750 M1 PO (09:54)
[2018-06-28] MEDS ORDERED: GABAPENTIN100 M2 PO (09:55)
[2018-06-29 16:06] LABS: IGG SUBCLASS 1 162 mg/dL (248-810); IGG SUBCLASS 2 34 mg/dL (130-555); IGG SUBCLASS 3 16 mg/dL (15-102); IGG SUBCLASS 4 2 mg/dL (2-96); IMMUNOGLOBULIN G, QNT 217 mg/dL (700-1600)
[2018-07-31] MEDS ORDERED: FINASTERIDE5 M1 PO (05:42)
[2018-07-31] MEDS ORDERED: LISINOPRIL5 MG PO (05:45)
[2018-07-31] MEDS ORDERED: PROBIOTIC WITH1 EACH PO (05:47)
[2018-07-31] MEDS ORDERED: NYST SUSP PO (05:54)
[2018-07-31] MEDS ORDERED: TYLENOL325 M2 PO (05:59)
[2018-08-01] MEDS ORDERED: PREDNISONE10 M1 PO (19:37)
[2018-08-01] MEDS ORDERED: PROBIOTIC PRODUCT PO (19:39)
[2018-08-01] MEDS ORDERED: GABAPENTIN100 M2 PO (19:43)
[2018-08-03] MEDS ORDERED: PREDNISONE10 MG PO (13:23)
[2018-08-03] MEDS ORDERED: GABAPENTIN100 M2 PO (13:23)
[2018-08-03] MEDS ORDERED: Humalog SQ (13:23)
[2018-08-03] MEDS ORDERED: AUGMENTIN 875875 MG PO (13:23)
== END 2018-06-28 14:27 | DRG 871 ==
LOC: ED 10:09 → EDHOLD 11:49 → ICCU 12:59
PROVIDERS: Emergency Medicine; Internal Medicine; Internal Medicine Critical Care Medicine; Student in an Organized Health Care Education/Training Program; ADMIT Internal Medicine
PROC: B548ZZA Ultrasonography of Superior Vena Cava, Guidance (ICD-10-PCS; principal; 2018-06-25)
PROC: 02HV33Z Insertion of Infusion Device into Superior Vena Cava, Percutaneous Approach (ICD-10-PCS; principal; 2018-06-25)
PROC: 5A09357 Assistance with Respiratory Ventilation, Less than 24 Consecutive Hours, Continuous Positive Airway Pressure (ICD-10-PCS; principal; 2018-06-25)
DX: A41.9 Sepsis, unspecified organism (principal); R65.21 Severe sepsis with septic shock; J96.21 Acute and chronic respiratory failure with hypoxia; J96.22 Acute and chronic respiratory failure with hypercapnia; J69.0 Pneumonitis due to inhalation of food and vomit; G45.8 Other transient cerebral ischemic attacks and related syndromes; E87.2 Acidosis; J44.1 Chronic obstructive pulmonary disease with (acute) exacerbation; E87.3 Alkalosis; Z68.43 Body mass index [BMI] 50.0-59.9, adult; F41.9 Anxiety disorder, unspecified; I25.10 Atherosclerotic heart disease of native coronary artery without angina pectoris; I50.9 Heart failure, unspecified; G89.29 Other chronic pain; F03.90 Unspecified dementia, unspecified severity, without behavioral disturbance, psychotic disturbance, mood disturbance, and anxiety; K21.9 Gastro-esophageal reflux disease without esophagitis; M10.9 Gout, unspecified; E78.5 Hyperlipidemia, unspecified; F32.9 Major depressive disorder, single episode, unspecified; I73.9 Peripheral vascular disease, unspecified; F10.21 Alcohol dependence, in remission; E87.8 Other disorders of electrolyte and fluid balance, not elsewhere classified; R73.9 Hyperglycemia, unspecified; D64.9 Anemia, unspecified; E55.9 Vitamin D deficiency, unspecified; I11.0 Hypertensive heart disease with heart failure; I48.2 Chronic atrial fibrillation; E66.8 Other obesity; Z79.01 Long term (current) use of anticoagulants; Z82.3 Family history of stroke; Z79.02 Long term (current) use of antithrombotics/antiplatelets; Z95.828 Presence of other vascular implants and grafts; Z82.49 Family history of ischemic heart disease and other diseases of the circulatory system; Z80.0 Family history of malignant neoplasm of digestive organs; Z79.899 Other long term (current) drug therapy; Z79.2 Long term (current) use of antibiotics; Z79.51 Long term (current) use of inhaled steroids; Z72.0 Tobacco use

== ENCOUNTER 2018-08-29 01:40 | Emergency (ER) | payer MEDICARE, MEDICAID ==
[~2018-08-29] VITALS: Ht 172.7 cm; Wt 108.9 kg
[~2018-08-29 01:40] MED LIST changes: +FINASTERIDE5 M1 PO; +Humalog SQ; +LEVAQUIN750 M1 PO; +LISINOPRIL5 MG PO; +NYST SUSP PO; +PROBIOTIC PRODUCT PO; +PROBIOTIC WITH1 EACH PO; +TYLENOL325 M2 PO
[2018-08-29 02:43] LABS: HEMATOCRIT 28.2 % (42.0-52.0); HEMOGLOBIN 8.1 g/dl (14.0-18.0); MEAN CELL VOLUME 98.3 fl (80.0-94.0); MEAN CORPUSCULAR HGB 28.2 pg (27.0-31.0); MEAN CORPUSCULAR HGB CONC 28.7 g/dl (33.0-37.0); MEAN PLATELET VOLUME 9.3 fl (9.6-12.3); PLATELET COUNT AUTOMATED 264 10*3/uL (130-400); RED BLOOD COUNT 2.87 10*6/uL (4.50-5.90); RED CELL DISTRI WIDTH 16.7 % (0-14.5)
[2018-08-29 03:05] LABS: ALBUMIN 2.1 gm/dl (3.1-4.5); ALKALINE PHOSPHATASE 63 U/L (45-117); BUN 30 mg/dl (7-24); CHLORIDE 102 mmol/L (98-107); CREATININE 1.34 mg/dL (0.70-1.30); POTASSIUM 4.1 mmol/L (3.5-5.1); SGOT/AST 9 IU/L (3-35); SGPT/ALT 13 U/L (12-78); SODIUM 144 mmol/L (136-145)
[2018-08-29 03:09] LABS: BASOPHILS 1 % (0-1); MICROCYTOSIS SLIGHT; PLATELET SUFFICIENCY NORMAL (NORMAL); TOTAL CELLS COUNTED 100 #CELLS
[2018-08-29 03:10] LABS: SCHISTOCYTES FEW
[2018-08-29 03:19] LABS: BILIRUBIN NEGATIVE (NEGATIVE); BLOOD 2+ (NEGATIVE); CLARITY CLEAR (CLEAR); COLOR YELLOW (YELLOW); GLUCOSE NEGATIVE (NEGATIVE); KETONE NEGATIVE (NEGATIVE); LEUKO ESTERASE 1+ (NEGATIVE); NITRITE POSITIVE (NEGATIVE); PH 7.5 (5.0-9.0); SPECIFIC GRAVITY 1.015 (1.005-1.030); UROBILINOGEN 0.2 E.U./dl (0.2-1.0)
[2018-08-29 03:34] LABS: RBC 21-30 rbc/hpf (0-2)
[2018-08-29 03:35] LABS: BACTERIA TRACE; WBC 16-20 wbc/hpf (0-5)
[2018-08-29] MEDS ORDERED: CIPRO500 MG PO (04:54)
[2018-08-29 04:59] VITALS: BP 124/58
== END 2018-08-29 05:56 | disposition other institution (70) ==
LOC: ED 01:40
PROVIDERS: Emergency Medicine
DX: N39.0 Urinary tract infection, site not specified (principal); R41.82 Altered mental status, unspecified; F03.90 Unspecified dementia, unspecified severity, without behavioral disturbance, psychotic disturbance, mood disturbance, and anxiety; G89.29 Other chronic pain; I25.10 Atherosclerotic heart disease of native coronary artery without angina pectoris; I50.9 Heart failure, unspecified; J44.9 Chronic obstructive pulmonary disease, unspecified; K21.9 Gastro-esophageal reflux disease without esophagitis; E78.5 Hyperlipidemia, unspecified; G62.9 Polyneuropathy, unspecified; I73.9 Peripheral vascular disease, unspecified; F17.200 Nicotine dependence, unspecified, uncomplicated; Z79.899 Other long term (current) drug therapy

== ENCOUNTER 2018-11-10 05:06 | Inpatient (IN) | payer MEDICARE, MEDICAID ==
[~2018-11-10] VITALS: Ht 182.9 cm; Wt 106.3 kg
--- NOTE | ~2018-11-10 | EKG ---
[place], [place] ELECTROCARDIOGRAM REPORT NAME: JAMAL HIDALGO UNIT #: [id number] ROOM: [facility] DOCTOR: TOMASA DRAFT REPORT BIRTHDATE: [birth year] [facility] Test Date: 2018-11-10 Test Time: 08:09:42 Pat Name: JAMAL HIDALGO Department: Room: [facility] Gender: M Hardboard Supervisor: Sandie Abreu : 1955 Requested By: ARYAN MCCORMICK Order Number: [id number] Reading MD: Cierra Mccartney MD Measurements Intervals [place] Rate: 76 P: 80 [place]: 234 QRS: -83 QRSD: 93 T: 86 QT: 389 QTc: 438 Interpretive Statements Sinus rhythm Prolonged [place] interval Consider right ventricular hypertrophy Inferior infarct, old Baseline wander in lead(s) I,II,aVR Compared to ECG 10/03/2018 12:58:50 First degree AV block now present Intraventricular conduction delay no longer present Myocardial infarct finding still present Electronically Signed On 11-11-2018 12:27:59 PDT by Cierra Mccartney MD CM:EKGRPT:ELECTROCARDIOGRAM REPORT [id number] 1227 ARYAN QUIÑONESANY DRAFT REPORT ARYAN MCCORMICK MD
--- NOTE | ~2018-11-10 | EKG ---
[place], [place] ELECTROCARDIOGRAM REPORT NAME: JAMAL HIDALGO UNIT #: [id number] ROOM: [facility] DOCTOR: EPIPHANY DRAFT REPORT BIRTHDATE: [address] [facility] Test Date: 2018-11-10 Test Time: 05:13:33 Pat Name: JAMAL HIDALGO Department: Room: [facility] Gender: M Manager French: : 1955 Requested By: ARYAN MCCORMICK Order Number: [id number] Reading MD: Cierra Mccartney MD Measurements Intervals [place] Rate: 76 P: 77 MD: 215 QRS: -68 QRSD: 112 T: 77 QT: 401 QTc: 451 Interpretive Statements Sinus rhythm Borderline prolonged MD interval Incomplete right bundle branch block Inferior infarct, old Compared to ECG 10/03/2018 12:58:50 Incomplete right bundle-branch block now present Intraventricular conduction delay no longer present Myocardial infarct finding still present Electronically Signed On 11-11-2018 12:27:47 PDT by Cierra Mccartney MD CM:EKGRPT:ELECTROCARDIOGRAM REPORT [id number] 1227 ARYAN MCCORMICK MD EPIPHANY DRAFT REPORT ARYAN MCCORMICK MD
--- NOTE | ~2018-11-10 | EKG ---
[place], [place] ELECTROCARDIOGRAM REPORT NAME: JAMAL HIDALGO UNIT #: [id number] ROOM: [facility] DOCTOR: TOMASA DRAFT REPORT BIRTHDATE: [birth year] [facility] Test Date: 2018-11-10 Test Time: 12:25:33 Pat Name: JAMAL HIDALGO Department: Room: [facility] Gender: M Internal Controls Specialist: Sandie Abreu : 1955 Requested By: ARYAN MCCORMICK Order Number: [id number] Reading MD: Cierra Mccartney MD Measurements Intervals [place] Rate: 74 P: 72 MS: 218 QRS: -80 QRSD: 97 T: 86 QT: 393 QTc: 436 Interpretive Statements Sinus rhythm Borderline prolonged [place] interval Consider right ventricular hypertrophy Inferior infarct, old Baseline wander in lead(s) V1 Compared to ECG 10/03/2018 12:58:50 Intraventricular conduction delay no longer present Myocardial infarct finding still present Electronically Signed On 11-11-2018 12:28:23 PDT by Cierra Mccartney MD CM:EKGRPT:ELECTROCARDIOGRAM REPORT 1225 1228 ARYAN RANDOLPH DRAFT REPORT ARYAN MCCORMICK MD
[2018-11-10 05:10] VITALS: BP 136/43
[2018-11-10 05:42] LABS: BASO % 0.4 % (0.0-1.0); EOS # 0.2 10*3/uL (0.0-0.4); HEMATOCRIT 37.2 % (42.0-52.0); HEMOGLOBIN 10.7 g/dl (14.0-18.0); LYMPH # 0.8 10*3/uL (1.3-4.4); LYMPH % 7.5 % (27.0-41.0); MEAN CELL VOLUME 98.2 fl (80.0-94.0); MEAN CORPUSCULAR HGB 28.2 pg (27.0-31.0); MEAN CORPUSCULAR HGB CONC 28.8 g/dl (33.0-37.0); MEAN PLATELET VOLUME 9.2 fl (9.6-12.3); MONO % 9.2 % (3.0-9.0); NEUT # 8.8 10*3/uL (2.3-7.9); NEUT % 80.3 % (47.0-73.0); PLATELET COUNT AUTOMATED 216 10*3/uL (130-400); RED BLOOD COUNT 3.79 10*6/uL (4.50-5.90); RED CELL DISTRI WIDTH 15.2 % (0-14.5); WHITE BLOOD COUNT 10.9 10*3/uL (4.8-10.8)
[2018-11-10 05:46] VITALS: BP 145/47
[2018-11-10 05:54] LABS: ALBUMIN 2.9 gm/dl (3.1-4.5); ALKALINE PHOSPHATASE 76 U/L (45-117); BUN 30 mg/dl (7-24); CHLORIDE 100 mmol/L (98-107); CREATININE 1.49 mg/dL (0.70-1.30); POTASSIUM 5.9 mmol/L (3.5-5.1); SGPT/ALT 15 U/L (12-78); SODIUM 136 mmol/L (136-145); TOTAL PROTEIN 6.5 gm/dL (6.4-8.2); TROPONIN I < 0.015 ng/ml (<0.045)
[2018-11-10 05:55] LABS: SGOT/AST 24 IU/L (3-35)
--- NOTE | 2018-11-10 06:31 | NUR ---
PATIENT REFUSED TO BE ASSESSED FOR WOUNDS.
[2018-11-10 07:09] LABS: INTERNATIONAL NORM RATIO 0.9 (2.0-3.5)
[2018-11-10 08:00] VITALS: BP 157/54
[2018-11-10] MEDS ORDERED: FLOMAX0.4 MG PO (09:22)
[2018-11-10] MEDS ORDERED: LASIX40 MG PO (09:23)
[2018-11-10] MEDS ORDERED: MAGNESIUM400 M1 PO (09:24)
[2018-11-10] MEDS ORDERED: MIRALAX17 GM PO (09:25)
[2018-11-10] MEDS ORDERED: METOLAZONE2.5 MG PO (09:25)
[2018-11-10 09:27] LABS: ABG BASE EXCESS 8.1 mmol/L (-2.0-2.0); ABG HCO3 37.1 mmol/l (22-26); ABG O2 SATURATION 97.8 % (95-97); ARTERIAL BLOOD GAS PH 7.277 (7.35-7.45)
[2018-11-10] MEDS ORDERED: RAYOS5 M1 PO (09:27)
[2018-11-10] MEDS ORDERED: RISPERDAL0.5 MG PO (09:28)
[2018-11-10 09:37] LABS: ARTERIAL BLOOD GAS PCO2 81.6 mmHg (35-45)
[2018-11-10] MEDS ORDERED: DULCOLAX5 M1 PO (09:37)
[2018-11-10] MEDS ORDERED: MILK OF MA400 MG/5 M PO (09:38)
--- NOTE | 2018-11-10 09:45 | NUR ---
PT ON BIPAP AFTER ABG RESULTS.
--- NOTE | 2018-11-10 11:30 | NUR ---
PHYSICAL THERAPY Patient medicated for aggression. Hold per nursing. Will try PT evaluation at a later date. Thank you. Caty Jaimes,PT,DPT.
--- NOTE | 2018-11-10 11:30 | NUR ---
PT REMAINED ON BIPAP UNTIL BECOMING AGITATED WITH LAB DRAWS. PT REFUSED TO WEAR NASAL CANNULA AND BIPAP AT THIS TIME. PT REMOVED HIS IV AND IS COMBATIVE. OK DURBIN NP TO THE FLOOR TO SEE THE PATIENT.
--- NOTE | 2018-11-10 11:30 | NUR ---
Patient not appropriate for Occupational Therapy eval at this time per nursing. He has been medicated due to aggressive behavior and nursing requests he not be disturbed. Will attempt OT eval at a later date. Julian Worthington S/OT Jumana Aguilar OTR/l
--- NOTE | 2018-11-10 11:35 | NUR ---
IM ATIVAN GIVEN AT THIS TIME FOR AGITATION.
[2018-11-10 12:00] VITALS: BP 90/60
--- NOTE | 2018-11-10 12:15 | NUR ---
PT CALM AT THIS TIME. BIPAP ON, ABGS TO BE REDRAWN.
[2018-11-10 12:57] LABS: ABG BASE EXCESS 8.1 mmol/L (-2.0-2.0); ABG HCO3 36.6 mmol/l (22-26); ARTERIAL BLOOD GAS PH 7.301 (7.35-7.45)
[2018-11-10 13:07] LABS: ARTERIAL BLOOD GAS PCO2 75.9 mmHg (35-45)
--- NOTE | 2018-11-10 13:11 | NUR ---
Notified Hemalatha Montague of ABG results. States pt needs transferred to ICCU. classified advertising clerk calling ICCU for bed.
--- NOTE | 2018-11-10 13:17 | NUR ---
Pt incontient of large amount of urine. Cleansed well and repositioned for comfort. Respiratory states that abg were venous and they are going to redraw. Hemalatha Montague states to hold on transfer at this time. Pt remains confused and very drowsy on bipap.
[2018-11-10 13:36] LABS: ABG BASE EXCESS 9.6 mmol/L (-2.0-2.0); ABG HCO3 36.7 mmol/l (22-26); ABG O2 SATURATION 94.4 % (95-97); ARTERIAL BLOOD GAS PCO2 65.5 mmHg (35-45); ARTERIAL BLOOD GAS PH 7.365 (7.35-7.45); ARTERIAL BLOOD GAS PO2 64.9 mmHg (80-90)
[2018-11-10 14:10] VITALS: BP 164/63
--- NOTE | 2018-11-10 14:44 | NUR ---
PT TRANSFERRED TO THE [facility]U AT THIS TIME.
[2018-11-10 17:42] LABS: BUN 27 mg/dl (7-24); CHLORIDE 98 mmol/L (98-107); CREATININE 1.09 mg/dL (0.70-1.30); POTASSIUM 4.5 mmol/L (3.5-5.1); SODIUM 137 mmol/L (136-145)
--- NOTE | 2018-11-10 18:12 | NUR ---
Awake and alert , placed to NC 5 liters for supper. Tolerating well. Incontinent large amt urine. brief changed and martina care given.
[2018-11-10 20:00] VITALS: BP 155/63
--- NOTE | 2018-11-10 20:24 | NUR ---
1944 BIPAP REAPPLED. PT REPOSITIONED. AWAKENS BUT IS LETHARGIC. PULSE IX 98%. HEP LOCK INTACT. NO DISTRESS NOTED. NO C/O'S VOICED.
--- NOTE | 2018-11-10 22:40 | NUR ---
2200 BIPAP REMOVED PER PT. INCONTINENT OF VERY LARGE AMOUNT BLACK TARRY STOOL AND ALSO URINE. VIANCA CARE DONE AND PADS CHANGED. PT CONFUSED AT PRESENT. REPOSITIONED ON RIGHT SIDE. KEEPS SAYING "HELP". NO C/O'S. REFUSES BIPAP BEING REAPPLIED AT PRESENT. O2 INTACT VIA NC AT 5L. WILL CONT TO MONITOR
[2018-11-11] VITALS: BP 118/44
--- NOTE | 2018-11-11 00:15 | NUR ---
BIPAP REAPPLIED AT 2330. RESTING IN BED WITH EYES CLOSED. APPEARS TO BE SLEEPING. PULSE OX 99%. NO DISTRESS NOTED.
--- NOTE | 2018-11-11 02:00 | NUR ---
PT. OFF BIPAP AT THIS TIME.
--- NOTE | 2018-11-11 02:06 | NUR ---
PT PULLED BIPAP OFF. PLACED BACK ON NC AT 5L. REFUSES TO WEAR BIPAP AT PRESENT. [id number] TO PLACE AND TIME. PULSE OX 96%
[2018-11-11 04:00] VITALS: BP 140/47
--- NOTE | 2018-11-11 04:03 | NUR ---
INCONTINENT OF LARGE AMOUNT URINE. ADULT DIAPER CHANGED. PULSE OX 96% ON 5L 02 VIA NC.
--- NOTE | 2018-11-11 06:15 | NUR ---
INCONTINENT OF URINE AGAIN. VIANCA CARE DONE AND DIAPER CHANGED. UNCOOPERATIVE. REMAINS CONFUSED. REFUSES BIPAP. 02 INTACT VIA NC. CONDITION GUARDED.
[2018-11-11 06:25] LABS: ALBUMIN 2.6 gm/dl (3.1-4.5); ALKALINE PHOSPHATASE 66 U/L (45-117); BUN 28 mg/dl (7-24); CHLORIDE 97 mmol/L (98-107); CREATININE 1.06 mg/dL (0.70-1.30); PHOSPHOROUS 2.8 mg/dL (2.5-4.9); SGOT/AST 10 IU/L (3-35); SGPT/ALT 13 U/L (12-78); SODIUM 135 mmol/L (136-145); TOTAL PROTEIN 5.9 gm/dL (6.4-8.2)
[2018-11-11 06:38] LABS: HEMATOCRIT 33.4 % (42.0-52.0); MEAN CORPUSCULAR HGB 27.8 pg (27.0-31.0); MEAN CORPUSCULAR HGB CONC 29.9 g/dl (33.0-37.0); MEAN PLATELET VOLUME 10.2 fl (9.6-12.3); PLATELET COUNT AUTOMATED 231 10*3/uL (130-400); POTASSIUM 3.5 mmol/L (3.5-5.1); RED CELL DISTRI WIDTH 15.1 % (0-14.5); WHITE BLOOD COUNT 11.5 10*3/uL (4.8-10.8)
[2018-11-11 06:40] LABS: MEAN CELL VOLUME 92.8 fl (80.0-94.0)
--- NOTE | 2018-11-11 07:05 | NUR ---
JAMAL HIDAGLO [id number] Please refer to the physician's history and physical for past medical history, comorbid conditions, and allergies. Diagnosis: CKD COPD EXACERBATION ACUTE HYPERKALEMIA Jethro Score: 13,MODERATE RISK WOUND DESCRIPTIONS: Wound Number: 1 Entire buttocks have scar tissue noted. No open areas at time of assessment. No drainage at time of assessment. Patient incontient of urine and feces at time of assessment. Pericare provided at time of assessment with Nkechi GRAYSON caring for patient. Bilateral groins pink and blanchable at time of assessment. No open areas noted at time of assessment. Surface the patient is resting on: Isoflex SKIN PREVENTION RECOMMENDATION: 1. Pressure redistribution support surface as appropriate 2. Elevate heels 3. Remove boots/TEDS every shift and reapply 4. Head of bed 30 degrees as tolerated 5. Assess nutrition and hydration 6. Manage moisture 7. Avoid the use of containment devices while in bed 8. Use absorptive products on surfaces limit layers of linens on bed 9. Turn and reposition every 1-2 hours in bed and every 1 hour in chair as tolerated 10. Weight shifts every 15 minutes while up in chair 11. Offloading with pillows or device to keep heels elevated off bed 12. Monitor skin at least every shift 13. Inspect under medical devices twice a day WOUND TREATMENT RECOMMENDATIONS: Cleanse bilateral groins and entire buttocks with soap and water and apply hydraguard every shift and prn for soiling. Wheelchair cushion when oob. Heel raiser pro boots to bilateral feet while in bed.
[2018-11-11 07:20] LABS: OVALOCYTES FEW; PLATELET SUFFICIENCY NORMAL (NORMAL); POLYCHROMASIA SLIGHT; SCHISTOCYTES FEW; TOTAL CELLS COUNTED 100 #CELLS
--- NOTE | 2018-11-11 07:54 | NUR ---
PT IS NOT ON HIS BIPAP AT THIS TIME
[2018-11-11 08:00] VITALS: BP 150/48
--- NOTE | 2018-11-11 08:45 | NUR ---
Dr. Wang notified of wound care recommendations.
--- NOTE | 2018-11-11 09:00 | NUR ---
Gluer Machine Operator in to see patient. He is a LTC resident at [facility] and plans to return there upon discharge. When medically stable he will be discharged to [facility]. conservation planner following.
[2018-11-11 12:00] VITALS: BP 170/60
--- NOTE | 2018-11-11 12:49 | NUR ---
Incontinent of large amt urine. Marleny care given and re-positioned for lunch. Barrier cream applied.
[2018-11-11 16:00] VITALS: BP 175/76
--- NOTE | 2018-11-11 16:20 | NUR ---
Transferred to ICU #6 .
[2018-11-11 20:00] VITALS: BP 149/60
--- NOTE | 2018-11-11 20:34 | NUR ---
A 63, admitted to ICCU, under the services of GIOVANNY Abreu DO with a diagnosis of ALCOHOL WITHDRAWAL. Chief complaint is request [employer] for alcohol withdrawal with last drink at 4pm and pt admits to cocaine use today. Patient arrived via stretcher from ER. Monitor applied. Initial assessment completed. Vital signs taken and recorded. GIOVANNY ABREU DO notified of admission to the unit. Orders received. See assessment for past medical history, medications and allergies. Patient and/or family oriented to unit. [facility] ICCU visitation policy reviewed. Clothing/patient valuable form completed. CHAR BAIRES
--- NOTE | 2018-11-11 21:30 | NUR ---
PT CHECKED FOR INCONTINENCE AND IS DRY. PO MEDICATIONS TAKEN WITHOUT DIFFICULTY AND PT REPOSITIONED.
[2018-11-12] VITALS: BP 145/61
--- NOTE | 2018-11-12 01:48 | NUR ---
PT AWAKE. PERICARE DONE FOR INCONTINENCE OF BOTH URINE AND STOOL. ALSO REPOSITIONED AND PROVIDED CRACKERS PER PT REQUEST.
[2018-11-12 04:00] VITALS: BP 150/70
[2018-11-12 05:09] LABS: HEMOGLOBIN 11.4 g/dl (14.0-18.0); MEAN CORPUSCULAR HGB 27.6 pg (27.0-31.0); MEAN CORPUSCULAR HGB CONC 30.8 g/dl (33.0-37.0); MEAN PLATELET VOLUME 10.7 fl (9.6-12.3); PLATELET COUNT AUTOMATED 230 10*3/uL (130-400); RED BLOOD COUNT 4.13 10*6/uL (4.50-5.90); RED CELL DISTRI WIDTH 15.2 % (0-14.5); WHITE BLOOD COUNT 12.3 10*3/uL (4.8-10.8)
[2018-11-12 05:17] LABS: ALBUMIN 2.7 gm/dl (3.1-4.5); ALKALINE PHOSPHATASE 63 U/L (45-117); BUN 36 mg/dl (7-24); CHLORIDE 96 mmol/L (98-107); CREATININE 1.12 mg/dL (0.70-1.30); POTASSIUM 3.8 mmol/L (3.5-5.1); SGOT/AST 11 IU/L (3-35); SGPT/ALT 11 U/L (12-78); SODIUM 137 mmol/L (136-145); TOTAL PROTEIN 5.8 gm/dL (6.4-8.2)
[2018-11-12 05:31] LABS: MEAN CELL VOLUME 89.6 fl (80.0-94.0)
[2018-11-12 05:46] LABS: BURR CELLS FEW; PLATELET SUFFICIENCY NORMAL (NORMAL); TOTAL CELLS COUNTED 100 #CELLS
--- NOTE | 2018-11-12 06:00 | NUR ---
PT NOT INCONTINENT UPON CHECKING AT THIS TIME.
[2018-11-12 08:00] VITALS: BP 167/76
--- NOTE | 2018-11-12 09:00 | NUR ---
Laboratory Operations Coordinator in to see patient. No new needs or request at this time. When medically stable he will be discharged to [facility] where he is a LTC resident. enterprise resource planner following.
[2018-11-12 12:00] VITALS: BP 162/66
--- NOTE | 2018-11-12 14:00 | NUR ---
Patient updated clinicals faxed to [facility] for review. 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
--- NOTE | 2018-11-12 14:54 | NUR ---
PARMINDER MURRELL, HEAD WAITER/WAITRESS BANQUET, NOTIFIED ABOUT PATIENT'S IMC TRANSFER ORDER.
[2018-11-12 16:00] VITALS: BP 127/62
--- NOTE | 2018-11-12 16:10 | NUR ---
PATIENT TRANSFERRED TO [facility]. REPORT GIVEN TO MATEUS GILBERT RN. PATIENT SETTLED INTO ROOM. NO S/S OF DISTRESS. CALL LIGHT PLACED WITHIN REACH.
[2018-11-12 20:00] VITALS: BP 105/59
--- NOTE | 2018-11-12 21:00 | NUR ---
PATIENT C/O ABDOMINAL CRAMPING/PAIN. PRN BENTYL GIVEN PER ORDER. WILL MONITOR FOR EFFECTIVENESS.
--- NOTE | 2018-11-12 22:03 | NUR ---
PATIENT STATED THE PRN BENTYL HAS HELPED HIS ABDOMINAL CRAMPING. PATIENT RELAXING IN BED. CALL LIGHT WITHIN REACH. BED IN LOWEST POSITION.
[2018-11-13] VITALS: BP 160/55
--- NOTE | 2018-11-13 01:18 | NUR ---
PATIENT REQUESTING TO HAVE THE BI-PAP TAKEN OFF. BI-PAP TAKEN OFF, NASAL CANNULA REAPPLIED, AND RESPIRATORY NOTIFIED.
[2018-11-13 07:36] LABS: EOS # 0.1 10*3/uL (0.0-0.4); EOS % 0.5 % (1.0-4.0); HEMATOCRIT 35.5 % (42.0-52.0); HEMOGLOBIN 10.9 g/dl (14.0-18.0); LYMPH # 0.4 10*3/uL (1.3-4.4); LYMPH % 3.7 % (27.0-41.0); MEAN CELL VOLUME 90.6 fl (80.0-94.0); MEAN CORPUSCULAR HGB 27.8 pg (27.0-31.0); MEAN CORPUSCULAR HGB CONC 30.7 g/dl (33.0-37.0); MEAN PLATELET VOLUME 10.6 fl (9.6-12.3); MONO # 0.6 10*3/uL (0.1-1.0); MONO % 5.7 % (3.0-9.0); NEUT # 9.1 10*3/uL (2.3-7.9); NEUT % 89.3 % (47.0-73.0); PLATELET COUNT AUTOMATED 240 10*3/uL (130-400); RED BLOOD COUNT 3.92 10*6/uL (4.50-5.90); RED CELL DISTRI WIDTH 15.3 % (0-14.5); WHITE BLOOD COUNT 10.2 10*3/uL (4.8-10.8)
[2018-11-13 07:47] LABS: BUN 36 mg/dl (7-24); CHLORIDE 93 mmol/L (98-107); CREATININE 1.03 mg/dL (0.70-1.30); POTASSIUM 3.8 mmol/L (3.5-5.1); SODIUM 136 mmol/L (136-145)
[2018-11-13 08:00] VITALS: BP 160/70
--- NOTE | 2018-11-13 09:45 | NUR ---
PT AWAKE. ASSESSMENT COMPLETE. ROUTINE MEDICATIONS WELL TOLERATED. CALL VERA IN REACH
[2018-11-13 12:00] VITALS: BP 145/49
--- NOTE | 2018-11-13 14:17 | NUR ---
PT SLEEPING. RESPS REG/EASY WITH NO DISTRESS NOTED. BED LOW
[2018-11-13 16:00] VITALS: BP 140/43
[2018-11-13 20:00] VITALS: BP 127/45
--- NOTE | 2018-11-13 20:53 | NUR ---
PATIENT C/O MILD BACK PAIN FROM LAYING IN BED. PATIENT REPOSITIONED FOR COMFORT AND PRN TYLENOL GIVEN. CALL LIGHT WITHIN REACH. BED IN LOWEST POSITION. BED ALARM ON.
--- NOTE | 2018-11-13 22:38 | NUR ---
EARLIER PRN TYLENOL EFFECTIVE.
--- NOTE | 2018-11-13 23:49 | NUR ---
PT. REFUSED BIPAP AT THIS TIME.
[2018-11-14] VITALS: BP 110/40
--- NOTE | 2018-11-14 01:55 | NUR ---
24 HR chart check completed.
--- NOTE | 2018-11-14 04:43 | NUR ---
PATIENT STATED HE WAS FEELING SHORT OF BREATH. PATIENT PULLED UP IN BED AND EDUCATED TO TAKE DEEP BREATHS IN THROUGH HIS NOSE AND OUT THROUGH HIS MOUTH. SPO2 99% ON 4 L NASAL CANNULA. PATIENT STATED HE FELT BETTER AFTER A FEW MINUTES.
[2018-11-14 06:53] LABS: BUN 45 mg/dl (7-24); CHLORIDE 93 mmol/L (98-107); CREATININE 1.23 mg/dL (0.70-1.30); POTASSIUM 4.4 mmol/L (3.5-5.1); SODIUM 135 mmol/L (136-145)
[2018-11-14 07:03] LABS: BASO % 0.1 % (0.0-1.0); HEMATOCRIT 35.1 % (42.0-52.0); HEMOGLOBIN 10.9 g/dl (14.0-18.0); LYMPH # 0.5 10*3/uL (1.3-4.4); LYMPH % 4.8 % (27.0-41.0); MEAN CELL VOLUME 88.4 fl (80.0-94.0); MEAN CORPUSCULAR HGB 27.5 pg (27.0-31.0); MEAN CORPUSCULAR HGB CONC 31.1 g/dl (33.0-37.0); MEAN PLATELET VOLUME 10.7 fl (9.6-12.3); MONO # 0.6 10*3/uL (0.1-1.0); MONO % 5.7 % (3.0-9.0); NEUT % 88.2 % (47.0-73.0); PLATELET COUNT AUTOMATED 227 10*3/uL (130-400); RED BLOOD COUNT 3.97 10*6/uL (4.50-5.90); RED CELL DISTRI WIDTH 15.1 % (0-14.5); WHITE BLOOD COUNT 10.2 10*3/uL (4.8-10.8)
[2018-11-14] MEDS ORDERED: LEVAQUIN750 M1 PO (10:20)
[2018-11-14] MEDS ORDERED: PREDNISONE10 MG PO (10:20)
--- NOTE | 2018-11-14 11:28 | NUR ---
DR MCCRAY IN TO SEE PT. PT BEING DISCHARGED. REPORT CALLED TO NURSE MICAELA AT [facility].
[2018-11-14 12:00] VITALS: BP 112/48
--- NOTE | 2018-11-14 12:21 | NUR ---
Discharge instructions reviewed with patient. Patient receptive and verbalizes understanding. Follow-up PER SNF. Written instructions given to patient AND PACKET SENT TO SNF. NEEMA VANESSA
== END 2018-11-14 12:10 | DRG 189 ==
LOC: ED 05:06 → EDHOLD 06:33 → ICCU 06:33 → 5E 06:44 → ICCU 14:03 → 5E 11-12 15:37
PROVIDERS: Emergency Medicine Emergency Medical Services; Family Medicine; Internal Medicine; Registered Nurse; ADMIT Internal Medicine
PROC: 5A09357 Assistance with Respiratory Ventilation, Less than 24 Consecutive Hours, Continuous Positive Airway Pressure (ICD-10-PCS; principal; 2018-11-10)
DX: J96.22 Acute and chronic respiratory failure with hypercapnia (principal); G93.41 Metabolic encephalopathy; E43 Unspecified severe protein-calorie malnutrition; I50.22 Chronic systolic (congestive) heart failure; I13.0 Hypertensive heart and chronic kidney disease with heart failure and stage 1 through stage 4 chronic kidney disease, or unspecified chronic kidney disease; E87.5 Hyperkalemia; F41.9 Anxiety disorder, unspecified; I25.10 Atherosclerotic heart disease of native coronary artery without angina pectoris; F03.90 Unspecified dementia, unspecified severity, without behavioral disturbance, psychotic disturbance, mood disturbance, and anxiety; K21.9 Gastro-esophageal reflux disease without esophagitis; M10.9 Gout, unspecified; E78.5 Hyperlipidemia, unspecified; F32.9 Major depressive disorder, single episode, unspecified; G62.9 Polyneuropathy, unspecified; I73.9 Peripheral vascular disease, unspecified; Z96.642 Presence of left artificial hip joint; E78.2 Mixed hyperlipidemia; N18.3 Chronic kidney disease, stage 3 (moderate); G25.81 Restless legs syndrome; J43.9 Emphysema, unspecified; I48.91 Unspecified atrial fibrillation; D64.9 Anemia, unspecified; Z79.899 Other long term (current) drug therapy; Z87.440 Personal history of urinary (tract) infections; Z90.89 Acquired absence of other organs; Z82.49 Family history of ischemic heart disease and other diseases of the circulatory system; Z80.0 Family history of malignant neoplasm of digestive organs; Z99.81 Dependence on supplemental oxygen; Z86.14 Personal history of Methicillin resistant Staphylococcus aureus infection; Z68.29 Body mass index [BMI] 29.0-29.9, adult

== ENCOUNTER 2019-01-16 05:54 | Inpatient (IN) | payer MEDICARE, MEDICAID ==
[2019-01-16] VITALS (8 sets, daily range): BP systolic 104–164; BP diastolic 50–104
[~2019-01-16] VITALS: Ht 172.7 cm; Wt 98.9 kg
[~2019-01-16 05:54] MED LIST changes: +DULCOLAX5 M1 PO; +MAGNESIUM400 M1 PO; +METOLAZONE2.5 MG PO; +MILK OF MA400 MG/5 M PO; +RAYOS5 M1 PO; +RISPERDAL0.5 MG PO
--- NOTE | 2019-01-16 06:00 | NUR ---
PT TO TREATMENT ROOM, ASSESSMENT COMPLETE, CALL VERA IN REACH. PT C/O BACK PAIN
--- NOTE | 2019-01-16 06:05 | NUR ---
PT ALERT TO NAME AND MONTH, CONFUSED AT TIMES WITH PLACE, RESP EASY, LUNGS, CLEAR, ABD SOFT, WITH BS, PT ON O2 AT 2 L/NC PER SNF
--- NOTE | 2019-01-16 06:07 | NUR ---
MD IN TO EVALUATE PT
--- NOTE | 2019-01-16 06:36 | NUR ---
J2EE PROGRAMMER IN TO DRAW LAB WORK ORDERED, REMEDY DEVELOPER IN TO COMPLETE EKG ORDERED
[2019-01-16 06:49] LABS: BASO # 0.1 10*3/uL (0.0-0.1); BASO % 0.4 % (0.0-1.0); EOS # 0.1 10*3/uL (0.0-0.4); EOS % 0.8 % (1.0-4.0); HEMATOCRIT 37.3 % (42.0-52.0); HEMOGLOBIN 11.5 g/dl (14.0-18.0); LYMPH % 8.6 % (27.0-41.0); MEAN CELL VOLUME 91.2 fl (80.0-94.0); MEAN CORPUSCULAR HGB 28.1 pg (27.0-31.0); MEAN CORPUSCULAR HGB CONC 30.8 g/dl (33.0-37.0); MEAN PLATELET VOLUME 9.7 fl (9.6-12.3); MONO # 0.8 10*3/uL (0.1-1.0); MONO % 6.8 % (3.0-9.0); NEUT # 9.8 10*3/uL (2.3-7.9); NEUT % 81.3 % (47.0-73.0); PLATELET COUNT AUTOMATED 226 10*3/uL (130-400); RED BLOOD COUNT 4.09 10*6/uL (4.50-5.90); RED CELL DISTRI WIDTH 17.2 % (0-14.5); WHITE BLOOD COUNT 12.1 10*3/uL (4.8-10.8)
--- NOTE | 2019-01-16 06:56 | NUR ---
PT TO CT VIA STRETCHER ORDERED BY
[2019-01-16 06:57] LABS: INTERNATIONAL NORM RATIO 0.9 (2.0-3.5)
--- NOTE | 2019-01-16 07:05 | NUR ---
NURSE TO NURSE REPORT RECEIVED FROM KENAN BARAJAS.
--- NOTE | 2019-01-16 07:06 | NUR ---
PT RETURNED FROM CT , XRAY AT BEDSIDE FOR PORTABLE CXR ORDERED
[2019-01-16 07:07] LABS: ALBUMIN 3.3 gm/dl (3.1-4.5); ALKALINE PHOSPHATASE 64 U/L (45-117); BUN 41 mg/dl (7-24); CHLORIDE 99 mmol/L (98-107); CREATININE 1.61 mg/dL (0.70-1.30); SGOT/AST 9 IU/L (3-35); SGPT/ALT 14 U/L (12-78); SODIUM 133 mmol/L (136-145); TOTAL PROTEIN 6.6 gm/dL (6.4-8.2)
[2019-01-16 07:08] LABS: TROPONIN I < 0.015 ng/ml (<0.045)
--- NOTE | 2019-01-16 07:08 | NUR ---
REPORT TO GABRIELLA GRAYSON, CARE TRANSFERRED
--- NOTE | 2019-01-16 07:24 | NUR ---
PT RESTING IN BED AT THIS TIME. VISIBLE FROM NURSE'S STATION. APPEARS IN NO DISTRESS. CALL LIGHT WITHIN REACH. WILL CONTINUE TO MONITOR.
[2019-01-16 08:54] LABS: ABG BASE EXCESS -0.1 mmol/L (-2.0-2.0); ABG HCO3 25.4 mmol/l (22-26); ABG O2 SATURATION 88.1 % (95-97); ARTERIAL BLOOD GAS PCO2 46.6 mmHg (35-45); ARTERIAL BLOOD GAS PH 7.352 (7.35-7.45); ARTERIAL BLOOD GAS PO2 54.5 mmHg (80-90)
--- NOTE | 2019-01-16 08:54 | NUR ---
PT. PLACED ON BIPAP, 15/5 WITH 30% FIO2 BUR 8. VT 1305. LEAK 21. SAT 97%. ALARMS ON,
[2019-01-16 08:56] LABS: BILIRUBIN NEGATIVE (NEGATIVE); BLOOD NEGATIVE (NEGATIVE); CLARITY SL CLOUDY (CLEAR); COLOR YELLOW (YELLOW); GLUCOSE NEGATIVE (NEGATIVE); KETONE NEGATIVE (NEGATIVE); LEUKO ESTERASE 1+ (NEGATIVE); NITRITE NEGATIVE (NEGATIVE); PH 6.5 (5.0-9.0); UROBILINOGEN 0.2 E.U./dl (0.2-1.0)
[2019-01-16 09:06] LABS: BACTERIA 2+; WBC TNTC wbc/hpf (0-5)
[2019-01-16 09:10] LABS: CALCIUM OXALATE CRYSTALS TRACE; YEAST 1+
--- NOTE | 2019-01-16 10:12 | NUR ---
NO WOUNDS NOTED. EXCORIATION NOTED TO GROIN AREA. CREAM APPLIED.
--- NOTE | 2019-01-16 16:26 | NUR ---
PATIENT IS AAOX3 RESTING IN BED WITH EASY AND REGULAR RESPERS ON 2L O2 VIA NC. ASSESSMENT IS COMPLETE WITH NO C/O OR S/S OF DISTRESS NOTED AT THIS TIME. BED IS LOW, LOCKED, ALARMED, AND CALL LIGHT IS WITHIN REACH. WILL CONTINUE TO MONITOR SEE SHIFT ASSESSMENT.
--- NOTE | 2019-01-16 18:31 | NUR ---
PATIENTS HEELS ARE RED/MUSHY AND PATIENT IS COMPLAINING OF THEM BURNING AT THIS TIME. CALL PLACED TO DR. Brian LOPEZ EXPLAINING HEELS AND REQUEST FOR HEEL RAISERS. SEE NEW ORDER.
--- NOTE | 2019-01-16 19:14 | NUR ---
HEEL PROTECTORS ON PATIENT, MANUAL BLOOD PRESSURE 110/58.
[2019-01-17] VITALS: BP 107/57
[2019-01-17 06:29] LABS: BASO % 0.3 % (0.0-1.0); EOS # 0.1 10*3/uL (0.0-0.4); EOS % 1.3 % (1.0-4.0); HEMATOCRIT 35.8 % (42.0-52.0); HEMOGLOBIN 10.8 g/dl (14.0-18.0); LYMPH # 0.9 10*3/uL (1.3-4.4); LYMPH % 7.8 % (27.0-41.0); MEAN CELL VOLUME 91.3 fl (80.0-94.0); MEAN CORPUSCULAR HGB 27.6 pg (27.0-31.0); MEAN CORPUSCULAR HGB CONC 30.2 g/dl (33.0-37.0); MEAN PLATELET VOLUME 10.1 fl (9.6-12.3); MONO # 1.2 10*3/uL (0.1-1.0); MONO % 10.5 % (3.0-9.0); NEUT # 8.7 10*3/uL (2.3-7.9); NEUT % 77.9 % (47.0-73.0); PLATELET COUNT AUTOMATED 233 10*3/uL (130-400); RED BLOOD COUNT 3.92 10*6/uL (4.50-5.90); RED CELL DISTRI WIDTH 17.3 % (0-14.5); WHITE BLOOD COUNT 11.2 10*3/uL (4.8-10.8)
[2019-01-17 07:02] LABS: ALBUMIN 3.1 gm/dl (3.1-4.5); ALKALINE PHOSPHATASE 60 U/L (45-117); BUN 35 mg/dl (7-24); CHLORIDE 103 mmol/L (98-107); CREATININE 1.36 mg/dL (0.70-1.30); PHOSPHOROUS 4.1 mg/dL (2.5-4.9); POTASSIUM 4.9 mmol/L (3.5-5.1); SGOT/AST 6 IU/L (3-35); SGPT/ALT 16 U/L (12-78); SODIUM 137 mmol/L (136-145); TOTAL PROTEIN 6.2 gm/dL (6.4-8.2)
[2019-01-17 08:00] VITALS: BP 132/60
--- NOTE | 2019-01-17 08:04 | NUR ---
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 Clinical updates faxed for review. patient is ok to return when medically stable for discharge.
[2019-01-17 08:14] LABS: VITAMIN D, 25-HYDROXY 30.1 ng/mL (30-100)
--- NOTE | 2019-01-17 09:00 | NUR ---
Africana Studies Professor in to see patient. He is a LTC resident at [facility] and plans to return there upon discharge. He states he is ambulatory alone or with a walker. He states he gets around in a wheelchair also. O2 @ 2-4L nc. Has breathing treatments through a nebulizer. When medically stable he will be discharged to [facility]. land planner following.
[2019-01-17 12:00] VITALS: BP 116/50
[2019-01-17 16:00] VITALS: BP 116/52
--- NOTE | 2019-01-17 18:46 | NUR ---
PT C/O 11/13 RIGHT KNEE PAIN AND MEDICATED WITH PO NORCO PER ORDER. WILL MONITOR FOR EFFECTIVENESS.
[2019-01-17 20:00] VITALS: BP 110/52
--- NOTE | 2019-01-17 21:47 | NUR ---
PATIENT MEDICATED WITH RESTORIL FOR COMPLAINTS OF INSOMNIA. WILL CONTINUE TO MONITOR. CALL LIGHT IN REACH.
[2019-01-18] VITALS: BP 107/43
--- NOTE | 2019-01-18 04:50 | NUR ---
PATIENT MEDICATED WITH NORCO FOR COMPLAINTS OF BACK PAIN. WILL CONTINUE TO MONITOR. CALL LIGHT IN REACH.
[2019-01-18 06:02] LABS: BUN 32 mg/dl (7-24); CHLORIDE 99 mmol/L (98-107); CREATININE 1.25 mg/dL (0.70-1.30); POTASSIUM 4.8 mmol/L (3.5-5.1); SODIUM 132 mmol/L (136-145)
[2019-01-18 06:15] LABS: BASO % 0.4 % (0.0-1.0); EOS # 0.2 10*3/uL (0.0-0.4); HEMATOCRIT 33.7 % (42.0-52.0); HEMOGLOBIN 10.1 g/dl (14.0-18.0); LYMPH % 9.6 % (27.0-41.0); MEAN CELL VOLUME 91.6 fl (80.0-94.0); MEAN CORPUSCULAR HGB 27.4 pg (27.0-31.0); MEAN PLATELET VOLUME 9.6 fl (9.6-12.3); MONO # 1.2 10*3/uL (0.1-1.0); MONO % 11.6 % (3.0-9.0); NEUT # 7.4 10*3/uL (2.3-7.9); NEUT % 74.5 % (47.0-73.0); PLATELET COUNT AUTOMATED 209 10*3/uL (130-400); RED BLOOD COUNT 3.68 10*6/uL (4.50-5.90); RED CELL DISTRI WIDTH 17.2 % (0-14.5)
[2019-01-18 08:00] VITALS: BP 110/48
--- NOTE | 2019-01-18 08:30 | NUR ---
Granite Installer in to see patient. No new needs or request at this time. When medically stable he will be discharged to [facility]. store planner following.
[2019-01-18 12:00] VITALS: BP 122/49
[2019-01-18] MEDS ORDERED: GABAPENTIN100 M2 PO (12:09)
[2019-01-18] MEDS ORDERED: AUGMENTIN 875875 MG PO (12:10)
[2019-01-18] MEDS ORDERED: LASIX20 MG PO (12:10)
--- NOTE | 2019-01-18 14:03 | NUR ---
Patient is being discharged to return to [facility]. Transporation scheduled for 3PM with [facility] ambulance. [facility], nursing/steward/stewardess smoke room notified. Attempted to notify daughter Saira but was unable to contact. left voicemail
--- NOTE | 2019-01-18 15:15 | NUR ---
Discharge instructions reviewed with patient/family. Patient receptive and verbalizes understanding. Follow-up care arranged. Written instructions given to patient/family. [place] DISCONTINUED. DEEP SUBMERGENCE VEHICLE CREWMEMBER REMOVED. PATIENT TAKEN OFF FLOOR BY STRETCHER AND TAKEN BY AMBULANCE TO [facility]. REPORT GIVEN. LADI GREGORIO
== END 2019-01-18 15:16 | DRG 871 ==
LOC: ED 05:54 → EDHOLD 09:19 → 4E 09:19
PROVIDERS: Emergency Medicine; Family Medicine; Hospitalist; ADMIT Internal Medicine
PROC: 5A09357 Assistance with Respiratory Ventilation, Less than 24 Consecutive Hours, Continuous Positive Airway Pressure (ICD-10-PCS; principal; 2019-01-16)
DX: A41.9 Sepsis, unspecified organism (principal); N17.0 Acute kidney failure with tubular necrosis; G93.41 Metabolic encephalopathy; G45.8 Other transient cerebral ischemic attacks and related syndromes; N39.0 Urinary tract infection, site not specified; E87.1 Hypo-osmolality and hyponatremia; J96.10 Chronic respiratory failure, unspecified whether with hypoxia or hypercapnia; E44.0 Moderate protein-calorie malnutrition; R65.20 Severe sepsis without septic shock; I50.9 Heart failure, unspecified; I25.10 Atherosclerotic heart disease of native coronary artery without angina pectoris; J44.9 Chronic obstructive pulmonary disease, unspecified; F41.9 Anxiety disorder, unspecified; N18.9 Chronic kidney disease, unspecified; F03.90 Unspecified dementia, unspecified severity, without behavioral disturbance, psychotic disturbance, mood disturbance, and anxiety; K21.9 Gastro-esophageal reflux disease without esophagitis; M10.9 Gout, unspecified; E78.5 Hyperlipidemia, unspecified; F32.9 Major depressive disorder, single episode, unspecified; G62.9 Polyneuropathy, unspecified; I73.9 Peripheral vascular disease, unspecified; Z96.642 Presence of left artificial hip joint; D64.9 Anemia, unspecified; R73.9 Hyperglycemia, unspecified; E55.9 Vitamin D deficiency, unspecified; G89.29 Other chronic pain; I67.9 Cerebrovascular disease, unspecified; Z82.49 Family history of ischemic heart disease and other diseases of the circulatory system; Z99.81 Dependence on supplemental oxygen; Z80.0 Family history of malignant neoplasm of digestive organs

== ENCOUNTER 2019-04-14 12:02 | Inpatient (IN) | payer MEDICARE, MEDICAID ==
[2019-04-14] VITALS (7 sets, daily range): BP systolic 98–173; BP diastolic 63–72
[~2019-04-14] VITALS: Ht 172.7 cm; Wt 108.0 kg
[2019-04-14 12:57] LABS: BASO % 0.2 % (0.0-1.0); EOS # 0.1 10*3/uL (0.0-0.4); EOS % 0.4 % (1.0-4.0); HEMATOCRIT 41.6 % (42.0-52.0); HEMOGLOBIN 12.3 g/dl (14.0-18.0); LYMPH # 0.5 10*3/uL (1.3-4.4); LYMPH % 4.2 % (27.0-41.0); MEAN CELL VOLUME 93.7 fl (80.0-94.0); MEAN CORPUSCULAR HGB 27.7 pg (27.0-31.0); MEAN CORPUSCULAR HGB CONC 29.6 g/dl (33.0-37.0); MEAN PLATELET VOLUME 8.8 fl (9.6-12.3); MONO # 1.3 10*3/uL (0.1-1.0); MONO % 10.5 % (3.0-9.0); NEUT # 10.2 10*3/uL (2.3-7.9); NEUT % 84.2 % (47.0-73.0); PLATELET COUNT AUTOMATED 195 10*3/uL (130-400); RED BLOOD COUNT 4.44 10*6/uL (4.50-5.90); RED CELL DISTRI WIDTH 13.6 % (0-14.5); WHITE BLOOD COUNT 12.1 10*3/uL (4.8-10.8)
[2019-04-14 13:07] LABS: ACT PARTIAL THROMBO TIME 29.3 SECONDS (20.0-32.1)
[2019-04-14 13:15] LABS: ALBUMIN 3.3 gm/dl (3.1-4.5); ALKALINE PHOSPHATASE 77 U/L (45-117); BUN 12 mg/dl (7-24); CHLORIDE 95 mmol/L (98-107); CREATININE 0.95 mg/dL (0.70-1.30); LIPASE 43 U/L (73-393); SGOT/AST 10 IU/L (3-35); SGPT/ALT 18 U/L (12-78); SODIUM 135 mmol/L (136-145); TOTAL PROTEIN 6.6 gm/dL (6.4-8.2)
[2019-04-14 13:16] LABS: TROPONIN I < 0.015 ng/ml (<0.045)
[2019-04-14] MEDS ORDERED: DULCOLAX10 M1 R (19:17)
[2019-04-14] MEDS ORDERED: CYMBALTA60 MG PO (19:17)
[2019-04-14] MEDS ORDERED: MYLANTA MAXIMU355 M1 PO (19:21)
[2019-04-14] MEDS ORDERED: MUSCLE RUB ULT114 GM T (19:22)
[2019-04-14] MEDS ORDERED: PROTONIX40 MG PO (19:25)
[2019-04-14] MEDS ORDERED: TRAZODONE50 MG PO (19:27)
[2019-04-14] MEDS ORDERED: NITROSTAT0.4 MG SL (19:30)
[2019-04-14] MEDS ORDERED: ROBITUSSIN DM120 ML PO (19:34)
[2019-04-15 00:14] VITALS: BP 102/59
[2019-04-15 03:00] VITALS: BP 105/63
[2019-04-15 06:05] VITALS: BP 100/55
[2019-04-15 08:00] VITALS: BP 135/91; BP 99/57
[2019-04-15 10:17] LABS: HEMATOCRIT 40.4 % (42.0-52.0); HEMOGLOBIN 11.9 g/dl (14.0-18.0); MEAN CELL VOLUME 91.8 fl (80.0-94.0); MEAN CORPUSCULAR HGB CONC 29.5 g/dl (33.0-37.0); MEAN PLATELET VOLUME 9.1 fl (9.6-12.3); PLATELET COUNT AUTOMATED 194 10*3/uL (130-400); RED CELL DISTRI WIDTH 13.3 % (0-14.5); WHITE BLOOD COUNT 11.6 10*3/uL (4.8-10.8)
[2019-04-15 10:44] LABS: PLATELET SUFFICIENCY NORMAL (NORMAL); TOTAL CELLS COUNTED 100 #CELLS
[2019-04-15 10:45] LABS: ALBUMIN 3.1 gm/dl (3.1-4.5); ALKALINE PHOSPHATASE 71 U/L (45-117); BUN 16 mg/dl (7-24); CHLORIDE 96 mmol/L (98-107); CHOLESTEROL 143 mg/dL (<200); PHOSPHOROUS 3.6 mg/dL (2.5-4.9); POTASSIUM 4.3 mmol/L (3.5-5.1); SGOT/AST 10 IU/L (3-35); SGPT/ALT 18 U/L (12-78); SODIUM 137 mmol/L (136-145); TOTAL PROTEIN 6.6 gm/dL (6.4-8.2); TRIGLYCERIDES 57 mg/dl (<150); VLDL CHOLESTEROL 11 mg/dL (6-40)
[2019-04-15 10:51] LABS: HDL CHOLESTEROL 61 mg/dl (40-60); LDL CHOLESTEROL 71 mg/dL (9-159); THYROID STIM HORMONE (HS) 0.257 uIU/ml (0.358-4.75)
[2019-04-15 12:00] VITALS: BP 182/70
[2019-04-15] MEDS ORDERED: DOXYCYCLINE100 M3 PO (15:13)
[2019-04-15] MEDS ORDERED: PREDNISONE10 MG PO (15:13)
== END 2019-04-15 16:30 | DRG 190 ==
LOC: ED 12:02 → EDHOLD 13:42 → 4E 13:42
PROVIDERS: Emergency Medicine; Student in an Organized Health Care Education/Training Program; ADMIT Internal Medicine
PROC: 5A09357 Assistance with Respiratory Ventilation, Less than 24 Consecutive Hours, Continuous Positive Airway Pressure (ICD-10-PCS; principal; 2019-04-14)
DX: J43.9 Emphysema, unspecified (principal); J18.9 Pneumonia, unspecified organism; E87.1 Hypo-osmolality and hyponatremia; E44.0 Moderate protein-calorie malnutrition; I50.32 Chronic diastolic (congestive) heart failure; J96.12 Chronic respiratory failure with hypercapnia; J96.11 Chronic respiratory failure with hypoxia; D64.9 Anemia, unspecified; E78.5 Hyperlipidemia, unspecified; I25.10 Atherosclerotic heart disease of native coronary artery without angina pectoris; E55.9 Vitamin D deficiency, unspecified; K21.9 Gastro-esophageal reflux disease without esophagitis; J20.9 Acute bronchitis, unspecified; F32.5 Major depressive disorder, single episode, in full remission; F41.9 Anxiety disorder, unspecified; G89.29 Other chronic pain; G62.9 Polyneuropathy, unspecified; I73.9 Peripheral vascular disease, unspecified; F17.210 Nicotine dependence, cigarettes, uncomplicated; N18.9 Chronic kidney disease, unspecified; Z96.642 Presence of left artificial hip joint; E66.9 Obesity, unspecified; G25.81 Restless legs syndrome; G47.33 Obstructive sleep apnea (adult) (pediatric); Z82.49 Family history of ischemic heart disease and other diseases of the circulatory system; Z80.0 Family history of malignant neoplasm of digestive organs; Z79.899 Other long term (current) drug therapy; Z99.81 Dependence on supplemental oxygen; Z68.33 Body mass index [BMI] 33.0-33.9, adult; Z71.6 Tobacco abuse counseling

== ENCOUNTER 2019-05-13 21:11 | Inpatient (IN) | payer MEDICARE, MEDICAID ==
[~2019-05-13] VITALS: Ht 172.7 cm; Wt 105.6 kg
[~2019-05-13 21:11] MED LIST changes: +DULCOLAX10 M1 R; +MUSCLE RUB ULT114 GM T; +MYLANTA MAXIMU355 M1 PO; +NITROSTAT0.4 MG SL; +ROBITUSSIN DM120 ML PO
[2019-05-13 21:16] VITALS: BP 92/56
[2019-05-13 23:06] VITALS: BP 110/55
[2019-05-13 23:15] LABS: BASO % 0.3 % (0.0-1.0); EOS # 0.1 10*3/uL (0.0-0.4); EOS % 1.8 % (1.0-4.0); HEMATOCRIT 37.9 % (42.0-52.0); HEMOGLOBIN 10.5 g/dl (14.0-18.0); LYMPH # 0.5 10*3/uL (1.3-4.4); LYMPH % 6.1 % (27.0-41.0); MEAN CELL VOLUME 96.4 fl (80.0-94.0); MEAN CORPUSCULAR HGB 26.7 pg (27.0-31.0); MEAN CORPUSCULAR HGB CONC 27.7 g/dl (33.0-37.0); MEAN PLATELET VOLUME 9.1 fl (9.6-12.3); MONO # 0.6 10*3/uL (0.1-1.0); MONO % 7.3 % (3.0-9.0); NEUT # 6.4 10*3/uL (2.3-7.9); NEUT % 82.8 % (47.0-73.0); PLATELET COUNT AUTOMATED 174 10*3/uL (130-400); RED BLOOD COUNT 3.93 10*6/uL (4.50-5.90); RED CELL DISTRI WIDTH 13.9 % (0-14.5); WHITE BLOOD COUNT 7.7 10*3/uL (4.8-10.8)
[2019-05-13 23:32] LABS: ACETAMINOPHEN (TYLENOL) < 5.0 ug/ml (10-30); ACT PARTIAL THROMBO TIME 30.5 SECONDS (20.0-32.1); ALBUMIN 2.7 gm/dl (3.1-4.5); ALKALINE PHOSPHATASE 78 U/L (45-117); BUN 20 mg/dl (7-24); CHLORIDE 98 mmol/L (98-107); CREATININE 1.08 mg/dL (0.70-1.30); ETHYL ALCOHOL < 3.0 mg/dl (<3); LIPASE 51 U/L (73-393); POTASSIUM 4.3 mmol/L (3.5-5.1); SGOT/AST 13 IU/L (3-35); SGPT/ALT 20 U/L (12-78); SODIUM 139 mmol/L (136-145); TOTAL PROTEIN 5.8 gm/dL (6.4-8.2); TROPONIN I < 0.015 ng/ml (<0.045)
[2019-05-13 23:41] VITALS: BP 154/46; BP 93/45
[2019-05-14 00:16] LABS: BILIRUBIN NEGATIVE (NEGATIVE); BLOOD TRACE-INTACT (NEGATIVE); CLARITY SL CLOUDY (CLEAR); COLOR YELLOW (YELLOW); GLUCOSE NEGATIVE (NEGATIVE); KETONE NEGATIVE (NEGATIVE)
[2019-05-14 00:17] LABS: LEUKO ESTERASE 2+ (NEGATIVE); NITRITE NEGATIVE (NEGATIVE); UROBILINOGEN 0.2 E.U./dl (0.2-1.0)
[2019-05-14 00:29] LABS: ARTERIAL BLOOD GAS PH 7.309 (7.35-7.45)
[2019-05-14 00:34] LABS: BACTERIA 4+; WBC 41-50 wbc/hpf (0-5)
[2019-05-14 01:14] VITALS: BP 150/56
[2019-05-14 02:08] VITALS: BP 140/68
[2019-05-14] MEDS ORDERED: MINERAL OIL 1 ML1 ML (02:48)
[2019-05-14] MEDS ORDERED: TYLENOL EXTRA500 MG PO (02:50)
[2019-05-14 03:26] LABS: ABG BASE EXCESS 13.6 mmol/L (-2.0-2.0); ARTERIAL BLOOD GAS PH 7.363 (7.35-7.45)
[2019-05-14 07:39] LABS: BUN 18 mg/dl (7-24); CHLORIDE 99 mmol/L (98-107); CHOLESTEROL 131 mg/dL (<200); CREATININE 0.84 mg/dL (0.70-1.30); FREE T4 0.93 ng/dl (0.76-1.46); HDL CHOLESTEROL 58 mg/dl (40-60); LDL CHOLESTEROL 59 mg/dL (9-159); PHOSPHOROUS 2.2 mg/dL (2.5-4.9); POTASSIUM 4.2 mmol/L (3.5-5.1); SODIUM 137 mmol/L (136-145); TRIGLYCERIDES 70 mg/dl (<150); VLDL CHOLESTEROL 14 mg/dL (6-40)
[2019-05-14 08:00] VITALS: BP 121/78
[2019-05-14 08:37] LABS: BASO % 0.3 % (0.0-1.0); EOS # 0.2 10*3/uL (0.0-0.4); EOS % 2.3 % (1.0-4.0); HEMATOCRIT 39.9 % (42.0-52.0); HEMOGLOBIN 11.3 g/dl (14.0-18.0); LYMPH # 0.8 10*3/uL (1.3-4.4); LYMPH % 10.4 % (27.0-41.0); MEAN CELL VOLUME 96.1 fl (80.0-94.0); MEAN CORPUSCULAR HGB 27.2 pg (27.0-31.0); MEAN CORPUSCULAR HGB CONC 28.3 g/dl (33.0-37.0); MEAN PLATELET VOLUME 9.4 fl (9.6-12.3); MONO # 0.8 10*3/uL (0.1-1.0); MONO % 9.5 % (3.0-9.0); NEUT # 6.1 10*3/uL (2.3-7.9); NEUT % 75.9 % (47.0-73.0); PLATELET COUNT AUTOMATED 161 10*3/uL (130-400); RED BLOOD COUNT 4.15 10*6/uL (4.50-5.90); RED CELL DISTRI WIDTH 13.7 % (0-14.5)
[2019-05-14 12:00] VITALS: BP 156/62
[2019-05-14 16:00] VITALS: BP 170/65
[2019-05-14 20:00] VITALS: BP 162/68; BP 180/73
[2019-05-15] VITALS: BP 186/64
[2019-05-15 07:15] LABS: BUN 14 mg/dl (7-24); CHLORIDE 97 mmol/L (98-107); CREATININE 0.86 mg/dL (0.70-1.30); POTASSIUM 4.4 mmol/L (3.5-5.1); SODIUM 138 mmol/L (136-145)
[2019-05-15 07:29] LABS: BASO % 0.2 % (0.0-1.0); EOS # 0.2 10*3/uL (0.0-0.4); EOS % 2.3 % (1.0-4.0); HEMATOCRIT 37.5 % (42.0-52.0); HEMOGLOBIN 10.7 g/dl (14.0-18.0); LYMPH # 0.7 10*3/uL (1.3-4.4); LYMPH % 7.7 % (27.0-41.0); MEAN CELL VOLUME 93.3 fl (80.0-94.0); MEAN CORPUSCULAR HGB 26.6 pg (27.0-31.0); MEAN CORPUSCULAR HGB CONC 28.5 g/dl (33.0-37.0); MEAN PLATELET VOLUME 9.3 fl (9.6-12.3); MONO # 0.9 10*3/uL (0.1-1.0); MONO % 9.6 % (3.0-9.0); NEUT # 6.9 10*3/uL (2.3-7.9); NEUT % 78.7 % (47.0-73.0); PLATELET COUNT AUTOMATED 195 10*3/uL (130-400); RED BLOOD COUNT 4.02 10*6/uL (4.50-5.90); RED CELL DISTRI WIDTH 13.9 % (0-14.5); WHITE BLOOD COUNT 8.8 10*3/uL (4.8-10.8)
[2019-05-15 09:10] LABS: ABG BASE EXCESS 11.3 mmol/L (-2.0-2.0); ARTERIAL BLOOD GAS PH 7.39 (7.35-7.45)
[2019-05-15 12:00] VITALS: BP 118/68
[2019-05-15 16:00] VITALS: BP 168/71
[2019-05-15 20:00] VITALS: BP 155/95
[2019-05-16] VITALS: BP 164/80
[2019-05-16 08:00] VITALS: BP 140/64
[2019-05-16 09:30] LABS: BASO % 0.2 % (0.0-1.0); EOS # 0.1 10*3/uL (0.0-0.4); EOS % 1.7 % (1.0-4.0); HEMATOCRIT 40.3 % (42.0-52.0); HEMOGLOBIN 11.7 g/dl (14.0-18.0); LYMPH # 0.6 10*3/uL (1.3-4.4); LYMPH % 7.5 % (27.0-41.0); MEAN CELL VOLUME 92.4 fl (80.0-94.0); MEAN CORPUSCULAR HGB 26.8 pg (27.0-31.0); MEAN PLATELET VOLUME 9.4 fl (9.6-12.3); MONO # 0.7 10*3/uL (0.1-1.0); MONO % 9.1 % (3.0-9.0); NEUT # 6.5 10*3/uL (2.3-7.9); NEUT % 79.9 % (47.0-73.0); PLATELET COUNT AUTOMATED 202 10*3/uL (130-400); RED BLOOD COUNT 4.36 10*6/uL (4.50-5.90); RED CELL DISTRI WIDTH 14.1 % (0-14.5); WHITE BLOOD COUNT 8.1 10*3/uL (4.8-10.8)
[2019-05-16 09:46] LABS: ALBUMIN 3.1 gm/dl (3.1-4.5); ALKALINE PHOSPHATASE 65 U/L (45-117); BUN 14 mg/dl (7-24); CHLORIDE 97 mmol/L (98-107); CREATININE 0.81 mg/dL (0.70-1.30); POTASSIUM 4.4 mmol/L (3.5-5.1); SGOT/AST 14 IU/L (3-35); SGPT/ALT 18 U/L (12-78); SODIUM 137 mmol/L (136-145); TOTAL PROTEIN 6.1 gm/dL (6.4-8.2)
[2019-05-16] MEDS ORDERED: DOXYCYCLINE100 M3 PO (10:59)
[2019-05-16 16:08] LABS: VITAMIN D, 25-HYDROXY 32.5 ng/mL (30-100)
== END 2019-05-16 11:46 | disposition other institution (70) | DRG 189 ==
LOC: ED 21:11 → EDHOLD 05-14 01:13 → 4E 05-14 01:13
PROVIDERS: Emergency Medicine Emergency Medical Services; Family Medicine; Hospitalist; Internal Medicine; Internal Medicine Critical Care Medicine; ADMIT Emergency Medicine
PROC: 5A09357 Assistance with Respiratory Ventilation, Less than 24 Consecutive Hours, Continuous Positive Airway Pressure (ICD-10-PCS; principal; 2019-05-14)
DX: J96.22 Acute and chronic respiratory failure with hypercapnia (principal); G93.41 Metabolic encephalopathy; E43 Unspecified severe protein-calorie malnutrition; N39.0 Urinary tract infection, site not specified; Z16.12 Extended spectrum beta lactamase (ESBL) resistance; I13.0 Hypertensive heart and chronic kidney disease with heart failure and stage 1 through stage 4 chronic kidney disease, or unspecified chronic kidney disease; Z68.42 Body mass index [BMI] 45.0-49.9, adult; J96.11 Chronic respiratory failure with hypoxia; B96.20 Unspecified Escherichia coli [E. coli] as the cause of diseases classified elsewhere; R31.9 Hematuria, unspecified; D53.9 Nutritional anemia, unspecified; E83.41 Hypermagnesemia; R73.9 Hyperglycemia, unspecified; I50.9 Heart failure, unspecified; J44.9 Chronic obstructive pulmonary disease, unspecified; M1A.9XX0 Chronic gout, unspecified, without tophus (tophi); E78.5 Hyperlipidemia, unspecified; I25.10 Atherosclerotic heart disease of native coronary artery without angina pectoris; K21.9 Gastro-esophageal reflux disease without esophagitis; F32.9 Major depressive disorder, single episode, unspecified; G89.29 Other chronic pain; I67.9 Cerebrovascular disease, unspecified; D50.9 Iron deficiency anemia, unspecified; G62.9 Polyneuropathy, unspecified; I73.9 Peripheral vascular disease, unspecified; N18.3 Chronic kidney disease, stage 3 (moderate); K25.7 Chronic gastric ulcer without hemorrhage or perforation; E66.01 Morbid (severe) obesity due to excess calories; K59.00 Constipation, unspecified; N40.1 Benign prostatic hyperplasia with lower urinary tract symptoms; G47.00 Insomnia, unspecified; G25.81 Restless legs syndrome; Z95.828 Presence of other vascular implants and grafts; Z99.81 Dependence on supplemental oxygen; Z79.899 Other long term (current) drug therapy; Z96.642 Presence of left artificial hip joint; Z87.891 Personal history of nicotine dependence; Z82.49 Family history of ischemic heart disease and other diseases of the circulatory system; Z80.0 Family history of malignant neoplasm of digestive organs

== ENCOUNTER 2019-06-21 15:01 | Emergency (ER) | payer MEDICARE, MEDICAID ==
[~2019-06-21] VITALS: Ht 172.7 cm; Wt 127.0 kg
[~2019-06-21 15:01] MED LIST changes: +MINERAL OIL 1 ML1 ML; +TYLENOL EXTRA500 MG PO
[2019-06-21] MEDS ORDERED: BUSPAR5 MG PO (15:26)
[2019-06-21 15:30] LABS: BASO % 0.1 % (0.0-1.0); EOS # 0.3 10*3/uL (0.0-0.4); EOS % 1.8 % (1.0-4.0); HEMATOCRIT 39.5 % (42.0-52.0); HEMOGLOBIN 11.2 g/dl (14.0-18.0); LYMPH # 0.8 10*3/uL (1.3-4.4); LYMPH % 5.8 % (27.0-41.0); MEAN CELL VOLUME 93.8 fl (80.0-94.0); MEAN CORPUSCULAR HGB 26.6 pg (27.0-31.0); MEAN CORPUSCULAR HGB CONC 28.4 g/dl (33.0-37.0); MEAN PLATELET VOLUME 9.6 fl (9.6-12.3); MONO % 7.3 % (3.0-9.0); NEUT # 11.6 10*3/uL (2.3-7.9); NEUT % 84.1 % (47.0-73.0); PLATELET COUNT AUTOMATED 211 10*3/uL (130-400); RED BLOOD COUNT 4.21 10*6/uL (4.50-5.90); RED CELL DISTRI WIDTH 14.8 % (0-14.5); WHITE BLOOD COUNT 13.8 10*3/uL (4.8-10.8)
[2019-06-21] MEDS ORDERED: ISOSORBIDE MONO10 MG PO (15:31)
[2019-06-21 15:41] LABS: ACT PARTIAL THROMBO TIME 26.8 SECONDS (20.0-32.1)
[2019-06-21 15:46] LABS: ALKALINE PHOSPHATASE 66 U/L (45-117); BUN 15 mg/dl (7-24); CHLORIDE 95 mmol/L (98-107); CREATININE 0.87 mg/dL (0.70-1.30); POTASSIUM 4.2 mmol/L (3.5-5.1); SGOT/AST 9 IU/L (3-35); SGPT/ALT 13 U/L (12-78); SODIUM 136 mmol/L (136-145)
[2019-06-21 15:47] LABS: TROPONIN I < 0.015 ng/ml (<0.045)
[2019-06-21 20:01] VITALS: BP 112/65
[2019-06-21 20:14] LABS: BILIRUBIN NEGATIVE (NEGATIVE); CLARITY CLEAR (CLEAR); COLOR YELLOW (YELLOW); GLUCOSE 3+ (NEGATIVE); KETONE NEGATIVE (NEGATIVE); SPECIFIC GRAVITY 1.005 (1.005-1.030)
[2019-06-21 20:15] LABS: BLOOD NEGATIVE (NEGATIVE); LEUKO ESTERASE NEGATIVE (NEGATIVE); NITRITE NEGATIVE (NEGATIVE); UROBILINOGEN 0.2 E.U./dl (0.2-1.0)
[2019-06-21 20:20] LABS: BACTERIA TRACE; EPITHELIAL CELLS 0-2; WBC 0-2 wbc/hpf (0-5)
== END 2019-06-21 22:08 ==
LOC: ED 15:01
PROVIDERS: Emergency Medicine
DX: R06.02 Shortness of breath (principal); R41.0 Disorientation, unspecified; R05 Cough; I11.0 Hypertensive heart disease with heart failure; I50.9 Heart failure, unspecified; J44.9 Chronic obstructive pulmonary disease, unspecified; K21.9 Gastro-esophageal reflux disease without esophagitis; M10.9 Gout, unspecified; I25.10 Atherosclerotic heart disease of native coronary artery without angina pectoris; E78.5 Hyperlipidemia, unspecified; F41.9 Anxiety disorder, unspecified; I48.91 Unspecified atrial fibrillation; Z79.2 Long term (current) use of antibiotics; Z79.899 Other long term (current) drug therapy

== ENCOUNTER 2019-08-07 15:20 | Inpatient (IN) | payer MEDICARE, MEDICAID ==
[~2019-08-07] VITALS: Ht 172.7 cm; Wt 96.8 kg
[~2019-08-07 15:20] MED LIST changes: +BUSPAR5 MG PO; +ISOSORBIDE MONO10 MG PO
[2019-08-07 15:24] VITALS: BP 103/67
[2019-08-07 15:47] LABS: ABG BASE EXCESS 17.9 mmol/L (-2.0-2.0); ARTERIAL BLOOD GAS PH 7.393 (7.35-7.45)
[2019-08-07 16:01] LABS: HEMATOCRIT 41.2 % (42.0-52.0); MEAN CELL VOLUME 93.2 fl (80.0-94.0); MEAN CORPUSCULAR HGB 26.7 pg (27.0-31.0); MEAN CORPUSCULAR HGB CONC 28.6 g/dl (33.0-37.0); MEAN PLATELET VOLUME 9.4 fl (9.6-12.3); PLATELET COUNT AUTOMATED 199 10*3/uL (130-400); RED BLOOD COUNT 4.42 10*6/uL (4.50-5.90); WHITE BLOOD COUNT 18.2 10*3/uL (4.8-10.8)
[2019-08-07 16:12] LABS: ACT PARTIAL THROMBO TIME 27.6 SECONDS (20.0-32.1)
[2019-08-07 16:18] LABS: ALKALINE PHOSPHATASE 75 U/L (45-117); BUN 10 mg/dl (7-24); CHLORIDE 90 mmol/L (98-107); CREATININE 0.81 mg/dL (0.70-1.30); SGOT/AST 7 IU/L (3-35); SGPT/ALT 11 U/L (12-78); SODIUM 137 mmol/L (136-145); TOTAL PROTEIN 6.2 gm/dL (6.4-8.2)
[2019-08-07 16:27] LABS: TOTAL CELLS COUNTED 100 #CELLS
[2019-08-07 16:28] LABS: PLATELET SUFFICIENCY NORMAL (NORMAL); POLYCHROMASIA SLIGHT; STOMATOCYTE FEW
[2019-08-07 16:29] LABS: TROPONIN I < 0.015 ng/ml (<0.045)
[2019-08-07 17:35] LABS: COLOR YELLOW (YELLOW)
[2019-08-07 17:36] LABS: BILIRUBIN NEGATIVE (NEGATIVE); BLOOD TRACE-INTACT (NEGATIVE); CLARITY SL CLOUDY (CLEAR); GLUCOSE NEGATIVE (NEGATIVE); KETONE NEGATIVE (NEGATIVE); LEUKO ESTERASE 3+ (NEGATIVE); NITRITE NEGATIVE (NEGATIVE); UROBILINOGEN 0.2 E.U./dl (0.2-1.0)
[2019-08-07 17:38] LABS: BACTERIA 4+; WBC 51-100 wbc/hpf (0-5)
[2019-08-07 18:06] VITALS: BP 96/59
[2019-08-07 19:16] VITALS: BP 102/68
[2019-08-07 19:48] VITALS: BP 118/77
[2019-08-07] MEDS ORDERED: GAVISCON ES TA1 EACH PO (22:36)
[2019-08-07] MEDS ORDERED: TYLENOL EXTRA500 M2 PO (23:10)
[2019-08-07] MEDS ORDERED: ALBUTEROL2.5 MG/0.5 INH (23:11)
[2019-08-08] VITALS: BP 159/50
[2019-08-08 06:26] LABS: HEMATOCRIT 41.1 % (42.0-52.0); MEAN CELL VOLUME 92.8 fl (80.0-94.0); MEAN CORPUSCULAR HGB 27.1 pg (27.0-31.0); MEAN CORPUSCULAR HGB CONC 29.2 g/dl (33.0-37.0); MEAN PLATELET VOLUME 9.8 fl (9.6-12.3); PLATELET COUNT AUTOMATED 204 10*3/uL (130-400); RED BLOOD COUNT 4.43 10*6/uL (4.50-5.90); RED CELL DISTRI WIDTH 14.2 % (0-14.5); WHITE BLOOD COUNT 19.3 10*3/uL (4.8-10.8)
[2019-08-08 06:37] LABS: ALBUMIN 2.7 gm/dl (3.1-4.5); ALKALINE PHOSPHATASE 65 U/L (45-117); BUN 11 mg/dl (7-24); CHLORIDE 94 mmol/L (98-107); CREATININE 0.69 mg/dL (0.70-1.30); POTASSIUM 4.4 mmol/L (3.5-5.1); SGOT/AST 14 IU/L (3-35); SGPT/ALT 15 U/L (12-78); SODIUM 135 mmol/L (136-145); TOTAL PROTEIN 6.1 gm/dL (6.4-8.2)
[2019-08-08 06:38] LABS: ACT PARTIAL THROMBO TIME 29.9 SECONDS (20.0-32.1); INTERNATIONAL NORM RATIO 1.1 (2.0-3.5)
[2019-08-08 07:44] LABS: TOTAL CELLS COUNTED 100 #CELLS
[2019-08-08 07:45] LABS: PLATELET SUFFICIENCY NORMAL (NORMAL)
[2019-08-08 08:00] VITALS: BP 174/63
[2019-08-08 08:43] LABS: ABG BASE EXCESS 11.4 mmol/L (-2.0-2.0)
[2019-08-08 08:45] LABS: ARTERIAL BLOOD GAS PH 7.376 (7.35-7.45)
[2019-08-08 12:00] VITALS: BP 168/90
[2019-08-08 20:00] VITALS: BP 117/80
[2019-08-09] VITALS: BP 113/52
[2019-08-09 06:27] LABS: BASO % 0.1 % (0.0-1.0); HEMATOCRIT 39.6 % (42.0-52.0); LYMPH # 0.7 10*3/uL (1.3-4.4); LYMPH % 5.4 % (27.0-41.0); MEAN PLATELET VOLUME 9.9 fl (9.6-12.3); MONO # 1.1 10*3/uL (0.1-1.0); MONO % 8.5 % (3.0-9.0); NEUT # 10.7 10*3/uL (2.3-7.9); PLATELET COUNT AUTOMATED 186 10*3/uL (130-400); RED BLOOD COUNT 4.26 10*6/uL (4.50-5.90); RED CELL DISTRI WIDTH 14.5 % (0-14.5); WHITE BLOOD COUNT 12.6 10*3/uL (4.8-10.8)
[2019-08-09 06:53] LABS: CHLORIDE 92 mmol/L (98-107); CREATININE 0.96 mg/dL (0.70-1.30); POTASSIUM 4.1 mmol/L (3.5-5.1); SODIUM 137 mmol/L (136-145)
[2019-08-09 07:00] LABS: BUN 23 mg/dl (7-24)
[2019-08-09 08:00] VITALS: BP 153/63
[2019-08-09 12:00] VITALS: BP 156/56
[2019-08-09 16:00] VITALS: BP 170/70
[2019-08-09 18:12] VITALS: BP 160/38
[2019-08-09 20:00] VITALS: BP 169/65
[2019-08-10] VITALS: BP 186/63
[2019-08-10 04:00] VITALS: BP 146/64
[2019-08-10 06:24] LABS: ALBUMIN 2.8 gm/dl (3.1-4.5); BUN 23 mg/dl (7-24); CHLORIDE 92 mmol/L (98-107); CREATININE 0.84 mg/dL (0.70-1.30); SGOT/AST 8 IU/L (3-35); SGPT/ALT 12 U/L (12-78); SODIUM 137 mmol/L (136-145)
[2019-08-10 06:25] LABS: ALKALINE PHOSPHATASE 61 U/L (45-117); TOTAL PROTEIN 6.1 gm/dL (6.4-8.2)
[2019-08-10 06:31] LABS: BASO % 0.3 % (0.0-1.0); EOS % 0.1 % (1.0-4.0); HEMATOCRIT 39.3 % (42.0-52.0); LYMPH # 0.7 10*3/uL (1.3-4.4); LYMPH % 6.2 % (27.0-41.0); MEAN CELL VOLUME 93.8 fl (80.0-94.0); MEAN CORPUSCULAR HGB CONC 28.8 g/dl (33.0-37.0); MEAN PLATELET VOLUME 9.7 fl (9.6-12.3); NEUT % 82.3 % (47.0-73.0); PLATELET COUNT AUTOMATED 180 10*3/uL (130-400); RED BLOOD COUNT 4.19 10*6/uL (4.50-5.90); RED CELL DISTRI WIDTH 14.2 % (0-14.5); WHITE BLOOD COUNT 10.9 10*3/uL (4.8-10.8)
[2019-08-10 08:00] VITALS: BP 190/70
[2019-08-10 09:26] VITALS: BP 184/54
[2019-08-10 12:00] VITALS: BP 170/66
[2019-08-10] MEDS ORDERED: MONUROL3 G1 PO (14:21)
[2019-08-10 16:00] VITALS: BP 126/54
== END 2019-08-10 17:37 | disposition other institution (70) | DRG 871 ==
LOC: ED 15:20 → EDHOLD 17:36 → 4NE 17:36
PROVIDERS: Emergency Medicine; Internal Medicine; ADMIT Emergency Medicine
PROC: 5A09357 Assistance with Respiratory Ventilation, Less than 24 Consecutive Hours, Continuous Positive Airway Pressure (ICD-10-PCS; principal; 2019-08-07)
PROC: 5A09357 Assistance with Respiratory Ventilation, Less than 24 Consecutive Hours, Continuous Positive Airway Pressure (ICD-10-PCS; 2019-08-09)
PROC: 5A09357 Assistance with Respiratory Ventilation, Less than 24 Consecutive Hours, Continuous Positive Airway Pressure (ICD-10-PCS; 2019-08-10)
DX: A41.9 Sepsis, unspecified organism (principal); G93.41 Metabolic encephalopathy; J96.22 Acute and chronic respiratory failure with hypercapnia; J96.21 Acute and chronic respiratory failure with hypoxia; J44.1 Chronic obstructive pulmonary disease with (acute) exacerbation; E44.1 Mild protein-calorie malnutrition; Z68.41 Body mass index [BMI] 40.0-44.9, adult; I50.32 Chronic diastolic (congestive) heart failure; F03.91 Unspecified dementia, unspecified severity, with behavioral disturbance; G45.8 Other transient cerebral ischemic attacks and related syndromes; I13.0 Hypertensive heart and chronic kidney disease with heart failure and stage 1 through stage 4 chronic kidney disease, or unspecified chronic kidney disease; Z16.12 Extended spectrum beta lactamase (ESBL) resistance; E87.3 Alkalosis; N30.90 Cystitis, unspecified without hematuria; R65.20 Severe sepsis without septic shock; R31.9 Hematuria, unspecified; D64.9 Anemia, unspecified; E87.8 Other disorders of electrolyte and fluid balance, not elsewhere classified; M10.9 Gout, unspecified; E78.5 Hyperlipidemia, unspecified; I25.10 Atherosclerotic heart disease of native coronary artery without angina pectoris; E66.9 Obesity, unspecified; E55.9 Vitamin D deficiency, unspecified; K21.9 Gastro-esophageal reflux disease without esophagitis; F32.9 Major depressive disorder, single episode, unspecified; F41.9 Anxiety disorder, unspecified; I67.9 Cerebrovascular disease, unspecified; G62.9 Polyneuropathy, unspecified; I73.9 Peripheral vascular disease, unspecified; N18.9 Chronic kidney disease, unspecified; G25.81 Restless legs syndrome; G47.00 Insomnia, unspecified; R91.8 Other nonspecific abnormal finding of lung field; E04.1 Nontoxic single thyroid nodule; Z99.81 Dependence on supplemental oxygen; Z96.642 Presence of left artificial hip joint; Z87.891 Personal history of nicotine dependence; Z82.49 Family history of ischemic heart disease and other diseases of the circulatory system; Z80.0 Family history of malignant neoplasm of digestive organs; Z79.899 Other long term (current) drug therapy

== ENCOUNTER 2019-08-12 04:44 | Inpatient (IN) | payer MEDICARE, MEDICAID ==
[2019-08-12] VITALS (8 sets, daily range): BP systolic 98–173; BP diastolic 56–78
[~2019-08-12 04:44] MED LIST changes: +ALBUTEROL2.5 MG/0.5 INH; +GAVISCON ES TA1 EACH PO; +MONUROL3 G1 PO; +TYLENOL EXTRA500 M2 PO
[2019-08-12 05:41] LABS: ABG BASE EXCESS 13.9 mmol/L (-2.0-2.0); ARTERIAL BLOOD GAS PH 7.393 (7.35-7.45)
--- NOTE | 2019-08-12 06:05 | NUR ---
PATIENT PLACED ON BIPAP 10/5 FIO2 40% HR 73 SPO2 98%
[2019-08-12 06:10] LABS: BASO % 0.2 % (0.0-1.0); EOS # 0.1 10*3/uL (0.0-0.4); EOS % 1.1 % (1.0-4.0); HEMATOCRIT 43.2 % (42.0-52.0); LYMPH % 7.9 % (27.0-41.0); MEAN CELL VOLUME 91.9 fl (80.0-94.0); MEAN CORPUSCULAR HGB 26.2 pg (27.0-31.0); MEAN CORPUSCULAR HGB CONC 28.5 g/dl (33.0-37.0); MEAN PLATELET VOLUME 9.5 fl (9.6-12.3); MONO # 1.4 10*3/uL (0.1-1.0); MONO % 11.6 % (3.0-9.0); NEUT # 9.7 10*3/uL (2.3-7.9); PLATELET COUNT AUTOMATED 225 10*3/uL (130-400); RED CELL DISTRI WIDTH 14.4 % (0-14.5); WHITE BLOOD COUNT 12.5 10*3/uL (4.8-10.8)
[2019-08-12 06:15] LABS: BILIRUBIN NEGATIVE (NEGATIVE); BLOOD NEGATIVE (NEGATIVE); CLARITY SL CLOUDY (CLEAR); COLOR YELLOW (YELLOW); GLUCOSE NEGATIVE (NEGATIVE); KETONE TRACE (NEGATIVE); PH 7.5 (5.0-9.0)
[2019-08-12 06:16] LABS: LEUKO ESTERASE 1+ (NEGATIVE); NITRITE NEGATIVE (NEGATIVE); RBC 0-2 rbc/hpf (0-2); UROBILINOGEN 0.2 E.U./dl (0.2-1.0); WBC 51-100 wbc/hpf (0-5)
[2019-08-12 06:25] LABS: ALBUMIN 3.1 gm/dl (3.1-4.5); ALKALINE PHOSPHATASE 57 U/L (45-117); BUN 24 mg/dl (7-24); CHLORIDE 95 mmol/L (98-107); CREATININE 1.04 mg/dL (0.70-1.30); POTASSIUM 3.9 mmol/L (3.5-5.1); SGOT/AST 16 IU/L (3-35); SGPT/ALT 17 U/L (12-78); SODIUM 136 mmol/L (136-145)
[2019-08-12 06:29] LABS: TROPONIN I < 0.015 ng/ml (<0.045)
--- NOTE | 2019-08-12 06:33 | NUR ---
PT TOLERATING BIPAP WELL. SLEEPING ON STRETCHER, RESP EVEN AND UNLABORED, NAD NOTED. AWAITING BED PLACEMENT. PT REMAINS ON CONTINUOUS CARDIAC AND PULSE OX MONITORING. WILL CONTINUE TO MONITOR.
--- NOTE | 2019-08-12 06:54 | NUR ---
PT RESTING ON CART, CALL LIGHT IN REACH. DENIES UNMET NEEDS. WILL CONTINUE TO MONITOR.
--- NOTE | 2019-08-12 08:05 | NUR ---
A 64, admitted to [facility] under the services of ELSA Lopez DO with a diagnosis of metabolic encephalopathy. Chief complaint is hallucinations at residential. Patient arrived via stretcher from ER. Monitor applied. Initial assessment completed. Vital signs taken and recorded. See assessment for past medical history, medications and allergies. Patient oriented to unit. Respiratory here to apply bipap. ISIDRO WELLINGTON
--- NOTE | 2019-08-12 08:45 | NUR ---
DR. Martin up and saw pt. States he is with Dr. Alexander.
--- NOTE | 2019-08-12 09:30 | NUR ---
Notified Hemalatha Montague that med rec was updated.
--- NOTE | 2019-08-12 12:00 | NUR ---
Pt remains on bipap.
--- NOTE | 2019-08-12 16:57 | NUR ---
Pt remains on bipap. States he is having back pain and would like some tylenol. Taken off bipap at this time and O2 applied. Medicated with tylenol per prn order for c/o back discomfort. Pt more alert and oriented to person and place at this time.
--- NOTE | 2019-08-12 17:10 | NUR ---
Notified Jas in respiratory that pt is currently off bipap and has o2 at 3l intact.
--- NOTE | 2019-08-12 18:00 | NUR ---
Pt sleeping no signs of pain noted.
--- NOTE | 2019-08-12 20:30 | NUR ---
PT IS ASLEEP IN BED AT THIS TIME. 2L O2 VIA NC IS IN USE. RESPS EASY AND NONLABORED. BED IS LOW, CALL LIGHT WITHIN REACH. WILL CONTINUE TO MONITOR.
--- NOTE | 2019-08-12 23:30 | NUR ---
Pt placed on BiPap 18/10 and an FiO2 40%. Alarms on and audible.
[2019-08-13] VITALS: BP 94/74
--- NOTE | 2019-08-13 05:37 | NUR ---
24 HR CHART CHECK COMPLETE.
[2019-08-13 06:12] LABS: BASO % 0.3 % (0.0-1.0); EOS # 0.1 10*3/uL (0.0-0.4); EOS % 1.4 % (1.0-4.0); HEMATOCRIT 40.8 % (42.0-52.0); LYMPH % 10.5 % (27.0-41.0); MEAN CELL VOLUME 93.4 fl (80.0-94.0); MEAN CORPUSCULAR HGB 26.5 pg (27.0-31.0); MEAN CORPUSCULAR HGB CONC 28.4 g/dl (33.0-37.0); MEAN PLATELET VOLUME 9.6 fl (9.6-12.3); MONO # 1.1 10*3/uL (0.1-1.0); NEUT # 7.3 10*3/uL (2.3-7.9); NEUT % 75.4 % (47.0-73.0); PLATELET COUNT AUTOMATED 193 10*3/uL (130-400); RED BLOOD COUNT 4.37 10*6/uL (4.50-5.90); RED CELL DISTRI WIDTH 14.6 % (0-14.5); WHITE BLOOD COUNT 9.7 10*3/uL (4.8-10.8)
[2019-08-13 06:40] LABS: BUN 19 mg/dl (7-24); CHLORIDE 94 mmol/L (98-107); CREATININE 0.96 mg/dL (0.70-1.30); POTASSIUM 4.4 mmol/L (3.5-5.1); SODIUM 139 mmol/L (136-145)
--- NOTE | 2019-08-13 06:44 | NUR ---
CONTACTED DR. WILCOX IN REGARDS TO CO2 OF 41.
--- NOTE | 2019-08-13 10:51 | NUR ---
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 PT STATES HE WANTS TO RETURN ON DISCHARGE WHEN MEDICALLY STABLE. WILL CONTINUE TO FOLLOW.
[2019-08-13 12:00] VITALS: BP 90/59
--- NOTE | 2019-08-13 14:25 | NUR ---
Dr. Fuller called and asked to see if [facility] will accept pt back today.
--- NOTE | 2019-08-13 14:36 | NUR ---
Called and spoke with Tavia at [facility] regarding if they will accept pt back today, plan for dc today. States that is fine requesting he be dc back prior to 5 as their shift change is at 6 so the earlier the better. Spoke with Dr. Ellis and notified her of this. Notified pt as well.
--- NOTE | 2019-08-13 14:55 | NUR ---
Attempted to call pt brother listed on [facility] records as primary contact to notify him that pt is going to be dc back to [place] but there was no answer.
--- NOTE | 2019-08-13 14:56 | NUR ---
Called [facility] to see if they would transport pt back to [place] today, states to call when ready and they will transport.
--- NOTE | 2019-08-13 15:32 | NUR ---
Spoke with [facility] ambulance states they will be here in about 20 to 30 minutes.
--- NOTE | 2019-08-13 15:52 | NUR ---
IV site removed.
--- NOTE | 2019-08-13 15:59 | NUR ---
Reviewed settings for bipap with Tavia at [facility] that pt was on here 21/01 with bu of 12. Pox > 92%. Notified that order picker was to be around 4 pm.
--- NOTE | 2019-08-13 16:09 | NUR ---
[facility] ambulance here to pick up operator pt. Discharged in care of ambulance to [facility].
--- NOTE | 2019-08-13 16:15 | NUR ---
Tavia from [facility] called and states that she was putting settings into pt bipap there and they would not accept settings states she called rep for bipap and they said that pt would need a new machine that his current machine at [facility] would not accept these settings. Requested that pt bipap settings be verified with Dr. Alexander. I called Dr. Alexander and verified that he wanted settings on bipap as they were here 18/10 with bu of 12 > 92% pox ox. States that is what he wanted and explained to him that pt has already left to go to [facility] and they will not be able to get him the correct bipap until tomorrow. Notified that I was not aware of this until after pt was picked up. He states that they can use current machine until the other is available and for the nurse to call him on his cell phone to obtain orders for now until other bipap arrives. Dr. Alexander cell phone provided to Tavia at [facility] and notified her of his statements to call him for further orders.
== END 2019-08-13 16:09 | disposition other institution (70) | DRG 189 ==
LOC: ED 04:44 → EDHOLD 05:54 → 4NE 05:54
PROVIDERS: Emergency Medicine; Internal Medicine; ADMIT Internal Medicine
PROC: 5A09357 Assistance with Respiratory Ventilation, Less than 24 Consecutive Hours, Continuous Positive Airway Pressure (ICD-10-PCS; principal; 2019-08-12)
PROC: 5A09357 Assistance with Respiratory Ventilation, Less than 24 Consecutive Hours, Continuous Positive Airway Pressure (ICD-10-PCS; 2019-08-13)
DX: J96.21 Acute and chronic respiratory failure with hypoxia (principal); G93.41 Metabolic encephalopathy; J44.1 Chronic obstructive pulmonary disease with (acute) exacerbation; I50.32 Chronic diastolic (congestive) heart failure; Z68.41 Body mass index [BMI] 40.0-44.9, adult; E44.1 Mild protein-calorie malnutrition; I13.0 Hypertensive heart and chronic kidney disease with heart failure and stage 1 through stage 4 chronic kidney disease, or unspecified chronic kidney disease; E87.3 Alkalosis; J96.12 Chronic respiratory failure with hypercapnia; F03.90 Unspecified dementia, unspecified severity, without behavioral disturbance, psychotic disturbance, mood disturbance, and anxiety; E78.5 Hyperlipidemia, unspecified; I25.10 Atherosclerotic heart disease of native coronary artery without angina pectoris; K21.9 Gastro-esophageal reflux disease without esophagitis; N40.0 Benign prostatic hyperplasia without lower urinary tract symptoms; E87.8 Other disorders of electrolyte and fluid balance, not elsewhere classified; G25.81 Restless legs syndrome; R44.1 Visual hallucinations; F41.9 Anxiety disorder, unspecified; G47.33 Obstructive sleep apnea (adult) (pediatric); N18.9 Chronic kidney disease, unspecified; Z99.81 Dependence on supplemental oxygen; Z87.11 Personal history of peptic ulcer disease; Z96.642 Presence of left artificial hip joint; Z87.891 Personal history of nicotine dependence; Z82.49 Family history of ischemic heart disease and other diseases of the circulatory system; Z80.0 Family history of malignant neoplasm of digestive organs; Z81.8 Family history of other mental and behavioral disorders; Z91.030 Bee allergy status; Z79.899 Other long term (current) drug therapy

== ENCOUNTER 2019-12-21 09:47 | Emergency (ER) | payer MEDICARE, MEDICAID ==
[~2019-12-21] VITALS: Ht 172.7 cm; Wt 103.0 kg
[2019-12-21 09:51] VITALS: BP 118/74
[2019-12-21 10:25] LABS: BASO % 0.2 % (0.0-1.0); EOS # 0.1 10*3/uL (0.0-0.4); EOS % 0.4 % (1.0-4.0); HEMATOCRIT 36.9 % (42.0-52.0); LYMPH # 0.7 10*3/uL (1.3-4.4); LYMPH % 5.5 % (27.0-41.0); MEAN CELL VOLUME 89.8 fl (80.0-94.0); MEAN CORPUSCULAR HGB 26.8 pg (27.0-31.0); MEAN CORPUSCULAR HGB CONC 29.8 g/dl (33.0-37.0); MEAN PLATELET VOLUME 9.1 fl (9.6-12.3); MONO # 0.8 10*3/uL (0.1-1.0); MONO % 6.4 % (3.0-9.0); NEUT # 10.6 10*3/uL (2.3-7.9); NEUT % 86.1 % (47.0-73.0); PLATELET COUNT AUTOMATED 220 10*3/uL (130-400); RED BLOOD COUNT 4.11 10*6/uL (4.50-5.90); RED CELL DISTRI WIDTH 15.2 % (0-14.5); WHITE BLOOD COUNT 12.3 10*3/uL (4.8-10.8)
[2019-12-21 10:35] LABS: ACT PARTIAL THROMBO TIME 28.2 SECONDS (20.0-32.1)
[2019-12-21 10:42] LABS: ALBUMIN 3.2 gm/dl (3.1-4.5); ALKALINE PHOSPHATASE 76 U/L (45-117); BUN 13 mg/dl (7-24); CHLORIDE 96 mmol/L (98-107); CREATININE 1.03 mg/dL (0.70-1.30); POTASSIUM 4.4 mmol/L (3.5-5.1); SGOT/AST 4 IU/L (3-35); SGPT/ALT 14 U/L (12-78); SODIUM 135 mmol/L (136-145); TOTAL PROTEIN 6.6 gm/dL (6.4-8.2); TROPONIN I < 0.015 ng/ml (<0.045)
[2019-12-21] MEDS ORDERED: VIBRAMYCIN100 MG PO (12:51)
== END 2019-12-21 12:55 ==
LOC: ED 09:47
PROVIDERS: Emergency Medicine
DX: J40 Bronchitis, not specified as acute or chronic (principal); F41.9 Anxiety disorder, unspecified; J44.9 Chronic obstructive pulmonary disease, unspecified; I10 Essential (primary) hypertension; K21.9 Gastro-esophageal reflux disease without esophagitis; I48.91 Unspecified atrial fibrillation; Z91.030 Bee allergy status; Z79.899 Other long term (current) drug therapy; Z79.2 Long term (current) use of antibiotics

== ENCOUNTER 2020-01-14 08:40 | Inpatient (IN) | payer MEDICARE, MEDICAID ==
[~2020-01-14] VITALS: Ht 170.1 cm; Wt 100.8 kg
[2020-01-14] VITALS (15 sets, daily range): BP systolic 104–192; BP diastolic 35–93
--- NOTE | 2020-01-14 08:50 | NUR ---
PATIENT PLACED ON BIPAP 16/10 100% ALARMS ON AND FUNCTIONING.
[2020-01-14 09:04] LABS: ABG BASE EXCESS 3.5 mmol/L (-2.0-2.0)
[2020-01-14 09:04] LABS: BASO % 0.1 % (0.0-1.0); EOS % 0.2 % (1.0-4.0); HEMATOCRIT 43.2 % (42.0-52.0); LYMPH # 0.6 10*3/uL (1.3-4.4); LYMPH % 3.9 % (27.0-41.0); MEAN CELL VOLUME 98.9 fl (80.0-94.0); MEAN CORPUSCULAR HGB 27.7 pg (27.0-31.0); MEAN PLATELET VOLUME 9.9 fl (9.6-12.3); MONO # 1.1 10*3/uL (0.1-1.0); MONO % 7.2 % (3.0-9.0); NEUT # 12.7 10*3/uL (2.3-7.9); NEUT % 87.4 % (47.0-73.0); PLATELET COUNT AUTOMATED 145 10*3/uL (130-400); RED BLOOD COUNT 4.37 10*6/uL (4.50-5.90); RED CELL DISTRI WIDTH 15.4 % (0-14.5); WHITE BLOOD COUNT 14.5 10*3/uL (4.8-10.8)
[2020-01-14 09:09] LABS: ARTERIAL BLOOD GAS PH 7.12 (7.35-7.45)
[2020-01-14 09:21] LABS: ALBUMIN 3.2 gm/dl (3.1-4.5); ALKALINE PHOSPHATASE 85 U/L (45-117); BUN 27 mg/dl (7-24); CHLORIDE 102 mmol/L (98-107); CREATININE 1.17 mg/dL (0.70-1.30); POTASSIUM 4.4 mmol/L (3.5-5.1); SGOT/AST 26 IU/L (3-35); SGPT/ALT 55 U/L (12-78); SODIUM 141 mmol/L (136-145)
[2020-01-14 09:24] LABS: TROPONIN I < 0.015 ng/ml (<0.045)
--- NOTE | 2020-01-14 09:30 | NUR ---
BIPAP SETTINGS 22/10, 100%
--- NOTE | 2020-01-14 09:51 | NUR ---
DR ASHBY NOW DECIDES TO INTUBATE BASED ON ABG RRESULTS.
--- NOTE | 2020-01-14 10:00 | NUR ---
PATIENT INTUBATED BY DR ASHBY WITH 7.5 ET TUBE SECUREDAT 25 BILATERAL BREATH SOUNDS PRESENT, COLOR CHANGED NOTED WITH END TIDAL CO2 MONITOR.
--- NOTE | 2020-01-14 10:15 | NUR ---
FIO2 DECREASED TO 80%
--- NOTE | 2020-01-14 10:25 | NUR ---
FIO2 DECREASED TO 70%
--- NOTE | 2020-01-14 10:46 | NUR ---
26CM AT LIP W/ 7.5 ET TUBE
--- NOTE | 2020-01-14 10:58 | NUR ---
PT REMAINS WELL SEDATED ON PROPOFOL DRIP AT 30 RATE BASED ON 110KG. BP REMAINS WITHIN NORMAL LIMITS AND STABLE SINCE DRIP WAS INITIATED.
--- NOTE | 2020-01-14 11:14 | NUR ---
BELONGINGS BAGGED include a cellphone, wrist watch and a necklace. no otHER BELONGINGS FOUND.
--- NOTE | 2020-01-14 11:32 | NUR ---
#18 F OG TUBE PLACED, CHEST XRAY TO CONFIRM PLACEMENT NOW ORDERED.
--- NOTE | 2020-01-14 12:00 | NUR ---
DR JHA HERE FOR CONSULT.
--- NOTE | 2020-01-14 12:27 | NUR ---
0900 IPAP INCREASED TO 22 EPAP DECREASED TO 8, FIO2 DECREASED TO 70%
--- NOTE | 2020-01-14 12:36 | NUR ---
CHEST XRAY REVIEWED WITH DR. ASHBY. TUBE WAS ADVANCED [address] ASHBY. THE TUBE IS 27 AT THE TEETH.
--- NOTE | 2020-01-14 12:53 | NUR ---
ALTHOUGH THE NG/OG TUBE WAS VERY NEAR THE END OF IT'S LENGTH, I DID ADVANCE IT SEVERAL CENTIMETERS PER RECOMMENDATION ON THE XRAY REPORT.
--- NOTE | 2020-01-14 13:05 | NUR ---
NURSE REPORT TO KENAN QUIROZ, FOR CONTINUATION OF CARE. NO CHANGE IN CONDITION. VITALS ARE STABLE AND WITHIN NORMAL LIMITS. PT REMAINS WELL SEDATED WITH PROPOFOL DRIP AT CURRENT RATE.
[2020-01-14 14:04] LABS: ARTERIAL BLOOD GAS PH 7.383 (7.35-7.45)
--- NOTE | 2020-01-14 14:14 | NUR ---
AFTER RECEIVING @1354 ABG VALUES I SPOKE WITH DR. SIMMONS. HE SAID LEAVE INTIAL ER VENT SETTINGS. 14 600 70% +5 TUBE IS 27 AT THE LIP. 7.5 TUBE PT APPEARS TO BE COMFORTABLE. NO COMPS AT THIS TIME.
--- NOTE | 2020-01-14 14:32 | NUR ---
PT IN AFIB. PHYSICIAN AWARE.
--- NOTE | 2020-01-14 16:01 | NUR ---
PROPOLFOL TITRATED TO 25. PT TOLERATING WELL. BP 108/47.
--- NOTE | 2020-01-14 16:11 | NUR ---
ATTEMPTING IV ACCESS.
[2020-01-14] MEDS ORDERED: PULMICORT RESP0.5 M1 INH (16:39)
[2020-01-14] MEDS ORDERED: CLONIDINE HCL0.1 MG PO (16:40)
[2020-01-14] MEDS ORDERED: NORVASC5 MG PO (16:41)
[2020-01-14] MEDS ORDERED: K-TAB10 MEQ PO (16:41)
[2020-01-14] MEDS ORDERED: ANORO ELLIPTA1 EACH INH (16:42)
--- NOTE | 2020-01-14 17:00 | NUR ---
A 64, admitted to ICCU, under the services of CUATE Jackson DO with a diagnosis of RESP. FAILURE. Chief complaint is INCREASING SOB. Patient arrived via stretcher from ER. Monitor applied. Initial assessment completed. Vital signs taken and recorded. CUATE JACKSON DO notified of admission to the unit. Orders received. See assessment for past medical history, medications and allergies. Patient and/or family oriented to unit. [facility] visitation policy reviewed. Clothing/patient valuable form completed. DUFFY
[2020-01-14 19:19] LABS: ARTERIAL BLOOD GAS PH 7.44 (7.35-7.45)
--- NOTE | 2020-01-14 20:14 | NUR ---
NO TREATMENT GIVEN AT THE 1900 ROUND, BECAUSE THERE WAS NO DELIVERY DEVICE AVAILIBLE IN THE ROOM, THAT WOULD ACCOMADATE COVID 19 ISOLATION.
--- NOTE | 2020-01-14 20:30 | NUR ---
RESPIRATORY IN DRAWING ABG PER DR ORDERS. PATIENT APPEARS TO BE IN NO ACUTE DISTRESS. ADEQUATELY SEDATED. BILATERAL WRIST RESTRAINTS ARE IN PLACE TO PREVENT SELF EXTUBATION. RN WILL CONTINUE TO MONITOR
[2020-01-14 21:12] LABS: ABG BASE EXCESS 10.4 mmol/L (-2.0-2.0); ARTERIAL BLOOD GAS PH 7.424 (7.35-7.45)
[2020-01-15] VITALS: BP 133/58
--- NOTE | 2020-01-15 02:49 | NUR ---
PATIENT APPEARS TO BE SEDATED ADEQUATELY ON 50MCGS OF DIPROVAN. EYES ARE CLOSED. BRUCE DRAINING ADI COLORED CLEAR URINE WITH SOME SEDIMENT IN THE TUBING AND IN THE BAG. PATIENT REPOSTIONED AT THIS TIME. TOLERATED WELL.
--- NOTE | 2020-01-15 03:14 | NUR ---
RECTAL TEMPERATURE PROBE PLACED AT THIS TIME, PATIENTS TEMPERATURE JAKOB AT 95.4 ON PROBE, BUT IS 97.0 BY USING THE TEMPORAL THERMOMETER
[2020-01-15 04:00] VITALS: BP 151/58
[2020-01-15 05:31] LABS: ALBUMIN 2.6 gm/dl (3.1-4.5); ALKALINE PHOSPHATASE 65 U/L (45-117); BUN 32 mg/dl (7-24); CHLORIDE 103 mmol/L (98-107); CREATININE 1.06 mg/dL (0.70-1.30); SGOT/AST 21 IU/L (3-35); SGPT/ALT 42 U/L (12-78); SODIUM 143 mmol/L (136-145); TOTAL PROTEIN 5.7 gm/dL (6.4-8.2)
[2020-01-15 06:01] LABS: POTASSIUM 3.2 mmol/L (3.5-5.1)
[2020-01-15 06:17] LABS: BASO % 0.1 % (0.0-1.0); EOS # 0.1 10*3/uL (0.0-0.4); HEMATOCRIT 37.1 % (42.0-52.0); LYMPH # 0.7 10*3/uL (1.3-4.4); LYMPH % 7.2 % (27.0-41.0); MEAN CORPUSCULAR HGB CONC 29.4 g/dl (33.0-37.0); MONO # 0.7 10*3/uL (0.1-1.0); MONO % 6.9 % (3.0-9.0); NEUT # 8.2 10*3/uL (2.3-7.9); NEUT % 83.3 % (47.0-73.0); PLATELET COUNT AUTOMATED 141 10*3/uL (130-400); RED BLOOD COUNT 3.89 10*6/uL (4.50-5.90); WHITE BLOOD COUNT 9.8 10*3/uL (4.8-10.8)
[2020-01-15 06:18] LABS: MEAN CELL VOLUME 95.4 fl (80.0-94.0)
--- NOTE | 2020-01-15 06:58 | NUR ---
AM CHEST XRAY OBTAINED AT THIS TIME
[2020-01-15 08:00] VITALS: BP 137/67
[2020-01-15 08:19] LABS: ABG BASE EXCESS 11.9 mmol/L (-2.0-2.0); ARTERIAL BLOOD GAS PH 7.464 (7.35-7.45)
--- NOTE | 2020-01-15 10:25 | NUR ---
PATIENT VERY RESTLESS AND AGITATED. SHAKING HEAD PROFUSELY WHEN RN SUCTIONING MOUTH. MEDICATED WITH VERSED AND IMMEDIATELY EFFECTIVE.
[2020-01-15 12:00] VITALS: BP 135/56
[2020-01-15 15:26] LABS: ABG BASE EXCESS 10.8 mmol/L (-2.0-2.0); ARTERIAL BLOOD GAS PH 7.449 (7.35-7.45)
[2020-01-15 16:00] VITALS: BP 139/79
--- NOTE | 2020-01-15 17:04 | NUR ---
PATIENT RESTLESS AND AGITATED. SHAKING HEAD PROFUSELY WITH ORAL CARE AND SUCTIONING. PULLING AT WRIST RESTRAINTS. MEDICATED WITH VERSED AND IMMEDIATELY EFFECTIVE.
[2020-01-15 20:00] VITALS: BP 141/81
--- NOTE | 2020-01-15 20:45 | NUR ---
RESPIRATORY TITRATED OXYGEN DOWN D/T PATIENT BEING 100% PO2 ON 50% CURRENT OXYGEN IS AT 40%, PATIENT TOLERATING WELL,98% PO2 SATURATION. NO SIGNS OR SYMPTOMS OF DISTRESS.
[2020-01-16] VITALS (8 sets, daily range): BP systolic 127–186; BP diastolic 55–80
--- NOTE | 2020-01-16 02:00 | NUR ---
PATIENT APPEARS ADEQUATELY SEDATED ON 50MCGS OF DIPROVAN, NO SIGNS OR SYMPTOMS OF DISTRESS NOTEDD. PULSE OXIMETER ON AT 98% ON 40% VENTILATOR BED IN ROTATION MODE TO AID IN TURNING
--- NOTE | 2020-01-16 05:20 | NUR ---
AM LABS OBTAINED AT THIS TIME
--- NOTE | 2020-01-16 06:15 | NUR ---
WOUND CARE IN TO SEE PATIENT
[2020-01-16 06:35] LABS: ALBUMIN 2.5 gm/dl (3.1-4.5); ALKALINE PHOSPHATASE 68 U/L (45-117); BUN 31 mg/dl (7-24); CHLORIDE 100 mmol/L (98-107); CREATININE 1.01 mg/dL (0.70-1.30); POTASSIUM 3.6 mmol/L (3.5-5.1); SGOT/AST 15 IU/L (3-35); SGPT/ALT 30 U/L (12-78); SODIUM 141 mmol/L (136-145); TOTAL PROTEIN 5.7 gm/dL (6.4-8.2)
[2020-01-16 06:41] LABS: HEMATOCRIT 36.3 % (42.0-52.0); MEAN CORPUSCULAR HGB 27.7 pg (27.0-31.0); MEAN PLATELET VOLUME 10.2 fl (9.6-12.3); NUCLEATED RED BLOOD CELL 0.2 % (0.0-0.0); PLATELET COUNT AUTOMATED 159 10*3/uL (130-400); RED BLOOD COUNT 3.94 10*6/uL (4.50-5.90); RED CELL DISTRI WIDTH 16.4 % (0-14.5); WHITE BLOOD COUNT 11.3 10*3/uL (4.8-10.8)
[2020-01-16 06:43] LABS: MEAN CELL VOLUME 92.1 fl (80.0-94.0)
[2020-01-16 07:06] LABS: TOTAL CELLS COUNTED 100 #CELLS
[2020-01-16 07:07] LABS: OVALOCYTES FEW; PLATELET SUFFICIENCY NORMAL (NORMAL); POLYCHROMASIA SLIGHT
--- NOTE | 2020-01-16 09:00 | NUR ---
CM in to see patient. He is currently intubated. He is a LTC resident at [facility]. manufacturing planner/social insurance adviser following.
[2020-01-16 09:33] LABS: ABG BASE EXCESS 12.5 mmol/L (-2.0-2.0); ARTERIAL BLOOD GAS PH 7.473 (7.35-7.45)
--- NOTE | 2020-01-16 09:33 | NUR ---
ON ASSESSMENT AFTER SEDATION VACATION HE WAS REACHING FOR THE ETT AND SQUEEZING MY HAND ON COMMAND. DIPRIVAN RESUMED AT LESSER DOSE OF 30MCG/KG/MIN. CXR DONE. BRUEC PATENT YELLOW URINE. DR JHA VISITED EARLIER AND TITRATED FIO2 DOWN TO 30%. MLC INTACT RIJ. BED IN ROATION MODE. JOSEPH BOND AND SIMI HAS VISITED. SEE ALL APPROPRIATE INTERVENTIONS.
--- NOTE | 2020-01-16 10:18 | NUR ---
DR JHA MADE AWARE OF LATEST ABG RESULTS AND PT'S RESPONSE TO SEDATION VACATION. WANTS ANOTHER ABG AT 1100.
--- NOTE | 2020-01-16 10:46 | NUR ---
Shift chart check completed.24 HR chart check completed.
[2020-01-16 11:32] LABS: ABG BASE EXCESS 12.3 mmol/L (-2.0-2.0); ARTERIAL BLOOD GAS PH 7.477 (7.35-7.45)
--- NOTE | 2020-01-16 11:56 | NUR ---
DR JHA CALLED IN WITH ORDERS, ENTERED. DIPRIVAN TURNED OFF. WILL PLACE ON CPAP/PS WHEN HE'S FULLY AWAKE.
--- NOTE | 2020-01-16 12:55 | NUR ---
AWAKE, RESPONSIVE, ANXIOUS.
--- NOTE | 2020-01-16 13:34 | NUR ---
FREQUENT REASSURANCES TO PT.
[2020-01-16 14:45] LABS: ABG BASE EXCESS 11.4 mmol/L (-2.0-2.0); ARTERIAL BLOOD GAS PH 7.436 (7.35-7.45)
--- NOTE | 2020-01-16 14:52 | NUR ---
ABG'S BY RESPIRATORY.
--- NOTE | 2020-01-16 15:30 | NUR ---
PATIENT EXTUBATED AND PLACED ON BIPAP 20/10 35%. HR 91 SPO2 98%. PATIENT TOLERATING WELL, WILL CONTINUE TO MONITOR.
--- NOTE | 2020-01-16 15:36 | NUR ---
PT EXTUBATED BY RT, OGT REMOVED ALSO. PLACED ON BIPAP 20/10, 35%. RESTRAINTS REMOVED.
--- NOTE | 2020-01-16 16:05 | NUR ---
RESTING EASILY, ON BIPAP, AT THIS TIME. PULSE OX 97% ON BIPAP 20/10, FIO2 35%.
[2020-01-16 17:42] LABS: ABG BASE EXCESS 10.5 mmol/L (-2.0-2.0); ARTERIAL BLOOD GAS PH 7.449 (7.35-7.45)
--- NOTE | 2020-01-16 18:06 | NUR ---
ABG RESULTS CALLED TO DR JHA.
--- NOTE | 2020-01-16 18:31 | NUR ---
PLACED ON NASAL CANNULA 4L. A FEW ICE CHIPS TAKEN WITHOUT DIFFICULTY. HE'S CONFUSED, SAYS "I'M NOT GOING TO THE HOSPITAL".
--- NOTE | 2020-01-16 19:08 | NUR ---
ON BEDPAN FOR LARGE AMOUNT MUSHY BROWN/SIMPSON BM. WAS OFF BIPAP X 30MINS.
--- NOTE | 2020-01-16 20:33 | NUR ---
PATIENT COOPERTIVE WITH CARE AND TRYING TO TAKE BIPAP OFF I EXPLAINED THAT HE NEEDED TO WEAR IT SINCE HE WAS JUST EXTUBATED THIS AFTER NOON HE SAID NO HE HAD NO TUBE DOWN HIS THROAT. I REORIENTED THE PATIENT AND HE STARTED MUMMBLING. PATIENT CONFUSED. VITALS STABLE AT THIS TIME.
[2020-01-17] VITALS: BP 162/63
--- NOTE | 2020-01-17 00:14 | NUR ---
PATIENT CONFUSED AND SWEARING AT ME SAYING HE WANTS TO LEAVE PATIENT TRYING TO GET OF BED PATIENT RIPPED BIPAP PULSE OX IN THE 80'S PATIENT CONFUSED AND YELLING FOR SOMEONE NAMED SHEMAR. REORIENTED TO PLACE AND TIME PATIENT THEN PLACED BACK ON BIPAP AND IS LYING THERE WITH HIS EYES CLOSED BED ALRAM IS ON CURRENTLY.
[2020-01-17 04:00] VITALS: BP 161/70
[2020-01-17 05:40] LABS: ALBUMIN 3.2 gm/dl (3.1-4.5); ALKALINE PHOSPHATASE 68 U/L (45-117); BUN 22 mg/dl (7-24); CHLORIDE 100 mmol/L (98-107); SGOT/AST 23 IU/L (3-35); SGPT/ALT 30 U/L (12-78); SODIUM 143 mmol/L (136-145); TOTAL PROTEIN 6.6 gm/dL (6.4-8.2)
[2020-01-17 06:12] LABS: HEMATOCRIT 36.5 % (42.0-52.0); MEAN CELL VOLUME 91.9 fl (80.0-94.0); MEAN CORPUSCULAR HGB 27.7 pg (27.0-31.0); MEAN CORPUSCULAR HGB CONC 30.1 g/dl (33.0-37.0); MEAN PLATELET VOLUME 10.4 fl (9.6-12.3); PLATELET COUNT AUTOMATED 185 10*3/uL (130-400); RED BLOOD COUNT 3.97 10*6/uL (4.50-5.90); RED CELL DISTRI WIDTH 16.5 % (0-14.5)
[2020-01-17 06:36] LABS: BASOPHILS 1 % (0-1); TOTAL CELLS COUNTED 100 #CELLS
[2020-01-17 06:37] LABS: PLATELET SUFFICIENCY NORMAL (NORMAL); POLYCHROMASIA SLIGHT
--- NOTE | 2020-01-17 07:21 | NUR ---
Shift chart check completed.24 HR chart check completed.
--- NOTE | 2020-01-17 07:24 | NUR ---
Updated clinicals faxed to [facility] for review. 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
[2020-01-17 08:00] VITALS: BP 160/60
--- NOTE | 2020-01-17 08:00 | NUR ---
ON ASSESSMENT PATIENT ALERT, BUT CONFUSED. DENIES,SAYING "NO" WHEN I EXPLAIN HE'S IN [facility]. MLC INTACT RIJ. BRUCE PATENT CLEAR YELLOW URINE. REPOSITIONED FOR COMFORT, HE DECLINED BREAKFAST. HE HAD BEEN INCONTINENT OF GREEN STOOL EARLIER. SEE ALL APPROPRIATE INTERVENTIONS.
[2020-01-17 08:25] LABS: ABG BASE EXCESS 12.4 mmol/L (-2.0-2.0); ARTERIAL BLOOD GAS PH 7.45 (7.35-7.45)
--- NOTE | 2020-01-17 09:34 | NUR ---
DR JHA AND DR LYNN HAVE VISITED.
--- NOTE | 2020-01-17 13:13 | NUR ---
I WAS FEEDING PATIENT, WAS CALLED AWAY, REENTERED ROOM AND FOUND HIM FEEDING HIMSELF WITHOUT DIFFICULTY.
--- NOTE | 2020-01-17 15:54 | NUR ---
INCONTINENT LARGE AMOUNT LIQUID BROWN STOOL. TURNED VIANCA CARE. REPOSITIONED FOR COMFORT. HE REMAINS CONFUSED BUT COOPERATIVE.
[2020-01-17 16:00] VITALS: BP 144/57
[2020-01-17 20:00] VITALS: BP 153/69
--- NOTE | 2020-01-17 20:00 | NUR ---
PT RESTING IN BED AWAKE AND ALERT. RESP NONLABORED. NO ACUTE DISTRESS NOTED. NO COMPLAINTS VOICED. RIGHT IJ MLC PATENT, DRESSING DRY AND INTACT. BRUCE PATENT FOR CLEAR ADI URINE.
[2020-01-18] VITALS: BP 166/57
--- NOTE | 2020-01-18 | NUR ---
PT RESTING IN BED WITH EYES CLOSED, AWAKENS WITH EASE. BIPAP ON ORDERED. NOCTURNAL PULSE OX ON ORDERED. NO ACUTE DISTRESS NOTED. NO COMPLAINTS VOICED. RIGHT IJ MLC PATENT. BRUCE PATENT.
[2020-01-18 06:20] LABS: BUN 29 mg/dl (7-24); CHLORIDE 100 mmol/L (98-107); CREATININE 1.15 mg/dL (0.70-1.30); POTASSIUM 4.3 mmol/L (3.5-5.1); SODIUM 141 mmol/L (136-145)
--- NOTE | 2020-01-18 06:29 | NUR ---
NOCTURNAL PULSE OX COMPILED AND FILED, REPORT PRINTED.
[2020-01-18 06:48] LABS: HEMATOCRIT 36.2 % (42.0-52.0); MEAN CORPUSCULAR HGB 26.6 pg (27.0-31.0); MEAN CORPUSCULAR HGB CONC 29.3 g/dl (33.0-37.0); MEAN PLATELET VOLUME 10.4 fl (9.6-12.3); PLATELET COUNT AUTOMATED 185 10*3/uL (130-400); RED BLOOD COUNT 3.98 10*6/uL (4.50-5.90); WHITE BLOOD COUNT 9.4 10*3/uL (4.8-10.8)
[2020-01-18 07:39] LABS: TOTAL CELLS COUNTED 100 #CELLS
[2020-01-18 07:40] LABS: OVALOCYTES FEW; PLATELET SUFFICIENCY NORMAL (NORMAL)
[2020-01-18 07:59] LABS: ABG BASE EXCESS 12.2 mmol/L (-2.0-2.0); ARTERIAL BLOOD GAS PH 7.43 (7.35-7.45)
[2020-01-18 08:00] VITALS: BP 174/64
--- NOTE | 2020-01-18 09:00 | NUR ---
CM in to see patient. No new needs or request at this time. He is a LTC resident at [facility] and can return there when medically stable. account planner following.
--- NOTE | 2020-01-18 11:07 | NUR ---
MEDIUM MUSHY BROWN STOOL. BED LINENS CHANGED AT THIS TIME. WOUND CARE DRESSING CHANGED.
[2020-01-18 12:00] VITALS: BP 150/54
--- NOTE | 2020-01-18 13:35 | NUR ---
Occupational Therapy evaluation complete in ICCU with full eval to follow. Precautions include ICCU, respiratory failure,oxygen dependent, high complexity level 99576. Recommend OT per POC and return to [facility] at SNF level to enable return to PLOF at WW and w/c levels. Thank you for this referral. Jumana Aguilar OTR/L
--- NOTE | 2020-01-18 13:45 | NUR ---
PHYSICAL THERAPY Physical Therapy evaluation completed on ICCU with full evaluation to follow. Recommend physical therapy per plan of care and SNF upon discharge. Thank you for this referral. Conrad Pisano SPT [facility] PT
--- NOTE | 2020-01-18 14:45 | NUR ---
IV MORPHINE GIVEN FOR RIGHT LEG PAIN RATED A 7/10. LEG ELEVATED, GHASSAN HOSE APPLIED. CALL LIGHT WITHIN REACH. WILL CONTINUE TO MONITOR.
--- NOTE | 2020-01-18 15:19 | NUR ---
MORPHINE EFFECTIVE. PATIENT RESTING COMFORTABLY AT THIS TIME. NO S/S OF DISTRESS NOTED. CALL LIGHT WITHIN REACH.
[2020-01-18 16:00] VITALS: BP 149/53
[2020-01-18 20:00] VITALS: BP 151/44
--- NOTE | 2020-01-18 20:24 | NUR ---
PATIENT TRANSFERED TO 407. REPORT GIVEN TO ANGELA GRAYSON.
[2020-01-19] VITALS: BP 150/51
[2020-01-19 06:33] LABS: BASO % 0.1 % (0.0-1.0); EOS % 0.1 % (1.0-4.0); HEMATOCRIT 37.6 % (42.0-52.0); LYMPH # 0.6 10*3/uL (1.3-4.4); LYMPH % 5.2 % (27.0-41.0); MEAN CELL VOLUME 90.4 fl (80.0-94.0); MEAN CORPUSCULAR HGB 26.7 pg (27.0-31.0); MEAN CORPUSCULAR HGB CONC 29.5 g/dl (33.0-37.0); MEAN PLATELET VOLUME 9.4 fl (9.6-12.3); MONO # 0.7 10*3/uL (0.1-1.0); MONO % 6.3 % (3.0-9.0); NEUT # 9.3 10*3/uL (2.3-7.9); NEUT % 86.4 % (47.0-73.0); PLATELET COUNT AUTOMATED 174 10*3/uL (130-400); RED BLOOD COUNT 4.16 10*6/uL (4.50-5.90); RED CELL DISTRI WIDTH 15.5 % (0-14.5); WHITE BLOOD COUNT 10.8 10*3/uL (4.8-10.8)
[2020-01-19 06:58] LABS: CHLORIDE 95 mmol/L (98-107); CREATININE 1.27 mg/dL (0.70-1.30); POTASSIUM 4.5 mmol/L (3.5-5.1); SODIUM 137 mmol/L (136-145)
[2020-01-19 06:59] LABS: BUN 46 mg/dl (7-24)
--- NOTE | 2020-01-19 07:45 | NUR ---
updated clinicals, covid test results and bipap settings order faxed to [facility] for review. Patient is care home care and ok to return when medically stable for discharge.
[2020-01-19 08:00] VITALS: BP 152/55
--- NOTE | 2020-01-19 08:00 | NUR ---
PHYSICAL THERAPY Patient seen this am 1;1 for therapy visit and was resting supine in bed upon therapist arrival. Patient identified by name / and joined by OT study assistant for observation this session. Patient presented with continuos O2-4L via NC, IV treatment and recorded resting SpO2 at 93%, HR 65 bpm. Patient transfers supine to sit EOB with MOD A, tolerating static EOB sit x 10 minutes, SBA. Patient also attempted several sit to stand transfers, use of wh walker standing support, MAX A x 2, however unable to reach full upright position secondary to increased global weakness. Patient returned to supine in bed, MAX A x 2 and remained with call light, tray table, telphone, bed alarm for safety. Will continue per POC as tolerated, total treatment time 17 minutes. Eric Delacruz, MANAGER AUTOMOTIVE
--- NOTE | 2020-01-19 08:16 | NUR ---
OT NOTE Pt was seen this A.M. 1:1 for 24 minute OT session. Prior to start of activity spoke with pt's nurse who gave approval for treatment at this time. Upon arrival pt was supine in bed. Pt identified by name and and had complaints of 5/10 R heel pain. Pt presented to therapy with continuous 4L-O2 via NC which he remained on throughout the entire session. Pt's resting SpO2 read 93% and heart rate 63 bpm. Pt transferred supine to sit EOB with Lauro for assist with UB. While sitting EOB challenged pt's dynamic standing balance while weight shifting, crossing midline, and reaching over all planes. Pt was able to maintain F+/G- sitting balance. Attempted to complete two sit to stand transfers from bed level with maxA X 2 and use of w/w for UE support. However, pt was unable to complete full stand with maxA x 2, max verbal prompts for encouragement, and verbal prompts for improved technique. Pt tolerated sitting EOB for aprox 15 minutes. Pt then transferred sit to supine with maxA X 2. There he was left with call light in hand, tray table in place, and bed alarm activated for safety. Continue with POC as able. HALLE Yanez/Letitia
[2020-01-19 12:00] VITALS: BP 140/39
--- NOTE | 2020-01-19 15:24 | NUR ---
PT RESTING IN BED. NO DISTRESS NOTED. JAYDON RUIZ
[2020-01-19 16:00] VITALS: BP 147/43; BP 148/42
[2020-01-19 20:00] VITALS: BP 140/40
[2020-01-20] VITALS: BP 125/35
--- NOTE | 2020-01-20 06:00 | NUR ---
BRUCE CATHETER REMOVED AT THIS TIME. PATIENT TOELRATED WELL. WILL MONITOR FOR VOIDING
[2020-01-20 06:31] LABS: BUN 51 mg/dl (7-24); CHLORIDE 95 mmol/L (98-107); CREATININE 1.27 mg/dL (0.70-1.30); POTASSIUM 4.8 mmol/L (3.5-5.1); SODIUM 135 mmol/L (136-145)
[2020-01-20 08:00] VITALS: BP 162/41
--- NOTE | 2020-01-20 08:58 | NUR ---
PT GIVEN MORPHINE FOR C/O NECK PAIN AND KNEE PAIN. WILL MONITOR FOR EFFECTIVENESS. CALL LIGHT IN REACH.
[2020-01-20 09:30] VITALS: BP 152/78
--- NOTE | 2020-01-20 09:58 | NUR ---
PT STATES THAT MORPHINE IS EFFECTIVE.
--- NOTE | 2020-01-20 10:30 | NUR ---
Per multidisciplinary discharge planning meeting plans are to discharge patient today to [facility] where he is a LTC resident. sheet metal layout worker following.
[2020-01-20] MEDS ORDERED: FUROSEMIDE40 MG PO (11:38)
[2020-01-20] MEDS ORDERED: AMLODIPINE BESY10 MG PO (11:38)
[2020-01-20] MEDS ORDERED: PREDNISONE10 MG PO (11:38)
[2020-01-20 12:00] VITALS: BP 155/76
--- NOTE | 2020-01-20 12:06 | NUR ---
SEED SPECIALIST NOTIFIED OF DISCHARGE. SEED SPECIALIST SPOKE WITH KENAN TOLEDO. SEED SPECIALIST ARRANGED FOR A 2PM TRANSPORT VIA [facility]. SEED SPECIALIST NOTIFIED [facility], [facility], AND BROTHER SAMMY (LEFT VOICEMAIL) OF DISCHARGE. WILL FAX DISCHARGE ORDERS TO [facility].
--- NOTE | 2020-01-20 12:59 | NUR ---
REPORT CALLED TO JENNIFER GONGORA NURSE AT THIS TIME.
--- NOTE | 2020-01-20 13:32 | NUR ---
OT NOTE Attempted to see pt this P.M. for OT session however no treatment provided at this time due to pt's nurse reporting that pt is being discharged at 1400. HALLE Yanez/Letitia
--- NOTE | 2020-01-20 13:45 | NUR ---
RIJ REMOVED AT THIS TIME. CATHETER IN TACT. PRESSURE DRESSING APPLIED. TOLERATED WELL BY PT.
--- NOTE | 2020-01-20 13:45 | NUR ---
Discharge instructions reviewed with patient/family. Patient receptive and verbalizes understanding. Follow-up care arranged. Written instructions given to patient/family. [place] [facility]
--- NOTE | 2020-01-20 14:25 | NUR ---
PT LEAVES AT THIS TIME VIA EMS TO RETURN TO [facility].
--- NOTE | 2020-01-20 15:41 | NUR ---
PHYSICAL THERAPY CO-SIGN I approve of the Physical Therapy notes written above. Shaina Live PT
--- NOTE | 2020-01-20 16:58 | NUR ---
OCCUPATIONAL THERAPY CO-SIGN I approve of the Occupational Therapy notes written above. VERONICA JOHNSTON OTR/Letitia
== END 2020-01-20 15:23 | disposition other institution (70) | DRG 871 ==
LOC: ED 08:40 → 4E 10:42 → EDHOLD 10:42 → ICCU 10:42 → EDHOLD 11:15 → ICCU 15:11 → 4E 01-18 20:19
PROVIDERS: Emergency Medicine; Internal Medicine; Internal Medicine Critical Care Medicine; Student in an Organized Health Care Education/Training Program; ADMIT Internal Medicine; ATTEND Internal Medicine
PROC: 5A1945Z Respiratory Ventilation, 24-96 Consecutive Hours (ICD-10-PCS; principal; 2020-01-14)
PROC: 5A09357 Assistance with Respiratory Ventilation, Less than 24 Consecutive Hours, Continuous Positive Airway Pressure (ICD-10-PCS; 2020-01-14)
PROC: B548ZZA Ultrasonography of Superior Vena Cava, Guidance (ICD-10-PCS; 2020-01-14)
PROC: 0BH17EZ Insertion of Endotracheal Airway into Trachea, Via Natural or Artificial Opening (ICD-10-PCS; 2020-01-14)
PROC: 02H633Z Insertion of Infusion Device into Right Atrium, Percutaneous Approach (ICD-10-PCS; 2020-01-14)
PROC: 5A09357 Assistance with Respiratory Ventilation, Less than 24 Consecutive Hours, Continuous Positive Airway Pressure (ICD-10-PCS; 2020-01-16)
PROC: 5A09357 Assistance with Respiratory Ventilation, Less than 24 Consecutive Hours, Continuous Positive Airway Pressure (ICD-10-PCS; 2020-01-18)
PROC: 5A09357 Assistance with Respiratory Ventilation, Less than 24 Consecutive Hours, Continuous Positive Airway Pressure (ICD-10-PCS; 2020-01-19)
PROC: 5A09357 Assistance with Respiratory Ventilation, Less than 24 Consecutive Hours, Continuous Positive Airway Pressure (ICD-10-PCS; 2020-01-20)
DX: A41.9 Sepsis, unspecified organism (principal); J96.21 Acute and chronic respiratory failure with hypoxia; J96.22 Acute and chronic respiratory failure with hypercapnia; J81.0 Acute pulmonary edema; E43 Unspecified severe protein-calorie malnutrition; I50.33 Acute on chronic diastolic (congestive) heart failure; J15.6 Pneumonia due to other Gram-negative bacteria; J44.0 Chronic obstructive pulmonary disease with (acute) lower respiratory infection; E87.3 Alkalosis; I13.0 Hypertensive heart and chronic kidney disease with heart failure and stage 1 through stage 4 chronic kidney disease, or unspecified chronic kidney disease; J44.1 Chronic obstructive pulmonary disease with (acute) exacerbation; R65.20 Severe sepsis without septic shock; Z20.828 Contact with and (suspected) exposure to other viral communicable diseases; E66.9 Obesity, unspecified; I25.10 Atherosclerotic heart disease of native coronary artery without angina pectoris; I73.9 Peripheral vascular disease, unspecified; Z96.642 Presence of left artificial hip joint; Z96.651 Presence of right artificial knee joint; G47.33 Obstructive sleep apnea (adult) (pediatric); F41.9 Anxiety disorder, unspecified; N40.0 Benign prostatic hyperplasia without lower urinary tract symptoms; N18.9 Chronic kidney disease, unspecified; F03.90 Unspecified dementia, unspecified severity, without behavioral disturbance, psychotic disturbance, mood disturbance, and anxiety; M10.9 Gout, unspecified; F32.9 Major depressive disorder, single episode, unspecified; G62.9 Polyneuropathy, unspecified; K21.9 Gastro-esophageal reflux disease without esophagitis; E78.5 Hyperlipidemia, unspecified; G25.81 Restless legs syndrome; D53.9 Nutritional anemia, unspecified; R73.9 Hyperglycemia, unspecified; E87.6 Hypokalemia; D50.9 Iron deficiency anemia, unspecified; Z68.35 Body mass index [BMI] 35.0-35.9, adult; Z81.8 Family history of other mental and behavioral disorders; Z79.52 Long term (current) use of systemic steroids

== ENCOUNTER 2020-02-20 18:15 | Inpatient (IN) | payer MEDICARE, MEDICAID ==
[~2020-02-20] VITALS: Ht 172.7 cm; Wt 102.2 kg
--- NOTE | 2020-02-20 | NUR ---
A 64, admitted to , under the services of CUATE Jackson DO with a diagnosis of PNEUMONIA. Chief complaint is SOB. Patient arrived via stretcher from ER. Monitor applied. Initial assessment completed. Vital signs taken and recorded. CUATE JACKSON DO notified of admission to the unit. Orders received. See assessment for past medical history, medications and allergies. Patient and/or family oriented to unit. [facility] FLO[facility] visitation policy reviewed. Clothing/patient valuable form completed. MIRELA BRYANT
[~2020-02-20 18:15] MED LIST changes: +AMLODIPINE BESY10 MG PO; +ANORO ELLIPTA1 EACH INH; +CLONIDINE HCL0.1 MG PO; +K-TAB10 MEQ PO; +NORVASC5 MG PO; +PULMICORT RESP0.5 M1 INH
[2020-02-20 18:24] VITALS: BP 94/56
--- NOTE | 2020-02-20 18:48 | NUR ---
MULTIPLE INITIAL BP'S IN THE LOW 80'S. 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 REEVALUATING NOW. POX IS HOLDING AT 95% ON VENTURI MASK, NOT CPAP, AT 50% O2.
[2020-02-20 18:50] VITALS: BP 131/81
--- NOTE | 2020-02-20 19:23 | NUR ---
ASSUMED CARE FROM PUSHPA GRAYSON.
--- NOTE | 2020-02-20 19:35 | NUR ---
PHONE CALLED TO JENNIFER TENORIO. I ASKED NURSE IF SHE HAS SEEN PTS. PHONE OR WALLET. NURSE RESPONDED SHE CANNOT FIND WALLET AND PHONE AT THIS TIME. I ANGELA RN SEARCHED ROOM AND BED FOR PHONE AND WALLET AND I AM UNABLE TO FIND THEM AT THIS TIME. NURSE AT FACILITY TOLD ME RN THAT SHE WOULD CALL IF SHE FOUND ANYTHING.
[2020-02-20 20:01] LABS: HEMATOCRIT 38.7 % (42.0-52.0); MEAN CELL VOLUME 93.7 fl (80.0-94.0); MEAN CORPUSCULAR HGB 27.6 pg (27.0-31.0); MEAN CORPUSCULAR HGB CONC 29.5 g/dl (33.0-37.0); MEAN PLATELET VOLUME 9.5 fl (9.6-12.3); NUCLEATED RED BLOOD CELL 0.2 % (0.0-0.0); PLATELET COUNT AUTOMATED 213 10*3/uL (130-400); RED BLOOD COUNT 4.13 10*6/uL (4.50-5.90); RED CELL DISTRI WIDTH 14.9 % (0-14.5); WHITE BLOOD COUNT 10.7 10*3/uL (4.8-10.8)
[2020-02-20 20:19] LABS: ALBUMIN 3.8 gm/dl (3.1-4.5); ALKALINE PHOSPHATASE 88 U/L (45-117); BUN 21 mg/dl (7-24); CHLORIDE 94 mmol/L (98-107); CREATININE 1.09 mg/dL (0.70-1.30); POTASSIUM 4.4 mmol/L (3.5-5.1); SGOT/AST 13 IU/L (3-35); SGPT/ALT 33 U/L (12-78); SODIUM 134 mmol/L (136-145); TOTAL PROTEIN 7.8 gm/dL (6.4-8.2)
[2020-02-20 20:20] LABS: BASOPHILS 2 % (0-1); TOTAL CELLS COUNTED 100 #CELLS
[2020-02-20 20:21] LABS: PLATELET SUFFICIENCY NORMAL (NORMAL); TROPONIN I < 0.015 ng/ml (<0.045)
--- NOTE | 2020-02-20 21:11 | NUR ---
CALLED [facility], EMS STATES PT. HAD PHONE IN HAND WHILE BEING TRANSFERED ONTO THEIR COT. UNSURE WHERE WALLET IS.
[2020-02-20 21:24] VITALS: BP 159/64
[2020-02-20 22:37] VITALS: BP 101/53
--- NOTE | 2020-02-20 22:45 | NUR ---
PT. RESTING IN BED. ON VENTURI MASK 50%, O2 SAT 94%. WILL CONTINUE TO MONITOR. CALL LIGHT WITHIN REACH.
--- NOTE | 2020-02-20 23:14 | NUR ---
RESPIRATORY CALLED, PT. IN ROOM USING ACCESSORY MUSCLES TO BREATHE. RR-30, SPO2-85% ON 15L VENTURI MASK. WILL CONTINUE TO MONITOR. SAT PT. UP HIGH-FOWLERS.
--- NOTE | 2020-02-20 23:17 | NUR ---
PT. 02 SATURATION-94% ON VENTURI MASK 50%. WILL CONTINUE TO MONITOR.
--- NOTE | 2020-02-20 23:18 | NUR ---
WHEN CHECKING FOR WOUNDS. PT. HAS NO OPEN AREAS ON BODY. SCAR TISSUE NOTED TO COCCYX AREA.
[2020-02-20 23:28] VITALS: BP 171/74
--- NOTE | 2020-02-20 23:32 | NUR ---
NOTIFIED DR. TERRY ANSWERING SERVICE OF NEW CONSULT
[2020-02-20 23:34] VITALS: BP 164/65
--- NOTE | 2020-02-20 23:35 | NUR ---
RESPIRATORY STATED TO LET THEM KNOW WHEN PT. GOES UPSTAIRS. THEY ARE GOING TO PUT HIM ON BIPAP UPSTAIRS.
--- NOTE | 2020-02-20 23:37 | NUR ---
NOTIFIED JENNIFER TENORIO THAT PT. WOULD BE ADMITTED.
--- NOTE | 2020-02-20 23:45 | NUR ---
PT TRANSPORTED TO [facility].
[2020-02-21] VITALS: BP 149/61
[2020-02-21 07:11] LABS: HEMATOCRIT 38.6 % (42.0-52.0); MEAN CELL VOLUME 94.4 fl (80.0-94.0); MEAN CORPUSCULAR HGB 27.9 pg (27.0-31.0); MEAN CORPUSCULAR HGB CONC 29.5 g/dl (33.0-37.0); MEAN PLATELET VOLUME 9.6 fl (9.6-12.3); PLATELET COUNT AUTOMATED 217 10*3/uL (130-400); RED BLOOD COUNT 4.09 10*6/uL (4.50-5.90); WHITE BLOOD COUNT 9.7 10*3/uL (4.8-10.8)
[2020-02-21 07:27] LABS: ALBUMIN 3.3 gm/dl (3.1-4.5); ALKALINE PHOSPHATASE 78 U/L (45-117); BUN 21 mg/dl (7-24); CHLORIDE 95 mmol/L (98-107); CPK 20 U/L (39-308); CREATININE 1.13 mg/dL (0.70-1.30); POTASSIUM 4.4 mmol/L (3.5-5.1); SGOT/AST 9 IU/L (3-35); SGPT/ALT 27 U/L (12-78); SODIUM 135 mmol/L (136-145); TOTAL PROTEIN 6.8 gm/dL (6.4-8.2)
[2020-02-21 07:28] LABS: LDH 232 U/L (87-241)
[2020-02-21 08:11] LABS: OVALOCYTES FEW; POLYCHROMASIA SLIGHT; TOTAL CELLS COUNTED 100 #CELLS
[2020-02-21 08:13] LABS: PLATELET SUFFICIENCY NORMAL (NORMAL)
--- NOTE | 2020-02-21 09:00 | NUR ---
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
--- NOTE | 2020-02-21 10:16 | NUR ---
PHYSICAL THERAPY Screen received pt admitted with pneumonia please consult PT if pt has a decline in functional status below baseline Shaina Lvie PT
[2020-02-21 12:00] VITALS: BP 114/39; BP 130/50
--- NOTE | 2020-02-21 12:30 | NUR ---
Nursing screen received and chart reviewed. Patient admitted from [facility] for PNA and suspected COVID-19. If patient has a decline in ADLs, transfers, or mobility, please send OT orders. Thank you. Nette Pemberton OTR/L
[2020-02-21 16:00] VITALS: BP 115/45
[2020-02-21 20:00] VITALS: BP 138/47
[2020-02-21 21:57] LABS: ARTERIAL BLOOD GAS PH 7.344 (7.35-7.45)
[2020-02-22] VITALS: BP 118/62
--- NOTE | 2020-02-22 04:00 | NUR ---
PATIENT SLEEPING, NO SIGNS OF DISTRESS. RESPIRATIONS EASY, NON LABORED. BED IN LOWEST POSITION,CALL LIGHT WITHIN REACH. BED ALARM ON. WILL CONTINUE TO MONITOR.
[2020-02-22 06:32] LABS: MEAN CELL VOLUME 93.3 fl (80.0-94.0); MEAN CORPUSCULAR HGB 28.3 pg (27.0-31.0); MEAN CORPUSCULAR HGB CONC 30.3 g/dl (33.0-37.0); MEAN PLATELET VOLUME 9.5 fl (9.6-12.3); NUCLEATED RED BLOOD CELL 0.4 % (0.0-0.0); PLATELET COUNT AUTOMATED 193 10*3/uL (130-400); RED BLOOD COUNT 3.43 10*6/uL (4.50-5.90); RED CELL DISTRI WIDTH 15.3 % (0-14.5); WHITE BLOOD COUNT 8.5 10*3/uL (4.8-10.8)
[2020-02-22 06:37] LABS: ALBUMIN 3.2 gm/dl (3.1-4.5); CREATININE 1.46 mg/dL (0.70-1.30); POTASSIUM 4.7 mmol/L (3.5-5.1); TOTAL PROTEIN 6.3 gm/dL (6.4-8.2)
[2020-02-22 08:00] VITALS: BP 126/81
[2020-02-22 08:19] LABS: PLATELET SUFFICIENCY NORMAL (NORMAL); TOTAL CELLS COUNTED 100 #CELLS
--- NOTE | 2020-02-22 09:01 | NUR ---
Patient comes in from [facility] as a [facility] resident. Clinical updates were faxed for review. Since patient is PUI, will need to wait for covid results prior to discharge.
[2020-02-22 12:00] VITALS: BP 127/46
--- NOTE | 2020-02-22 12:30 | NUR ---
ATTEMPTED TO APPLY [place] CATH FOR URINE OUTPUT - PUT REFUSED, PULLED IT OFF IMMEDIATELY AFTER LEAVING ROOM.
[2020-02-22 16:00] VITALS: BP 128/64
[2020-02-22 20:00] VITALS: BP 115/45
--- NOTE | 2020-02-22 21:32 | NUR ---
PATIENT AGIGATED. RIPPING OFF BIPAP, MONITOR AND CONTINOUS PULSE OX OFF. NOTIFIED DR. WILCOX. IV ATIVAN ORDERED.
--- NOTE | 2020-02-22 22:00 | NUR ---
PATIENT MEDICATED WITH 1MG ATIVAN IV. PATIENT VERY RESTLESS AND AGIGATED. PATIENT PLACED ON BIPAP 22/10. 60%FIO2. BED IN LOWEST POSITION,CALL LIGHT WITHIN REACH. BED ALARM ON. WILL CONTINUE TO MONITOR.
[2020-02-22 22:13] LABS: ABG BASE EXCESS 6.2 mmol/L (-2.0-2.0); ARTERIAL BLOOD GAS PH 7.275 (7.35-7.45)
[2020-02-23] VITALS: BP 99/52
[2020-02-23 06:11] LABS: ALBUMIN 3.2 gm/dl (3.1-4.5); CREATININE 1.8 mg/dL (0.70-1.30); POTASSIUM 4.8 mmol/L (3.5-5.1); TOTAL PROTEIN 6.5 gm/dL (6.4-8.2)
[2020-02-23 06:15] LABS: MEAN CELL VOLUME 94.7 fl (80.0-94.0); MEAN CORPUSCULAR HGB 27.6 pg (27.0-31.0); MEAN CORPUSCULAR HGB CONC 29.1 g/dl (33.0-37.0); MEAN PLATELET VOLUME 10.2 fl (9.6-12.3); NUCLEATED RED BLOOD CELL 0.1 10*3/uL (0.0-0.0); NUCLEATED RED BLOOD CELL 0.6 % (0.0-0.0); PLATELET COUNT AUTOMATED 208 10*3/uL (130-400); RED BLOOD COUNT 3.59 10*6/uL (4.50-5.90); RED CELL DISTRI WIDTH 15.2 % (0-14.5); WHITE BLOOD COUNT 7.7 10*3/uL (4.8-10.8)
[2020-02-23 07:07] LABS: PLATELET SUFFICIENCY NORMAL (NORMAL); TOTAL CELLS COUNTED 100 #CELLS
[2020-02-23 08:00] VITALS: BP 109/48
--- NOTE | 2020-02-23 08:45 | NUR ---
PATIENT'S RECTAL TEMP 96.0. HR 48, 108/48, POX 100% ON BIPAP A THIS TIME. 18 RESPS. PLACED PATIENT ON WARMING BLANKET. NOTIFIED OF PATIENT'S VITALS.
--- NOTE | 2020-02-23 09:00 | NUR ---
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 case management will follow
[2020-02-23 12:00] VITALS: BP 96/61
[2020-02-23 16:00] VITALS: BP 104/48; BP 72/48
[2020-02-23 20:00] VITALS: BP 110/80
--- NOTE | 2020-02-23 20:30 | NUR ---
PATIENT PLACED ON BIPAP 22/10 60%. SPO2 98%. WILL CONTINUE TO MONITOR
--- NOTE | 2020-02-23 23:30 | NUR ---
BIPAP HELD DUE TO BLOODY NOSE.
[2020-02-24] VITALS (7 sets, daily range): BP systolic 100–159; BP diastolic 50–80
--- NOTE | 2020-02-24 03:30 | NUR ---
PT WAS ON AND OFF THE BIPAP FOR THE MAJORITY OF THE NIGHT. PT CONTINUED TO PICK AT HIS NOSE CAUSING IT TO BLEED SEVERAL TIMES INTO THE BIPAP MASK. FURTHERMORE, HE CONTINUALLY REPOSITIONED THE MASK TO ACCOMMODATE MORE SPACE FOR HIS FINGERS. CHECKED ON PT SEVERAL TIMES AND THE MASK WAS NOT POSITIONED CORRECTLY.
[2020-02-24 06:53] LABS: HEMATOCRIT 30.9 % (42.0-52.0); MEAN CELL VOLUME 92.8 fl (80.0-94.0); MEAN CORPUSCULAR HGB 27.6 pg (27.0-31.0); MEAN CORPUSCULAR HGB CONC 29.8 g/dl (33.0-37.0); MEAN PLATELET VOLUME 9.8 fl (9.6-12.3); NUCLEATED RED BLOOD CELL 0.1 10*3/uL (0.0-0.0); NUCLEATED RED BLOOD CELL 0.7 % (0.0-0.0); PLATELET COUNT AUTOMATED 194 10*3/uL (130-400); RED BLOOD COUNT 3.33 10*6/uL (4.50-5.90); RED CELL DISTRI WIDTH 15.1 % (0-14.5); WHITE BLOOD COUNT 7.7 10*3/uL (4.8-10.8)
[2020-02-24 07:05] LABS: CREATININE 1.8 mg/dL (0.70-1.30); POTASSIUM 4.5 mmol/L (3.5-5.1)
[2020-02-24 07:47] LABS: TOTAL CELLS COUNTED 100 #CELLS
[2020-02-24 07:48] LABS: POLYCHROMASIA SLIGHT
[2020-02-24 07:49] LABS: PLATELET SUFFICIENCY NORMAL (NORMAL)
--- NOTE | 2020-02-24 07:59 | NUR ---
Updated clinicals/negative covid test results faxed to [facility] for review. 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
[2020-02-24 11:17] LABS: ABG BASE EXCESS 6.3 mmol/L (-2.0-2.0); ARTERIAL BLOOD GAS PH 7.244 (7.35-7.45)
--- NOTE | 2020-02-24 11:28 | NUR ---
AND NOTIFIED OF PCO2 ON ABG OF 84.
--- NOTE | 2020-02-24 13:13 | NUR ---
DALLIN GLEZ FOUND ON BED. PT DOESNT RECALL DOING THIS. BLEEDING CONTROLLED AT THIS TIME. NOTIFIED.
--- NOTE | 2020-02-24 14:09 | NUR ---
BED CHANGED, BATHED, AND PLACED ON BIPAP AT THIS TIME. WILL MONITOR. CALL LIGHT IN REACH.
[2020-02-25] VITALS: BP 125/69
--- NOTE | 2020-02-25 02:00 | NUR ---
PATIENT SLEEPING. NO SIGNS OF DISTRESS. RESPIRATIONS EASY, NON LABORED BED IN LOWEST POSITION,CALL LIGHT WITHIN REACH. WILL CONTINUE TO MONITOR.
--- NOTE | 2020-02-25 03:44 | NUR ---
PATIENT OFF BIPAP AT THIS TIME
[2020-02-25 08:00] VITALS: BP 89/51
[2020-02-25 09:10] VITALS: BP 89/57
[2020-02-25 09:28] LABS: ABG BASE EXCESS 8.7 mmol/L (-2.0-2.0); ARTERIAL BLOOD GAS PH 7.299 (7.35-7.45)
[2020-02-25 12:00] VITALS: BP 85/54
--- NOTE | 2020-02-25 12:21 | NUR ---
PT. IS OFF BIPAP AND EATING LUNCH.
--- NOTE | 2020-02-25 12:29 | NUR ---
CALLED FOR BIPAP ALARM, PT. ON O2 BUT NOT TURNED ON AT GAUGE, SAT 62, PLACED ON 8L, SAT INCREASING TO 92%. PT. IS EATING LUNCH AT THIS TIME. PT. WILL BE PLACED ON BIPAP AFTER LUNCH AND 30 MINUTES MORE FOR SAFETY OF BIPAP USE. RN NOTIFIED. ABG ORDERED, WE WILL DRAW AFTER PT. BACK ON BIPAP FOR 2 HOURS.
--- NOTE | 2020-02-25 15:50 | NUR ---
0935 am KATLIN REINA CALLED FROM THE LAB FOR A CRITICAL PCO2 LEVEL OF 76 RT PLACED PATIENT ON BIPAP AND FIRE LOOKOUT DR JHA CALLED AND NOTIFIED WITH NO NEW ORDERS. PATIENT ASSESSED AND HE WAS BREATHING EASY IN NO DISTRESS. LUNS SOUND RHONCHI RIGHT AND DIMINISHED ON THE LEFT SIDE.
--- NOTE | 2020-02-25 15:54 | NUR ---
1145 PATIENT COMPLAINED OF HIS BACK HURTING; TYLENOL 650 MG PO GIVEN FOR PAIN. 1200 0.9%NS 1000ML STARTED AT 125 ML/HR INFUSING VIA 20G LEFT UPPER ARM INT VIA BRUAN PUMP.
[2020-02-25 16:00] VITALS: BP 85/58
[2020-02-25 20:00] VITALS: BP 144/46
[2020-02-26] VITALS: BP 138/56
--- NOTE | 2020-02-26 02:29 | NUR ---
Pt sleeping intermittently, wakes easily. Nasal canula causing discomfort at times. Unable to tolerate bipap, pulled it off, humidified NC replaced.
[2020-02-26 08:00] VITALS: BP 169/53
[2020-02-26 08:17] LABS: HEMATOCRIT 34.1 % (42.0-52.0); MEAN CELL VOLUME 95.3 fl (80.0-94.0); MEAN CORPUSCULAR HGB 28.2 pg (27.0-31.0); MEAN CORPUSCULAR HGB CONC 29.6 g/dl (33.0-37.0); MEAN PLATELET VOLUME 9.4 fl (9.6-12.3); NUCLEATED RED BLOOD CELL 0.1 10*3/uL (0.0-0.0); NUCLEATED RED BLOOD CELL 1.2 % (0.0-0.0); PLATELET COUNT AUTOMATED 183 10*3/uL (130-400); RED BLOOD COUNT 3.58 10*6/uL (4.50-5.90); RED CELL DISTRI WIDTH 15.3 % (0-14.5)
[2020-02-26 08:31] LABS: ALBUMIN 3.5 gm/dl (3.1-4.5); CREATININE 1.53 mg/dL (0.70-1.30); POTASSIUM 4.4 mmol/L (3.5-5.1); TOTAL PROTEIN 6.3 gm/dL (6.4-8.2)
[2020-02-26 08:35] LABS: TOTAL CELLS COUNTED 100 #CELLS
[2020-02-26 08:37] LABS: OVALOCYTES FEW; PLATELET SUFFICIENCY NORMAL (NORMAL)
[2020-02-26 12:00] VITALS: BP 170/50
--- NOTE | 2020-02-26 14:50 | NUR ---
0800 Patient is lying in bed awake and alert xoriented with periods of confusion . Client informed RN that his son last night in a car accident in [place]. RN spoke with nurse practitioner and she stated that patient has been hallucinating about situations and things. Patient VSS 169/53 hr 64 rr 20 t 97.8 o2 sat 97%. O2 at 6 liters nasal cannula via high flow oxygen. Morning medications were taken orally with no problems noted. Head of bed elevated 30 degrees. Side rails up x 2. Call light within reach. RN supervisors on floor and made aware of hallucinations. They called patient's next of kin brother and he denied any accidental deaths within the family.
[2020-02-26 16:00] VITALS: BP 78/51
--- NOTE | 2020-02-26 20:22 | NUR ---
PT RESTING QUIETLY IN BED, DENIES NEEDS. ALERT AND ORIENTED. CALLBELL WITHIN REACH, BED IN LOWEST POSITION. BILATERAL BRUISES NOTED TO ARMS AND HANDS. wILL CONTINUE TO MONITOR FOR NEEDS.
[2020-02-27 08:00] VITALS: BP 137/75
[2020-02-27 12:00] VITALS: BP 138/50; BP 140/66
--- NOTE | 2020-02-27 12:48 | NUR ---
Updated clinicals faxed to [facility] for review. 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
[2020-02-27 16:00] VITALS: BP 154/52
[2020-02-27 20:00] VITALS: BP 103/55
[2020-02-28] VITALS: BP 100/52
[2020-02-28 06:48] LABS: HEMATOCRIT 33.8 % (42.0-52.0); MEAN CORPUSCULAR HGB 28.4 pg (27.0-31.0); MEAN PLATELET VOLUME 10.1 fl (9.6-12.3); NUCLEATED RED BLOOD CELL 0.1 10*3/uL (0.0-0.0); NUCLEATED RED BLOOD CELL 0.6 % (0.0-0.0); PLATELET COUNT AUTOMATED 178 10*3/uL (130-400); RED BLOOD COUNT 3.45 10*6/uL (4.50-5.90); RED CELL DISTRI WIDTH 15.6 % (0-14.5); WHITE BLOOD COUNT 14.3 10*3/uL (4.8-10.8)
[2020-02-28 07:28] LABS: ALBUMIN 3.2 gm/dl (3.1-4.5); BUN 46 mg/dl (7-24); CHLORIDE 102 mmol/L (98-107); CREATININE 1.37 mg/dL (0.70-1.30); POTASSIUM 4.5 mmol/L (3.5-5.1); SGOT/AST 11 IU/L (3-35); SODIUM 141 mmol/L (136-145)
[2020-02-28 07:31] LABS: ALKALINE PHOSPHATASE 62 U/L (45-117); SGPT/ALT 20 U/L (12-78)
[2020-02-28 07:41] LABS: PLATELET SUFFICIENCY NORMAL (NORMAL); TOTAL CELLS COUNTED 100 #CELLS
[2020-02-28 08:00] VITALS: BP 136/50; BP 144/59
--- NOTE | 2020-02-28 09:30 | NUR ---
PT POX 70% ON 6L HIGH FLOW AT THIS TIME - PLACED PATIENT ON BIPAP & MONITORED PT. POX UP TO 95% WHILE NURSE IN ROOM. PT ENCOURAGED TO WEAR.
[2020-02-28 12:00] VITALS: BP 195/48
[2020-02-28 16:00] VITALS: BP 186/46
--- NOTE | 2020-02-28 17:01 | NUR ---
NOTIFIED OF HIGH BLOOD PRESSURE READINGS - AWAITING ORDER.
[2020-02-28 18:51] VITALS: BP 162/40
--- NOTE | 2020-02-28 18:51 | NUR ---
UPON BP RECHECK- 162/40. MEDICATION APPEARS EFFECTIVE.
[2020-02-28 20:00] VITALS: BP 103/69
--- NOTE | 2020-02-28 23:00 | NUR ---
Patient continues to take pulse ox off, states someone in the room told him to do it. Patient seeing people in the room, also stuff on the floor that isnt there. Patient speaks incoherantly most of the time. Patient being monitored.
[2020-02-29] VITALS: BP 98/51
--- NOTE | 2020-02-29 03:40 | NUR ---
24 HR chart check completed.
--- NOTE | 2020-02-29 05:38 | NUR ---
Patient tolerated bipap throughout the night, mostly pox was 95-100%.
[2020-02-29 08:00] VITALS: BP 196/54
--- NOTE | 2020-02-29 10:00 | NUR ---
Patient resting quietly with no c/o discomfort. Pt noted to have confusion. Respirations easy and regular on 6L hiflo NC. Pt dyspenic with exertion in bed. Vital signs stable. No overt distress. MIRELA TOMLINSON R
[2020-02-29 12:00] VITALS: BP 147/57
[2020-02-29 16:00] VITALS: BP 91/56
[2020-02-29 20:00] VITALS: BP 160/60
--- NOTE | 2020-02-29 20:00 | NUR ---
Patient resting quietly with no c/o discomfort. Respirations easy and regular. Vital signs stable. No overt distress. ARASELI MAGUIRE
[2020-03-01] VITALS: BP 99/69
--- NOTE | 2020-03-01 | NUR ---
Patient resting quietly with no c/o discomfort. Respirations easy and regular. Vital signs stable. No overt distress. ARASELI MAGUIRE
--- NOTE | 2020-03-01 00:15 | NUR ---
Pt placed on BiPap 26/10 and 60%. Alarms on and audible.
--- NOTE | 2020-03-01 01:24 | NUR ---
24 HR chart check completed.
--- NOTE | 2020-03-01 04:13 | NUR ---
Patient resting quietly with no c/o discomfort. Respirations easy and regular. Vital signs stable. No overt distress. ARASELI MAGUIRE
[2020-03-01 07:02] LABS: HEMATOCRIT 34.6 % (42.0-52.0); MEAN CELL VOLUME 95.1 fl (80.0-94.0); MEAN CORPUSCULAR HGB 27.5 pg (27.0-31.0); MEAN CORPUSCULAR HGB CONC 28.9 g/dl (33.0-37.0); NUCLEATED RED BLOOD CELL 0.1 10*3/uL (0.0-0.0); NUCLEATED RED BLOOD CELL 0.3 % (0.0-0.0); PLATELET COUNT AUTOMATED 175 10*3/uL (130-400); RED BLOOD COUNT 3.64 10*6/uL (4.50-5.90); RED CELL DISTRI WIDTH 16.4 % (0-14.5); WHITE BLOOD COUNT 15.7 10*3/uL (4.8-10.8)
[2020-03-01 07:28] LABS: PLATELET SUFFICIENCY NORMAL (NORMAL); POLYCHROMASIA SLIGHT; STOMATOCYTE FEW; TOTAL CELLS COUNTED 100 #CELLS
[2020-03-01 07:30] LABS: BUN 28 mg/dl (7-24); CHLORIDE 98 mmol/L (98-107); CREATININE 0.97 mg/dL (0.70-1.30); SODIUM 141 mmol/L (136-145)
--- NOTE | 2020-03-01 07:35 | NUR ---
LAB CALLED WITH A CRITICAL CO2. DR MCCRAY NOTIFIED.
[2020-03-01 08:00] VITALS: BP 180/54
[2020-03-01 12:00] VITALS: BP 176/60
--- NOTE | 2020-03-01 15:00 | NUR ---
PT ON 10 L HFNC. SPO2 DROPPED TO 83%. PT PLACED ON BIPAP. SPO2 INCREASED TO 99%. RESPS REGULAR AND UNLABORED. SYSTEM CHECKED AND FX'ING. BBSs EQUAL CLEAR A ND DIMINISHED ON BIPAP.
[2020-03-01 16:00] VITALS: BP 142/63
--- NOTE | 2020-03-01 19:20 | NUR ---
REPORT RECEIVED. PT SLEEPING. CALL LIGHT IN REACH
[2020-03-01 20:00] VITALS: BP 153/49
--- NOTE | 2020-03-01 21:00 | NUR ---
PT RESTING WITH EYES CLOSED. BIPAP INTACT
[2020-03-02] VITALS: BP 156/57
--- NOTE | 2020-03-02 02:00 | NUR ---
PT SLEEPING AT THIS TIME. NO S/S OF DISTRESS NOTED.
--- NOTE | 2020-03-02 03:30 | NUR ---
PT TAKEN OFF BIPAP AT THIS TIME. PLACED ON 10HF
[2020-03-02 07:05] LABS: HEMATOCRIT 35.8 % (42.0-52.0); MEAN CELL VOLUME 96.5 fl (80.0-94.0); MEAN CORPUSCULAR HGB CONC 29.1 g/dl (33.0-37.0); MEAN PLATELET VOLUME 9.9 fl (9.6-12.3); NUCLEATED RED BLOOD CELL 0.1 % (0.0-0.0); PLATELET COUNT AUTOMATED 148 10*3/uL (130-400); RED BLOOD COUNT 3.71 10*6/uL (4.50-5.90); RED CELL DISTRI WIDTH 16.7 % (0-14.5); WHITE BLOOD COUNT 15.1 10*3/uL (4.8-10.8)
[2020-03-02 07:32] LABS: ALBUMIN 2.9 gm/dl (3.1-4.5); ALKALINE PHOSPHATASE 50 U/L (45-117); BUN 20 mg/dl (7-24); CHLORIDE 95 mmol/L (98-107); CREATININE 0.82 mg/dL (0.70-1.30); POTASSIUM 3.6 mmol/L (3.5-5.1); SGOT/AST 14 IU/L (3-35); SGPT/ALT 20 U/L (12-78); SODIUM 141 mmol/L (136-145); TOTAL PROTEIN 5.4 gm/dL (6.4-8.2)
--- NOTE | 2020-03-02 07:42 | NUR ---
CRITICAL CO2 CALLED TO PHYS. NO NEW ORDERS.
[2020-03-02 07:50] LABS: OVALOCYTES FEW; SCHISTOCYTES FEW; TOTAL CELLS COUNTED 100 #CELLS
[2020-03-02 07:51] LABS: PLATELET SUFFICIENCY NORMAL (NORMAL); STOMATOCYTE FEW
[2020-03-02 08:00] VITALS: BP 157/55
[2020-03-02 08:58] LABS: ABG BASE EXCESS 17.5 mmol/L (-2.0-2.0); ARTERIAL BLOOD GAS PH 7.398 (7.35-7.45)
--- NOTE | 2020-03-02 09:00 | NUR ---
NOTIFIED OF CRITICAL PCO2 OF 75. PER TO CALL AND LET HIM KNOW AND SEE IF HE WANTS ANYTHING CHANGED WITH BIPAP SETTINGS.
--- NOTE | 2020-03-02 09:15 | NUR ---
ATTEMPTED TO CALL WITH CRITICAL PCO2 OF 75. NO ANSWER. AWAITING CALL BACK. WILL ATTEMPT TO CALL BACK IF NO CALL BACK SOON.
--- NOTE | 2020-03-02 10:00 | NUR ---
INFORMED OF [facility] AND STATES "KEEP EVERYTHING THE SAME, NO CHANGE."
[2020-03-02 12:00] VITALS: BP 185/56
[2020-03-02 16:00] VITALS: BP 162/51
[2020-03-02 20:00] VITALS: BP 152/40
[2020-03-03] VITALS: BP 163/65
[2020-03-03 07:16] LABS: MEAN CELL VOLUME 94.2 fl (80.0-94.0); MEAN CORPUSCULAR HGB 27.7 pg (27.0-31.0); MEAN CORPUSCULAR HGB CONC 29.4 g/dl (33.0-37.0); MEAN PLATELET VOLUME 10.5 fl (9.6-12.3); PLATELET COUNT AUTOMATED 141 10*3/uL (130-400); RED BLOOD COUNT 3.82 10*6/uL (4.50-5.90); RED CELL DISTRI WIDTH 16.5 % (0-14.5)
--- NOTE | 2020-03-03 07:30 | NUR ---
PATIENT RESTING IN BED. ASSESSMENT COMPLETE. PATIENT CURRENTLY ON 10LHFNC POX 99%. PATIENT REFUSING HIS BIPAP AT THIS TIME. STATES HE WORE IT MOST OF THE NIGHT. WILL TRY AGAIN IN A LITTLE BIT. DENIES ANY COMPLAINTS/NEEDS AT THIS TIME. CALL LIGHT WITHIN REACH.
[2020-03-03 07:34] LABS: BUN 17 mg/dl (7-24); CHLORIDE 91 mmol/L (98-107); POTASSIUM 3.4 mmol/L (3.5-5.1); SODIUM 138 mmol/L (136-145)
[2020-03-03 07:39] LABS: TOTAL CELLS COUNTED 100 #CELLS
[2020-03-03 07:40] LABS: PLATELET SUFFICIENCY NORMAL (NORMAL); SCHISTOCYTES FEW; STOMATOCYTE FEW
[2020-03-03 08:00] VITALS: BP 180/78
[2020-03-03 12:00] VITALS: BP 162/64
--- NOTE | 2020-03-03 19:44 | NUR ---
PATIENT RESTING IN BED WITH NO NEEDS MADE. REFUSING TO WEAR BIPAP. EDUCATED ON IMPORTANCE OF WEARING IT. PATIENT VERBALIZED UNDERSTANDING BUT STILL REFUSES. BED IN LOWEST POSITION, CALL LIGHT IN REACH, BED ALARM ON
[2020-03-03 20:00] VITALS: BP 162/53
--- NOTE | 2020-03-03 20:24 | NUR ---
PLACED PATIENT ON BIPAP
[2020-03-04] VITALS: BP 168/49
--- NOTE | 2020-03-04 01:00 | NUR ---
PATIENT CURRENTLY OFF BIPAP. 10L HF NASAL CANNULA IN USE.
--- NOTE | 2020-03-04 03:14 | NUR ---
PATIENT RESTING IN BED WITH NO S/S OF DISTRESS. BED ALARM ON, BED IN LOWEST POSITION, CALL LIGHT IN REACH
--- NOTE | 2020-03-04 03:14 | NUR ---
24 HR chart check completed.
--- NOTE | 2020-03-04 03:59 | NUR ---
PATIENT PLACED ON BIPAP PER PATIENT REQUEST
[2020-03-04 07:33] LABS: BASO % 0.2 % (0.0-1.0); EOS # 0.1 10*3/uL (0.0-0.4); EOS % 0.4 % (1.0-4.0); HEMATOCRIT 36.2 % (42.0-52.0); LYMPH # 0.7 10*3/uL (1.3-4.4); LYMPH % 4.6 % (27.0-41.0); MEAN CELL VOLUME 95.8 fl (80.0-94.0); MEAN CORPUSCULAR HGB 27.5 pg (27.0-31.0); MEAN CORPUSCULAR HGB CONC 28.7 g/dl (33.0-37.0); MEAN PLATELET VOLUME 11.1 fl (9.6-12.3); MONO # 1.3 10*3/uL (0.1-1.0); MONO % 8.4 % (3.0-9.0); NEUT # 12.8 10*3/uL (2.3-7.9); NEUT % 84.4 % (47.0-73.0); PLATELET COUNT AUTOMATED 147 10*3/uL (130-400); RED BLOOD COUNT 3.78 10*6/uL (4.50-5.90); RED CELL DISTRI WIDTH 16.7 % (0-14.5); WHITE BLOOD COUNT 15.2 10*3/uL (4.8-10.8)
[2020-03-04 07:47] LABS: BUN 19 mg/dl (7-24); CHLORIDE 92 mmol/L (98-107); CREATININE 1.03 mg/dL (0.70-1.30); POTASSIUM 3.1 mmol/L (3.5-5.1); SODIUM 136 mmol/L (136-145)
[2020-03-04 09:00] VITALS: BP 96/64
--- NOTE | 2020-03-04 11:19 | NUR ---
NOTIFIED DR. PERRY OF PATIENT CO2. SEE LAB. IMPROVED FROM YESTERDAY.
[2020-03-04 12:00] VITALS: BP 100/62
[2020-03-04 16:00] VITALS: BP 161/52
--- NOTE | 2020-03-04 19:30 | NUR ---
PATIENT RESTING IN BED. ASSESSMENT COMPLETE. DENIES ANY NEEDS/COMPLAINTS AT THIS TIME. REFUSING BIPAP AT THIS TIME. PATIENT UNDERSTANDS IMPORTANCE BUT DOES NOT WISH TO WEAR IT AT THIS TIME. 10LHF NC IN USE. BED IN LOWEST POSITION. BED ALARM ON. CALL LIGHT IN REACH.
[2020-03-04 20:00] VITALS: BP 130/80; BP 155/46
--- NOTE | 2020-03-04 22:56 | NUR ---
24 HR chart check completed.
--- NOTE | 2020-03-04 23:25 | NUR ---
Pt placed on BiPap 26/10 and Fio2 60%. Alarms on and audible.
--- NOTE | 2020-03-05 00:58 | NUR ---
PATIENT WANTING OFF HIS BIPAP AT THIS TIME. PLACED ON 8LHF NC. PATIENT WAS ON 10LHF NC BUT HE HAS BEEN STAYING @ 100%. WILL SEE HOW HE DOES WILL THE 8LHF NC.
--- NOTE | 2020-03-05 01:51 | NUR ---
PATIENT STILL MAINTAINING 100% ON 8LHF NC. TURNED DOWN TO 6LHF NC AT THIS TIME. WILL SEE HOW PATIENT TOLERATES.
--- NOTE | 2020-03-05 03:58 | NUR ---
PATIENTS POX DOWN TO 89% PLACED BACK ON 8LHF NC.
[2020-03-05 06:43] LABS: HEMATOCRIT 34.2 % (42.0-52.0); MEAN CELL VOLUME 98.6 fl (80.0-94.0); MEAN CORPUSCULAR HGB CONC 28.4 g/dl (33.0-37.0); PLATELET COUNT AUTOMATED 149 10*3/uL (130-400); RED BLOOD COUNT 3.47 10*6/uL (4.50-5.90); RED CELL DISTRI WIDTH 16.3 % (0-14.5); WHITE BLOOD COUNT 14.7 10*3/uL (4.8-10.8)
[2020-03-05 06:56] LABS: BUN 22 mg/dl (7-24); CHLORIDE 96 mmol/L (98-107); CREATININE 1.14 mg/dL (0.70-1.30); SODIUM 138 mmol/L (136-145)
[2020-03-05 06:57] LABS: POTASSIUM 4.9 mmol/L (3.5-5.1)
--- NOTE | 2020-03-05 07:18 | NUR ---
NOTIFIED OF CO2 OF 44.
[2020-03-05 08:00] VITALS: BP 178/51
[2020-03-05 08:11] LABS: TOTAL CELLS COUNTED 100 #CELLS
[2020-03-05 08:12] LABS: PLATELET SUFFICIENCY NORMAL (NORMAL)
--- NOTE | 2020-03-05 09:23 | NUR ---
Patient updated clinicals faxed to [facility]. Patient still on 8 Liter HF oxygen. Patient is [facility] and ok to return when oxygen is no longer high flow.
[2020-03-05 12:00] VITALS: BP 159/59
[2020-03-05 16:00] VITALS: BP 154/49
--- NOTE | 2020-03-05 19:30 | NUR ---
RESTING IN BED. DENIES ANY NEEDS. ASSESSMENT COMPLETE. RESPS WNL. CALL LIGHT IN REACH.
[2020-03-05 20:00] VITALS: BP 178/49
--- NOTE | 2020-03-05 20:29 | NUR ---
24 HR chart check completed.
[2020-03-06] VITALS: BP 155/52
--- NOTE | 2020-03-06 02:05 | NUR ---
PATIENT WANTING OFF HIS BIPAP AT THIS TIME. PLACED ON 6LHF NC AND POX @ 100%.
[2020-03-06 08:00] VITALS: BP 154/60; BP 159/61
--- NOTE | 2020-03-06 09:00 | NUR ---
patient will return to [facility] when medically stable, case management will follow
[2020-03-06] MEDS ORDERED: FUROSEMIDE40 MG PO (11:16)
--- NOTE | 2020-03-06 11:38 | NUR ---
Patient is discharged to return to [facility] via [facility] ambulance at 1PM. NH, wine steward/stewardess and patients brother all notified. Discharge orders faxed.
--- NOTE | 2020-03-06 13:03 | NUR ---
Discharge instructions reviewed with patient/family. Patient receptive and verbalizes understanding. Follow-up care arranged. Written instructions given to patient/family. JESSY STOVER
== END 2020-03-06 13:03 | disposition other institution (70) | DRG 291 ==
LOC: ED 18:15 → 4E 21:51 → EDHOLD 21:51 → 4E 23:02 → 5E 03-04 18:04
PROVIDERS: Family Medicine; Hospitalist; Internal Medicine; Internal Medicine Critical Care Medicine; Registered Nurse; Student in an Organized Health Care Education/Training Program; ADMIT Internal Medicine; ATTEND Internal Medicine
PROC: 5A09357 Assistance with Respiratory Ventilation, Less than 24 Consecutive Hours, Continuous Positive Airway Pressure (ICD-10-PCS; 2020-02-20)
PROC: 5A09357 Assistance with Respiratory Ventilation, Less than 24 Consecutive Hours, Continuous Positive Airway Pressure (ICD-10-PCS; 2020-02-21)
PROC: 5A09357 Assistance with Respiratory Ventilation, Less than 24 Consecutive Hours, Continuous Positive Airway Pressure (ICD-10-PCS; 2020-02-22)
PROC: 5A09457 Assistance with Respiratory Ventilation, 24-96 Consecutive Hours, Continuous Positive Airway Pressure (ICD-10-PCS; 2020-02-23)
PROC: 2Y41X5Z Packing of Nasal Region using Packing Material (ICD-10-PCS; principal; 2020-02-24)
PROC: 5A09357 Assistance with Respiratory Ventilation, Less than 24 Consecutive Hours, Continuous Positive Airway Pressure (ICD-10-PCS; 2020-02-24)
PROC: 5A09357 Assistance with Respiratory Ventilation, Less than 24 Consecutive Hours, Continuous Positive Airway Pressure (ICD-10-PCS; 2020-02-25)
PROC: 5A0935A Assistance with Respiratory Ventilation, Less than 24 Consecutive Hours, High Flow/Velocity Cannula (ICD-10-PCS; 2020-02-27)
PROC: 5A09357 Assistance with Respiratory Ventilation, Less than 24 Consecutive Hours, Continuous Positive Airway Pressure (ICD-10-PCS; 2020-02-29)
PROC: 5A0935A Assistance with Respiratory Ventilation, Less than 24 Consecutive Hours, High Flow/Velocity Cannula (ICD-10-PCS; 2020-02-29)
PROC: 5A09357 Assistance with Respiratory Ventilation, Less than 24 Consecutive Hours, Continuous Positive Airway Pressure (ICD-10-PCS; 2020-03-01)
PROC: 5A09357 Assistance with Respiratory Ventilation, Less than 24 Consecutive Hours, Continuous Positive Airway Pressure (ICD-10-PCS; 2020-03-02)
PROC: 5A0935A Assistance with Respiratory Ventilation, Less than 24 Consecutive Hours, High Flow/Velocity Cannula (ICD-10-PCS; 2020-03-02)
PROC: 5A09357 Assistance with Respiratory Ventilation, Less than 24 Consecutive Hours, Continuous Positive Airway Pressure (ICD-10-PCS; 2020-03-03)
PROC: 5A0935A Assistance with Respiratory Ventilation, Less than 24 Consecutive Hours, High Flow/Velocity Cannula (ICD-10-PCS; 2020-03-03)
PROC: 5A09357 Assistance with Respiratory Ventilation, Less than 24 Consecutive Hours, Continuous Positive Airway Pressure (ICD-10-PCS; 2020-03-04)
PROC: 5A0935A Assistance with Respiratory Ventilation, Less than 24 Consecutive Hours, High Flow/Velocity Cannula (ICD-10-PCS; 2020-03-04)
PROC: 5A09357 Assistance with Respiratory Ventilation, Less than 24 Consecutive Hours, Continuous Positive Airway Pressure (ICD-10-PCS; 2020-03-05)
PROC: 5A0945A Assistance with Respiratory Ventilation, 24-96 Consecutive Hours, High Flow/Velocity Cannula (ICD-10-PCS; 2020-03-05)
DX: I13.0 Hypertensive heart and chronic kidney disease with heart failure and stage 1 through stage 4 chronic kidney disease, or unspecified chronic kidney disease (principal); J18.9 Pneumonia, unspecified organism; N17.0 Acute kidney failure with tubular necrosis; J96.22 Acute and chronic respiratory failure with hypercapnia; J96.21 Acute and chronic respiratory failure with hypoxia; I50.31 Acute diastolic (congestive) heart failure; E87.1 Hypo-osmolality and hyponatremia; E44.0 Moderate protein-calorie malnutrition; J44.0 Chronic obstructive pulmonary disease with (acute) lower respiratory infection; E87.4 Mixed disorder of acid-base balance; J44.1 Chronic obstructive pulmonary disease with (acute) exacerbation; R00.1 Bradycardia, unspecified; D53.9 Nutritional anemia, unspecified; R73.9 Hyperglycemia, unspecified; E83.41 Hypermagnesemia; Z20.828 Contact with and (suspected) exposure to other viral communicable diseases; E78.5 Hyperlipidemia, unspecified; I25.10 Atherosclerotic heart disease of native coronary artery without angina pectoris; K21.9 Gastro-esophageal reflux disease without esophagitis; F32.9 Major depressive disorder, single episode, unspecified; G30.9 Alzheimer's disease, unspecified; F02.80 Dementia in other diseases classified elsewhere, unspecified severity, without behavioral disturbance, psychotic disturbance, mood disturbance, and anxiety; M1A.9XX0 Chronic gout, unspecified, without tophus (tophi); E87.6 Hypokalemia; N40.1 Benign prostatic hyperplasia with lower urinary tract symptoms; R91.8 Other nonspecific abnormal finding of lung field; E04.1 Nontoxic single thyroid nodule; F41.9 Anxiety disorder, unspecified; Z66 Do not resuscitate; Z51.5 Encounter for palliative care; I67.9 Cerebrovascular disease, unspecified; G62.9 Polyneuropathy, unspecified; Z96.652 Presence of left artificial knee joint; I73.9 Peripheral vascular disease, unspecified; N18.9 Chronic kidney disease, unspecified; I48.91 Unspecified atrial fibrillation; G47.33 Obstructive sleep apnea (adult) (pediatric); I89.0 Lymphedema, not elsewhere classified; R04.0 Epistaxis; E66.9 Obesity, unspecified; Z96.651 Presence of right artificial knee joint; T68.XXXA Hypothermia, initial encounter; I95.9 Hypotension, unspecified; T50.2X5A Adverse effect of carbonic-anhydrase inhibitors, benzothiadiazides and other diuretics, initial encounter; Z99.81 Dependence on supplemental oxygen; Z87.891 Personal history of nicotine dependence; Z82.49 Family history of ischemic heart disease and other diseases of the circulatory system; Z82.0 Family history of epilepsy and other diseases of the nervous system; Z80.0 Family history of malignant neoplasm of digestive organs; Z79.899 Other long term (current) drug therapy; Z79.02 Long term (current) use of antithrombotics/antiplatelets; Y92.89 Other specified places as the place of occurrence of the external cause; Z79.52 Long term (current) use of systemic steroids; Z68.34 Body mass index [BMI] 34.0-34.9, adult

== ENCOUNTER 2020-03-13 08:26 | Inpatient (IN) | payer MEDICARE, MEDICAID ==
[2020-03-13] VITALS (9 sets, daily range): BP systolic 69–143; BP diastolic 36–82
[~2020-03-13] VITALS: Ht 175.2 cm; Wt 99.1 kg
--- NOTE | 2020-03-13 10:19 | NUR ---
FAMILY AT BEDSIDE DISCUSSING A DECISION ON IF THEY ARE GOING TO PUT THE PT ON HOSPICE.
--- NOTE | 2020-03-13 11:39 | NUR ---
LOOM FIXER APPRENTICE FAXED REFERRAL TO [facility]. LOOM FIXER APPRENTICE SPOKE WITH [facility] THEY WOULD BE ABLE TO SEE THE PATIENT IS TOMORROW MORNING. LOOM FIXER APPRENTICE NOTIFIED [employer]LECT[employer] TECH OK VIA [employer] TEXT.
--- NOTE | 2020-03-13 12:19 | NUR ---
PT FAMILY AT BEDSIDE. STATUS UNCHANGED.
--- NOTE | 2020-03-13 14:12 | NUR ---
PT NOW MORE ALERT AND TALKING TO ME. OPENING EYES. VITAL SIGNS IMPROVING.
--- NOTE | 2020-03-13 16:42 | NUR ---
PT IS RESTING IN ROOM. VSS.
--- NOTE | 2020-03-13 18:25 | NUR ---
CONTACTED NURSE TO GET PATIENT UPSTAIRS AND SHE IS IN A COVID ROOM AT THIS TIME AND WILL CALL BACK.
--- NOTE | 2020-03-13 18:40 | NUR ---
A 64, admitted to , under the services of TASHA Cantrell DO with a diagnosis of HOSPICE CARE. Chief complaint is SOB. Patient arrived via bed from ER. Monitor applied. Initial assessment completed. Vital signs taken and recorded. TASHA CANTRELL DO notified of admission to the unit. Orders received. See assessment for past medical history, medications and allergies. Patient and/or family oriented to unit. [address] visitation policy reviewed. Clothing/patient valuable form completed. ANGELA MATAMOROS
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
[2020-03-14] VITALS: BP 126/49
--- NOTE | 2020-03-14 00:02 | NUR ---
PATIENT RESTING IN BED WITH OXYGEN INTACT. NO S/S OF DISTRESS. BED IN LOWEST POSITION, CALL LIGHT IN REACH
[2020-03-14] MEDS ORDERED: PROVENTIL HFA6.7 GM INH (04:55)
--- NOTE | 2020-03-14 04:57 | NUR ---
MED REC COMPLETED WITH LIST SENT FROM RESIDENTIAL
[2020-03-14 08:00] VITALS: BP 152/62
--- NOTE | 2020-03-14 08:16 | NUR ---
[facility] WILL BE IN TO MEET THIS PATIENT AND FAMILY AT 9:30AM. SECRETARY TO THE VICE PRESIDENT NOTIFIED ASHER FISCHER, TUBE FILLER TERRIE MENDOZA, AND SECURITY.
--- NOTE | 2020-03-14 11:34 | NUR ---
PT DISCHARGED AND READMITTED TO [facility] AT THIS TIME.
[2020-03-15] MEDS ORDERED: ATIVAN0.5 MG PO (15:29)
[2020-03-15] MEDS ORDERED: MORPHINE S10 MG/5 M2 PO (15:29)
== END 2020-03-14 11:43 | disposition hospice, home (50) | DRG 189 ==
LOC: ED 08:26 → 4E 10:48 → EDHOLD 10:48 → 4E 18:03
PROVIDERS: ADMIT Internal Medicine; ATTEND Internal Medicine
DX: J96.21 Acute and chronic respiratory failure with hypoxia (principal); I13.0 Hypertensive heart and chronic kidney disease with heart failure and stage 1 through stage 4 chronic kidney disease, or unspecified chronic kidney disease; Z51.5 Encounter for palliative care; I95.9 Hypotension, unspecified; R00.1 Bradycardia, unspecified; J44.9 Chronic obstructive pulmonary disease, unspecified; F03.90 Unspecified dementia, unspecified severity, without behavioral disturbance, psychotic disturbance, mood disturbance, and anxiety; E78.5 Hyperlipidemia, unspecified; I25.10 Atherosclerotic heart disease of native coronary artery without angina pectoris; Z66 Do not resuscitate; N18.9 Chronic kidney disease, unspecified; G25.81 Restless legs syndrome; I48.91 Unspecified atrial fibrillation; Z96.642 Presence of left artificial hip joint; K21.9 Gastro-esophageal reflux disease without esophagitis; G62.9 Polyneuropathy, unspecified; F41.9 Anxiety disorder, unspecified; N40.0 Benign prostatic hyperplasia without lower urinary tract symptoms; I50.9 Heart failure, unspecified; M10.9 Gout, unspecified; F32.9 Major depressive disorder, single episode, unspecified; I73.9 Peripheral vascular disease, unspecified; Z99.81 Dependence on supplemental oxygen; Z87.891 Personal history of nicotine dependence; Z82.49 Family history of ischemic heart disease and other diseases of the circulatory system; Z80.0 Family history of malignant neoplasm of digestive organs; Z82.0 Family history of epilepsy and other diseases of the nervous system; Z79.899 Other long term (current) drug therapy

== ENCOUNTER 2020-03-14 11:46 | Inpatient (IN) | payer OTHER, MEDICARE, MEDICAID ==
[~2020-03-14] VITALS: Ht 172.7 cm; Wt 99.1 kg
--- NOTE | 2020-03-14 09:00 | NUR ---
Health Care Technician in to talk to patient. Patient states lives at [facility] with other residents. There are no steps in the home. 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 psychotherapist social worker working with patient and family with hospice. case management will follow. MARCO BLAND
[~2020-03-14 11:46] MED LIST changes: +PROVENTIL HFA6.7 GM INH
[2020-03-14 12:00] VITALS: BP 160/72
--- NOTE | 2020-03-14 12:30 | NUR ---
Time: 1230 A 64 year old MALE admitted to under services of TASHA CANTRELL DO Pt. arrived via bed from [place]. Chief complaint: PT ADMITTED FOR CARE UNDER [facility] . CHEMA HERRERA
[2020-03-14 16:16] VITALS: BP 156/57
--- NOTE | 2020-03-14 17:15 | NUR ---
PT MEDICATED WITH PRN ATIVAN FOR INCREASED AGITATION. WILL MONITOR.
--- NOTE | 2020-03-14 17:45 | NUR ---
PRN ATIVAN APPEARS EFFECTIVE.
[2020-03-14 20:00] VITALS: BP 109/49
--- NOTE | 2020-03-14 21:00 | NUR ---
PATIENT RESTING IN BED. NO DISTRESS NOTED. MUMBLES. IS CONFUSED, BUT PLEASANT. STATING THAT HE WANTS AN "ICE COLD BEER". BED ALARM INTACT. PATIENT ON 10L HIGH FLOW NASAL CANNULA. CALL LIGHT WITHIN REACH, WILL MONITOR
--- NOTE | 2020-03-14 23:30 | NUR ---
PATIENT INCREASED TO 15L ON HIGH FLOW DUE TO LOW PULSE OX. PATIENT STILL MUMBLING AND LAUGHING. CALL LIGHT WITHIN REACH, BED ALARM INTACT, WILL MONITOR
[2020-03-15] VITALS: BP 147/75
--- NOTE | 2020-03-15 03:00 | NUR ---
PATIENT SLEEPING SOUNDLY AFTER BED BATH. NO DISTRESS NOTED. BREATHING IS EASY AND REGULAR ON 15L HIGH FLOW. CALL LIGHT WTIHIN REACH, WILL MONITOR
--- NOTE | 2020-03-15 04:31 | NUR ---
24 HR chart check completed.
[2020-03-15 08:00] VITALS: BP 174/54
[2020-03-15 12:00] VITALS: BP 109/51
--- NOTE | 2020-03-15 14:12 | NUR ---
PATIENT VERY AGITATED - YELLING OUT & SCREAMING "HELP ME!", MEDICATED WITH IV AITVAN PER ORDER FOR AGITATION. WILL MONITOR FOR EFFECTIVENESS.
--- NOTE | 2020-03-15 14:46 | NUR ---
SPECIAL EDUCATION SUPERVISOR SPOKE WITH [facility]. SPECIAL EDUCATION SUPERVISOR INFORMED THEM OF DRS WANTING PATIENT TO RETURN TO [facility] UNDER THEIR SERVICES. THEY ARE WORKING WITH THEIR DME FREELANCE DIGITAL PROJECT MANAGER TO ARRANGE FOR PTS 15LO2 REQUIREMENT. [facility] STATED IT COULD BE THIS EVENING OR TOMMORROW BEFORE IT WOULD BE IN PLACE. SPECIAL EDUCATION SUPERVISOR SPOKE WITH RN HOSPITALIST COORDINATOR KOREY.
--- NOTE | 2020-03-15 14:52 | NUR ---
PATIENT AGITATED WITH INCREASED RESPIRATIONS @ 34/MIN. MEDICATED WITH IV MORPHINE PER ORDER. WILL MONITOR.
--- NOTE | 2020-03-15 15:13 | NUR ---
REELING MACHINE OPERATOR RECEIVED CALL BACK FROM [facility]. PATIENTS DME IS IN PLACE AND HE CAN RETURN TO [facility] WITH HOSPICE SERVICES. HER CONTACT INFO IS [phone]. PATIENTS HOSPICE ID (USED FOR TRANSPORT) IS [id number]. REELING MACHINE OPERATOR SPOKE WITH DR. BECK AND INFORMED HER THIS PATIENT CAN DISCHARGE TO [facility]. REELING MACHINE OPERATOR NOTIFIED [facility] THAT PATIENT WILL BE RETURNING. REELING MACHINE OPERATOR [facility].
[2020-03-15] MEDS ORDERED: ATIVAN0.5 MG PO (15:29)
[2020-03-15] MEDS ORDERED: MORPHINE S10 MG/5 M2 PO (15:29)
[2020-03-15 16:00] VITALS: BP 86/57
--- NOTE | 2020-03-15 17:55 | NUR ---
PATIENT PICJKED UP BY [facility] AND TRANSPORTED TO [facility] FOR CONTINUATION IN HOSPICE CARE. [place]PLOCK DISCONTINUED. PAPER SCRIPTS PLACED IN CHART. REPORT GIVEN TO AMBULANCE AND RECEIVING NURSE @ [facility].
== END 2020-03-15 18:18 | disposition hospice, home (50) | DRG 189 ==
LOC: 4E 11:46
PROVIDERS: ADMIT Internal Medicine; ATTEND Internal Medicine
DX: J96.01 Acute respiratory failure with hypoxia (principal); Z51.5 Encounter for palliative care; I50.9 Heart failure, unspecified; J44.9 Chronic obstructive pulmonary disease, unspecified; F03.90 Unspecified dementia, unspecified severity, without behavioral disturbance, psychotic disturbance, mood disturbance, and anxiety; E78.5 Hyperlipidemia, unspecified; I25.10 Atherosclerotic heart disease of native coronary artery without angina pectoris; K21.9 Gastro-esophageal reflux disease without esophagitis; F32.9 Major depressive disorder, single episode, unspecified; F41.9 Anxiety disorder, unspecified; N40.0 Benign prostatic hyperplasia without lower urinary tract symptoms; G25.81 Restless legs syndrome; I48.91 Unspecified atrial fibrillation; I11.0 Hypertensive heart disease with heart failure; Z66 Do not resuscitate; Z79.899 Other long term (current) drug therapy